=== PATIENT | male | born 1965 | race Caucasian/White ===

== ENCOUNTER 2019-04-19 13:22 | Inpatient (IN) ==
--- NOTE | 2019-04-19 15:01 | Emergency Department Note ---
General Adult HPI - General Source: patient Mode of arrival: wheelchair Limitations: no limitations <Garfield Markham - Last Filed: 04/19/19 14:43> <Alva Villalta - Last Filed: 04/19/19 17:47> - General Chief complaint: Extremity Injury, Lower Stated complaint: lower extremity Time Seen by Provider: 04/19/19 14:24 - History of Present Illness HPI Narrative: Reason for visit. Pt states that he is here to gain services to help manage his diabetes and health. He has new access to [facility]. He wants a primary provider and a place to stay while he is healing up from his recent foot surgery. He had the distal 3rd of his r foot amputated [address]eiros[address] He reports he is homeless and lives on the [address]. He denies systemic symptoms such as fever, chills, SOB, palpations or chest pain. He denies weakness or malaise. He was seen at [facility] 4 days ago and was treated. He is currently taking Keflex for complications regarding foot amputation. He wants to talk to someone who manages nephrology social worker to see what benefits he can obtain. I was informed after my interview that he had left AMA during his visit at [facility]. (Garfield Markham) Agree with HPI done by Garfield, nurse practitioner student. Patient was supposed to follow-up with Dr. Medeiros 2 days ago. He did not do so and does not have a reason. He seems to not know that he was supposed to follow-up 2 days ago. He also is homeless and has an extremely hard time getting around due to the new amputation as well as a few toes that were previously amputated off the other foot. States he cannot stay off his feet, has no other means of transport. His blood sugars have been out of control. He is currently eating candy and drinking Powerade and states he is homeless and has no money and he just eats and drinks when he can. He is tearful and states he is frustrated and wants to get placed in a fpc. States he cannot take care of himself. States he needs help with insurance, getting placement in a fpc, and getting a primary care provider because he does not want to keep losing his limbs. He denies fever chills. Direct denies drainage from the affected surgical site. As stated he did not follow-up 2 days ago and is unsure when he supposed to follow-up or what he supposed to do now as far as wound care taking care of that foot. (Alva Villalta) - Related Data Allergies Allergy/AdvReac Type Severity Reaction Status Date / Time No Known Drug Allergies Allergy Unverified 04/19/19 13:23 Review of Systems Constitutional: Reports: as per HPI. Denies: fever, chills, weakness, sweats Eyes: Denies: eye discharge, vision change ENT ED: Denies: ear pain, throat pain, congestion Cardiovascular: Denies: chest pain, palpitations, edema, syncope Respiratory: Denies: shortness of breath, wheezes Gastrointestinal: Denies: abdominal pain, nausea, vomiting, constipation Genitourinary: Denies: dysuria, frequency Musculoskeletal: Denies: back pain, joint pain, muscle cramps Integumentary: Denies: rash, lesions, pruritus Neurological: Reports: numbness, paresthesias (diabetic foot neuropathy). Denies: headache, weakness Endocrine: Denies: fatigue, heat or cold intolerance Hematological/Lymphatic: Denies: easy bleeding, easy bruising, lymphadenopathy Allergic/Immunologic: Denies: urticaria <Garfield Markham - Last Filed: 04/19/19 14:43> All systems ED: reviewed and negative except as stated. <LauradeborahnathanAlva Lynette - Last Filed: 04/19/19 17:47> Past Medical History - Social History smoking status: Current every day smoker <Garfield Markham - Last Filed: 04/19/19 14:43> - Past Medical History Medical history: Reports: DM, other (denies other history) Psychiatric history: Reports: other (homeless) Surgical history ED: Reports: other (Right foot amputation recently by Dr. Medeiros and toe amputations the left previously.) - Social History smoking status: Current every day smoker Alcohol use: Reports: Unknown Drug use: Reports: unknown, marijuana, other (Patient states he only uses marijuana however his urine and phentermine and he insists there is no way he does not amphetamines.) <Alva Villalta - Last Filed: 04/19/19 17:47> Physical Exam Limitations: no limitations General appearance: alert Head: atraumatic, normocephalic, normal inspection Eye: Present: normal appearance, PERRL, EOMI. Absent: scleral icterus ENT: normal exam, normal oropharynx, mucous membranes moist Neck: Present: normal inspection, trachea midline. Absent: tenderness, lymphadenopathy Chest: Present: symmetric chest wall rise Respiratory: Present: normal lung sounds bilaterally Cardiovascular: Present: regular rate, normal rhythm, +S1, +S2 Abdominal: Absent: tenderness, guarding Extremities: Present: full ROM, normal capillary refill, other (Recent amputation of R foot. Red eschare across distal area. pink warm surrounding tissue.). Absent: calf tenderness <Brown,Garfield - Last Filed: 04/19/19 14:43> Limitations: no limitations General appearance: alert, other (dishelved) Head: atraumatic, normocephalic, normal inspection ENT: mucous membranes moist Chest: Present: symmetric chest wall rise Respiratory: Present: normal lung sounds bilaterally. Absent: respiratory distress, rales/crackles, stridor, accessory muscle use Cardiovascular: Present: regular rate Extremities: Present: other Neurological: Present: alert Psychiatric: Present: normal affect, normal mood Skin: Present: warm, dry. Absent: rash <JorgenathanAlva Lynette - Last Filed: 04/19/19 17:47> Course <Alva Villaltae - Last Filed: 04/19/19 17:47> Course Narrative: Patient also seen by Dr. Roberson as well as myself. I did contact Dr. gomez who said he would be willing to consult on the patient if he is admitted, for wound care. At 1720 we did put in a call into the warehouse coordinator to request a bed and speak to the hospitalist about possible admission. His blood sugar was initially in the 400s and despite 14 units of insulin subcu per standard sliding scale he is now up to the 500s. phlebotomy services representative, Cass has been on here via, wound care consult, and try to get him set up to go to a fpc placement as he is unable to care for himself. @1745 Dr. Flynn accepted patient (Alva Villalta) Vital Signs Temperature 97.7 F 04/19/19 13:23 Pulse Rate 89 04/19/19 13:23 Respiratory Rate 18 04/19/19 13:23 Blood Pressure 130/77 04/19/19 13:23 Pulse Oximetry (%) 100 04/19/19 13:23 Temperature 97.7 F 04/19/19 13:23 Pulse Rate 89 04/19/19 13:23 Respiratory Rate 18 04/19/19 13:23 Blood Pressure 130/77 04/19/19 13:23 Pulse Oximetry (%) 100 04/19/19 13:23 Medical Decision Making - Lab Data Lab results reviewed: Yes I reviewed the patient's lab results. Result diagrams: 04/19/19 14:57 04/19/19 14:58 <LauraAlva collins - Last Filed: 04/19/19 17:47> - Lab Data Lab Results 04/19/19 04/19/19 04/19/19 Range/Units 14:57 14:57 14:57 WBC 3.5 L (4.5-11.0) K/mcL RBC 3.32 L (4.50-5.90) M/mcL Hgb 9.9 L (13.5-16.5) g/dL Hct 30.5 L (41.0-55.0) % MCV 91.6 (80.0-100.0) fL MCH 29.9 (26.0-34.0) pg MCHC 32.6 (31.0-36.0) g/dL RDW 15.3 H (11.5-14.5) % Plt Count 297 (140-440) K/mcL MPV 9.8 (7.4-10.4) fL Gran % 49.3 (38.0-78.0) % Lymph % (Auto) 42.0 (15.5-49.0) % Wilson % (Auto) 6.2 (1.0-12.0) % Eos % (Auto) 1.1 (0.0-7.0) % Baso % (Auto) 1.4 (0.0-2.0) % Gran # 1.7 L (1.8-8.0) K/mcL Lymph # (Auto) 1.5 (1.5-4.8) K/mcL Wilson # (Auto) 0.2 (0.1-0.9) K/mcL Eos # (Auto) 0 (0.0-0.7) K/mcL Baso # (Auto) 0 (0.0-0.3) K/mcL ESR 81 H (0-15) mm/hr Sodium (133-145) mmol/L Potassium (3.3-5.1) mmol/L Chloride (96-108) mmol/L Carbon Dioxide (22-30) mmol/L Anion Gap (8-16) BUN (6-20) mg/dl Creatinine (0.7-1.2) mg/dl GFR Calculation Glucose (70-105) mg/dL Calcium (8.6-10.4) mg/dl Total Bilirubin (0.0-1.0) mg/dL AST (0-37) U/l ALT (0-40) U/l Alkaline Phosphatase (39-117) U/L C-Reactive Protein 0.3 (0.0-0.8) mg/dl Total Protein (5.9-8.4) gm/dL Albumin (3.2-5.2) gm/dL Globulin (2.2-3.7) gm/dL Albumin/Globulin Ratio (1.0-2.3) Urine Color Urine Appearance Urine pH (5.0-9.0) Ur Specific [place] (1.000-1.035) Urine Protein (NEG) mg/dL Urine Glucose (UA) (NEG) mg/dL Urine Ketones (NEG) mg/dL Urine Occult Blood (<0.03) mg/dL Urine Nitrate (NEG) Urine Bilirubin (NEG) mg/dL Urine Urobilinogen (NEG) mg/dL Ur Leukocyte Esterase (NEG) /uL Urine RBC (0-1) /hpf Urine WBC (0-4) /hpf Ur Squamous Epith Cells (0-4) /hpf Urine Bacteria (0) /hpf Urine Mucus (0) /hpf Ur Culture Indicated? Urine Opiates Screen (NONDETECTED) Ur Oxycodone Screen (NONDETECTED) Urine Methadone Screen (NONDETECTED) Ur Barbiturates Screen (NONDETECTED) Ur Phencyclidine Scrn (NONDETECTED) Ur Amphetamines Screen (NONDETECTED) U Benzodiazepines Scrn (NONDETECTED) Urine Cocaine Screen (NONDETECTED) U Marijuana (THC) Screen (NONDETECTED) 04/19/19 04/19/19 04/19/19 Range/Units 14:58 14:58 14:59 WBC (4.5-11.0) K/mcL RBC (4.50-5.90) M/mcL Hgb (13.5-16.5) g/dL Hct (41.0-55.0) % MCV (80.0-100.0) fL MCH (26.0-34.0) pg MCHC (31.0-36.0) g/dL RDW (11.5-14.5) % Plt Count (140-440) K/mcL MPV (7.4-10.4) fL Gran % (38.0-78.0) % Lymph % (Auto) (15.5-49.0) % Wilson % (Auto) (1.0-12.0) % Eos % (Auto) (0.0-7.0) % Baso % (Auto) (0.0-2.0) % Gran # (1.8-8.0) K/mcL Lymph # (Auto) (1.5-4.8) K/mcL Wilson # (Auto) (0.1-0.9) K/mcL Eos # (Auto) (0.0-0.7) K/mcL Baso # (Auto) (0.0-0.3) K/mcL ESR (0-15) mm/hr Sodium 132 L (133-145) mmol/L Potassium 4.6 (3.3-5.1) mmol/L Chloride 97 (96-108) mmol/L Carbon Dioxide 23 (22-30) mmol/L Anion Gap 12.0 (8-16) BUN 10 (6-20) mg/dl Creatinine 0.7 (0.7-1.2) mg/dl GFR Calculation 109 Glucose 395 H (70-105) mg/dL Calcium 8.6 (8.6-10.4) mg/dl Total Bilirubin 0.3 (0.0-1.0) mg/dL AST 26 (0-37) U/l ALT 27 (0-40) U/l Alkaline Phosphatase 181 H (39-117) U/L C-Reactive Protein (0.0-0.8) mg/dl Total Protein 7.1 (5.9-8.4) gm/dL Albumin 3.4 (3.2-5.2) gm/dL Globulin 3.7 (2.2-3.7) gm/dL Albumin/Globulin Ratio 0.9 L (1.0-2.3) Urine Color Straw Urine Appearance Clear Urine pH 6.0 (5.0-9.0) Ur Specific [place] 1.009 (1.000-1.035) Urine Protein Neg (NEG) mg/dL Urine Glucose (UA) >=500 A (NEG) mg/dL Urine Ketones Neg (NEG) mg/dL Urine Occult Blood Neg (<0.03) mg/dL Urine Nitrate Neg (NEG) Urine Bilirubin Neg (NEG) mg/dL Urine Urobilinogen Neg (NEG) mg/dL Ur Leukocyte Esterase Neg (NEG) /uL Urine RBC 0 (0-1) /hpf Urine WBC < 1 (0-4) /hpf Ur Squamous Epith Cells < 1 (0-4) /hpf Urine Bacteria 0 (0) /hpf Urine Mucus Few (0) /hpf Ur Culture Indicated? No Urine Opiates Screen None detected (NONDETECTED) Ur Oxycodone Screen None detected (NONDETECTED) Urine Methadone Screen None detected (NONDETECTED) Ur Barbiturates Screen None detected (NONDETECTED) Ur Phencyclidine Scrn None detected (NONDETECTED) Ur Amphetamines Screen Suspect positive A (NONDETECTED) U Benzodiazepines Scrn None detected (NONDETECTED) Urine Cocaine Screen None detected (NONDETECTED) U Marijuana (THC) Screen Suspect positive A (NONDETECTED) Disposition <Garfield Markham - Last Filed: 04/19/19 14:43> Pt seen by CORPORATE MANAGER/PA only: No Time of Disposition: 17:45 <Alva Villalta - Last Filed: 04/19/19 17:47> Clinical Impression: Uncontrolled diabetes mellitus, Hyperglycemia, Status post amputation of right foot, Homeless Disposition: Xfer As Outpt/Obs ([facility]) Condition: Fair
[2019-04-19 15:29] LABS: Basophils # (Auto) 0 K/mcL (0.0-0.3); Basophils % (Auto) 1.4 % (0.0-2.0); Eosinophils # (Auto) 0 K/mcL (0.0-0.7); Eosinophils % (Auto) 1.1 % (0.0-7.0); Granulocytes % (Auto) 49.3 % (38.0-78.0); Hematocrit 30.5 % (41.0-55.0); Hemoglobin 9.9 g/dL (13.5-16.5); Lymphocytes # (Auto) 1.5 K/mcL (1.5-4.8); Mean Cell Volume 91.6 fL (80.0-100.0); Mean Corpuscular HGB Conc 32.6 g/dL (31.0-36.0); Mean Platelet Volume 9.8 fL (7.4-10.4); Monocytes # (Auto) 0.2 K/mcL (0.1-0.9); Monocytes % (Auto) 6.2 % (1.0-12.0); Platelet Count 297 K/mcL (140-440); RBC 3.32 M/mcL (4.50-5.90); Red Cell Distribution Width 15.3 % (11.5-14.5); WBC 3.5 K/mcL (4.5-11.0)
[2019-04-19 15:29] LABS: Appearance,Urine CLEAR; Bacteria,Urine 0 /hpf (0); Bilirubin,Urine NEG (NEG); Color,Urine STRAW; Culture Indicated,Urine NO; Glucose,Urine (UA) >=500 mg/dL (NEG); Ketones,Urine NEG (NEG); Leukocyte Esterase,Urine NEG /uL (NEG); Mucus,Urine FEW /hpf (0); Nitrate,Urine NEG (NEG); Protein,Urine NEG (NEG); Specific Gravity,Urine 1.009 (1.000-1.035); Urine Blood NEG mg/dL (<0.03); Urine RBC 0 /hpf (0-1); Urine Squamous Epithelial Cell < 1 /hpf (0-4); Urine WBC < 1 /hpf (0-4); Urobilinogen,Urine NEG (NEG)
[2019-04-19 15:36] LABS: Amphetamine Screen,Urine SUSPECT POSITIVE (NONDETECTED); Barbiturate Screen,Urine NONE DETECTED (NONDETECTED); Benzodiazepines Screen,Urine NONE DETECTED (NONDETECTED); Cannabinoid Screen,Urine SUSPECT POSITIVE (NONDETECTED); Cocaine Screen,Urine NONE DETECTED (NONDETECTED); Opiate Screen,Urine NONE DETECTED (NONDETECTED); Oxycodone, Urine Screen NONE DETECTED (NONDETECTED); Phencyclidine Screen,Urine NONE DETECTED (NONDETECTED)
[2019-04-19 15:47] LABS: ALT/SGPT 27 U/l (0-40); AST/SGOT 26 U/l (0-37); Albumin 3.4 gm/dL (3.2-5.2); Albumin/Globulin Ratio 0.9 (1.0-2.3); Alkaline Phosphatase 181 U/L (39-117); Bilirubin,Total 0.3 mg/dL (0.0-1.0); Blood Urea Nitrogen 10 mg/dl (6-20); Calcium 8.6 mg/dl (8.6-10.4); Carbon Dioxide 23 mmol/L (22-30); Chloride 97 mmol/L (96-108); Globulin 3.7 gm/dL (2.2-3.7); Glomerular Filtration Rate 109; Glucose 395 mg/dL (70-105); Potassium 4.6 mmol/L (3.3-5.1); Sodium 132 mmol/L (133-145)
[2019-04-19] MEDS ORDERED: INSULIN REGULAR, HUMAN 1 UNIT/0.01 ML UNIT SQ ONE (15:56)
[2019-04-19] MEDS ORDERED: 0.9 % SODIUM CHLORIDE 1,000 ML IV ONE (17:19)
[2019-04-19] MEDS ORDERED: INSULIN REGULAR, HUMAN 1 UNIT/0.01 ML UNIT IV ONE (17:19)
--- NOTE | 2019-04-19 18:08 | Internal Med History&Physical ---
Medical - H&P: HPI Patient information: Note initiated : 04/19/19 at 6:03 pm Service Date, if different from initiated Date: [] Patient: Wilfrido Damon a 53 y/o M admitted on for Lower Extremity. Chief Complaint: [] History of present illness: Mr. aDmon is a 53 year old M Who has had history of uncontrolled diabetes and osteomyelitis of his toes and has had amputations of the left toes and most recently transtarsal mentation of his right foot at [facility]. Most recent documentation [facility] per the hospitalist referencing the infectious disease specialist with 6 weeks of IV Zosyn. Patient became frustra julian regarding insurance and coverage and ended up leaving [place]. Does not sound like he has been on any antibiotics until he visited [facility] again 4 days ago to have his foot checked. It was checked in the ED and the wound appeared to be well per notes. He was given Keflex. Which is been taken for past 3 4 days. He came to [facility] for help to establish with primary care provider and wound care and placement as he is homeless and he says he has difficult time getting medications including his insulin. He was able to get his insulin recently at [facility] but has not been taking his insulin regularly. Patient does have history of drug use with IV methamphetamines as well as s moking it. He is marijuana. He has no pains or complaints at this time just desires help with this medical issues and placement. Case management has been involved with his care down the ER and is hoping to get a place to [facility]. Dr. angel is been talked to her in the ED as well will consult. Review of Systems: Pertinent positives as above. Denies headache/fever/chills/nausea/vomiting/ chest or abdominal pain/cough/dyspnea/diarrhea. Remaining 10 point review of systems reviewed negative Medical - H&P: PMH Medical history: Past medical history: Diabetes Anemia Osteomyelitis involving the left fourth and fifth digits with subsequent amputat ions as well as right great toe and subsequent right forefoot amputation Diabetic neuropathy Tobacco abuse methamphetamine use Past surgical history: Hernia repair left fourth and fifth digits right great toe and right hand metatarsal most recently Family history: Mother and father both of diabetes Social history: He smokes half pack cigarettes per day Drinks a beer a month Use marijuana and methamphetamine dates last use a week ago Medical - H&P: Meds Allergies Allergy/AdvReac Type Severity Reaction Status Date / Time No Known Drug Allergies Allergy Unverified 04/19/19 13:23 Medical - H&P: Exam - Constitutional Vitals: Temp Pulse Resp BP Pulse Ox 97.7 F 92 H 18 121/73 98 04/19/19 13:23 04/19/19 17:46 04/19/19 17:46 04/19/19 17:46 04/19/19 17:46 Medical - H&P: Reslt - Labs CBC & Chem 7: 04/19/19 14:57 04/19/19 14:58 Labs: Short CBC 04/19/19 Range/Units 14:57 WBC 3.5 L (4.5-11.0) K/mcL Hgb 9.9 L (13.5-16.5) g/dL Hct 30.5 L (41.0-55.0) % Plt Count 297 (140-440) K/mcL BMP 04/19/19 14:58 Sodium 132 L Potassium 4.6 Chloride 97 Carbon Dioxide 23 BUN 10 Creatinine 0.7 Glucose 395 H Calcium 8.6 Liver Function 04/19/19 Range/Units 14:58 Total Bilirubin 0.3 (0.0-1.0) mg/dL AST 26 (0-37) U/l ALT 27 (0-40) U/l Alkaline Phosphatase 181 H (39-117) U/L Albumin 3.4 (3.2-5.2) gm/dL Urine 04/19/19 Range/Units 14:58 Urine Color Straw Urine Appearance Clear Urine pH 6.0 (5.0-9.0) Ur Specific [place] 1.009 (1.000-1.035) Urine Protein Neg (NEG) mg/dL Urine Glucose (UA) >=500 A (NEG) mg/dL Medical - H&P: A/P - Narrative A/P Narrative: A: *Uncontrolled diabetes with neuropathy: Nonadherent with diabetic diet and noncompliant with strict insulin dosing regimen *Recent right foot amputation for diabetic infection and osteomyelitis: Performed by Dr. Medeiros at [facility]. -Per last notes from [facility] patient was was given Zosyn for 6 weeks but left AMA *Anemia, chronic *Tobacco abuse: *Substance abuse with methamphetamine: *Homeless: * P: -Zosyn -Dr. angel consult -Dr. Tolentino Consult -Clarify home insulin regimen and start basal dose as well as sliding scale -Diabetic education -Case management for placement -Substance and smoking cessation counseling -ppx:
[2019-04-19] MEDS ORDERED: IOPAMIDOL 100 ML BOTTLE IV ONE (18:48)
[2019-04-19] MEDS ORDERED: DEXTROSE 31 GM ORAL.SUSP PO PRN (18:50)
[2019-04-19] MEDS ORDERED: DEXTROSE 50% 50 ML VIAL IV PRN (18:50)
[2019-04-19] MEDS ORDERED: ONDANSETRON 4 MG/2 ML VIAL IV PRN (18:50)
[2019-04-19] MEDS ORDERED: ACETAMINOPHEN 325 MG TABLET PO PRN (18:50)
[2019-04-19] MEDS ORDERED: 0.9 % SODIUM CHLORIDE 1,000 ML IV SCH (18:50)
[2019-04-19] MEDS: PIPERACILLIN SODIUM/TAZOBACTAM 3.375 GM in DEXTROSE 5% IN WATER 50 ML IV SCH ×2 (19:14→23:58)
[2019-04-19] MEDS: 0.9 % SODIUM CHLORIDE 10 ML SYRINGE IV SCH (22:37)
[2019-04-19] MEDS: INSULIN LISPRO 1 UNIT/0.01 ML UNIT SQ SCH (22:41)
[2019-04-20] MEDS: 0.9 % SODIUM CHLORIDE 10 ML SYRINGE IV SCH ×3 (05:53→22:36)
[2019-04-20] MEDS: PIPERACILLIN SODIUM/TAZOBACTAM 3.375 GM in DEXTROSE 5% IN WATER 50 ML IV SCH ×4 (05:54→23:39)
--- NOTE | 2019-04-20 07:41 | Internal Med Progress Note ---
Medical - PN: Subj Patient information: Note initiated : 04/20/19 at 7:36 am Service Date, if different from initiated Date: [] Patient: Wilfrido Damon 53 y/o M admitted on 04/19/19 for Lower Extremity. Chief Complaint: [] Interval history: Mr. Damon is a 53 year old M Who has had history of uncontrolled diabetes and osteomyelitis of his toes and has had amputations of the left toes and most recently transtarsal mentation of his right foot at [facility]. Most recent documentation [facility] per the hospitalist referencing the infectious disease specialist with 6 weeks of IV Zosyn. Patient became frustrat ed regarding insurance and coverage and ended up leaving AMA. Does not sound like he has been on any antibiotics until he visited [facility] again 4 days ago to have his foot checked. It was checked in the ED and the wound appeared to be well per notes. He was given Keflex. Which is been taken for past 3 4 days. He came to [facility] for help to establish with primary care provider and wound c are and placement as he is homeless and he says he has difficult time getting medications including his insulin. He was able to get his insulin recently at [facility] but has not been taking his insulin regularly. Patient does have history of drug use with IV methamphetamines as well as sm oking it. He is marijuana. He has no pains or complaints at this time just desires help with this medical issues and placement. Case management has been involved with his care down the ER and is hoping to get a place to [facility]. Dr. angel is been talked to her in the ED as well will consult. 04/20 Was able to get some sleep. No overnight events. No new complaints. Review of Systems: denies headache/fever/chills/nausea/vomiting/chest or abdominal pain/cough/dyspnea/diarrhea. Otherwise see above. - Constitutional Vitals: Vital Signs Temp Pulse Resp BP Pulse Ox 98.0 F 83 20 131/85 97 04/20/19 04:31 04/20/19 04:31 04/20/19 04:31 04/20/19 04:31 04/20/19 04:31 Period Temp Pulse Resp BP Sys/Orosco Pulse Ox Last 24 Hr 97.7 F-98.4 F 77-92 18-24 121-139/73-86 97-100 Intake and Output 04/19/19 04/20/19 04/20/19 21:59 05:59 13:59 Intake Total 1240 1540 50 Output Total 1200 Balance 1240 340 50 Weight 58.74 kg Intake & Output: Intake & Output 04/19/19 04/20/19 04/20/19 21:59 05:59 13:59 Intake Total 1240 1540 50 Output Total 1200 Balance 1240 340 50 Weight 58.74 kg Intake: IV 1000 1100 50 Sodium Chloride 0.9% 1,000 ml @ 1000 Wide Open IV BOLUS ONE Rx#: [id number] Zosyn 3.375 gm In Dextrose 5% 100 50 in Water 50 ml @ 100 mls/hr IV Q6H ALBERT Rx#:[id number] Oral 240 440 Output: Void Amount 1200 Other: Meal Dinner Percent of Meal Consumed 100% Feeding Ability Independent Urine Color Pale Urine Odor Normal Stool Size Moderate Stool Color Brown Stool Consistency Soft Loose # Voids 1 # Bowel Movements 1 Exam: General: Alert, Awake, No acute Distress Eyes/N/T: EOMI, , Head/Neck: neck supple, CV: RRR, No murmurs, Pulm: Clear b/l, no wheezing/rhonchi/rales Abd: soft, nontender, +BS x4 Ext: no clubbing/cyanosis/edema. Right midfoot amputation. Amputation of several toes in the left foot Neuro: Alert, no focal deficits, moves all extremities, Skin: warm/dry Medical - PN: Obj Da - Labs CBC & Chem 7: 04/19/19 14:57 04/19/19 14:58 Labs: Abnormal Lab Results 04/19/19 04/19/19 04/19/19 14:59 14:58 14:58 WBC RBC Hgb Hct RDW Gran # ESR Sodium 132 L Glucose 395 H Alkaline Phosphatase 181 H Albumin/Globulin Ratio 0.9 L Urine Glucose (UA) >=500 A Ur Amphetamines Screen Suspect positive A U Marijuana (THC) Screen Suspect positive A 04/19/19 04/19/19 14:57 14:57 WBC 3.5 L RBC 3.32 L Hgb 9.9 L Hct 30.5 L RDW 15.3 H Gran # 1.7 L ESR 81 H Sodium Glucose Alkaline Phosphatase Albumin/Globulin Ratio Urine Glucose (UA) Ur Amphetamines Screen U Marijuana (THC) Screen Meds: Medications Acetaminophen (Tylenol) 650 mg PO Q6HP PRN PRN Reason: PAIN/FEVER > 101 Dextrose (Dextrose 50%) 0 ml IV UD PRN PRN Reason: Hypoglycemia Diagnostic Test (Pha) (Accu-Chek) 1 each FS ACHS [facility] Last Admin: 04/19/19 22:37 Dose: 1 each Documented by: Enoxaparin Sodium (Lovenox) 40 mg SQ DAILY [facility] Glucose (Insta-Glucose) 15 gm PO PRN PRN PRN Reason: Hypoglycemia Piperacillin Sod/Tazobactam (Sod 3.375 gm/ Dextrose) 50 mls @ 100 mls/hr IV Q6H [facility]; Protocol Last Infusion: 04/20/19 06:31 Dose: Infused Documented by: Insulin Human Lispro (Humalog) 0 unit SQ ACHS [facility]; Protocol Last Admin: 04/19/19 22:41 Dose: 9 units Documented by: Ondansetron HCl (Zofran) 4 mg IV Q6HP PRN PRN Reason: Nausea And Vomiting Sodium Chloride (Saline Flush) 10 ml IV Q8 [facility] Last Admin: 04/20/19 05:53 Dose: 10 ml Documented by: Medical - PN: A/P - Time Spent With Patient Total time spent is greater than 50% in coordination of care (as documented) at patient's floor/unit and/or counseling patient: - Narrative A/P Narrative: A: *Uncontrolled diabetes with neuropathy: Nonadherent with diabetic diet and noncompliant with strict insulin dosing regimen -A1c *Recent right foot amputation for diabetic infection and osteomyelitis: Performed by Dr. Medeiros at [facility]. -Per last notes from [facility] patient was was given Zosyn for 6 weeks but left AMA *Anemia, chronic *Tobacco abuse: *Substance abuse with methamphetamine: *Homeless: * P: -Zosyn -Dr. angel consult -Dr. Tolentino Consult -Clarify home insulin regimen and start basal dose as well as sliding scale -Diabetic education -Case management for placement -Substance and smoking cessation counseling -ppx: [employer] Medical - PN: Qual - Stroke Symptom Onset Unknown: No - VTE Deep Vein Thrombosis/Pulmonary Embolism Present on Admission: No
[2019-04-20] MEDS: INSULIN LISPRO 1 UNIT/0.01 ML UNIT SQ SCH ×4 (08:10→20:31)
[2019-04-20] MEDS: ENOXAPARIN 40 MG/0.4 ML SYRINGE SQ SCH (08:10)
[2019-04-20 08:32] LABS: Basophils # (Auto) 0 K/mcL (0.0-0.3); Basophils % (Auto) 0.7 % (0.0-2.0); Eosinophils # (Auto) 0.2 K/mcL (0.0-0.7); Eosinophils % (Auto) 2.5 % (0.0-7.0); Hematocrit 28.5 % (41.0-55.0); Hemoglobin 9.1 g/dL (13.5-16.5); Lymphocytes # (Auto) 1.9 K/mcL (1.5-4.8); Lymphocytes % (Auto) 28.4 % (15.5-49.0); Mean Cell Volume 92.4 fL (80.0-100.0); Mean Corpuscular HGB Conc 32.1 g/dL (31.0-36.0); Mean Platelet Volume 9.1 fL (7.4-10.4); Monocytes # (Auto) 0.4 K/mcL (0.1-0.9); Monocytes % (Auto) 5.4 % (1.0-12.0); Platelet Count 323 K/mcL (140-440); RBC 3.08 M/mcL (4.50-5.90); Red Cell Distribution Width 15.8 % (11.5-14.5); WBC 6.8 K/mcL (4.5-11.0)
[2019-04-20 08:48] LABS: C-Reactive Protein < 0.3 mg/dl (0.0-0.8)
[2019-04-20 08:54] LABS: ALT/SGPT 20 U/l (0-40); AST/SGOT 20 U/l (0-37); Albumin/Globulin Ratio 0.9 (1.0-2.3); Alkaline Phosphatase 155 U/L (39-117); Bilirubin,Direct < 0.2 mg/dL (0.0-0.3); Bilirubin,Total < 0.2 mg/dL (0.0-1.0); Blood Urea Nitrogen 9 mg/dl (6-20); Calcium 8.4 mg/dl (8.6-10.4); Carbon Dioxide 23 mmol/L (22-30); Chloride 107 mmol/L (96-108); Globulin 3.2 gm/dL (2.2-3.7); Glomerular Filtration Rate 103; Glucose 175 mg/dL (70-105); Lactate Dehydrogenase 114 U/L (94-250); Magnesium 1.9 mg/dL (1.6-2.5); Phosphorous 2.4 mg/dL (2.7-4.5); Potassium 4.2 mmol/L (3.3-5.1); Sodium 139 mmol/L (133-145); Triglycerides 80 mg/dl (<150)
[2019-04-20 08:59] LABS: Estimated Average Glucose(eAG) 272 mg/dL; Hemoglobin A1C 11.1 % HGB (4.0-6.0)
[2019-04-20] MEDS ORDERED: INSULIN GLARGINE, HUMAN 1 UNIT/0.01 ML SQ SCH ×2 (09:00)
[2019-04-20 09:35] LABS: Erythrocyte Sedimentation Rate 66 mm/hr (0-15)
[2019-04-20] MEDS: NICOTINE 21 MG PATCH TOPICAL SCH ×2 (11:15→19:27)
[2019-04-20] MEDS ORDERED: VANCOMYCIN PER PHARMACY IV SCH (12:03)
[2019-04-20] MEDS: VANCOMYCIN 1,000 MG in 0.9 % SODIUM CHLORIDE 250 ML IV SCH ×2 (13:12→22:36)
--- NOTE | 2019-04-20 16:51 | Cat Scan Report ---
CLINICAL INFORMATION: Diabetes. Nonhealing wound. TECHNIQUE: Axial thin section images through the right foot. Sagittal and coronal reformatted images. Oblique coronal reformatted images COMPARISON: None. FINDINGS: Site of nonhealing ulcer is not provided. No definite soft tissue gas or radiopaque foreign body. I believe there is a dressing over the dorsum of the midfoot. Patient has undergone previous transmetatarsal amputation. There is osteopenia or osteoporosis. Findings are suspicious for cortical destruction in the proximal right first metatarsal stump. Osteomyelitis is suspected. No other focal areas of acute cortical destruction identified. No other findings suggestive of osteomyelitis are noted. Follow-up examination or MRI scan may be helpful. Distal tibia and fibula are negative. Talus and calcaneus are negative. The navicular is intact. Cuboid and cuneiforms appear intact without definite cortical destruction. IMPRESSION: 1. Previous transmetatarsal forefoot amputation 2. Osteopenia or osteoporosis 3. Loss of cortex in the proximal first metatarsal stump consistent with osteomyelitis. 4. No soft tissue gas bubbles or radiopaque foreign body Interpreted and Authenticated by: Karthik Medina 04/20/19
--- NOTE | 2019-04-20 18:54 | Infectious Disease Consult ---
History of Present Illness Patient information: Note initiated : 04/20/19 at 6:43 pm Service Date, if different from initiated Date: [] Patient: Wilfrido Damon 53 y/o M admitted on 04/19/19 for Lower Extremity. Chief Complaint: [] Consult date: 04/20/19 Requesting Physician: Brandan Flynn Reason for Consult: Rt TMA stump infection Chief complaint: my foot hurts History of present illness: Pt does not remember all the details. HPI obtained from chart review and patient. 53 year old homeless man came to [facility] ED to "gain services to help manage his diabetes and health. He has new access to [facility]. He wants a primary provider and a place to stay while he is healing up from his recent foot surgery ". He has PMHx of: - DM2 - left foot surgery - right foot TMA on 03/30/19: no op cx sent, prior wound Cx growing ziegler-sens P vulgaris, Gp G Strep, Acinetobacter spp., E fecalis. He was offered IV Zosyn for 6 weeks but he left AMA from [facility] on PO Cephalexin He denied any fever, chills, n/v, diarrhea. He endorsed right stump pain, redness, swelling and difficulty walking on it. He endorses smoking weed and using IV meth. In addition, his blood sugars have been out of control lately. He is not inj any insulin currently. He mentions that he needs to get to a NH to heal otherwise he will on the street. Review of Systems All systems PM: reviewed and no additional remarkable complaints except as stated Past History Past family history: not pertinent to current presentation Past social history: homeless, used to live in [place] few mnths ago. Moved to [place] for settling here Medications and Allergies Home Medications Medication Instructions Recorded Confirmed Type Cephalexin [Keflex] 500 mg PO QID 04/19/19 04/19/19 History Insulin Glargine, Human [Lantus] 40 unit SQ HS 04/20/19 04/20/19 History Insulin Lispro [HumaLOG] 0 unit SQ ACHS 04/20/19 04/20/19 History Allergies Allergy/AdvReac Type Severity Reaction Status Date / Time No Known Drug Allergies Allergy Verified 04/19/19 19:17 Physical Examination Vital signs: Temp Pulse Resp BP Pulse Ox 37.1 C 90 16 154/85 99 06/27/19 16:00 04/20/19 16:00 04/20/19 16:00 04/20/19 16:00 04/20/19 16:00 General appearance: no acute distress Eyes pulmonary: nonicteric Extremities: other (the right TMA stump i swollen, red, temder, warm, and has some sero-sanguineous drainage, peripheral pulses palpable) Results - Laboratory Findings CBC and BMP: 04/20/19 08:00 04/20/19 08:00 Abnormal lab findings: Abnormal Labs 04/19/19 04/19/19 04/19/19 14:57 14:57 14:58 WBC 3.5 L RBC 3.32 L Hgb 9.9 L Hct 30.5 L RDW 15.3 H Gran # 1.7 L ESR 81 H Sodium 132 L Glucose 395 H Hemoglobin A1c Uric Acid Calcium Phosphorus Alkaline Phosphatase 181 H Albumin Albumin/Globulin Ratio 0.9 L Urine Glucose (UA) Ur Amphetamines Screen U Marijuana (THC) Screen 04/19/19 04/19/19 04/20/19 14:58 14:59 08:00 WBC RBC Hgb Hct RDW Gran # ESR Sodium Glucose 175 H Hemoglobin A1c Uric Acid 2.0 L Calcium 8.4 L Phosphorus 2.4 L Alkaline Phosphatase 155 H Albumin 3.0 L Albumin/Globulin Ratio 0.9 L Urine Glucose (UA) >=500 A Ur Amphetamines Screen Suspect positive A U Marijuana (THC) Screen Suspect positive A 04/20/19 04/20/19 08:00 08:00 WBC RBC 3.08 L Hgb 9.1 L Hct 28.5 L RDW 15.8 H Gran # ESR 66 H Sodium Glucose Hemoglobin A1c 11.1 H Uric Acid Calcium Phosphorus Alkaline Phosphatase Albumin Albumin/Globulin Ratio Urine Glucose (UA) Ur Amphetamines Screen U Marijuana (THC) Screen Microbiology: Microbiology 04/20/19 11:50 Nose MRSA (PCR) - Final Assessment and Plan - Narrative A/P Narrative: A: 1. Right forefoot infection, s/p TMA on 03/30/19 with biopsy findings of chronic osteomyelitis and CT foot today s/o osteomyelitis of proximal 1st metatarsal stump - has local signs of inflammation [warmth, redness, tenderness, swelling, minimal drainage] - superf wound Cx from forefoot wound grew E fecalis, P vulgaris, Acinetobacter spp, Gp G Strept on 03/30 - baseline ESR 66, CRP <0.3 2. History of homelessness Recommendations: - Continue IV Zosyn at 3.375 gm q8 hrs. Start IV Vanc per pharmacy assisted dosing (target trough 10-20) - superficial wound Cx were sent to r/o any Staph aureus, Pseudomonas superinfection - will plan for a 6 week course of antibiotics. will come up with an oral highly bioavailable antibiotic therapy option given pt's Hx of IV drug use. will follow Rogelio Tolentino MD Infectious diseases
[2019-04-20] MEDS: INSULIN GLARGINE, HUMAN 1 UNIT/0.01 ML SQ SCH (20:31)
[2019-04-20] MEDS ORDERED: HYDROcodone/APAP 5/325MG TABLET PO ONE (21:41)
[2019-04-20] MEDS: HYDROcodone/APAP 5/325MG TABLET PO PRN (21:42)
[2019-04-21] MEDS: PIPERACILLIN SODIUM/TAZOBACTAM 3.375 GM in DEXTROSE 5% IN WATER 50 ML IV SCH ×3 (06:00→17:05)
[2019-04-21] MEDS: 0.9 % SODIUM CHLORIDE 10 ML SYRINGE IV SCH ×4 (06:01→20:21)
[2019-04-21] MEDS: HYDROcodone/APAP 5/325MG TABLET PO PRN ×3 (06:06→17:05)
--- NOTE | 2019-04-21 07:01 | Internal Med Progress Note ---
Medical - PN: Subj Patient information: Note initiated : 04/21/19 at 6:57 am Service Date, if different from initiated Date: [] Patient: Wilfrido Damon 53 y/o M admitted on 04/19/19 for Lower Extremity. Chief Complaint: [] Interval history: Mr. Damon is a 53 year old M Who has had history of uncontrolled diabetes and osteomyelitis of his toes and has had amputations of the left toes and most recently transtarsal mentation of his right foot at [facility]. Most recent documentation [facility] per the hospitalist referencing the infectious disease specialist with 6 weeks of IV Zosyn. Patient became frustrat ed regarding insurance and coverage and ended up leaving AMA. Does not sound like he has been on any antibiotics until he visited [facility] again 4 days ago to have his foot checked. It was checked in the ED and the wound appeared to be well per notes. He was given Keflex. Which is been taken for past 3 4 days. He came to [facility] for help to establish with primary care provider and wound c are and placement as he is homeless and he says he has difficult time getting medications including his insulin. He was able to get his insulin recently at [facility] but has not been taking his insulin regularly. Patient does have history of drug use with IV methamphetamines as well as sm oking it. He is marijuana. He has no pains or complaints at this time just desires help with this medical issues and placement. Case management has been involved with his care down the ER and is hoping to get a place to [facility]. Dr. angel is been talked to her in the ED as well will consult. 04/20 Was able to get some sleep. No overnight events. No new complaints. 04/21 Slept little better. Some foot pain but otherwise no overnight events or new complaints. Review of Systems: denies headache/fever/chills/nausea/vomiting/chest or abdominal pain/cough/dyspnea/diarrhea. Otherwise see above. - Constitutional Vitals: Vital Signs Temp Pulse Resp BP Pulse Ox 98.1 F 85 16 101/60 98 04/21/19 03:25 04/21/19 03:25 04/21/19 03:25 04/21/19 03:25 04/21/19 03:25 Period Temp Pulse Resp BP Sys/Orosco Pulse Ox Last 24 Hr 97.5 F-98.7 F 82-93 16-20 101-154/60-89 98-100 Intake and Output 04/20/19 04/21/19 04/21/19 21:59 05:59 13:59 Intake Total 660 530 360 Output Total 600 1125 650 Balance 60 -595 -290 Weight 56.699 kg Intake & Output: Intake & Output 04/20/19 04/21/19 04/21/19 21:59 05:59 13:59 Intake Total 660 530 360 Output Total 600 1125 650 Balance 60 -595 -290 Weight 56.699 kg Intake: IV 300 50 Zosyn 3.375 gm In Dextrose 5% 50 50 in Water 50 ml @ 100 mls/hr IV Q6H [facility] Rx#:[id number] Vancomycin 1,000 mg In Sodium 250 Chloride 0.9% 250 ml @ 250 mls/ hr IV Q12H [facility] Rx#:[id number] Oral 360 480 360 Output: Urine Catheter Amount 600 Void Amount 1125 650 Other: Meal sandwhich Percent of Meal Consumed 100% Feeding Ability Independent Urine Appearance Clear Clear Clear Urine Color Bright Yellow Pale Pale Exam: General: Alert, Awake, No acute Distress Eyes/N/T: EOMI, , Head/Neck: neck supple, CV: RRR, No murmurs, Pulm: Clear b/l, no wheezing/rhonchi/rales Abd: soft, nontender, +BS x4 Ext: no clubbing/cyanosis/edema. Right midfoot amputation. Amputation of several toes in the left foot. Foot in dressing Neuro: Alert, no focal deficits, moves all extremities, Skin: warm/dry Medical - PN: Obj Da - Labs CBC & Chem 7: 04/20/19 08:00 04/20/19 08:00 Labs: Abnormal Lab Results 04/20/19 04/20/19 04/20/19 08:00 08:00 08:00 WBC RBC 3.08 L Hgb 9.1 L Hct 28.5 L RDW 15.8 H Gran # ESR 66 H Sodium Glucose 175 H Hemoglobin A1c 11.1 H Uric Acid 2.0 L Calcium 8.4 L Phosphorus 2.4 L Alkaline Phosphatase 155 H Albumin 3.0 L Albumin/Globulin Ratio 0.9 L Urine Glucose (UA) Ur Amphetamines Screen U Marijuana (THC) Screen 04/19/19 04/19/19 04/19/19 14:59 14:58 14:58 WBC RBC Hgb Hct RDW Gran # ESR Sodium 132 L Glucose 395 H Hemoglobin A1c Uric Acid Calcium Phosphorus Alkaline Phosphatase 181 H Albumin Albumin/Globulin Ratio 0.9 L Urine Glucose (UA) >=500 A Ur Amphetamines Screen Suspect positive A U Marijuana (THC) Screen Suspect positive A 04/19/19 04/19/19 14:57 14:57 WBC 3.5 L RBC 3.32 L Hgb 9.9 L Hct 30.5 L RDW 15.3 H Gran # 1.7 L ESR 81 H Sodium Glucose Hemoglobin A1c Uric Acid Calcium Phosphorus Alkaline Phosphatase Albumin Albumin/Globulin Ratio Urine Glucose (UA) Ur Amphetamines Screen U Marijuana (THC) Screen Meds: Medications Acetaminophen (Tylenol) 650 mg PO Q6HP PRN PRN Reason: PAIN/FEVER > 101 Last Admin: 04/20/19 19:27 Dose: 650 mg Documented by: Hydrocodone Bitart/Acetaminophen ([place] 5/325mg) 1 tab PO Q4HP PRN PRN Reason: PAIN LEVEL 3-6 Last Admin: 04/21/19 06:06 Dose: 1 tab Documented by: Dextrose (Dextrose 50%) 0 ml IV UD PRN PRN Reason: Hypoglycemia Diagnostic Test (Pha) (Accu-Chek) 1 each FS ACHS [facility] Last Admin: 04/20/19 20:30 Dose: 1 each Documented by: Enoxaparin Sodium (Lovenox) 40 mg SQ DAILY [facility] Last Admin: 04/20/19 08:10 Dose: 40 mg Documented by: Glucose (Insta-Glucose) 15 gm PO PRN PRN PRN Reason: Hypoglycemia Piperacillin Sod/Tazobactam (Sod 3.375 gm/ Dextrose) 50 mls @ 100 mls/hr IV Q6H [facility]; Protocol Last Admin: 04/21/19 06:00 Dose: 100 mls/hr Documented by: Vancomycin HCl 1,000 mg/ (Sodium Chloride) 250 mls @ 250 mls/hr IV Q12H [facility] Last Admin: 04/20/19 22:36 Dose: 250 mls/hr Documented by: Insulin Glargine (Lantus) [address] [facility] Last Admin: 06/27/19 20:31 Dose: 40 units Documented by: Insulin Human Lispro (Humalog) 0 unit SQ ACHS [facility]; Protocol Last Admin: 04/20/19 20:31 Dose: 6 units Documented by: Nicotine (Nicoderm) 21 mg TOPICAL DAILY@1000 [facility] Last Admin: 04/20/19 19:27 Dose: 21 mg Documented by: Ondansetron HCl (Zofran) 4 mg IV Q6HP PRN PRN Reason: Nausea And Vomiting Sodium Chloride (Saline Flush) 10 ml IV Q8 [facility] Last Admin: 04/21/19 06:01 Dose: 10 ml Documented by: Vancomycin HCl (Vancomycin Per Pharmacy) 1 order IV UD [facility]; Protocol Medical - PN: A/P - Time Spent With Patient Total time spent is greater than 50% in coordination of care (as documented) at patient's floor/unit and/or counseling patient: - Narrative A/P Narrative: A: *Uncontrolled diabetes with neuropathy: Nonadherent with diabetic diet and noncompliant with strict insulin dosing regimen -A1c 11.1 *Recent right foot amputation for diabetic infection/osteomyelitis with current Osteo of stump: Performed by Dr. Medeiros at [facility] in early March. -Per last notes from [facility] patient was supposed to be on Zosyn for 6 weeks but left AMA -Wound cx's from [facility] ED growing Proteus vulgaris/Acinetobacter spp/Enterococcus spp -CT findings consistent with osteo of 1st MT stump -BC neg *Anemia, chronic *Tobacco abuse: *Substance abuse with methamphetamine: *Homeless: *hyponatremia: resolved P: -Zosyn/vanco, -wound care following -Dr. Tolentino Consult - home lantus and SSI -Diabetic education -Case management for placement -Substance and smoking cessation counseling -ppx: [facility] Medical - PN: Qual - Stroke Symptom Onset Unknown: No - VTE Deep Vein Thrombosis/Pulmonary Embolism Present on Admission: No
[2019-04-21] MEDS: ENOXAPARIN 40 MG/0.4 ML SYRINGE SQ SCH (08:14)
[2019-04-21] MEDS: NICOTINE 21 MG PATCH TOPICAL SCH (08:14)
[2019-04-21] MEDS: INSULIN LISPRO 1 UNIT/0.01 ML UNIT SQ SCH ×4 (08:14→20:19)
[2019-04-21] MEDS: VANCOMYCIN 1,000 MG in 0.9 % SODIUM CHLORIDE 250 ML IV SCH (10:38)
--- NOTE | 2019-04-21 17:30 | Infectious Disease Prog Note ---
Subjective Patient information: Note initiated : 04/21/19 at 5:28 pm Service Date, if different from initiated Date: [] Patient: Wilfrido Damon 53 y/o M admitted on 04/19/19 for Lower Extremity. Chief Complaint: [] Interval history: Pt had a comfortable night. Denies any fever, chills, n/v, diarrhea. Endorses some right foot pain. Objective Objective Narrative: ao x 3, in nad no thrush no belly pain right foot TMA stump looks less red and swollen, minimally tender, with no active drainage, sutures in situ - Vital Signs Vital signs: Vital Signs Temp Pulse Resp BP BP Pulse Ox 04/21/19 15:29 37.1 C 81 15 123/76 99 04/21/19 12:00 36.6 C 20 107/66 100 04/21/19 08:00 36.9 C 73 14 113/67 99 04/21/19 03:25 36.7 C 85 16 101/60 98 04/20/19 23:25 36.7 C 93 H 16 122/74 100 04/20/19 19:15 37.0 C 93 H 20 147/89 99 Intake and Output 04/21/19 04/21/19 04/21/19 05:59 13:59 21:59 Intake Total 780 1670 240 Output Total 1125 650 Balance -345 1020 240 Intake: IV 300 350 Zosyn 3.375 gm In Dextrose 5% 50 100 in Water 50 ml @ 100 mls/hr IV Q6H [facility] Rx#:[id number] Vancomycin 1,000 mg In Sodium 250 250 Chloride 0.9% 250 ml @ 250 mls/ hr IV Q12H [facility] Rx#:[id number] Oral 480 1320 240 Output: Void Amount 1125 650 Other: Meal sandwhich Lunch Percent of Meal Consumed 100% 100% Feeding Ability Independent Independent Urine Appearance Clear Clear Urine Color Pale Pale # Voids 3 Weight 56.699 kg Patient Weight 04/22/19 05:59 Weight 56.699 kg Intake & Output: Intake & Output 04/21/19 04/21/19 04/21/19 05:59 13:59 21:59 Intake Total 780 1670 240 Output Total 1125 650 Balance -345 1020 240 Weight 56.699 kg Intake: IV 300 350 Zosyn 3.375 gm In Dextrose 5% 50 100 in Water 50 ml @ 100 mls/hr IV Q6H [facility] Rx#:[id number] Vancomycin 1,000 mg In Sodium 250 250 Chloride 0.9% 250 ml @ 250 mls/ hr IV Q12H [facility] Rx#:[id number] Oral 480 1320 240 Output: Void Amount 1125 650 Other: Meal sandwhich Lunch Percent of Meal Consumed 100% 100% Feeding Ability Independent Independent Urine Appearance Clear Clear Urine Color Pale Pale # Voids 3 - Lab 04/20/19 08:00 04/20/19 08:00 Most recent lab results Calcium 8.4 mg/dl (8.6-10.4) L 04/20/19 08:00 Phosphorus 2.4 mg/dL (2.7-4.5) L 04/20/19 08:00 Magnesium 1.9 mg/dL (1.6-2.5) 04/20/19 08:00 Microbiology 04/20/19 11:50 Foot - Right Gram Stain - Final 04/20/19 11:50 Foot - Right Wound Culture - Preliminary Gram negative bacillus 04/19/19 19:15 Blood Blood Culture - Preliminary 04/19/19 19:18 Blood Blood Culture - Preliminary 04/20/19 11:50 Nose MRSA (PCR) - Final Medications Active Medications: Acetaminophen (Tylenol) 650 mg PO Q6HP PRN PRN Reason: PAIN/FEVER > 101 Last Admin: 04/20/19 19:27 Dose: 650 mg Documented by: LISA Hydrocodone Bitart/Acetaminophen ([place] 5/325mg) 1 - 2 tab PO Q4HP PRN PRN Reason: PAIN LEVEL 3-6 Last Admin: 04/21/19 17:05 Dose: 1 tab Documented by: Admin: 04/21/19 10:42 Dose: 2 tab Documented by: ABHI Dextrose (Dextrose 50%) 0 ml IV UD PRN PRN Reason: Hypoglycemia Diagnostic Test (Pha) (Accu-Chek) 1 each FS ACHS [facility] Last Admin: 04/21/19 16:57 Dose: 1 each Documented by: Admin: 04/21/19 10:45 Dose: 1 each Documented by: Admin: 04/21/19 08:14 Dose: 1 each Documented by: Admin: 04/20/19 20:30 Dose: 1 each Documented by: Admin: 04/20/19 17:30 Dose: 1 each Documented by: Admin: 04/20/19 11:14 Dose: 1 each Documented by: Admin: 04/20/19 07:40 Dose: 1 each Documented by: Admin: 04/19/19 22:37 Dose: 1 each Documented by: MAGUI Enoxaparin Sodium (Lovenox) 40 mg SQ DAILY [facility] Last Admin: 04/21/19 08:14 Dose: 40 mg Documented by: Admin: 04/20/19 08:10 Dose: 40 mg Documented by: ABHI Glucose (Insta-Glucose) 15 gm PO PRN PRN PRN Reason: Hypoglycemia Piperacillin Sod/Tazobactam (Sod 3.375 gm/ Dextrose) 50 mls @ 100 mls/hr IV Q6H [facility]; Protocol Last Admin: 04/21/19 17:05 Dose: 100 mls/hr Documented by: Infusion: 04/21/19 12:30 Dose: 0 mls/hr Documented by: Admin: 04/21/19 11:54 Dose: 100 mls/hr Documented by: Infusion: 04/21/19 08:08 Dose: 0 mls/hr Documented by: Admin: 04/21/19 06:00 Dose: 100 mls/hr Documented by: Infusion: 04/21/19 00:09 Dose: 100 mls/hr Documented by: Admin: 04/20/19 23:39 Dose: 100 mls/hr Documented by: Infusion: 04/20/19 18:00 Dose: 100 mls/hr Documented by: Admin: 04/20/19 17:30 Dose: 100 mls/hr Documented by: Infusion: 04/20/19 13:12 Dose: 0 mls/hr Documented by: Admin: 04/20/19 11:15 Dose: 100 mls/hr Documented by: Infusion: 04/20/19 06:31 Dose: 0 mls/hr Documented by: Admin: 04/20/19 05:54 Dose: 100 mls/hr Documented by: Infusion: 04/20/19 00:30 Dose: 0 mls/hr Documented by: Admin: 04/19/19 23:58 Dose: 100 mls/hr Documented by: Infusion: 04/19/19 22:26 Dose: 0 mls/hr Documented by: Admin: 04/19/19 19:14 Dose: 100 mls/hr Documented by: MAGUI Vancomycin HCl 1,000 mg/ (Sodium Chloride) 250 mls @ 250 mls/hr IV Q12H [facility] Last Infusion: 04/21/19 11:45 Dose: 0 mls/hr Documented by: Admin: 04/21/19 10:38 Dose: 250 mls/hr Documented by: Infusion: 04/20/19 23:36 Dose: 250 mls/hr Documented by: Admin: 04/20/19 22:36 Dose: 250 mls/hr Documented by: Infusion: 04/20/19 14:30 Dose: 0 mls/hr Documented by: Admin: 04/20/19 13:12 Dose: 250 mls/hr Documented by: ABHI Insulin Glargine (Lantus) 40 unit SQ HS [facility] Last Admin: 04/20/19 20:31 Dose: 40 units Documented by: LISA Insulin Human Lispro (Humalog) 0 unit SQ ACHS [facility]; Protocol Last Admin: 04/21/19 16:57 Dose: 12 units Documented by: Admin: 04/21/19 10:45 Dose: Not Given Documented by: ABHI Non-Admin Reason: No Coverage Needed Admin: 04/21/19 08:14 Dose: 12 units Documented by: Admin: 04/20/19 20:31 Dose: 6 units Documented by: Admin: 04/20/19 17:31 Dose: 9 units Documented by: Admin: 04/20/19 11:15 Dose: 3 units Documented by: Admin: 04/20/19 08:10 Dose: 3 units Documented by: Admin: 04/19/19 22:41 Dose: 9 units Documented by: MAGUI Nicotine (Nicoderm) 21 mg TOPICAL DAILY@1000 [facility] Last Admin: 04/21/19 08:14 Dose: 21 mg Documented by: Admin: 04/20/19 19:27 Dose: 21 mg Documented by: Admin: 04/20/19 11:15 Dose: 21 mg Documented by: ABHI Ondansetron HCl (Zofran) 4 mg IV Q6HP PRN PRN Reason: Nausea And Vomiting Sodium Chloride (Saline Flush) 10 ml IV Q8 [facility] Last Admin: 04/21/19 12:02 Dose: Not Given Documented by: ABHI Non-Admin Reason: See previous Admin: 04/21/19 11:55 Dose: 10 ml Documented by: Admin: 04/21/19 06:01 Dose: 10 ml Documented by: Admin: 04/20/19 22:36 Dose: 10 ml Documented by: Admin: 04/20/19 13:12 Dose: 10 ml Documented by: Admin: 04/20/19 05:53 Dose: 10 ml Documented by: Admin: 04/19/19 22:37 Dose: Not Given Documented by: MAGUI Non-Admin Reason: Bag Still Infusing Vancomycin HCl (Vancomycin Per Pharmacy) 1 order IV UD [facility]; Protocol Assessment and Plan - Narrative A/P Narrative: A: 1. Right forefoot infection, s/p TMA on 03/30/19 with biopsy findings of chronic osteomyelitis and CT foot today s/o osteomyelitis of proximal 1st metatarsal stump - has local signs of inflammation [warmth, redness, tenderness, swelling, minimal drainage] - superf wound Cx from forefoot wound prior to 03/30/19 grew E fecalis, P vulgaris, Acinetobacter spp, Gp G Strept on 03/30 - superficial wound Cx from 04/20 growing GNR, awaiting ID and sensi - baseline ESR 66, CRP <0.3 2. History of homelessness Recommendations: - Continue IV Zosyn at 3.375 gm q6 hrs. - Stop IV Vanc - will plan for a 6 week course of antibiotics. will come up with an oral highly bioavailable antibiotic therapy option given pt's Hx of IV drug use. will follow Rogelio Tolentino MD Infectious diseases
[2019-04-21] MEDS: INSULIN GLARGINE, HUMAN 1 UNIT/0.01 ML SQ SCH (20:20)
[2019-04-22] MEDS: 0.9 % SODIUM CHLORIDE 10 ML SYRINGE IV SCH ×3 (05:10→22:14)
[2019-04-22] MEDS: PIPERACILLIN SODIUM/TAZOBACTAM 3.375 GM in DEXTROSE 5% IN WATER 50 ML IV SCH ×4 (05:10→17:30)
[2019-04-22] MEDS: INSULIN LISPRO 1 UNIT/0.01 ML UNIT SQ SCH ×4 (08:04→20:24)
--- NOTE | 2019-04-22 08:14 | Internal Med Progress Note ---
Medical - PN: Subj Patient information: Note initiated : 04/22/19 at 8:10 am Service Date, if different from initiated Date: [] Patient: Wilfrido Damon 53 y/o M admitted on 04/19/19 for Lower Extremity. Chief Complaint: [] Interval history: Mr. Damon is a 53 year old M Who has had history of uncontrolled diabetes and osteomyelitis of his toes and has had amputations of the left toes and most recently transtarsal mentation of his right foot at [facility]. Most recent documentation [facility] per the hospitalist referencing the infectious disease specialist with 6 weeks of IV Zosyn. Patient became frustrat ed regarding insurance and coverage and ended up leaving AMA. Does not sound like he has been on any antibiotics until he visited [facility] again 4 days ago to have his foot checked. It was checked in the ED and the wound appeared to be well per notes. He was given Keflex. Which is been taken for past 3 4 days. He came to [facility] for help to establish with primary care provider and wound c are and placement as he is homeless and he says he has difficult time getting medications including his insulin. He was able to get his insulin recently at [facility] but has not been taking his insulin regularly. Patient does have history of drug use with IV methamphetamines as well as sm oking it. He is marijuana. He has no pains or complaints at this time just desires help with this medical issues and placement. Case management has been involved with his care down the ER and is hoping to get a place to [facility] Dr. angel is been talked to her in the ED as well will consult. 04/20 Was able to get some sleep. No overnight events. No new complaints. 04/21 Slept little better. Some foot pain but otherwise no overnight events or new complaints. 04/22 Seems to be a little irritable when people come in and check his vitals in the morning. Otherwise slept well and no new complaints. Foot wound growing gram- negative bacillus. Review of Systems: denies headache/fever/chills/nausea/vomiting/chest or abdominal pain/cough/dyspnea/diarrhea. Otherwise see above. - Constitutional Vitals: Vital Signs Temp Pulse Resp BP Pulse Ox 98.6 F 71 20 158/95 100 04/22/19 06:51 04/22/19 04:00 04/22/19 06:51 04/22/19 06:51 04/22/19 06:51 Period Temp Pulse Resp BP Sys/Orosco Pulse Ox Last 24 Hr 97.8 F-98.8 F 71-83 15-20 107-158/66-95 97-100 Intake and Output 04/21/19 04/22/19 04/22/19 21:59 05:59 13:59 Intake Total 290 1100 Balance 290 1100 Weight 58.06 kg Intake & Output: Intake & Output 04/21/19 04/22/19 04/22/19 21:59 05:59 13:59 Intake Total 290 1100 Balance 290 1100 Weight 58.06 kg Intake: IV 50 100 Zosyn 3.375 gm In Dextrose 5% 50 100 in Water 50 ml @ 100 mls/hr IV Q6H [facility] Rx#:[id number] Oral 240 500 GI Tube Flush 500 Other: Urine Appearance Clear Urine Color Pale Urine Odor Normal # Voids 3 3 Exam: General: Alert, Awake, No acute Distress Eyes/N/T: EOMI, , Head/Neck: neck supple, CV: RRR, No murmurs, Pulm: Clear b/l, no wheezing/rhonchi/rales Abd: soft, nontender, +BS x4 Ext: no clubbing/cyanosis/edema. Right midfoot amputation. Amputation of several toes in the left foot. Foot in dressing Neuro: Alert, no focal deficits, moves all extremities, Skin: warm/dry Medical - PN: Obj Da - Labs CBC & Chem 7: 04/20/19 08:00 04/20/19 08:00 Labs: Abnormal Lab Results 04/20/19 04/20/19 04/20/19 08:00 08:00 08:00 WBC RBC 3.08 L Hgb 9.1 L Hct 28.5 L RDW 15.8 H Gran # ESR 66 H Sodium Glucose 175 H Hemoglobin A1c 11.1 H Uric Acid 2.0 L Calcium 8.4 L Phosphorus 2.4 L Alkaline Phosphatase 155 H Albumin 3.0 L Albumin/Globulin Ratio 0.9 L Urine Glucose (UA) Ur Amphetamines Screen U Marijuana (THC) Screen 04/19/19 04/19/19 04/19/19 14:59 14:58 14:58 WBC RBC Hgb Hct RDW Gran # ESR Sodium 132 L Glucose 395 H Hemoglobin A1c Uric Acid Calcium Phosphorus Alkaline Phosphatase 181 H Albumin Albumin/Globulin Ratio 0.9 L Urine Glucose (UA) >=500 A Ur Amphetamines Screen Suspect positive A U Marijuana (THC) Screen Suspect positive A 04/19/19 04/19/19 14:57 14:57 WBC 3.5 L RBC 3.32 L Hgb 9.9 L Hct 30.5 L RDW 15.3 H Gran # 1.7 L ESR 81 H Sodium Glucose Hemoglobin A1c Uric Acid Calcium Phosphorus Alkaline Phosphatase Albumin Albumin/Globulin Ratio Urine Glucose (UA) Ur Amphetamines Screen U Marijuana (THC) Screen Meds: Medications Acetaminophen (Tylenol) 650 mg PO Q6HP PRN PRN Reason: PAIN/FEVER > 101 Last Admin: 04/20/19 19:27 Dose: 650 mg Documented by: Hydrocodone Bitart/Acetaminophen ([place] 5/325mg) 1 - 2 tab PO Q4HP PRN PRN Reason: PAIN LEVEL 3-6 Last Admin: 04/21/19 17:05 Dose: 1 tab Documented by: Dextrose (Dextrose 50%) 0 ml IV UD PRN PRN Reason: Hypoglycemia Diagnostic Test (Pha) (Accu-Chek) 1 each FS [facility] Last Admin: 04/22/19 08:04 Dose: 1 each Documented by: Enoxaparin Sodium (Lovenox) 40 mg SQ DAILY [facility] Last Admin: 04/21/19 08:14 Dose: 40 mg Documented by: Glucose (Insta-Glucose) 15 gm PO PRN PRN PRN Reason: Hypoglycemia Piperacillin Sod/Tazobactam (Sod 3.375 gm/ Dextrose) 50 mls @ 100 mls/hr IV Q6H [facility]; Protocol Last Infusion: 04/22/19 05:40 Dose: Infused Documented by: Insulin Glargine (Lantus) [address] [facility] Last Admin: 04/21/19 20:20 Dose: 40 units Documented by: Insulin Human Lispro (Humalog) 0 unit SQ [facility]; Protocol Last Admin: 04/22/19 08:04 Dose: Not Given Documented by: Nicotine (Nicoderm) 21 mg TOPICAL DAILY@1000 [facility] Last Admin: 04/21/19 08:14 Dose: 21 mg Documented by: Ondansetron HCl (Zofran) 4 mg IV Q6HP PRN PRN Reason: Nausea And Vomiting Sodium Chloride (Saline Flush) 10 ml IV Q8 [facility] Last Admin: 04/22/19 05:10 Dose: 10 ml Documented by: Medical - PN: A/P - Time Spent With Patient Total time spent is greater than 50% in coordination of care (as documented) at patient's floor/unit and/or counseling patient: - Narrative A/P Narrative: A: *Right Foot infection w/Osteo & Recent amputation for diabetic infection/osteomyelitis: Performed by Dr. Medeiros at [facility] in early March. -Per last notes from [place] patient was supposed to be on Zosyn for 6 wee ks but left AMA -original WC's [facility] ED growing Proteus vulgaris/Acinetobacter spp/Ent erococcus spp -WC's here growing GNB -CT findings consistent with osteo of 1st MT stump -BC neg *Uncontrolled diabetes with neuropathy: Nonadherent with diabetic diet and noncompliant with strict insulin dosing regimen -A1c 11.1 *Anemia, chronic *Tobacco abuse: *Substance abuse with methamphetamine: *Homeless: *hyponatremia: resolved P: -Zosyn, awaiting final cx's -Dr. Tolentino Consult -wound care following -home lantus and SSI -Diabetic education -Case management for placement -Substance and smoking cessation counseling -ppx: [facility] - PN: Qual - Stroke Symptom Onset Unknown: No - VTE Deep Vein Thrombosis/Pulmonary Embolism Present on Admission: No
[2019-04-22] MEDS: HYDROcodone/APAP 5/325MG TABLET PO PRN ×2 (10:24→20:25)
[2019-04-22] MEDS: NICOTINE 21 MG PATCH TOPICAL SCH (10:32)
[2019-04-22] MEDS: ENOXAPARIN 40 MG/0.4 ML SYRINGE SQ SCH (10:33)
[2019-04-22] MEDS: INSULIN GLARGINE, HUMAN 1 UNIT/0.01 ML SQ SCH (20:24)
[2019-04-23] MEDS: PIPERACILLIN SODIUM/TAZOBACTAM 3.375 GM in DEXTROSE 5% IN WATER 50 ML IV SCH ×5 (00:11→23:36)
[2019-04-23] MEDS: 0.9 % SODIUM CHLORIDE 10 ML SYRINGE IV SCH ×3 (05:34→23:37)
--- NOTE | 2019-04-23 08:02 | Internal Med Progress Note ---
Medical - PN: Subj Patient information: Note initiated : 04/23/19 at 8:01 am Service Date, if different from initiated Date: [] Patient: Wilfrido Damon 53 y/o M admitted on 04/19/19 for Lower Extremity. Chief Complaint: [] Interval history: Mr. Damon is a 53 year old M Who has had history of uncontrolled diabetes and osteomyelitis of his toes and has had amputations of the left toes and most recently transtarsal mentation of his right foot at [facility]. Most recent documentation [facility] per the hospitalist referencing the infectious disease specialist with 6 weeks of IV Zosyn. Patient became frustrat ed regarding insurance and coverage and ended up leaving AMA. Does not sound like he has been on any antibiotics until he visited [facility] again 4 days ago to have his foot checked. It was checked in the ED and the wound appeared to be well per notes. He was given Keflex. Which is been taken for past 3 4 days. He came to [facility] for help to establish with primary care provider and wound c are and placement as he is homeless and he says he has difficult time getting medications including his insulin. He was able to get his insulin recently at [facility] but has not been taking his insulin regularly. Patient does have history of drug use with IV methamphetamines as well as sm oking it. He is marijuana. He has no pains or complaints at this time just desires help with this medical issues and placement. Case management has been involved with his care down the ER and is hoping to get a place to [facility]. Dr. angel is been talked to her in the ED as well will consult. 04/20 Was able to get some sleep. No overnight events. No new complaints. 04/21 Slept little better. Some foot pain but otherwise no overnight events or new complaints. 04/22 Seems to be a little irritable when people come in and check his vitals in the morning. Otherwise slept well and no new complaints. Foot wound growing gram- negative bacillus. 04/23 Sleeping better. No new complaints. Foot culture with enterococcus and 2 other gram-negative bacilli. manager drug working on placement. Review of Systems: denies headache/fever/chills/nausea/vomiting/chest or abdominal pain/cough/ dyspnea/diarrhea. Otherwise see above. - Constitutional Vitals: Vital Signs Temp Pulse Resp BP Pulse Ox 98 F 76 16 118/77 99 04/23/19 06:46 04/23/19 03:44 04/23/19 06:46 04/23/19 06:46 04/23/19 06:46 Period Temp Pulse Resp BP Sys/Orosco Pulse Ox Last 24 Hr 97.5 F-99.2 F 76-88 16-20 111-144/64-88 96-100 Intake and Output 04/22/19 04/23/19 04/23/19 21:59 05:59 13:59 Intake Total 650 550 Balance 650 550 Weight 57.833 kg Intake & Output: Intake & Output 04/22/19 04/23/19 04/23/19 21:59 05:59 13:59 Intake Total 650 550 Balance 650 550 Weight 57.833 kg Intake: Nourishment/Supplement quantity 240 (ml) IV 50 50 Zosyn 3.375 gm In Dextrose 5% 50 50 in Water 50 ml @ 100 mls/hr IV Q6H [facility] Rx#:[id number] Oral 360 500 Other: Meal Nourishment/Supplement Percent of Meal Consumed 100% Feeding Ability Independent Nourishment/Supplement name Glucerna # Voids 2 Exam: General: Alert, Awake, No acute Distress Eyes/N/T: EOMI, , Head/Neck: neck supple, CV: RRR, No murmurs, Pulm: Clear b/l, no wheezing/rhonchi/rales Abd: soft, nontender, +BS x4 Ext: no clubbing/cyanosis/edema. Right midfoot amputation. Amputation of several toes in the left foot. Foot in dressing Neuro: Alert, no focal deficits, moves all extremities, Skin: warm/dry Medical - PN: Obj Da - Labs CBC & Chem 7: 04/20/19 08:00 04/20/19 08:00 Labs: Abnormal Lab Results 04/20/19 04/20/19 04/20/19 08:00 08:00 08:00 RBC 3.08 L Hgb 9.1 L Hct 28.5 L RDW 15.8 H ESR 66 H Glucose 175 H Hemoglobin A1c 11.1 H Uric Acid 2.0 L Calcium 8.4 L Phosphorus 2.4 L Alkaline Phosphatase 155 H Albumin 3.0 L Albumin/Globulin Ratio 0.9 L Meds: Medications Acetaminophen (Tylenol) 650 mg PO Q6HP PRN PRN Reason: PAIN/FEVER > 101 Last Admin: 04/20/19 19:27 Dose: 650 mg Documented by: Hydrocodone Bitart/Acetaminophen ([place] 5/325mg) 1 - 2 tab PO Q4HP PRN PRN Reason: PAIN LEVEL 3-6 Last Admin: 04/22/19 20:25 Dose: 2 tab Documented by: Dextrose (Dextrose 50%) 0 ml IV UD PRN PRN Reason: Hypoglycemia Diagnostic Test (Pha) (Accu-Chek) [address] [facility] Last Admin: 04/22/19 20:23 Dose: 1 each Documented by: Enoxaparin Sodium (Lovenox) 40 mg SQ DAILY [facility] Last Admin: 04/22/19 10:33 Dose: 40 mg Documented by: Glucose (Insta-Glucose) 15 gm PO PRN PRN PRN Reason: Hypoglycemia Piperacillin Sod/Tazobactam (Sod 3.375 gm/ Dextrose) 50 mls @ 100 mls/hr IV Q6H [facility]; Protocol Last Admin: 04/23/19 05:15 Dose: 100 mls/hr Documented by: Insulin Glargine (Lantus) 40 unit SQ [facility] Last Admin: 04/22/19 20:24 Dose: 40 units Documented by: Insulin Human Lispro (Humalog) 0 unit SQ [facility]; Protocol Last Admin: 04/22/19 20:24 Dose: 18 units Documented by: Nicotine (Nicoderm) 21 mg TOPICAL DAILY@1000 [facility] Last Admin: 04/22/19 10:32 Dose: Not Given Documented by: Ondansetron HCl (Zofran) 4 mg IV Q6HP PRN PRN Reason: Nausea And Vomiting Sodium Chloride (Saline Flush) 10 ml IV Q8 [facility] Last Admin: 04/23/19 05:34 Dose: 10 ml Documented by: Medical - PN: A/P - Time Spent With Patient Total time spent is greater than 50% in coordination of care (as documented) at patient's floor/unit and/or counseling patient: - Narrative A/P Narrative: A: *Right Foot infection w/Osteo & Recent amputation for diabetic infection/osteomyelitis: Performed by Dr. Medeiros at [facility] in early March. -Per last notes from [place] patient was supposed to be on Zosyn for 6 weeks but left AMA -original WC's [facility] growing Proteus vulgaris/Acinetobacter spp/Enterococcus spp -WC's here growing Enterobacter & Two other GNB -CT findings consistent with osteo of 1st MT stump -BC neg *Uncontrolled diabetes with neuropathy: Nonadherent with diabetic diet and noncompliant with strict insulin dosing regimen -A1c 11.1 *Anemia, chronic *Tobacco abuse: *Substance abuse with methamphetamine: *Homeless: *hyponatremia: resolved P: -Zosyn, awaiting final cx's -Dr. Tolention Consult -wound care following -home lantus and SSI, refuses Accu-Cheks on occasion and this resulted in significantly elevated glucose the other day -Diabetic education -Case management for placement -Substance and smoking cessation counseling -ppx: [facility] - PN: Qual - Stroke Symptom Onset Unknown: No - VTE Deep Vein Thrombosis/Pulmonary Embolism Present on Admission: No
[2019-04-23] MEDS: INSULIN LISPRO 1 UNIT/0.01 ML UNIT SQ SCH ×4 (08:23→20:27)
[2019-04-23] MEDS: NICOTINE 21 MG PATCH TOPICAL SCH (09:49)
[2019-04-23] MEDS: ENOXAPARIN 40 MG/0.4 ML SYRINGE SQ SCH (09:49)
[2019-04-23] MEDS: INSULIN GLARGINE, HUMAN 1 UNIT/0.01 ML SQ SCH (20:27)
[2019-04-23] MEDS: HYDROcodone/APAP 5/325MG TABLET PO PRN (23:36)
[2019-04-24] MEDS: PIPERACILLIN SODIUM/TAZOBACTAM 3.375 GM in DEXTROSE 5% IN WATER 50 ML IV SCH ×4 (05:52→23:44)
[2019-04-24] MEDS: 0.9 % SODIUM CHLORIDE 10 ML SYRINGE IV SCH ×3 (05:52→23:44)
[2019-04-24 08:24] LABS: Basophils # (Auto) 0 K/mcL (0.0-0.3); Basophils % (Auto) 0.6 % (0.0-2.0); Eosinophils # (Auto) 0.2 K/mcL (0.0-0.7); Eosinophils % (Auto) 3.9 % (0.0-7.0); Granulocytes % (Auto) 46.7 % (38.0-78.0); Hematocrit 31.5 % (41.0-55.0); Hemoglobin 10.4 g/dL (13.5-16.5); Lymphocytes # (Auto) 1.8 K/mcL (1.5-4.8); Lymphocytes % (Auto) 39.9 % (15.5-49.0); Mean Cell Volume 92.3 fL (80.0-100.0); Mean Corpuscular HGB Conc 33.1 g/dL (31.0-36.0); Mean Platelet Volume 8.9 fL (7.4-10.4); Monocytes # (Auto) 0.4 K/mcL (0.1-0.9); Monocytes % (Auto) 8.9 % (1.0-12.0); Platelet Count 348 K/mcL (140-440); RBC 3.41 M/mcL (4.50-5.90); Red Cell Distribution Width 16.3 % (11.5-14.5); WBC 4.5 K/mcL (4.5-11.0)
[2019-04-24 08:42] LABS: ALT/SGPT 53 U/l (0-40); AST/SGOT 54 U/l (0-37); Albumin 3.2 gm/dL (3.2-5.2); Albumin/Globulin Ratio 0.9 (1.0-2.3); Alkaline Phosphatase 197 U/L (39-117); Bilirubin,Direct < 0.2 mg/dL (0.0-0.3); Bilirubin,Total < 0.2 mg/dL (0.0-1.0); Blood Urea Nitrogen 25 mg/dl (6-20); Calcium 9.3 mg/dl (8.6-10.4); Carbon Dioxide 25 mmol/L (22-30); Chloride 98 mmol/L (96-108); Globulin 3.6 gm/dL (2.2-3.7); Glomerular Filtration Rate 98; Glucose 316 mg/dL (70-105); Lactate Dehydrogenase 163 U/L (94-250); Phosphorous 3.7 mg/dL (2.7-4.5); Potassium 4.3 mmol/L (3.3-5.1); Sodium 135 mmol/L (133-145); Triglycerides 121 mg/dl (<150); Uric Acid 1.7 mg/dL (2.5-8.0)
[2019-04-24] MEDS: INSULIN LISPRO 1 UNIT/0.01 ML UNIT SQ SCH ×4 (09:19→20:17)
[2019-04-24] MEDS: NICOTINE 21 MG PATCH TOPICAL SCH (09:26)
[2019-04-24] MEDS: ENOXAPARIN 40 MG/0.4 ML SYRINGE SQ SCH (09:26)
--- NOTE | 2019-04-24 11:43 | General Surgery Consult Note ---
History of Present Illness Patient information: Note initiated : 04/24/19 at 11:32 am Service Date, if different from initiated Date: [] Patient: Wilfrido Damon 53 y/o M admitted on 04/19/19 for Lower Extremity. Chief Complaint: [] Requesting physician: Brandan Flynn History of present illness: Wound Care Note: I have seen this patient along with Diana RN, In patient pasteurizer helper. I have notified Dr. MEDEIROS, Operating Surgeon about this patient's visits to the ER at [facility] and then here at [facility]. I am aware of the social issues surrounding this patient's care following TMA. There are NO acute wound care issues at this time. Patient is hemodynamically stable and undergoing appropriate care at the hospital. O/E. Patient is reluctant to talk. AVSS. KEVON: unremarkable. L/E; Clean post surgical wound with resolving post operative changes. Viable flaps and approximated skin edges with clean dry sutures. adherent wound dressing ( Dermabond ) Recommendations: Continue present management. Dr. Medeiros, will come by and see patient later today. Called [facility] and spoke with his nurse at the clinic. Medications and Allergies Home Medications Medication Instructions Recorded Confirmed Type Cephalexin [Keflex] 500 mg PO QID 04/19/19 04/19/19 History Insulin Glargine, Human [Lantus] 40 unit SQ HS 04/20/19 04/20/19 History Insulin Lispro [HumaLOG] 0 unit SQ [facility] 04/20/19 04/20/19 History Allergies Allergy/AdvReac Type Severity Reaction Status Date / Time No Known Drug Allergies Allergy Verified 04/19/19 19:17 Exam Temp Pulse Resp BP Pulse Ox 98.1 F 81 20 131/79 98 04/24/19 03:45 04/24/19 03:45 04/24/19 03:45 04/24/19 03:45 04/24/19 03:45 Results - Labs 04/24/19 05:22 04/24/19 05:22 Abnormal lab results 04/24/19 04/24/19 Range/Units 05:22 05:22 RBC 3.41 L (4.50-5.90) M/mcL Hgb 10.4 L (13.5-16.5) g/dL Hct 31.5 L (41.0-55.0) % RDW 16.3 H (11.5-14.5) % BUN 25 H (6-20) mg/dl Glucose 316 H (70-105) mg/dL Uric Acid 1.7 L (2.5-8.0) mg/dL GGT 112 H (8-61) U/L AST 54 H (0-37) U/l ALT 53 H (0-40) U/l Alkaline Phosphatase 197 H (39-117) U/L Albumin/Globulin Ratio 0.9 L (1.0-2.3) Diabetes panel 04/24/19 Range/Units 05:22 Sodium 135 (133-145) mmol/L Potassium 4.3 (3.3-5.1) mmol/L Chloride 98 (96-108) mmol/L Carbon Dioxide 25 (22-30) mmol/L BUN 25 H (6-20) mg/dl Creatinine 0.9 (0.7-1.2) mg/dl Glucose 316 H (70-105) mg/dL Calcium 9.3 (8.6-10.4) mg/dl AST 54 H (0-37) U/l ALT 53 H (0-40) U/l Alkaline Phosphatase 197 H (39-117) U/L Total Protein 6.8 (5.9-8.4) gm/dL Albumin 3.2 (3.2-5.2) gm/dL Triglycerides 121 (<150) mg/dl Calcium panel 04/24/19 Range/Units 05:22 Calcium 9.3 (8.6-10.4) mg/dl Phosphorus 3.7 (2.7-4.5) mg/dL Albumin 3.2 (3.2-5.2) gm/dL Pituitary panel 04/24/19 Range/Units 05:22 Sodium 135 (133-145) mmol/L Potassium 4.3 (3.3-5.1) mmol/L Chloride 98 (96-108) mmol/L Carbon Dioxide 25 (22-30) mmol/L BUN 25 H (6-20) mg/dl Creatinine 0.9 (0.7-1.2) mg/dl Glucose 316 H (70-105) mg/dL Calcium 9.3 (8.6-10.4) mg/dl Adrenal panel 04/24/19 Range/Units 05:22 Sodium 135 (133-145) mmol/L Potassium 4.3 (3.3-5.1) mmol/L Chloride 98 (96-108) mmol/L Carbon Dioxide 25 (22-30) mmol/L BUN 25 H (6-20) mg/dl Creatinine 0.9 (0.7-1.2) mg/dl Glucose 316 H (70-105) mg/dL Calcium 9.3 (8.6-10.4) mg/dl Total Bilirubin < 0.2 (0.0-1.0) mg/dL AST 54 H (0-37) U/l ALT 53 H (0-40) U/l Alkaline Phosphatase 197 H (39-117) U/L Total Protein 6.8 (5.9-8.4) gm/dL Albumin 3.2 (3.2-5.2) gm/dL All other labs normal.
--- NOTE | 2019-04-24 12:52 | Orthopedic Consult Note ---
History of Present Illness - [facility] Patient information: Note initiated : 04/24/19 at 12:49 pm Service Date, if different from initiated Date: [] Patient: Wilfrido Damon 53 y/o M admitted on 04/19/19 for Lower Extremity. Chief Complaint: [] Consult date: 04/24/19 Requesting physician: Geneva Ramos Consult reason: other (pt with TMA POW#4 with dehisced wound and infection) History of present illness: POW#4 TMA at [facility] left AMA over disagreement of SNF placement- lost to FU. Review of Systems Constitutional: chills, fever(s), night sweats Past History Past surgical history: multiple foot infections with partial amputations on both feet- recent TMA right foot Medications and Allergies Home Medications Medication Instructions Recorded Confirmed Type Cephalexin [Keflex] 500 mg PO QID 04/19/19 04/19/19 History Insulin Glargine, Human [Lantus] 40 unit SQ HS 04/20/19 04/20/19 History Insulin Lispro [HumaLOG] 0 unit SQ [facility] 04/20/19 04/20/19 History Allergies Allergy/AdvReac Type Severity Reaction Status Date / Time No Known Drug Allergies Allergy Verified 04/19/19 19:17 Physical Examination - Ankle & Foot right Foot appearance: other (TMA right foot partial sutures intact with tearing through skin with dehiscense NSI.) Assessment and Plan - Narrative A/P Narrative: POW#4 Right foot TMA with pt who left [facility] AMA and was lost to FU. Now with dehisced wound. Sutures removed, wound debrided of dry necrotic tissues cleansed with Vashe and wound was steri-stripped xeroform, sterile 4x4 guaze, silversorb gel,kerlix, HOME wrap applied- please change dressings 3x weekly with new above protocol. Non-weight bearing right foot with crutches- ok to heel wb to transfer. Will defer to ID for abx regime Pt to SNF would like to see him within [address] Medeiros at [facility]- please have [facility] call for appt [phone]
--- NOTE | 2019-04-24 14:15 | Discharge Summary ---
Medical - DS: Prov Patient information: Note initiated : 04/24/19 at 2:11 pm Service Date, if different from initiated Date: [] Patient: Wilfrido Damon 53 y/o M admitted on 04/19/19 for Lower Extremity. Chief Complaint: [] Date of admission: 04/19/19 18:47 Discharge date: 04/24/19 Consults: 04/19/19 Consult to Physician [CONS] Stat Comment: Consulting Provider: Brandan Flynn Reason For Exam: Physician to Consult 04/19/19 18:50 Consult to Physician [CONS] Routine Comment: Consulting Provider: Boo Santiago Reason For Exam: Physician to Consult Consult to Physician [CONS] Routine Comment: Consulting Provider: Rogelio Tolentino Reason For Exam: Physician to Consult 04/24/19 09:56 Consult to Physician [CONS] Routine Comment: Consulting Provider: Armando Medeiros Reason For Exam: Physician to Consult Discharging clinician: Geneva Ramos Medical - DS: Meds - Discharge Medications Prescriptions: Ciprofloxacin [Cipro] 400 mg IV Q8 #42 bag HYDROcodone/APAP 5/325MG [[place] 5-325Mg] 1 - 2 tab PO Q4HP PRN #50 tab PRN Reason: Pain Level 3-6 Active and Home Medications: Home Medications Cephalexin [Keflex] 500 mg PO QID 04/19/19 [History Confirmed 04/19/19 Last Taken 04/19/19 11:00] Insulin Glargine, Human [Lantus] 40 unit SQ HS 04/20/19 [History Confirmed 04/20/19 Last Taken Unknown] Insulin Lispro [HumaLOG] 0 unit SQ ACHS 04/20/19 [History Confirmed 04/20/19 Last Taken Unknown] Medical - DS: Hosp Hospital course: Mr. Damon is a 53 year old M Who has had history of uncontrolled diabetes and osteomyelitis of his toes and has had amputations of the left toes and most recently transtarsal mentation of his right foot at [facility]. Most recent documentation [facility] per the hospitalist referencing the infectious disease specialist with 6 weeks of IV Zosyn. Patient became frustrated regarding insurance and coverage and ended up leaving [place]. Does not sound like he has been on any antibiotics until he visited [facility] again 4 days ago to have his foot checked. It was checked in the ED and the wound appeared to be well per notes. He was given Keflex. Which is been taken for past 3 4 days. He came to [facility] for help to establish with primary care provider and wound care and placement as he is homeless and he says he has difficult time getting medications including his insulin. He was able to get his insulin recently at [facility] but has not been taking his insulin regularly. Patient does have history of drug use with IV methamphetamines as well as smoking it. He is marijuana. He has no pains or complaints at this time just desires help with this medical issues and placement. Case management has been involved with his care down the ER and is hoping to get a place to [facility]. Dr. angel is been talked to her in the ED as well will consult. 04/20 Was able to get some sleep. No overnight events. No new complaints. 04/21 Slept little better. Some foot pain but otherwise no overnight events or new complaints. 04/22 Seems to be a little irritable when people come in and check his vitals in the morning. Otherwise slept well and no new complaints. Foot wound growing gram- negative bacillus. 04/23 Sleeping better. No new complaints. Foot culture with enterococcus and 2 other gram-negative bacilli. rail manager working on placement. 04/24 Patient seen examined, no acute issues, tolerating po diet well, His cultures are senstivie to cipro, Case was reviewed with Dr Medeiros and Dr Tolentino Plan for IV ciprofloxacin 400mg q8hrs for now, till seen by ID clinic in 2 weeks Out patient follow up with Dr Medeiros in 2 weeks. Pt stable for discharge. Discharge diagnosis: Osteomyelitis. - Time Spent with Patient Total time spent providing and/or coordinating discharge services: Greater than 30 minutes Medical - DS: Exam - Constitutional Vitals: Vital Signs Temp Pulse Resp BP BP Pulse Ox 04/24/19 11:42 98 F 80 16 113/78 100 04/24/19 08:00 98.2 F 77 16 108/73 100 04/24/19 03:45 98.1 F 81 20 131/79 98 04/23/19 23:40 98.5 F 84 16 126/76 99 04/23/19 19:05 98.1 F 89 20 112/72 100 04/23/19 16:00 98.9 F 20 130/85 100 Intake and Output 04/24/19 04/24/19 04/24/19 05:59 13:59 21:59 Intake Total 200 50 Output Total 450 Balance -250 50 Intake: IV 50 50 Zosyn 3.375 gm In Dextrose 5% 50 50 in Water 50 ml @ 100 mls/hr IV Q6H COUNTS INCLUDE 234 BEDS AT THE [facility] Rx#:[id number] Oral 150 Output: Void Amount 450 Other: Meal Boost x2 strawberries and cheese Percent of Meal Consumed 100% 100% Feeding Ability Independent Urine Appearance Clear Urine Color Pale Additional comments: Constitutional; Afebrile, cooperative, alert, not in distress. Respiratory system: Air Entry equal on both sides, No crackles or wheezing, no rhonchi. CVS- Rate rhythm regular, S1,S2 heard, no gallop, no rub. Abdomen- Soft nontender abdomen, no organomegaly, no tenderness, no guarding or rigidity, ORDER SELECTOR- AOOx3, moving all extremities, no gross focal deficit noted. Medical - DS: Data Labs on day of discharge: Labs from last 24 hours 04/24/19 04/24/19 05:22 05:22 WBC 4.5 RBC 3.41 L Hgb 10.4 L Hct 31.5 L MCV 92.3 MCH 30.6 MCHC 33.1 RDW 16.3 H Plt Count 348 MPV 8.9 Gran % 46.7 Lymph % (Auto) 39.9 [place] % (Auto) 8.9 Eos % (Auto) 3.9 Baso % (Auto) 0.6 Gran # 2.1 Lymph # (Auto) 1.8 [place] # (Auto) 0.4 Eos # (Auto) 0.2 Baso # (Auto) 0 Sodium 135 Potassium 4.3 Chloride 98 Carbon Dioxide 25 Anion Gap 12.0 BUN 25 H Creatinine 0.9 GFR Calculation 98 Glucose 316 H Uric Acid 1.7 L Calcium 9.3 Phosphorus 3.7 Magnesium 2.0 Total Bilirubin < 0.2 Direct Bilirubin < 0.2 GGT 112 H AST 54 H ALT 53 H Alkaline Phosphatase 197 H Lactate Dehydrogenase 163 Total Protein 6.8 Albumin 3.2 Globulin 3.6 Albumin/Globulin Ratio 0.9 L Triglycerides 121 Preliminary micro results at discharge 04/19/19 19:15 Blood Culture - Preliminary Blood 04/19/19 19:18 Blood Culture - Preliminary Blood Medical - DS: A/P - Patient/Caregiver Discharge Instructions Activity: as per physical therapy, other (Non-weight bearing right foot with crutches- ok to heel wb to transfer) Diet: Consistent Carbohydrate Additional Instructions: Take IV ciprofloxacin 400mg every 8 hrs via IV, total duration of Antibiotics is 6 weeks, pt will be followed up by Dr Tolentino in 2 weeks to further decide antibiotic response and treatment Follow-up outpatient with Dr. Tolentino infectious disease Check labs on a weekly basis and fax results to Dr. Tolentino, CBC CMP ESR and CRP Follow-up with Dr. Medeiros podiatry in 2 weeks Go to the emergency room if fever chills shortness of breath chest pain or any other acute concern Other Amb Orders: Crutches Location: None Selected - Follow up Plan Follow up with: Rogelio Tolentino MD [Physician] - 05/08/19 4:15 pm Armando Medeiros DPM [Physician] - Disposition: [facility] Swing Bed Prognosis: Fair Rehab Potential: Fair I certify that the patient requires SNF services: Yes Overall status at discharge: patient is progressing back to baseline Medical - DS: Qual - VTE Deep Vein Thrombosis/Pulmonary Embolism Present on Admission: No
[2019-04-24] MEDS: HYDROcodone/APAP 5/325MG TABLET PO PRN ×2 (16:26→22:46)
--- NOTE | 2019-04-24 18:11 | Infectious Disease Prog Note ---
Subjective Patient information: Note initiated : 04/24/19 at 5:55 pm Service Date, if different from initiated Date: [] Patient: Wilfrido Damon 53 y/o M admitted on 04/19/19 for Lower Extremity. Chief Complaint: [] Interval history: Pt feels fine overall. Denies any fever, chills, n/v, diarrhea, foot pain. Shared the plan to do few weeks of antibiotics given bone infection. Also counseled the pt to quit smoking. Discussed ID clinic f/u appt. in 2 weeks Objective Objective Narrative: ao x 3, in nad no thrush the right foot looks less swollen, minimally tender, with no active drainage, sutures in place - Vital Signs Vital signs: Vital Signs Temp Pulse Resp BP Pulse Ox 04/24/19 15:18 36.9 C 72 16 110/67 99 04/24/19 11:42 36.6 C 80 16 113/78 100 04/24/19 08:00 36.8 C 77 16 108/73 100 04/24/19 03:45 36.7 C 81 20 131/79 98 04/23/19 23:40 36.9 C 84 16 126/76 99 04/23/19 19:05 36.7 C 89 20 112/72 100 Intake and Output 04/24/19 04/24/19 04/24/19 05:59 13:59 21:59 Intake Total 200 100 Output Total 450 375 Balance -250 100 -375 Intake: IV 50 100 Zosyn 3.375 gm In Dextrose 5% 50 100 in Water 50 ml @ 100 mls/hr IV Q6H [facility] Rx#:[id number] Oral 150 Output: Void Amount 450 375 Other: Meal Boost x2 strawberries and cheese Percent of Meal Consumed 100% 100% Feeding Ability Independent Urine Appearance Clear Clear Urine Color Pale Pale Urine Odor Normal Intake & Output: Intake & Output 04/24/19 04/24/19 04/24/19 05:59 13:59 21:59 Intake Total 200 100 Output Total 450 375 Balance -250 100 -375 Intake: IV 50 100 Zosyn 3.375 gm In Dextrose 5% 50 100 in Water 50 ml @ 100 mls/hr IV Q6H [facility] Rx#:[id number] Oral 150 Output: Void Amount 450 375 Other: Meal Boost x2 strawberries and cheese Percent of Meal Consumed 100% 100% Feeding Ability Independent Urine Appearance Clear Clear Urine Color Pale Pale Urine Odor Normal - Lab 04/24/19 05:22 04/24/19 05:22 Most recent lab results Calcium 9.3 mg/dl (8.6-10.4) 04/24/19 05:22 Phosphorus 3.7 mg/dL (2.7-4.5) 04/24/19 05:22 Magnesium 2.0 mg/dL (1.6-2.5) 04/24/19 05:22 Microbiology 04/19/19 19:15 Blood Blood Culture - Preliminary 04/19/19 19:18 Blood Blood Culture - Preliminary 04/20/19 11:50 Foot - Right Gram Stain - Final 04/20/19 11:50 Foot - Right Wound Culture - Final Enterobacter cloacae Citrobacter freundii Proteus vulgaris 04/20/19 11:50 Nose MRSA (PCR) - Final Medications Active Medications: Acetaminophen (Tylenol) 650 mg PO Q6HP PRN PRN Reason: PAIN/FEVER > 101 Last Admin: 04/20/19 19:27 Dose: 650 mg Documented by: LISA Hydrocodone Bitart/Acetaminophen ([place] 5/325mg) 1 - 2 tab PO Q4HP PRN PRN Reason: PAIN LEVEL 3-6 Last Admin: 04/24/19 16:26 Dose: 2 tab Documented by: Admin: 04/23/19 23:36 Dose: 2 tab Documented by: Admin: 04/22/19 20:25 Dose: 2 tab Documented by: Admin: 04/22/19 10:24 Dose: 2 tab Documented by: Admin: 04/21/19 17:05 Dose: 1 tab Documented by: Admin: 04/21/19 10:42 Dose: 2 tab Documented by: ABHI Dextrose (Dextrose 50%) 0 ml IV UD PRN PRN Reason: Hypoglycemia Diagnostic Test (Pha) (Accu-Chek) 1 each FS ACHS [facility] Last Admin: 04/24/19 16:19 Dose: 1 each Documented by: Admin: 04/24/19 12:17 Dose: 1 each Documented by: Admin: 04/24/19 09:19 Dose: 1 each Documented by: Admin: 04/23/19 20:28 Dose: 1 each Documented by: Admin: 04/23/19 16:55 Dose: 1 each Documented by: Admin: 04/23/19 11:39 Dose: 1 each Documented by: Admin: 04/23/19 08:23 Dose: 1 each Documented by: Admin: 04/22/19 20:23 Dose: 1 each Documented by: Admin: 04/22/19 17:35 Dose: Not Given Documented by: SARA Non-Admin Reason: Patient Refused Admin: 04/22/19 12:00 Dose: 1 each Documented by: Admin: 04/22/19 08:04 Dose: 1 each Documented by: Admin: 04/21/19 20:19 Dose: 1 each Documented by: Admin: 04/21/19 16:57 Dose: 1 each Documented by: Admin: 04/21/19 10:45 Dose: 1 each Documented by: Admin: 04/21/19 08:14 Dose: 1 each Documented by: Admin: 04/20/19 20:30 Dose: 1 each Documented by: Admin: 04/20/19 17:30 Dose: 1 each Documented by: Admin: 04/20/19 11:14 Dose: 1 each Documented by: Admin: 04/20/19 07:40 Dose: 1 each Documented by: Admin: 04/19/19 22:37 Dose: 1 each Documented by: MAGUI Enoxaparin Sodium (Lovenox) 40 mg SQ DAILY [facility] Last Admin: 04/24/19 09:26 Dose: 40 mg Documented by: Admin: 04/23/19 09:49 Dose: Not Given Documented by: SARA Non-Admin Reason: Patient Refused Admin: 04/22/19 10:33 Dose: 40 mg Documented by: Admin: 04/21/19 08:14 Dose: 40 mg Documented by: Admin: 04/20/19 08:10 Dose: 40 mg Documented by: ABHI Glucose (Insta-Glucose) 15 gm PO PRN PRN PRN Reason: Hypoglycemia Piperacillin Sod/Tazobactam (Sod 3.375 gm/ Dextrose) 50 mls @ 100 mls/hr IV Q6H [facility]; Protocol Last Infusion: 04/24/19 12:55 Dose: 0 mls/hr Documented by: LCFESTUSTRIGH Admin: 04/24/19 12:25 Dose: 100 mls/hr Documented by: LCFESTUSTRIGH Infusion: 04/24/19 06:22 Dose: 100 mls/hr Documented by: LCFESTUSTRIGH Admin: 04/24/19 05:52 Dose: 100 mls/hr Documented by: Infusion: 04/24/19 00:06 Dose: 100 mls/hr Documented by: Admin: 04/23/19 23:36 Dose: 100 mls/hr Documented by: Infusion: 04/23/19 18:01 Dose: 100 mls/hr Documented by: Admin: 04/23/19 17:31 Dose: 100 mls/hr Documented by: LCFESTUSTRIGH Infusion: 04/23/19 12:05 Dose: 100 mls/hr Documented by: LCFESTUSTRIGH Admin: 04/23/19 11:35 Dose: 100 mls/hr Documented by: LCFESTUSTRIGH Infusion: 04/23/19 05:45 Dose: 0 mls/hr Documented by: Admin: 04/23/19 05:15 Dose: 100 mls/hr Documented by: Infusion: 04/23/19 00:41 Dose: 100 mls/hr Documented by: Admin: 04/23/19 00:11 Dose: 100 mls/hr Documented by: Infusion: 04/22/19 18:00 Dose: 100 mls/hr Documented by: Admin: 04/22/19 17:30 Dose: 100 mls/hr Documented by: Infusion: 04/22/19 12:31 Dose: 100 mls/hr Documented by: Admin: 04/22/19 12:01 Dose: 100 mls/hr Documented by: Infusion: 04/22/19 05:40 Dose: 100 mls/hr Documented by: Admin: 04/22/19 05:10 Dose: 100 mls/hr Documented by: Infusion: 04/22/19 00:36 Dose: 100 mls/hr Documented by: Admin: 04/22/19 00:00 Dose: 100 mls/hr Documented by: Infusion: 04/21/19 20:09 Dose: 100 mls/hr Documented by: Admin: 04/21/19 17:05 Dose: 100 mls/hr Documented by: Infusion: 04/21/19 12:30 Dose: 0 mls/hr Documented by: [email or web address] Admin: 04/21/19 11:54 Dose: 100 mls/hr Documented by: Infusion: 04/21/19 08:08 Dose: 0 mls/hr Documented by: Admin: 04/21/19 06:00 Dose: 100 mls/hr Documented by: Infusion: 04/21/19 00:09 Dose: 100 mls/hr Documented by: Admin: 04/20/19 23:39 Dose: 100 mls/hr Documented by: Infusion: 04/20/19 18:00 Dose: 100 mls/hr Documented by: Admin: 04/20/19 17:30 Dose: 100 mls/hr Documented by: [email or web address] Infusion: 04/20/19 13:12 Dose: 0 mls/hr Documented by: Admin: 04/20/19 11:15 Dose: 100 mls/hr Documented by: Infusion: 04/20/19 06:31 Dose: 0 mls/hr Documented by: Admin: 04/20/19 05:54 Dose: 100 mls/hr Documented by: Infusion: 04/20/19 00:30 Dose: 0 mls/hr Documented by: Admin: 04/19/19 23:58 Dose: 100 mls/hr Documented by: Infusion: 04/19/19 22:26 Dose: 0 mls/hr Documented by: Admin: 04/19/19 19:14 Dose: 100 mls/hr Documented by: MAGUI Insulin Glargine (Lantus) 50 unit SQ HS [facility] Insulin Human Lispro (Humalog) 0 unit SQ ACHS [facility]; Protocol Last Admin: 04/24/19 16:25 Dose: 12 units Documented by: Admin: 04/24/19 12:19 Dose: 12 units Documented by: HIRATRIGArash Admin: 04/24/19 09:19 Dose: 9 units Documented by: HIRATRIGArash Admin: 04/23/19 20:27 Dose: 9 units Documented by: Admin: 04/23/19 16:56 Dose: 18 units Documented by: HIRATRIGArash Admin: 04/23/19 11:40 Dose: 9 units Documented by: Admin: 04/23/19 08:23 Dose: Not Given Documented by: HIRATRIGArash Non-Admin Reason: No Coverage Needed Admin: 04/22/19 20:24 Dose: 18 units Documented by: Admin: 04/22/19 17:35 Dose: Not Given Documented by: SARA Non-Admin Reason: Patient Refused Admin: 04/22/19 12:01 Dose: 9 units Documented by: Admin: 04/22/19 08:04 Dose: Not Given Documented by: HIRATRIGrAash Non-Admin Reason: No Coverage Needed Admin: 04/21/19 20:19 Dose: 6 units Documented by: Admin: 04/21/19 16:57 Dose: 12 units Documented by: Admin: 04/21/19 10:45 Dose: Not Given Documented by: [email or web address] Non-Admin Reason: No Coverage Needed Admin: 04/21/19 08:14 Dose: 12 units Documented by: Admin: 04/20/19 20:31 Dose: 6 units Documented by: Admin: 04/20/19 17:31 Dose: 9 units Documented by: [email or web address] Admin: 04/20/19 11:15 Dose: 3 units Documented by: Admin: 04/20/19 08:10 Dose: 3 units Documented by: Admin: 04/19/19 22:41 Dose: 9 units Documented by: MAGUI Nicotine (Nicoderm) 21 mg TOPICAL DAILY@1000 [facility] Last Admin: 04/24/19 09:26 Dose: Not Given Documented by: HIRATRIGArash Non-Admin Reason: Patient Refused Admin: 04/23/19 09:49 Dose: Not Given Documented by: HIRATRIGArash Non-Admin Reason: Patient Refused Admin: 04/22/19 10:32 Dose: Not Given Documented by: SARA Non-Admin Reason: Patient Refused Admin: 04/21/19 08:14 Dose: 21 mg Documented by: Admin: 04/20/19 19:27 Dose: 21 mg Documented by: Admin: 04/20/19 11:15 Dose: 21 mg Documented by: ABHI Ondansetron HCl (Zofran) 4 mg IV Q6HP PRN PRN Reason: Nausea And Vomiting Sodium Chloride (Saline Flush) 10 ml IV Q8 [facility] Last Admin: 04/24/19 16:27 Dose: 10 ml Documented by: Admin: 04/24/19 05:52 Dose: 10 ml Documented by: Admin: 04/23/19 23:37 Dose: 10 ml Documented by: Admin: 04/23/19 17:31 Dose: 10 ml Documented by: Admin: 04/23/19 05:34 Dose: 10 ml Documented by: Admin: 04/22/19 22:14 Dose: 10 ml Documented by: Admin: 04/22/19 17:35 Dose: 10 ml Documented by: Admin: 04/22/19 05:10 Dose: 10 ml Documented by: Admin: 04/21/19 20:21 Dose: 10 ml Documented by: Admin: 04/21/19 12:02 Dose: Not Given Documented by: ABHI Non-Admin Reason: See previous Admin: 04/21/19 11:55 Dose: 10 ml Documented by: Admin: 04/21/19 06:01 Dose: 10 ml Documented by: Admin: 04/20/19 22:36 Dose: 10 ml Documented by: Admin: 04/20/19 13:12 Dose: 10 ml Documented by: Admin: 04/20/19 05:53 Dose: 10 ml Documented by: Admin: 04/19/19 22:37 Dose: Not Given Documented by: MAGUI Non-Admin Reason: Bag Still Infusing Assessment and Plan - Narrative A/P Narrative: A: 1. Right forefoot infection, s/p TMA on 03/30/19 with biopsy findings of chronic osteomyelitis and CT foot s/o osteomyelitis of proximal 1st metatarsal stump - has local signs of inflammation [warmth, redness, tenderness, swelling, minimal drainage] - superf wound Cx from forefoot wound prior to 03/30/19 grew E fecalis, P vulgaris, Acinetobacter spp, Gp G Strept on 03/30 - superficial wound Cx from 04/20 growing fluoroquinolone sens-bacteria {Enterobacter, Citrobacter and proteus} - baseline ESR 66, CRP <0.3 2. History of homelessness 3. Active smoker Recommendations: - Stop IV Zosyn at 3.375 gm q6 hrs. - Pt is going to a swing bed at [facility] given his homelessness, and not being accepted by any SNF in the area. Therefore will choose narrowest spectrum IV option. Start IV Ciprofloxacin 400 mg q8 hrs. - will see in ID clinic in 2 weeks. Appointment made for 05/08 at 4:15 pm. will decide further duration at that time. If pt not being homeless at that time, will switch to a PO version, janell total anticipated duration of treatment 4-6 weeks - will check BMP, ESR and CRP weekly while on IV Ciprofloxacin. fax results to ID clinic at [phone]. - pt counseled to keep the wound protected from dirt, dirty eater, pets - pt counseled to quit smoking as it would help with healing than with it will follow Rogelio Tolentino MD Infectious diseases
[2019-04-24] MEDS ORDERED: INSULIN GLARGINE, HUMAN 1 UNIT/0.01 ML SQ SCH (21:00)
[2019-04-25 01:09] LABS: Cannabinoid Confirmation POSITIVE (N)
[2019-04-25] MEDS: PIPERACILLIN SODIUM/TAZOBACTAM 3.375 GM in DEXTROSE 5% IN WATER 50 ML IV SCH ×2 (05:58→12:53)
[2019-04-25] MEDS: 0.9 % SODIUM CHLORIDE 10 ML SYRINGE IV SCH (05:58)
[2019-04-25] MEDS: INSULIN LISPRO 1 UNIT/0.01 ML UNIT SQ SCH ×2 (08:39→11:58)
[2019-04-25] MEDS: NICOTINE 21 MG PATCH TOPICAL SCH (08:40)
[2019-04-25] MEDS: ENOXAPARIN 40 MG/0.4 ML SYRINGE SQ SCH (09:32)
--- NOTE | 2019-04-25 10:50 | Internal Med Progress Note ---
Medical - PN: Subj Patient information: Note initiated : 04/25/19 at 10:40 am Service Date, if different from initiated Date: [] Patient: Wilfrido Damon 53 y/o M admitted on 04/19/19 for Lower Extremity. Chief Complaint: [] Interval history: Patient seen examined,no new complaints or concers stable for discharge yesterday, did not go due to losticial issues d/c when able was sitting comfortably, enjoying breakfast this AM Pertinent ROS: no fever, no abdominal pain - Constitutional Vitals: Vital Signs Temp Pulse Resp BP Pulse Ox 97.6 F 71 16 111/72 98 04/25/19 07:41 04/25/19 07:41 04/25/19 07:41 04/25/19 07:41 04/25/19 07:41 Period Temp Pulse Resp BP Sys/[place] Pulse Ox Last 24 Hr 97.6 F-99.0 F 64-80 16-20 103-114/61-78 97-100 Intake and Output 04/24/19 04/25/19 04/25/19 21:59 05:59 13:59 Intake Total 890 290 50 Output Total 975 Balance -85 290 50 Weight 126 lb Intake & Output: Intake & Output 04/24/19 04/25/19 04/25/19 21:59 05:59 13:59 Intake Total 890 290 50 Output Total 975 Balance -85 290 50 Weight 126 lb Intake: IV 50 50 50 Zosyn 3.375 gm In Dextrose 5% 50 50 50 in Water 50 ml @ 100 mls/hr IV Q6H [facility] Rx#:[id number] Oral 840 240 Output: Void Amount 975 Other: Meal sandwhich Yogurt Percent of Meal Consumed 100% 100% Feeding Ability Independent Independent Urine Appearance Clear Urine Color Bright Yellow Urine Odor Normal # Voids 1 General appearance: cooperative, no acute distress Medical - PN: Obj Da - Labs CBC & Chem 7: 04/24/19 05:22 04/24/19 05:22 Labs: Abnormal Lab Results 04/24/19 04/24/19 05:22 05:22 RBC 3.41 L Hgb 10.4 L Hct 31.5 L RDW 16.3 H BUN 25 H Glucose 316 H Uric Acid 1.7 L GGT 112 H AST 54 H ALT 53 H Alkaline Phosphatase 197 H Albumin/Globulin Ratio 0.9 L Meds: Medications Acetaminophen (Tylenol) 650 mg PO Q6HP PRN PRN Reason: PAIN/FEVER > 101 Last Admin: 04/20/19 19:27 Dose: 650 mg Documented by: Hydrocodone Bitart/Acetaminophen ([place] 5/325mg) 1 - 2 tab PO Q4HP PRN PRN Reason: PAIN LEVEL 3-6 Last Admin: 04/24/19 22:46 Dose: 2 tab Documented by: Dextrose (Dextrose 50%) 0 ml IV UD PRN PRN Reason: Hypoglycemia Diagnostic Test (Pha) (Accu-Chek) 1 each FS [facility] Last Admin: 04/25/19 08:39 Dose: 1 each Documented by: Enoxaparin Sodium (Lovenox) 40 mg SQ DAILY [facility] Last Admin: 04/25/19 09:32 Dose: Not Given Documented by: Glucose (Insta-Glucose) 15 gm PO PRN PRN PRN Reason: Hypoglycemia Piperacillin Sod/Tazobactam (Sod 3.375 gm/ Dextrose) 50 mls @ 100 mls/hr IV Q6H [facility]; Protocol Last Infusion: 04/25/19 06:28 Dose: Infused Documented by: Insulin Glargine (Lantus) 50 unit SQ [facility] Last Admin: 04/24/19 20:16 Dose: 50 units Documented by: Insulin Human Lispro (Humalog) 0 unit SQ [facility]; Protocol Last Admin: 04/25/19 08:39 Dose: 6 units Documented by: Nicotine (Nicoderm) 21 mg TOPICAL DAILY@1000 [facility] Last Admin: 04/25/19 08:40 Dose: Not Given Documented by: Ondansetron HCl (Zofran) 4 mg IV Q6HP PRN PRN Reason: Nausea And Vomiting Sodium Chloride (Saline Flush) 10 ml IV Q8 [facility] Last Admin: 04/25/19 05:58 Dose: 10 ml Documented by: Medical - PN: A/P - Time Spent With Patient Total time spent is greater than 50% in coordination of care (as documented) at patient's floor/unit and/or counseling patient: - Narrative A/P Narrative: Patient stable for discharge see discharge summary, no change in plan Medical - PN: Qual - Stroke Symptom Onset Unknown: No - VTE Deep Vein Thrombosis/Pulmonary Embolism Present on Admission: No
[2019-04-25] MEDS ORDERED: 0.9 % SODIUM CHLORIDE 10 ML SYRINGE IV SCH (21:00)
== END 2019-04-25 13:35 | disposition other institution (70) | DRG 565 ==
LOC: MEDSUR 13:22 → ED 13:22 → OBSVTOIN 18:47 → MEDSUR 18:47
PROVIDERS: ADMIT Internal Medicine; ATTEND Internal Medicine

== ENCOUNTER 2020-07-30 00:44 | Inpatient (IN) ==
[2020-07-30] MEDS ORDERED: ONDANSETRON 4 MG/2 ML VIAL IV ONE (01:01)
[2020-07-30] MEDS: HYDROmorphone 0.5 MG/0.5 ML SYRINGE IV PRN ×2 (01:30→03:11)
[2020-07-30] MEDS ORDERED: VANCOMYCIN 1,000 MG in 0.9 % SODIUM CHLORIDE 250 ML IV ONE (02:10)
[2020-07-30] MEDS ORDERED: 0.9 % SODIUM CHLORIDE 500 ML IV ONE (02:10)
[2020-07-30] MEDS ORDERED: PIPERACILLIN SODIUM/TAZOBACTAM 3.375 GM in DEXTROSE 5% IN WATER 50 ML IV SCH (02:15)
[2020-07-30] MEDS ORDERED: INSULIN REGULAR, HUMAN 1 UNIT/0.01 ML UNIT IV ONE ×2 (02:51→05:22)
--- NOTE | 2020-07-30 03:22 | Emergency Department Note ---
Skin/Abscess/FB HPI General Chief complaint: Skin/Abscess/Foreign Body Stated complaint: Diabetic Problems Time Seen by Provider: 07/30/20 01:14 Source: patient Mode of arrival: ambulatory Limitations: physical limitation History of Present Illness HPI Narrative: Narrative: Patient arrives I believe you EMS. He is a diabetic, insulin using and has ulcers on his left legs and for this he is here to be seen and treated. He reports that this leg is had an ulcer for nearly 5 months and there was concern regarding odor and maggots. No fevers chills or sweats. He walked in actually today. Related Data Home Medications Medication Instructions Recorded Confirmed No Known Home Meds 07/30/20 07/30/20 Allergies Allergy/AdvReac Type Severity Reaction Status Date / Time No Known Drug Allergies Allergy Verified 07/30/20 00:55 Review of Systems ROS ROS Narrative: Narrative: No fevers chills sweats No chest pain Some cough from smoking no shortness of breath No abdominal pain diarrhea or constipation No dysuria PFSH Narrative Patient History Narrative: Narrative: Medical/Surgical/Family History All Active Problems (Updated 07/30/20 @ 06:25 by Maximiliano Velazquez DO) Uncontrolled diabetes mellitus (Acute) Methamphetamine abuse (Acute) Cigarette smoker (Acute) Uncontrolled diabetes mellitus (Acute) Hyperglycemia (Acute) Homeless (Acute) Infestation, maggots (Acute) Leg ulcer, left (Acute) Diabetic ulcer of left foot (Acute) Abrasion of anterior right lower leg (Acute) Medical History (Updated 07/30/20 @ 06:25 by Maximiliano Velazquez DO) Closed right arm fracture (Inactive) Surgical History (Updated 07/30/20 @ 06:20 by Maximiliano Velazquez DO) History of amputation of lesser toe of right foot (Resolved) History of amputation of right great toe (Resolved) Status post amputation of right foot (Inactive) Partial Social History Smoking Status: Current every day smoker Alcohol Intake Frequency: holiday/special occasion only Substance Use: marijuana and amphetamines Exam Narrative Narrative: Narrative: General Limitations: physical limitation General appearance: Present alert, consternation, grimacing, in distress, nontoxic, thin (Mildly cachectic, atrophic muscles.) and other (Restless due to discomfort and concern regarding his left leg.) Head Head: Present atraumatic and normocephalic Eye Eye: Present normal appearance and EOMI Neck Neck: Present trachea midline; Absent lymphadenopathy and thyromegaly Chest Chest: Present symmetric chest wall rise Respiratory Respiratory: Present normal lung sounds bilaterally; Absent respiratory distress, rales/crackles, wheezes, stridor, accessory muscle use and prolonged expiratory phase Cardiovascular Cardiovascular: Present regular rate and normal rhythm; Absent systolic murmur and diastolic murmur Adbominal Abdominal: Present soft; Absent distention, tenderness, guarding, rebound, rigidity, organomegaly and mass Extremities Extremities: Present other (Left lower leg from just below the knee to about the top of the sock level is brightly erythematous with a large ulcer that goes through most of the skin, about 7 cm across, anterolateral just below the knee several inches. There were multiple dressings underneath the sock and lower part of the leg that appeared to be old and saturated with serosanguineous fluid, candelaria brown-tannish color, very very foul odor, and many many maggots in the ulcer and underneath the bandages. At the distal lateral aspect of the left foot is a quarter sized callus with central necrosis covered by white and callus material.) Back Back: Neurological Neurological: Present alert and oriented X3 Psychiatric Psychiatric: Present anxious, flat affect, serious and poor eye contact; Absent depressed and agitated Skin Skin: Present cool and dry; Absent cyanosis and pallor Course Vital Signs Vital signs: Vital Signs Temperature 96.8 F L 07/30/20 00:45 Pulse Rate 113 H 07/30/20 00:45 Respiratory Rate 20 07/30/20 00:45 Blood Pressure 159/93 07/30/20 00:45 Pulse Oximetry (%) 100 07/30/20 00:45 Temperature 96.8 F L 07/30/20 00:45 Pulse Rate 95 H 07/30/20 06:00 Respiratory Rate 20 07/30/20 00:45 Blood Pressure 99/70 07/30/20 06:00 Pulse Oximetry (%) 97 07/30/20 06:00 [facility] MDM Narrative Medical decision making narrative: Narrative: 10:58 PM - interviewed and examined. Markedly necrotic, foul-smelling, old dressings, maggot filled ulcer bases and multiple areas present on the left lower extremity etc. Will do labs, cleansing, imaging for osteomyelitis. We will get need to remove sock. 12:30 AM approximately - I was able to help remove patient's sock. Part of the area under the sock included in very old dressing that appeared to be cloth or cotton that fell apart. It was fibrous but soaked in exudate, markedly foul- smelling, and multiple areas underneath it were swarming with maggots. A large ulcer in the more proximal anterior leg had multiple maggots including undermining edges, etc. All of these were cleansed and removed as able using the saline. Patient had been given, after an IV was established, hydromorphone IV. Initial blood sugar was over 550. Will give regular insulin 4 units. Recheck. 3:18 AM - preliminary reports of patient's images/x-rays include of the foot "no acute osseous abnormality. Fourth and fifth digit amputations with no evidence for osteomyelitis." However, on my review of the x-rays there is an ulcer, soft tissue with superficial air/defect on the lateral aspect of the distal foot area. X-ray of the tib-fib read as "proximal ulcer with no evidence for active osteomyelitis." Labs are still pending. CMP was somehow omitted and is additionally ordered. Also, while cleaning his left leg, patient did admit to methamphetamine use. UDS added also to his labs. 4:17 AM - White blood cell count 7.4. He has some anemia which she had in 2019 and it is in a similar range with hemoglobin 11.0, hematocrit 33.1 Lactic acid 1.7 CMP, CRP, and UDS are pending. 5:22 AM - sodium returns low at 130, carbon dioxide slightly low at 21 but the anion gap is normal at 14.0. BUN is 22, creatinine 0.9. Blood sugar elevated at 570. LFT's elevated midly. C-reactive protein elevated at 5.5. UDS has not been collected. 5:20 AM - we will seek admission for/through hospitalist and then for wound care. 5:30 AM - I spoke with Dr. Brandan Flynn, hospitalist, who accepts this patient but is dependent upon if wound care, Dr. Santiago will see this patient in consult. 6:06 AM - I spoke with Dr. Santiago who is willing to see and follow this pa tient as a desktop support consultant. He suggest that more likely than not he will need additional orthopedic intervention with probable amputation. Patient will be transferred to the floor. Transition orders written for. An additional 4 units of insulin was given approximately 1 hour previously because of his blood sugars going back up to 480. Lab Data Result diagrams: 07/30/20 02:30 07/30/20 02:30 Labs: Lab Results 07/30/20 07/30/20 07/30/20 Range/Units 02:30 02:30 02:30 WBC 7.4 (4.5-11.0) K/mcL RBC 3.66 L (4.50-5.90) M/mcL Hgb 11.0 L (13.5-16.5) g/dL Hct 33.1 L (41.0-55.0) % MCV 90.4 (80.0-100.0) fL MCH 30.1 (26.0-34.0) pg MCHC 33.2 (31.0-36.0) g/dL RDW 12.7 (11.5-14.5) % Plt Count 312 (140-440) K/mcL MPV 10.7 H (7.4-10.4) fL Neut % (Auto) 77.0 (38.0-78.0) % Lymph % (Auto) 15.6 (15.0-49.0) % [place] % (Auto) 7.0 (1.0-12.0) % Eos % (Auto) 0.3 (0.0-7.0) % Baso % (Auto) 0.1 (0.0-2.0) % Lymph # (Auto) 1.15 L (1.50-4.80) K/mcL [place] # (Auto) 0.52 (0.10-0.90) K/mcL Eos # (Auto) 0.02 (0.00-0.70) K/mcL Baso # (Auto) 0.01 (0.00-0.20) K/mcL VBG Lactic Acid 1.7 (0.5-2.0) mmol/L Sodium (133-145) mmol/L Potassium (3.3-5.1) mmol/L Chloride (96-108) mmol/L Carbon Dioxide (22-30) mmol/L Anion Gap (8.0-16.0) BUN (6-20) mg/dL Creatinine (0.7-1.2) mg/dL GFR Calculation Glucose (70-105) mg/dL Calcium (8.6-10.4) mg/dL Total Bilirubin (0.1-1.0) mg/dL AST (<40) U/L ALT (<40) U/L Alkaline Phosphatase (39-117) U/L C-Reactive Protein 5.50 H (0.03-0.80) mg/dL Total Protein (5.9-8.4) gm/dL Albumin (3.2-5.2) gm/dL Globulin (2.2-3.7) gm/dL Albumin/Globulin Ratio (1.0-2.3) Abs Neutrophil Control 5.68 (1.80-8.00) K/mcL 07/30/20 Range/Units 02:30 WBC (4.5-11.0) K/mcL RBC (4.50-5.90) M/mcL Hgb (13.5-16.5) g/dL Hct (41.0-55.0) % MCV (80.0-100.0) fL MCH (26.0-34.0) pg MCHC (31.0-36.0) g/dL RDW (11.5-14.5) % Plt Count (140-440) K/mcL MPV (7.4-10.4) fL Neut % (Auto) (38.0-78.0) % Lymph % (Auto) (15.0-49.0) % [place] % (Auto) (1.0-12.0) % Eos % (Auto) (0.0-7.0) % Baso % (Auto) (0.0-2.0) % Lymph # (Auto) (1.50-4.80) K/mcL [place] # (Auto) (0.10-0.90) K/mcL Eos # (Auto) (0.00-0.70) K/mcL Baso # (Auto) (0.00-0.20) K/mcL VBG Lactic Acid (0.5-2.0) mmol/L Sodium 130 L (133-145) mmol/L Potassium 4.5 (3.3-5.1) mmol/L Chloride 95 L (96-108) mmol/L Carbon Dioxide 21 L (22-30) mmol/L Anion Gap 14.0 (8.0-16.0) BUN 22 H (6-20) mg/dL Creatinine 0.9 (0.7-1.2) mg/dL GFR Calculation 97 Glucose 570 H* (70-105) mg/dL Calcium 8.9 (8.6-10.4) mg/dL Total Bilirubin 0.3 (0.1-1.0) mg/dL AST 53 H (<40) U/L ALT 74 H (<40) U/L Alkaline Phosphatase 196 H (39-117) U/L C-Reactive Protein (0.03-0.80) mg/dL Total Protein 7.0 (5.9-8.4) gm/dL Albumin 3.3 (3.2-5.2) gm/dL Globulin 3.7 (2.2-3.7) gm/dL Albumin/Globulin Ratio 0.9 L (1.0-2.3) Abs Neutrophil Control (1.80-8.00) K/mcL Discharge Plan Patient/Caregiver Discharge Instructions Pt seen by [facility]ER/PA only: No Clinical Impression: Infestation, maggots, Methamphetamine abuse, Cigarette smoker Leg ulcer, left Qualifiers: Non-pressure ulcer stage: limited to breakdown of skin Qualified Code(s): L97.921 - Non-pressure chronic ulcer of unspecified part of left lower leg limited to breakdown of skin Diabetic ulcer of left foot Qualifiers: Diabetic foot ulcer location: other Diabetes mellitus type: type 2 Non-pressure ulcer stage: with other severity Qualified Code(s): E11.621 - Type 2 diabetes mellitus with foot ulcer Abrasion of anterior right lower leg Qualifiers: Encounter type: initial encounter Qualified Code(s): S80.811A - Abrasion, right lower leg, initial encounter Uncontrolled diabetes mellitus Qualifiers: Diabetes mellitus type: type 1 Glycemic state: with hyperglycemia Qualified Code(s): E10.65 - Type 1 diabetes mellitus with hyperglycemia Patient Disposition: Xfer As Inpt ([facility]) Follow up with: No,PCP [Primary Care Provider] - Prescriptions: No Action No Known Home Meds RF: 0
[2020-07-30 03:44] LABS: Basophils # (Auto) 0.01 K/mcL (0.00-0.20); Basophils % (Auto) 0.1 % (0.0-2.0); Eosinophils # (Auto) 0.02 K/mcL (0.00-0.70); Eosinophils % (Auto) 0.3 % (0.0-7.0); Hematocrit 33.1 % (41.0-55.0); Lymphocytes # (Auto) 1.15 K/mcL (1.50-4.80); Lymphocytes % (Auto) 15.6 % (15.0-49.0); Mean Cell Volume 90.4 fL (80.0-100.0); Mean Corpuscular HGB Conc 33.2 g/dL (31.0-36.0); Mean Platelet Volume 10.7 fL (7.4-10.4); Monocytes # (Auto) 0.52 K/mcL (0.10-0.90); Platelet Count 312 K/mcL (140-440); RBC 3.66 M/mcL (4.50-5.90); Red Cell Distribution Width 12.7 % (11.5-14.5); WBC 7.4 K/mcL (4.5-11.0)
[2020-07-30 04:41] LABS: ALT/SGPT 74 U/L (<40); AST/SGOT 53 U/L (<40); Albumin 3.3 gm/dL (3.2-5.2); Albumin/Globulin Ratio 0.9 (1.0-2.3); Alkaline Phosphatase 196 U/L (39-117); Bilirubin,Total 0.3 mg/dL (0.1-1.0); Blood Urea Nitrogen 22 mg/dL (6-20); Calcium 8.9 mg/dL (8.6-10.4); Carbon Dioxide 21 mmol/L (22-30); Chloride 95 mmol/L (96-108); Globulin 3.7 gm/dL (2.2-3.7); Glomerular Filtration Rate 97; Glucose 570 mg/dL (70-105)
[2020-07-30] MEDS ORDERED: ONDANSETRON 4 MG/2 ML VIAL IV PRN ×2 (06:13→08:06)
[2020-07-30] MEDS ORDERED: NALOXONE HCL 0.4 MG/ML VIAL IV PRN (06:13)
[2020-07-30] MEDS ORDERED: morphine 2 MG/ML VIAL IV PRN ×2 (06:13→07:55)
[2020-07-30] MEDS ORDERED: 0.9 % SODIUM CHLORIDE 1,000 ML IV SCH (06:15)
--- NOTE | 2020-07-30 07:38 | Internal Med History&Physical ---
HPI History of Present Illness Patient information: Note initiated : 07/30/20 at 7:26 am Service Date, if different from initiated Date: [] Patient: Wilfrido Damon 54 y/o M admitted on 07/30/20 for Diabetic Problems. Chief Complaint: [] History of present illness: Mr. Damon is a 54 year old M Into the ED with a nonhealing wound over his lower extremity and complaining of maggots falling out and it being malodorous.Is also a meth user and a diabetic. Patient is been off his diabetic medications for 6 months. Sound like he is been getting his diabetic medication through ERs and minor cares. Uses IV meth several times a week. Uses marijuana. Wound is been there for about 5 months. Initially injured his leg when he was helping somebody move. Denies fever chills. Case discussed with Dr. Santiago who will evaluate patient. Review of Systems: Pertinent positives as above. Denies headache/fever/chills/nausea/vomiting/chest or abdominal pain/cough/dyspnea/diarrhea. Many 10 point review of system reviewed negative PFSH PFSH All Active Problems (Updated 07/30/20 @ 06:25 by Maximiliano Velazquez DO) Uncontrolled diabetes mellitus (Acute) Methamphetamine abuse (Acute) Cigarette smoker (Acute) Uncontrolled diabetes mellitus (Acute) Hyperglycemia (Acute) Homeless (Acute) Infestation, maggots (Acute) Leg ulcer, left (Acute) Diabetic ulcer of left foot (Acute) Abrasion of anterior right lower leg (Acute) Medical History (Updated 07/30/20 @ 06:25 by Maximiliano Velazquez DO) Closed right arm fracture (Inactive) Surgical History (Updated 07/30/20 @ 06:20 by Maximiliano Velazquez DO) History of amputation of lesser toe of right foot (Resolved) History of amputation of right great toe (Resolved) Status post amputation of right foot (Inactive) Partial Social History (Updated 07/30/20 @ 08:04 by Brandan Flynn DO) smoking status: Current every day smoker alcohol intake frequency: holiday/special occasion only substance use type: marijuana and amphetamines additional history: Family history: Mother father both had diabetes Social history: Patient smokes 1 pack of cigarettes per day Drinks alcohol occasionally Uses IV meth several times a week and marijuana [place] [address] MEDS/ALLERGIES Home Medications and Allergies Home Medications Medication Instructions Recorded Confirmed Type No Known Home Meds 07/30/20 07/30/20 History Allergies Allergy/AdvReac Type Severity Reaction Status Date / Time No Known Drug Allergies Allergy Verified 07/30/20 00:55 EXAM Constitutional Vitals: Temp Pulse Resp BP Pulse Ox 96.8 F L 92 H 20 106/81 98 07/30/20 00:45 07/30/20 07:00 07/30/20 00:45 07/30/20 07:00 07/30/20 07:00 Exam: General: Alert, Awake, No acute Distress Eyes/N/T: EOMI, PERRL, dry MM Head/Neck: neck supple, normocephalic atraumatic CV: RRR, No murmurs, normal s1/s2 Pulm: Clear b/l, no wheezing/rhonchi/rales Abd: soft, nontender, +BS x4 Ext: no clubbing/cyanosis/edema to RLE. LLE with erythema/edema/large ulcer on vargas. Neuro: Alert, no focal deficits, moves all extremities, CN 2-12 grossly intact, symmetrical strength b/l upper/lower, sensations intact b/l upper/lower Skin: warm/dry DATA Data Completed and Pending Labs: Labs from last 24 hours 07/30/20 07/30/20 07/30/20 02:30 02:30 02:30 WBC RBC Hgb Hct MCV MCH MCHC RDW Plt Count MPV Neut % (Auto) Lymph % (Auto) [place] % (Auto) Eos % (Auto) Baso % (Auto) Lymph # (Auto) [place] # (Auto) Eos # (Auto) Baso # (Auto) VBG Lactic Acid 1.7 Sodium 130 L Potassium 4.5 Chloride 95 L Carbon Dioxide 21 L Anion Gap 14.0 BUN 22 H Creatinine 0.9 GFR Calculation 97 Glucose 570 H* Calcium 8.9 Total Bilirubin 0.3 AST 53 H ALT 74 H Alkaline Phosphatase 196 H C-Reactive Protein 5.50 H Total Protein 7.0 Albumin 3.3 Globulin 3.7 Albumin/Globulin Ratio 0.9 L Abs Neutrophil Control 07/30/20 02:30 WBC 7.4 RBC 3.66 L Hgb 11.0 L Hct 33.1 L MCV 90.4 MCH 30.1 MCHC 33.2 RDW 12.7 Plt Count 312 MPV 10.7 H Neut % (Auto) 77.0 Lymph % (Auto) 15.6 [place] % (Auto) 7.0 Eos % (Auto) 0.3 Baso % (Auto) 0.1 Lymph # (Auto) 1.15 L [place] # (Auto) 0.52 Eos # (Auto) 0.02 Baso # (Auto) 0.01 VBG Lactic Acid Sodium Potassium Chloride Carbon Dioxide Anion Gap BUN Creatinine GFR Calculation Glucose Calcium Total Bilirubin AST ALT Alkaline Phosphatase C-Reactive Protein Total Protein Albumin Globulin Albumin/Globulin Ratio Abs Neutrophil Control 5.68 A/P Narrative A/P Narrative: A: *LLE cellulitis with large ulcerative wound vargas: *Volume depletion: *Hyponatremia: *Mild transaminitis, chronic: *Anemia, chronic: *DM: Poorly controlled, is been out of diabetic medications for 6 months *Substance abuse: With methamphetamine IV use *Tobacco abuse: *Homeless: *Malnutrition: P: -IVF -Zosyn/vanc, pending WC/BC and MRSA screen -Dr. Koch for wound care/debridement -SSI, a1c, clarify home meds -clarify home meds -ESR -Hepatitis panel/liver ultrasound -Substance abuse counseling and smoking cessation counseling -Dietary consult -CM -pt/ot -ppx: Heparin full code Time Spent With Patient Time: Total time spent is greater than 50% in coordination of care (as documented) at patient's floor/unit and/or counseling patient:
[2020-07-30] MEDS ORDERED: VANCOMYCIN PER PHARMACY IV SCH (07:50)
[2020-07-30] MEDS ORDERED: DEXTROSE 50% 50 ML VIAL IV PRN (07:50)
[2020-07-30] MEDS ORDERED: DEXTROSE 31 GM ORAL.SUSP PO PRN (07:50)
[2020-07-30] MEDS ORDERED: ACETAMINOPHEN 325 MG TABLET PO PRN (08:06)
[2020-07-30] MEDS ORDERED: POLYETHYLENE GLYCOL 3350 17 GM PACKET PO PRN (08:06)
[2020-07-30] MEDS ORDERED: SENNOSIDES 1 TABLET PO PRN (08:06)
[2020-07-30] MEDS ORDERED: POTASSIUM CHLORIDE 20 MEQ TABLET PO PRN ×2 (08:06)
[2020-07-30] MEDS ORDERED: MAGNESIUM SULFATE 2 GM/50 ML BAG IV PRN (08:06)
[2020-07-30] MEDS ORDERED: IPRATROPIUM/ALBUTEROL 3 ML AMPUL.NEB NEB PRN (08:06)
[2020-07-30] MEDS ORDERED: POTASSIUM CHLORIDE 40 MEQ in DEXTROSE 5% IN WATER 500 ML IV PRN (08:06)
[2020-07-30] MEDS ORDERED: HYDROcodone/APAP 5/325MG TABLET PO PRN (08:06)
[2020-07-30] MEDS: PIPERACILLIN SODIUM/TAZOBACTAM 3.375 GM in DEXTROSE 5% IN WATER 50 ML IV SCH ×3 (08:10→18:26)
[2020-07-30] MEDS: 0.9 % SODIUM CHLORIDE 1,000 ML IV SCH ×2 (08:43→20:59)
[2020-07-30 08:59] LABS: Appearance,Urine CLEAR (Clear); Bilirubin,Urine Negative (Negative); Color,Urine STRAW; Culture Indicated,Urine No; Glucose,Urine (UA) >=500 mg/dL (Negative); Ketones,Urine Negative (Negative); Leukocyte Esterase,Urine Negative /ug (Negative); Mucus,Urine FEW /hpf; Nitrate,Urine Negative (Negative); Protein,Urine Negative (Negative); Specific Gravity,Urine 1.029 (1.000-1.035); Urine Blood Negative (Negative); Urine RBC 0 /hpf (0-1); Urine Squamous Epithelial Cell 0 /hpf (0-4); Urine WBC 0 /hpf (0-4); Urobilinogen,Urine Negative
--- NOTE | 2020-07-30 09:02 | XRay Report ---
HISTORY: Necrotic ulcer in the anterior left vargas FINDINGS: There is a 7 x 7 cm air-filled ulceration in the soft tissues anterior and lateral to the proximal tibia and fibula. It is close to 2 cm in depth. The adjacent bone is normal without evidence of osteomyelitis. The bones are normally mineralized and the tibia and fibula. There is a subchondral lesion along the weightbearing portion of the medial tibial femoral condyle. Has a relatively lucent central component and peripheral sclerotic margin. This could be due to osteonecrosis. The adjacent joint space is normal in width and alignment. 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
--- NOTE | 2020-07-30 09:04 | XRay Report ---
HISTORY: Skin ulceration and distal foot, evaluate for osteomyelitis FINDINGS: Fourth and fifth toes and the heads of the fourth and fifth metatarsals have been surgically resected. There is soft tissue thickening around the remaining stumps of the fourth and fifth metatarsals. There is no bone erosion or periosteal elevation. No gas or foreign body are present in the soft tissues. There may be a small skin ulceration lateral to the neck of the fifth metatarsal. The remaining bones are normal. IMPRESSION: No evidence of osteomyelitis Small skin ulceration lateral to the distal neck of the fifth metatarsal Interpreted and Authenticated by: Garo Vieira 07/30/20
[2020-07-30 09:16] LABS: Amphetamine Screen,Urine Suspect positive; Barbiturate Screen,Urine None detected; Benzodiazepines Screen,Urine None detected; Cannabinoid Screen,Urine Suspect Positive; Cocaine Screen,Urine None detected; Opiate Screen,Urine None detected; Oxycodone, Urine Screen None detected; Phencyclidine Screen,Urine None detected
[2020-07-30] MEDS: VANCOMYCIN 1,000 MG in 0.9 % SODIUM CHLORIDE 250 ML IV SCH ×2 (09:25→21:17)
--- NOTE | 2020-07-30 09:34 | XRay Report ---
HISTORY: Preop FINDINGS: The lungs are clear. The heart size and pulmonary vasculature are normal. There is no evidence of adenopathy or pleural effusion. An old healed fracture is present posterior laterally in the right eighth rib. IMPRESSION: Normal exam Interpreted and Authenticated by: Garo Vieira 07/30/20
--- NOTE | 2020-07-30 09:37 | XRay Report ---
HISTORY: Diabetic leg ulcers FINDINGS: The tibia and fibula are normal without evidence of infection. The bones are normally mineralized. Knee and ankle joint spaces are normal in width and alignment. There are no vascular calcifications in the leg. On the lateral view a small cortical erosion is seen along the weightbearing portion of the base of the residual stump of the fifth metatarsal. This erosion was not present at the time of a prior CT scan done on 04/20/19. There is no gas or foreign body in the adjacent soft tissues. IMPRESSION: Small erosion along the plantar surface of the stump of the fifth metatarsal. This could be osteomyelitis. Normal tibia and fibula Interpreted and Authenticated by: Garo Vieira 07/30/20
[2020-07-30] MEDS: GENTAMICIN SULFATE 40 MG, CLINDAMYCIN 300 MG, BACITRACIN 25,000 UNIT in SODIUM CHLORIDE... IRR SCH ×2 (10:00→22:42)
--- NOTE | 2020-07-30 10:00 | General Surgery Consult Note ---
HPI Consult Narrative Patient Information: Note initiated : 07/30/20 at 9:43 am Service Date, if different from initiated Date: [] Patient: Wilfrido Damon 54 y/o M admitted on 07/30/20 for Diabetic Problems. Chief Complaint: [Patient admitted via ER around 06;30 HRS this morning with complicated skin and soft tissue infection of LEFT leg, with foul odor, maggots over an open infected wound of left leg AND uncontrolled diabetes and substance abuse ( amphetamines and Cannabis on UDS ) I spoke with Dr. Velazquez, ER physician, this morning when patient walked in to ER. ( FAILED OUT PATIENT TREATMENT ) Patient is well known to the staff at this institution and was seen at wound care center in past. He is homeless and needs manager social and case management to assist him with his overall care. He smokes cigarettes and has h/o substance abuse. 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 He was seen at [facility] for back pain, nerve compression and skin infections two months ago. cc:: CC: Brandan Flynn [facility] All Active Problems Uncontrolled diabetes mellitus (Acute) Methamphetamine abuse (Acute) Cigarette smoker (Acute) Uncontrolled diabetes mellitus (Acute) Hyperglycemia (Acute) Homeless (Acute) Infestation, maggots (Acute) Leg ulcer, left (Acute) Diabetic ulcer of left foot (Acute) Abrasion of anterior right lower leg (Acute) Medical History Closed right arm fracture (Inactive) Surgical History History of amputation of lesser toe of right foot (Resolved) History of amputation of right great toe (Resolved) Status post amputation of right foot (Inactive) Partial Social History smoking status: Current every day smoker alcohol intake frequency: holiday/special occasion only substance use type: marijuana and amphetamines additional history: Family history: Mother father both had diabetes Social history: Patient smokes 1 pack of cigarettes per day Drinks alcohol occasionally Uses IV meth several times a week and marijuana Lives on the street MEDS/ALLERGIES Home Medications and Allergies Home Medications Medication Instructions Recorded Confirmed Type No Known Home Meds 07/30/20 07/30/20 History Allergies Allergy/AdvReac Type Severity Reaction Status Date / Time No Known Drug Allergies Allergy Verified 07/30/20 00:55 Physical Examination Vital Signs Vital signs: Temp Pulse Resp BP Pulse Ox 98.2 F 108 H 18 119/78 97 07/30/20 07:54 07/30/20 07:54 07/30/20 07:54 07/30/20 07:54 07/30/20 07:54 General physical appearance General physical exam: well developed, no distress, no pain and chronically ill Eyes Eye exam: PERRL and normal ocular movement ENT ENT exam: normal pinna, normal nares, normal mucosa, no congestion and poor longterm Head Head exam IM: Present atraumatic and normal inspection Neck Neck exam: no masses, trachea midline and no venous distension Cardiovascular Cardiovascular exam IM: Present normal rate and rhythm Peripheral pulses: 3+/4+: dorsalis pedis (L) and dorsalis pedis (R) Respiratory Respiratory exam: normal expansion, normal respiratory effort and clear to auscultation Abdomen Abdomen: Present soft, non tender and bowel sounds Integumentary Integumentary: Present other (OPEN infected wound LEFT mid leg Stage 4 with exposed muscle, covered with slough and odorous. There is periwound skin and subcutaneous inflammation exteding to lower vargas and proximally to knee region. ABRASION and skin ulcer of LEFT mid vargas. ( Chrinic inflammation) ) Neurologic Neurologic: Present other (No focal neurological deficits. He has diabetes with peripheral neuropathy. ) Musculoskeletal Musculoskeletal: Present other (RIGHT foot Transmetatarsal amputation of all toes.) Psychiatric Psychiatric: Present oriented to time, oriented to person, oriented to place, speech is normal, memory intact and other (Well aware of his homelessness and w nts assistance from SW and CM. ) Results Labs Result diagrams: 07/30/20 02:30 07/30/20 02:30 Labs: Abnormal lab results 07/30/20 07/30/20 07/30/20 Range/Units 02:30 02:30 02:30 RBC 3.66 L (4.50-5.90) M/mcL Hgb 11.0 L (13.5-16.5) g/dL Hct 33.1 L (41.0-55.0) % MPV 10.7 H (7.4-10.4) fL Lymph # (Auto) 1.15 L (1.50-4.80) K/mcL Sodium 130 L (133-145) mmol/L Chloride 95 L (96-108) mmol/L Carbon Dioxide 21 L (22-30) mmol/L BUN 22 H (6-20) mg/dL Glucose 570 H* (70-105) mg/dL AST 53 H (<40) U/L ALT 74 H (<40) U/L Alkaline Phosphatase 196 H (39-117) U/L C-Reactive Protein 5.50 H (0.03-0.80) mg/dL Albumin/Globulin Ratio 0.9 L (1.0-2.3) Urine Glucose (UA) (Negative) mg/dL Urine Mucus (None) /hpf Ur Amphetamines Screen U Marijuana (THC) Screen 07/30/20 07/30/20 Range/Units 07:58 07:59 RBC (4.50-5.90) M/mcL Hgb (13.5-16.5) g/dL Hct (41.0-55.0) % MPV (7.4-10.4) fL Lymph # (Auto) (1.50-4.80) K/mcL Sodium (133-145) mmol/L Chloride (96-108) mmol/L Carbon Dioxide (22-30) mmol/L BUN (6-20) mg/dL Glucose (70-105) mg/dL AST (<40) U/L ALT (<40) U/L Alkaline Phosphatase (39-117) U/L C-Reactive Protein (0.03-0.80) mg/dL Albumin/Globulin Ratio (1.0-2.3) Urine Glucose (UA) >=500 A (Negative) mg/dL Urine Mucus Few A (None) /hpf Ur Amphetamines Screen Suspect positive A U Marijuana (THC) Screen Suspect positive A Diabetes panel 07/30/20 Range/Units 02:30 Sodium 130 L (133-145) mmol/L Potassium 4.5 (3.3-5.1) mmol/L Chloride 95 L (96-108) mmol/L Carbon Dioxide 21 L (22-30) mmol/L BUN 22 H (6-20) mg/dL Creatinine 0.9 (0.7-1.2) mg/dL Glucose 570 H* (70-105) mg/dL Calcium 8.9 (8.6-10.4) mg/dL AST 53 H (<40) U/L ALT 74 H (<40) U/L Alkaline Phosphatase 196 H (39-117) U/L Total Protein 7.0 (5.9-8.4) gm/dL Albumin 3.3 (3.2-5.2) gm/dL Calcium panel 07/30/20 Range/Units 02:30 Calcium 8.9 (8.6-10.4) mg/dL Albumin 3.3 (3.2-5.2) gm/dL Pituitary panel 07/30/20 Range/Units 02:30 Sodium 130 L (133-145) mmol/L Potassium 4.5 (3.3-5.1) mmol/L Chloride 95 L (96-108) mmol/L Carbon Dioxide 21 L (22-30) mmol/L BUN 22 H (6-20) mg/dL Creatinine 0.9 (0.7-1.2) mg/dL Glucose 570 H* (70-105) mg/dL Calcium 8.9 (8.6-10.4) mg/dL Adrenal panel 07/30/20 Range/Units 02:30 Sodium 130 L (133-145) mmol/L Potassium 4.5 (3.3-5.1) mmol/L Chloride 95 L (96-108) mmol/L Carbon Dioxide 21 L (22-30) mmol/L BUN 22 H (6-20) mg/dL Creatinine 0.9 (0.7-1.2) mg/dL Glucose 570 H* (70-105) mg/dL Calcium 8.9 (8.6-10.4) mg/dL Total Bilirubin 0.3 (0.1-1.0) mg/dL AST 53 H (<40) U/L ALT 74 H (<40) U/L Alkaline Phosphatase 196 H (39-117) U/L Total Protein 7.0 (5.9-8.4) gm/dL Albumin 3.3 (3.2-5.2) gm/dL All other labs normal. A/P Narrative A/P Narrative: Assessment: Chronic Sepsis. CSSSI Left and Right leg. LEFT >> Right. Uncontrolled diabetes. NEEDS, Surgical debridement, Pulse lavage, tissue cultures Spoke with patient at length. Different case scenarios discussed. Possibility of LEFT AKA cannot be ruled out. Patient verbalizes understanding and is aware, Further care as his condition evolves. Plan: MIST treatment and GCB dressing changes as ordered. Will reassess later today and schedule OR surgical debridement 07/31/2020 Time Spent With Patient Time: Total time spent is greater than 50% in coordination of care (as documented) at patient's floor/unit and/or counseling patient: Total time spent with greater than 50% in coordination of care (as documented) at patient's floor/unit and/or counseling patient:: Greater than 35 minutes
[2020-07-30] MEDS: DOCUSATE SODIUM 100 MG CAPSULE PO SCH ×2 (10:02→21:21)
[2020-07-30] MEDS: HEPARIN 5,000 UNIT/ML VIAL SQ SCH ×2 (10:02→21:16)
[2020-07-30] MEDS: INSULIN LISPRO 1 UNIT/0.01 ML UNIT SQ SCH ×4 (10:03→21:41)
[2020-07-30 10:33] LABS: Hemoglobin A1C 14.9 % Hgb (4.0-6.0)
[2020-07-30 10:41] LABS: Prealbumin 8.7 mg/dL (20.0-40.0)
--- NOTE | 2020-07-30 12:02 | Ultrasound Report ---
History: Elevated serum transaminase level, drug user, diabetic. Findings: The liver is normal in size and homogeneous. The parenchyma is mildly echogenic consistent with mild generalized fatty infiltration. There is no evidence of a mass. The intra and extrahepatic bile ducts are normal in caliber with the common duct measuring 4 mm. The gallbladder has no stones or sludge. The wall measures up to 3 mm in thickness which is upper limits of normal. The patient was nontender while scanning over the gallbladder. The pancreas is incompletely visualized due to overlying bowel gas. The visualized segments appear normal. No ascites is present. IMPRESSION: Mild fatty infiltration of the liver Interpreted and Authenticated by: Garo Vieira 07/30/20
[2020-07-30] MEDS: INSULIN GLARGINE, HUMAN 1 UNIT/0.01 ML SQ SCH (12:32)
--- NOTE | 2020-07-30 15:02 | Ultrasound Report ---
History: Nonhealing wounds in both lower legs FINDINGS: Duplex ultrasound was performed in both legs from the groin to the upper calf. The mid and lower calf were wrapped with wound dressings and cannot be evaluated. Scattered mixed plaques are present in the superficial femoral arteries in both thighs with mild involvement in the popliteal and common femoral arteries. Normal triphasic waveform patterns are seen in the common femoral arteries bilaterally. Right popliteal artery also has normal triphasic waveform. Biphasic waveform pattern is present in the left popliteal artery. The flow velocities in the left leg are higher than on the right side but are not hemodynamically significant. Triphasic waveform patterns are present in the right anterior and posterior tibial and right peroneal artery. Biphasic waveform patterns with lower flow velocities are present to the left anterior tibial and left posterior tibial. The left peroneal artery was not visualized. There is no evidence of hemodynamically significant stenosis or thrombosis from the groin through the popliteal arteries. IMPRESSION: atherosclerosis bilaterally and no hemodynamically significant stenosis. Nonvisualization of the calf vessels beneath the wound dressings Interpreted and Authenticated by: Garo Vieira 07/30/20
[2020-07-30] MEDS: 0.9 % SODIUM CHLORIDE 10 ML SYRINGE IV SCH ×2 (16:11→21:43)
[2020-07-31] MEDS: PIPERACILLIN SODIUM/TAZOBACTAM 3.375 GM in DEXTROSE 5% IN WATER 50 ML IV SCH ×4 (00:18→18:35)
[2020-07-31] MEDS: INSULIN LISPRO 1 UNIT/0.01 ML UNIT SQ SCH ×6 (00:22→21:00)
[2020-07-31] MEDS: 0.9 % SODIUM CHLORIDE 10 ML SYRINGE IV SCH ×3 (04:11→22:16)
--- NOTE | 2020-07-31 07:06 | Internal Med Progress Note ---
SUBJECTIVE Subjective Patient information: Note initiated : 07/31/20 at 7:01 am Service Date, if different from initiated Date: [] Patient: Wilfrido Damon 54 y/o M admitted on 07/30/20 for Diabetic Problems. Chief Complaint: [] Interval history: History of present illness: Mr. Damon is a 54 year old M Into the ED with a nonhealing wound over his lower extremity and complaining of maggots falling out and it being malodorous.Is also a meth user and a diabetic. Patient is been off his diabetic medications for 6 months. Sound like he is been getting his diabetic medication through ERs and minor cares. Uses IV meth several times a week. Uses marijuana. Wound is been there for about 5 months. Initially injured his leg when he was helping somebody move. Denies fever chills. Case discussed with Dr. Santiago who will evaluate patient. 07/31 No new complaints or overnight events. Awaiting for debridement. Review of Systems: denies headache/fever/chills/nausea/vomiting/chest or abdominal pain/cough/dyspnea/diarrhea. Otherwise see above. Constitutional Vitals: Vital Signs Temp Pulse Resp BP Pulse Ox 98.0 F 78 18 147/94 98 07/31/20 04:00 07/31/20 04:00 07/31/20 04:00 07/31/20 04:00 07/31/20 04:00 Period Temp Pulse Resp BP Sys/Orosco Pulse Ox Last 24 Hr 98.0 F-100.0 F 78-108 16-22 102-147/66-94 97-99 Intake and Output 07/30/20 07/31/20 07/31/20 21:59 05:59 13:59 Intake Total 1410 50 Output Total 0 Balance 1410 50 Weight 48.172 kg Intake & Output: Intake & Output 07/30/20 07/31/20 07/31/20 21:59 05:59 13:59 Intake Total 1410 50 Output Total 0 Balance 1410 50 Weight 48.172 kg Intake: IV 1050 50 Sodium Chloride 0.9% 1,000 ml @ 1000 100 mls/hr IV .Q10H [facility] Rx#: [id number] Zosyn 3.375 gm In Dextrose 5% 50 50 in Water 50 ml @ 100 mls/hr IV Q6H [facility] Rx#:[id number] Oral 360 0 Output: Void Amount 0 Other: Meal snack Percent of Meal Consumed 100% Feeding Ability Independent # Voids 1 Exam: General: Alert, Awake, No acute Distress Eyes/N/T: EOMI, Head/Neck: neck supple, CV: RRR, No murmurs, Pulm: Clear b/l, no wheezing/rhonchi/rales Abd: soft, nontender, +BS x4 Ext: no clubbing/cyanosis/edema to RLE. LLE with erythema/edema/large ulcer on vargas. Neuro: Alert, no focal deficits, moves all extremities, Skin: warm/dry OBJ DATA Labs CBC & Chem 7: 07/30/20 02:30 07/30/20 02:30 Labs: Abnormal Lab Results 07/30/20 07/30/20 07/30/20 09:36 09:36 07:59 RBC Hgb Hct MPV Lymph # (Auto) ESR 83 H Sodium Chloride Carbon Dioxide BUN Glucose Hemoglobin A1c 14.9 H AST ALT Alkaline Phosphatase C-Reactive Protein Albumin/Globulin Ratio Prealbumin 8.7 L Urine Glucose (UA) Urine Mucus Ur Amphetamines Screen Suspect positive A U Marijuana (THC) Screen Suspect positive A 07/30/20 07/30/20 07/30/20 07:58 02:30 02:30 RBC Hgb Hct MPV Lymph # (Auto) ESR Sodium 130 L Chloride 95 L Carbon Dioxide 21 L BUN 22 H Glucose 570 H* Hemoglobin A1c AST 53 H ALT 74 H Alkaline Phosphatase 196 H C-Reactive Protein 5.50 H Albumin/Globulin Ratio 0.9 L Prealbumin Urine Glucose (UA) >=500 A Urine Mucus Few A Ur Amphetamines Screen U Marijuana (THC) Screen 07/30/20 02:30 RBC 3.66 L Hgb 11.0 L Hct 33.1 L MPV 10.7 H Lymph # (Auto) 1.15 L ESR Sodium Chloride Carbon Dioxide BUN Glucose Hemoglobin A1c AST ALT Alkaline Phosphatase C-Reactive Protein Albumin/Globulin Ratio Prealbumin Urine Glucose (UA) Urine Mucus Ur Amphetamines Screen U Marijuana (THC) Screen Meds: Medications Acetaminophen (Tylenol) 650 mg PO Q6HP PRN PRN Reason: PAIN/FEVER > 101 Hydrocodone Bitart/Acetaminophen (Spencer 5/325mg) 1 tab PO Q4HP PRN PRN Reason: PAIN LEVEL 3-6 Albuterol/Ipratropium (Duoneb) 3 ml NEB Q4HP PRN PRN Reason: Shortness Of Breath Dextrose (Dextrose 50%) 0 ml IV UD PRN PRN Reason: Hypoglycemia Diagnostic Test (Pha) (Accu-Chek) 1 each FS Q4H [facility] Last Admin: 07/31/20 04:10 Dose: 1 each Documented by: Docusate Sodium (Colace) 100 mg PO BID [facility] Last Admin: 07/30/20 21:21 Dose: Not Given Documented by: Glucose (Insta-Glucose) 15 gm PO PRN PRN PRN Reason: Hypoglycemia Heparin Sodium (Porcine) (Heparin) 5,000 unit SQ Q12 [facility] Last Admin: 07/30/20 21:16 Dose: 5,000 unit Documented by: Piperacillin Sod/Tazobactam (Sod 3.375 gm/ Dextrose) 50 mls @ 100 mls/hr IV Q6H [facility]; Protocol Last Admin: 07/31/20 06:19 Dose: 100 mls/hr Documented by: Vancomycin HCl 1,000 mg/ (Sodium Chloride) 250 mls @ 250 mls/hr IV Q12H [facility] Last Admin: 07/30/20 21:17 Dose: 250 mls/hr Documented by: Potassium Chloride 40 meq/ (Dextrose) 520 mls @ 130 mls/hr IV UD PRN PRN Reason: Potassium < 3 Magnesium Sulfate (Magnesium Sulfate) 2 gm in 50 mls @ 50 mls/hr IV UD PRN PRN Reason: Magnesium </= 1.6 Gentamicin Sulfate 40 mg/Clindamycin Phosphate 300 mg/Bacitracin 25,000 unit/ Sodium Chloride 503 mls @ 0 mls/hr IRR BID [facility] Last Admin: 07/30/20 22:42 Dose: 150 mls/hr Documented by: Insulin Glargine (Lantus) 10 unit SQ DAILY [facility] Last Admin: 07/30/20 12:32 Dose: 10 units Documented by: Insulin Human Lispro (Humalog) 0 unit SQ Q4H [facility]; Protocol Last Admin: 07/31/20 04:11 Dose: Not Given Documented by: Morphine Sulfate (Morphine) 1 - 2 mg IV Q1HP PRN; Protocol PRN Reason: Chest Pain Naloxone HCl (Narcan) 0.1 mg IV Q2MIN PRN PRN Reason: Opiate Reversal Ondansetron HCl (Zofran) 4 mg IV Q4HP PRN PRN Reason: Nausea And Vomiting Ondansetron HCl (Zofran) 4 mg IV Q4HP PRN PRN Reason: Nausea And Vomiting Polyethylene Glycol (Miralax) 17 gm PO DAILYP PRN PRN Reason: Constipation Potassium Chloride (Kdur) 40 meq PO UD PRN PRN Reason: Potssium is 3-3.5 Potassium Chloride (Kdur) 40 meq PO UD PRN PRN Reason: Potassium < 3 Scopolamine (Transderm-Scop) 1 patch TOPICAL PREOP PRN PRN Reason: Nausea And Vomiting Stop: 07/31/20 23:59 Senna (Senokot) 2 tab PO DAILYP PRN PRN Reason: Constipation Sodium Chloride (Saline Flush) 10 ml IV Q8 [facility] Last Admin: 07/31/20 04:11 Dose: Not Given Documented by: Vancomycin HCl (Vancomycin Per Pharmacy) 1 order IV UD [facility]; Protocol A/P Narrative A/P Narrative: A: *LLE cellulitis with large ulcerative wound vargas: -aa u/s not significant *Volume depletion: improved *Hyponatremia: *Mild transaminitis, chronic: -Fatty liver on u/s *Anemia, chronic: *DM: Poorly controlled, is been out of diabetic medications for 6 months -a1c 14.9 *Substance abuse: With methamphetamine IV use *Tobacco abuse: *Homeless: *Malnutrition: P: -IVF -Zosyn/vanc(d/c), pending WC/BC and MRSA screen -Dr. Koch for wound care/debridement -basal and SSI(pt refusing coverage at times) -clarify home meds -ESR/CRP -Hepatitis panel -Substance abuse counseling and smoking cessation counseling -Dietary consult -CM -pt/ot -ppx: Heparin (hold in AM of procedure) full code Time Spent With Patient Time: Total time spent is greater than 50% in coordination of care (as documented) at patient's floor/unit and/or counseling patient: QUALITY VTE Deep Vein Thrombosis/Pulmonary Embolism Present on Admission: No
[2020-07-31 09:03] LABS: Basophils # (Auto) 0.02 K/mcL (0.00-0.20); Basophils % (Auto) 0.4 % (0.0-2.0); Eosinophils # (Auto) 0.13 K/mcL (0.00-0.70); Eosinophils % (Auto) 2.5 % (0.0-7.0); Hematocrit 30.7 % (41.0-55.0); Hemoglobin 10.1 g/dL (13.5-16.5); Lymphocytes # (Auto) 1.49 K/mcL (1.50-4.80); Lymphocytes % (Auto) 29.1 % (15.0-49.0); Mean Cell Volume 91.1 fL (80.0-100.0); Mean Corpuscular HGB Conc 32.9 g/dL (31.0-36.0); Mean Platelet Volume 10.5 fL (7.4-10.4); Monocytes # (Auto) 0.32 K/mcL (0.10-0.90); Monocytes % (Auto) 6.3 % (1.0-12.0); Neutrophils % (Auto) 61.7 % (38.0-78.0); Platelet Count 277 K/mcL (140-440); RBC 3.37 M/mcL (4.50-5.90); Red Cell Distribution Width 12.8 % (11.5-14.5); WBC 5.1 K/mcL (4.5-11.0)
[2020-07-31] MEDS ORDERED: SCOPOLAMINE 1 PATCH PATCH TOPICAL PRN (10:00)
[2020-07-31 10:30] LABS: ALT/SGPT 65 U/L (<40); AST/SGOT 66 U/L (<40); Albumin 2.6 gm/dL (3.2-5.2); Albumin/Globulin Ratio 0.9 (1.0-2.3); Alkaline Phosphatase 189 U/L (39-117); Bilirubin,Direct < 0.2 mg/dL (<0.3); Bilirubin,Total 0.3 mg/dL (0.1-1.0); Blood Urea Nitrogen 11 mg/dL (6-20); Calcium 8.1 mg/dL (8.6-10.4); Carbon Dioxide 18 mmol/L (22-30); Chloride 105 mmol/L (96-108); Globulin 2.9 gm/dL (2.2-3.7); Glomerular Filtration Rate 107; Glucose 121 mg/dL (70-105); Lactate Dehydrogenase 119 U/L (135-225); Phosphorous 2.9 mg/dL (2.5-4.5); Triglycerides 73 mg/dL (<150); Uric Acid 1.5 mg/dL (2.5-8.0)
[2020-07-31] MEDS: VANCOMYCIN 1,000 MG in 0.9 % SODIUM CHLORIDE 250 ML IV SCH ×2 (10:45→20:40)
[2020-07-31] MEDS ORDERED: LORazepam 2 MG/ML VIAL IV ONE (11:57)
[2020-07-31] MEDS: HEPARIN 5,000 UNIT/ML VIAL SQ SCH ×2 (12:31→20:38)
[2020-07-31] MEDS: DOCUSATE SODIUM 100 MG CAPSULE PO SCH ×2 (12:31→22:14)
[2020-07-31] MEDS: INSULIN GLARGINE, HUMAN 1 UNIT/0.01 ML SQ SCH (12:31)
[2020-07-31] MEDS ORDERED: ONDANSETRON 4 MG/2 ML VIAL ONE (15:15)
[2020-07-31] MEDS ORDERED: LIDOCAINE HCL/PF 100 MG/5 ML SYRINGE IV ONE (15:15)
[2020-07-31] MEDS ORDERED: PROPOFOL 200 MG/20 ML VIAL IV ONE (15:15)
[2020-07-31] MEDS ORDERED: DEXAMETHASONE 10 MG/ML VIAL ONE (15:15)
[2020-07-31] MEDS ORDERED: MIDAZOLAM 5 MG/5 ML VIAL ONE (15:15)
[2020-07-31] MEDS: GENTAMICIN SULFATE 40 MG, CLINDAMYCIN 300 MG, BACITRACIN 25,000 UNIT in SODIUM CHLORIDE... IRR SCH (15:22)
[2020-07-31] MEDS ORDERED: GENTAMICIN SULFATE 800 MG/20 ML VIAL IR ONE (15:28)
[2020-07-31] MEDS ORDERED: PROMETHAZINE 25 MG/ML VIAL IV PRN (15:38)
[2020-07-31] MEDS ORDERED: MEPERIDINE 25 MG/ML SYRINGE IV PRN (15:38)
[2020-07-31] MEDS ORDERED: LACTATED RINGERS 250 ML IV PRN (15:38)
[2020-07-31] MEDS ORDERED: ONDANSETRON 4 MG/2 ML VIAL IV PRN (15:38)
[2020-07-31] MEDS ORDERED: IPRATROPIUM/ALBUTEROL 3 ML AMPUL.NEB NEB PRN (15:38)
[2020-07-31] MEDS ORDERED: diphenhydrAMINE 50 MG/ML VIAL IV PRN (15:38)
[2020-07-31] MEDS ORDERED: fentaNYL 100 MCG/2 ML VIAL IV PRN (15:38)
[2020-07-31] MEDS ORDERED: LACTATED RINGERS 1,000 ML IV SCH (15:45)
--- NOTE | 2020-07-31 15:58 | Brief Operative Note ---
Brief Operative Note Date of procedure: 07/31/20 Pre-op diagnosis: SEPSIS: CSSSI Left leg open wound + Abrasions R/L Vargas Post-op diagnosis: same Procedure: Excision Debridement, Tissue culture LEFT leg wound, Pulse lavage, Open packing Grafts/Implants: No Anesthesia: GLMA Findings: Wounds: LEFT upper anterior lateral 8 x 7 x 1.5 CM Left vargas 8 x 3 CM RIGHT mid vargas 2.5 x 2.5 x 0.5 CM Complications: none Surgeon: Boo Santiago Estimated blood loss (cc): 10 Specimens Removed/Pathology: other (Tissue for c/s LEFT open ulcer upper leg.) Condition: stable Disposition: PACU
[2020-07-31] MEDS: LORazepam 2 MG/ML VIAL IV PRN (16:58)
[2020-08-01] MEDS: PIPERACILLIN SODIUM/TAZOBACTAM 3.375 GM in DEXTROSE 5% IN WATER 50 ML IV SCH ×4 (00:08→17:02)
[2020-08-01] MEDS: INSULIN LISPRO 1 UNIT/0.01 ML UNIT SQ SCH ×7 (00:09→20:53)
[2020-08-01 01:55] LABS: Hepatitis B Surface Antigen Negative (Negative)
[2020-08-01 05:40] LABS: POC Blood Urea Nitrogen 21 mg/dL (6-20); POC CO2 19 mmol/L (22-30); POC Chloride 103 mEq/L (96-108); POC Creatinine 0.8 mg/dL (0.6-1.2); POC Glucose, Random 471 mg/dL (70-105); POC Hematocrit 38 % (41-55); POC Potassium 4.7 mEql/L (3.3-5.1); POC Sodium 131 mEq/L (133-145)
[2020-08-01] MEDS: 0.9 % SODIUM CHLORIDE 10 ML SYRINGE IV SCH ×4 (06:06→22:12)
[2020-08-01 06:40] LABS: Basophils # (Auto) 0.01 K/mcL (0.00-0.20); Basophils % (Auto) 0.3 % (0.0-2.0); Eosinophils # (Auto) 0 K/mcL (0.00-0.70); Eosinophils % (Auto) 0 % (0.0-7.0); Hematocrit 36.7 % (41.0-55.0); Hemoglobin 11.9 g/dL (13.5-16.5); Lymphocytes # (Auto) 0.82 K/mcL (1.50-4.80); Lymphocytes % (Auto) 22.5 % (15.0-49.0); Mean Cell Volume 91.3 fL (80.0-100.0); Mean Corpuscular HGB Conc 32.4 g/dL (31.0-36.0); Mean Platelet Volume 10.3 fL (7.4-10.4); Monocytes # (Auto) 0.16 K/mcL (0.10-0.90); Monocytes % (Auto) 4.4 % (1.0-12.0); Neutrophils % (Auto) 72.8 % (38.0-78.0); Platelet Count 300 K/mcL (140-440); RBC 4.02 M/mcL (4.50-5.90); Red Cell Distribution Width 12.6 % (11.5-14.5); WBC 3.7 K/mcL (4.5-11.0)
[2020-08-01 06:58] LABS: ALT/SGPT 65 U/L (<40); AST/SGOT 48 U/L (<40); Albumin 2.7 gm/dL (3.2-5.2); Albumin/Globulin Ratio 0.7 (1.0-2.3); Alkaline Phosphatase 213 U/L (39-117); Bilirubin,Total < 0.2 mg/dL (0.1-1.0); Blood Urea Nitrogen 16 mg/dL (6-20); Calcium 8.8 mg/dL (8.6-10.4); Carbon Dioxide 19 mmol/L (22-30); Chloride 100 mmol/L (96-108); Globulin 3.8 gm/dL (2.2-3.7); Glomerular Filtration Rate 85; Glucose 497 mg/dL (70-105); POC Calcium, Ionized 1.07 mmEq/L (1.16-1.32)
--- NOTE | 2020-08-01 07:56 | Operative Note ---
DATE OF OPERATION: 07/31/2020 PREOPERATIVE DIAGNOSES: 1. Sepsis syndrome. 2. Complicated skin and skin structure infection; diabetic foot ulcers, left leg, with maggots; aberration left and right vargas. POSTOPERATIVE DIAGNOSES: 1. Sepsis syndrome. 2. Complicated skin and skin structure infection; diabetic foot ulcers, left leg with maggots; abrasions left and right vargas. OPERATION: 1. Excision debridement. 2. Tissue culture left open leg wound. 3. Pulse lavage irrigation and open packing. ANESTHESIA: General laryngeal mask airway. SOAP BOILER: Corby Rivera CRNA. SURGEON: Boo Santiago MD. FINDINGS: Wound on left upper anterior lateral le x 7 x 1.5 cm; left vargas 8 x 3 cm; right mid vargas 2.5 x 2.5 x 0.5 cm. COMPLICATIONS: None. ESTIMATED BLOOD LOSS: About 10 mL INSTRUMENT COUNT: Count of swabs, instruments and needles was reported to be correct. PATHOLOGY: Tissue sent for culture and sensitivity from the left open ulcer wound base. INDICATION FOR SURGERY: This is a middle-aged individual with multiple social economic issues. He is homeless and negligent in his self-care and wound management. He presented to the ER with sepsis, uncontrolled diabetes, open foul smelling infected wound with old dressings stuck to the wound base and maggots along the wound margins. After stabilization of his condition, he was taken to the operating room for debridement. PROCEDURE IN DETAIL: After obtaining informed consent, patient was taken to the operating room. Timeout was called. He was already on intravenous antibiotics. Preoperative photographs were taken. Both legs were widely cleaned, prepped and draped from the mid thighs up to the toes. First, the necrotic edges of the open ulcer were excised with pickup and Scott scissors. We used #7 sharp curet and carried out tangential excision and debridement of the open wound and other abrasions. We used pulse lavage irrigation. The initial 3 liters of irrigation fluid consisted of normal saline. The second bag of 3 liters was mixed with 800 mg of gentamicin solution. The wounds were thoroughly cleaned, washed, lavaged. Post-procedure photographs were taken. Dressings consisted of Xeroform gauze reinforced with Betadine soaked 2-inch Kerlix roll, 4 x 4 gauze, Kerlix bandage, Coban and HOME wraps respectively. He recovered from anesthesia and was taken to in stable condition. The procedure was well tolerated. ADDENDUM: This patient's wound was debrided full-thickness to the level of subcutaneous fat and fascia. Amended 09/12/2020 rima VD:chivo Job ID: [id number] Doc ID: [id number] Boo Santiago MD
[2020-08-01] MEDS: INSULIN GLARGINE, HUMAN 1 UNIT/0.01 ML SQ SCH (09:58)
[2020-08-01] MEDS: DOCUSATE SODIUM 100 MG CAPSULE PO SCH ×2 (09:58→20:37)
[2020-08-01] MEDS: HEPARIN 5,000 UNIT/ML VIAL SQ SCH ×2 (09:58→20:53)
[2020-08-01] MEDS ORDERED: NICOTINE 14 MG PATCH TOPICAL SCH (10:00)
[2020-08-01] MEDS: GENTAMICIN SULFATE 40 MG, CLINDAMYCIN 300 MG, BACITRACIN 25,000 UNIT in SODIUM CHLORIDE... IRR SCH (10:11)
[2020-08-01] MEDS: VANCOMYCIN 1,000 MG in 0.9 % SODIUM CHLORIDE 250 ML IV SCH ×2 (10:30→21:05)
[2020-08-01 11:28] LABS: ALT/SGPT 66 U/L (<40); AST/SGOT 50 U/L (<40); Albumin 2.8 gm/dL (3.2-5.2); Albumin/Globulin Ratio 0.8 (1.0-2.3); Alkaline Phosphatase 215 U/L (39-117); Bilirubin,Direct < 0.2 mg/dL (<0.3); Bilirubin,Total 0.2 mg/dL (0.1-1.0); Blood Urea Nitrogen 17 mg/dL (6-20); Calcium 8.9 mg/dL (8.6-10.4); Carbon Dioxide 17 mmol/L (22-30); Chloride 99 mmol/L (96-108); Globulin 3.7 gm/dL (2.2-3.7); Glomerular Filtration Rate 85; Glucose 503 mg/dL (70-105); Lactate Dehydrogenase 144 U/L (135-225); Phosphorous 3.2 mg/dL (2.5-4.5); Triglycerides 150 mg/dL (<150); Uric Acid 2.3 mg/dL (2.5-8.0)
[2020-08-01] MEDS: LORazepam 2 MG/ML VIAL IV PRN (16:41)
--- NOTE | 2020-08-01 17:25 | General Surgery Progress Note ---
SUBJECTIVE Subjective Patient information: Note initiated : 08/01/20 at 5:19 pm Service Date, if different from initiated Date: [] Patient: Wilfrido Damon 54 y/o M admitted on 07/30/20 for Diabetic Problems. Chief Complaint: [] Additional PMFSH (Level 3 Only): Patient seen on rounds with Svetlana rn case manager Nurse. Progress reviewed with nursing staff and hospitalist physician. Constitutional Vitals: Vital Signs Temp Pulse Resp BP Pulse Ox 98.4 F 80 18 139/85 99 08/01/20 16:00 08/01/20 16:00 08/01/20 16:00 08/01/20 16:00 08/01/20 16:00 Period Temp Pulse Resp BP Sys/Orosco Pulse Ox Last 24 Hr 97.7 F-98.5 F 69-100 16-22 89-176/55-110 96-100 Intake and Output 08/01/20 08/01/20 08/01/20 05:59 13:59 21:59 Intake Total 1650 100 650 Output Total 2 Balance 1648 100 650 Weight 107 lb 9.6 oz Patient Weight 08/02/20 05:59 Weight 107 lb 9.6 oz Intake & Output: Intake & Output 08/01/20 08/01/20 08/01/20 05:59 13:59 21:59 Intake Total 1650 100 650 Output Total 2 Balance 1648 100 650 Weight 107 lb 9.6 oz Intake: IV 50 100 250 Zosyn 3.375 gm In Dextrose 5% 50 100 in Water 50 ml @ 100 mls/hr IV Q6H [facility] Rx#:[id number] Vancomycin 1,000 mg In Sodium 250 Chloride 0.9% 250 ml @ 250 mls/ hr IV Q12H [facility] Rx#:[id number] Oral 1600 400 Output: # of times incontinent of urine 2 Other: Meal Breakfast Lunch Percent of Meal Consumed 100% 100% Urine Appearance Clear Urine Color Bright Yellow Urine Odor Normal Stool Size Moderate Moderate Stool Color Brown Brown Stool Consistency Soft Soft # Voids 1 1 2 # of times incontinent of 1 Bowels Exam: AVSS. No changes in KEVON. L/E. Dressings L and R legs CDI. Will change dressings and check wounds tomorrow. Medical management per hospitalist. (Diabetes / Antibiotics ) A/P Narrative A/P Narrative: Assessment: Stable post op. Culture results awaited. Needs comprehensive evaluation by JOSE, STEPHAN . 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 Plan: Continue current management. For dressing changes tomorrow. Time Spent With Patient Time: Total time spent is greater than 50% in coordination of care (as documented) at patient's floor/unit and/or counseling patient: Total time spent with greater than 50% in coordination of care (as documented) at patient's floor/unit and/or counseling patient:: 15 - 24 minutes
[2020-08-01] MEDS ORDERED: LOPERAMIDE 2 MG CAPSULE PO ONE ×2 (19:43→20:03)
--- NOTE | 2020-08-01 19:49 | Internal Med Progress Note ---
SUBJECTIVE Subjective Patient information: Note initiated : 08/01/20 at 7:46 pm Service Date, if different from initiated Date: [] Patient: Wilfrido Damon 54 y/o M admitted on 07/30/20 for Diabetic Problems. Chief Complaint: [] Mr. Damon is a 54 year old M Into the ED with a nonhealing wound over his lower extremity and complaining of maggots falling out and it being malodorous.Is also a meth user and a diabetic. Patient is been off his diabetic medications for 6 months. Sound like he is b een getting his diabetic medication through ERs and minor cares. Uses IV meth several times a week. Uses marijuana. Wound is been there for about 5 months. Initially injured his leg when he was helping somebody move. Denies fever chills. Case discussed with Dr. Santiago who will evaluate patient. 07/31 No new complaints or overnight events. Awaiting for debridement. 08/01 Patient does not have any new complaints. Pain is controlled. Denies nausea, vomiting, fever, or chills. Blood pressure is soft at times. This morning patient blood sugar went up to 600 because the patient refused in sulin. Initially he agreed to receive his insulin. Excision Debridement, Tissue culture LEFT leg wound, Pulse lavage, Open packing was done on 07/[address] Santiago Na 128 - NaCl 1g tid wound culture showed staphy aureus, sensitivity pending PT/OT/CM Review of Systems: denies headache/fever/chills/nausea/vomiting/chest or abdominal pain/cough/dyspnea/diarrhea. Otherwise see above. Constitutional Vitals: Vital Signs Temp Pulse Resp BP Pulse Ox 99 F 67 20 97/58 98 08/01/20 19:00 08/01/20 19:00 08/01/20 19:00 08/01/20 19:00 08/01/20 19:00 Period Temp Pulse Resp BP Sys/Orosco Pulse Ox Last 24 Hr 97.7 F-99 F 67-100 18-22 89-176/55-110 97-100 Intake and Output 08/01/20 08/01/20 08/01/20 05:59 13:59 21:59 Intake Total 1508 025 3307 Output Total 2 Balance 8918 533 0498 Weight 48.807 kg 47.174 kg Patient Weight 08/02/20 05:59 Weight 47.174 kg Intake & Output: Intake & Output 08/01/20 08/01/20 08/01/20 05:59 13:59 21:59 Intake Total 3897 026 7737 Output Total 2 Balance 8755 811 7627 Weight 48.807 kg 47.174 kg Intake: IV 50 100 250 Zosyn 3.375 gm In Dextrose 5% 50 100 in Water 50 ml @ 100 mls/hr IV Q6H [facility] Rx#:[id number] Vancomycin 1,000 mg In Sodium 250 Chloride 0.9% 250 ml @ 250 mls/ hr IV Q12H [facility] Rx#:[id number] Oral 1600 880 Output: # of times incontinent of urine 2 Other: Meal Breakfast Dinner Percent of Meal Consumed 100% 100% Urine Appearance Clear Urine Color Bright Yellow Urine Odor Normal Stool Size Moderate Moderate Stool Color Brown Brown Stool Consistency Soft Soft # Voids 1 1 2 # of times incontinent of 1 Bowels Additional findings Additional findings: General: Alert, Awake, No acute Distress Eyes/N/T: EOMI, Head/Neck: neck supple, CV: RRR, No murmurs, Pulm: Clear b/l, no wheezing/rhonchi/rales Abd: soft, nontender, +BS x4 Ext: no clubbing/cyanosis/edema to RLE. LLE with erythema/edema/large ulcer on vargas. Neuro: Alert, no focal deficits, moves all extremities, Skin: warm/dry OBJ DATA Labs CBC & Chem 7: 08/01/20 05:26 08/01/20 05:26 Labs: Abnormal Lab Results 08/01/20 08/01/20 08/01/20 05:26 05:26 05:11 WBC 3.7 L RBC 4.02 L Hgb 11.9 L Hct 36.7 L POC Hct 38 L MPV Lymph # (Auto) 0.82 L ESR POC Sodium 131 L Sodium 128 L 129 L Chloride Carbon Dioxide 17 L 19 L POC Total CO2 19 L POC BUN 21 H BUN Glucose 503 H* 497 H* POC Glucose 471 H Hemoglobin A1c Uric Acid 2.3 L Calcium POC WB Ioniz Calcium 1.07 L GGT 72 H AST 50 H 48 H ALT 66 H 65 H Alkaline Phosphatase 215 H 213 H Lactate Dehydrogenase C-Reactive Protein Total Protein Albumin 2.8 L 2.7 L Globulin 3.8 H Albumin/Globulin Ratio 0.8 L 0.7 L Prealbumin Triglycerides 150 H Urine Glucose (UA) Urine Mucus Ur Amphetamines Screen U Marijuana (THC) Screen Hepatitis C Antibody 07/31/20 07/31/20 07/31/20 08:05 08:05 08:04 WBC RBC 3.37 L Hgb 10.1 L Hct 30.7 L POC Hct MPV 10.5 H Lymph # (Auto) 1.49 L ESR POC Sodium Sodium Chloride Carbon Dioxide 18 L POC Total CO2 POC BUN BUN Glucose 121 H POC Glucose Hemoglobin A1c Uric Acid 1.5 L Calcium 8.1 L POC WB Ioniz Calcium GGT AST 66 H ALT 65 H Alkaline Phosphatase 189 H Lactate Dehydrogenase 119 L C-Reactive Protein Total Protein 5.5 L Albumin 2.6 L Globulin Albumin/Globulin Ratio 0.9 L Prealbumin Triglycerides Urine Glucose (UA) Urine Mucus Ur Amphetamines Screen U Marijuana (THC) Screen Hepatitis C Antibody See comment A 07/30/20 07/30/20 07/30/20 09:36 09:36 07:59 WBC RBC Hgb Hct POC Hct MPV Lymph # (Auto) ESR 83 H POC Sodium Sodium Chloride Carbon Dioxide POC Total CO2 POC BUN BUN Glucose POC Glucose Hemoglobin A1c 14.9 H Uric Acid Calcium POC WB Ioniz Calcium GGT AST ALT Alkaline Phosphatase Lactate Dehydrogenase C-Reactive Protein Total Protein Albumin Globulin Albumin/Globulin Ratio Prealbumin 8.7 L Triglycerides Urine Glucose (UA) Urine Mucus Ur Amphetamines Screen Suspect positive A U Marijuana (THC) Screen Suspect positive A Hepatitis C Antibody 07/30/20 07/30/20 07/30/20 07:58 02:30 02:30 WBC RBC Hgb Hct POC Hct MPV Lymph # (Auto) ESR POC Sodium Sodium 130 L Chloride 95 L Carbon Dioxide 21 L POC Total CO2 POC BUN BUN 22 H Glucose 570 H* POC Glucose Hemoglobin A1c Uric Acid Calcium POC WB Ioniz Calcium GGT AST 53 H ALT 74 H Alkaline Phosphatase 196 H Lactate Dehydrogenase C-Reactive Protein 5.50 H Total Protein Albumin Globulin Albumin/Globulin Ratio 0.9 L Prealbumin Triglycerides Urine Glucose (UA) >=500 A Urine Mucus Few A Ur Amphetamines Screen U Marijuana (THC) Screen Hepatitis C Antibody 07/30/20 02:30 WBC RBC 3.66 L Hgb 11.0 L Hct 33.1 L POC Hct MPV 10.7 H Lymph # (Auto) 1.15 L ESR POC Sodium Sodium Chloride Carbon Dioxide POC Total CO2 POC BUN BUN Glucose POC Glucose Hemoglobin A1c Uric Acid Calcium POC WB Ioniz Calcium GGT AST ALT Alkaline Phosphatase Lactate Dehydrogenase C-Reactive Protein Total Protein Albumin Globulin Albumin/Globulin Ratio Prealbumin Triglycerides Urine Glucose (UA) Urine Mucus Ur Amphetamines Screen U Marijuana (THC) Screen Hepatitis C Antibody Meds: Medications Acetaminophen (Tylenol) 650 mg PO Q6HP PRN PRN Reason: PAIN/FEVER > 101 Hydrocodone Bitart/Acetaminophen ([place] 5/325mg) 1 tab PO Q4HP PRN PRN Reason: PAIN LEVEL 3-6 Albuterol/Ipratropium (Duoneb) 3 ml NEB Q4HP PRN PRN Reason: Shortness Of Breath Dextrose (Dextrose 50%) 0 ml IV UD PRN PRN Reason: Hypoglycemia Diagnostic Test (Pha) (Accu-Chek) 1 each FS Q4H [facility] Last Admin: 08/01/20 16:50 Dose: 1 each Documented by: Docusate Sodium (Colace) 100 mg PO BID [facility] Last Admin: 08/01/20 09:58 Dose: Not Given Documented by: Glucose (Insta-Glucose) 15 gm PO PRN PRN PRN Reason: Hypoglycemia Heparin Sodium (Porcine) (Heparin) 5,000 unit SQ Q12 [facility] Last Admin: 08/01/20 09:58 Dose: 5,000 unit Documented by: Piperacillin Sod/Tazobactam (Sod 3.375 gm/ Dextrose) 50 mls @ 100 mls/hr IV Q6H [facility]; Protocol Last Admin: 08/01/20 17:02 Dose: 100 mls/hr Documented by: Vancomycin HCl 1,000 mg/ (Sodium Chloride) 250 mls @ 250 mls/hr IV Q12H [facility] Last Infusion: 08/01/20 17:02 Dose: Infused Documented by: Potassium Chloride 40 meq/ (Dextrose) 520 mls @ 130 mls/hr IV UD PRN PRN Reason: Potassium < 3 Magnesium Sulfate (Magnesium Sulfate) 2 gm in 50 mls @ 50 mls/hr IV UD PRN PRN Reason: Magnesium </= 1.6 Gentamicin Sulfate 40 mg/Clindamycin Phosphate 300 mg/Bacitracin 25,000 unit/ Sodium Chloride 503 mls @ 0 mls/hr IRR BID [facility] Insulin Glargine (Lantus) 10 unit SQ DAILY [facility] Last Admin: 08/01/20 09:58 Dose: 10 units Documented by: Insulin Human Lispro (Humalog) 0 unit SQ Q4H [facility]; Protocol Last Admin: 08/01/20 17:01 Dose: 6 units Documented by: Loperamide HCl (Imodium) 2 mg PO ONCE ONE Stop: 08/01/20 19:44 Lorazepam (Ativan) 0.5 mg IV Q4HP PRN PRN Reason: Anxiety Last Admin: 08/01/20 16:41 Dose: 0.5 mg Documented by: Morphine Sulfate (Morphine) 1 - 2 mg IV Q1HP PRN; Protocol PRN Reason: Chest Pain Naloxone HCl (Narcan) 0.1 mg IV Q2MIN PRN PRN Reason: Opiate Reversal Nicotine (Nicoderm) 14 mg TOPICAL DAILY@1000 [facility] Last Admin: 08/01/20 16:42 Dose: 14 mg Documented by: Ondansetron HCl (Zofran) 4 mg IV Q4HP PRN PRN Reason: Nausea And Vomiting Polyethylene Glycol (Miralax) 17 gm PO DAILYP PRN PRN Reason: Constipation Potassium Chloride (Kdur) 40 meq PO UD PRN PRN Reason: Potssium is 3-3.5 Potassium Chloride (Kdur) 40 meq PO UD PRN PRN Reason: Potassium < 3 Senna (Senokot) 2 tab PO DAILYP PRN PRN Reason: Constipation Sodium Chloride (Saline Flush) 10 ml IV Q8 [facility] Last Admin: 08/01/20 12:54 Dose: Not Given Documented by: Vancomycin HCl (Vancomycin Per Pharmacy) 1 order IV UD [facility]; Protocol A/P Narrative A/P Narrative: 1. LLE cellulitis with large ulcerative wound vargas: -aa u/s not significant -s/p excision Debridement, Tissue culture LEFT leg wound, Pulse lavage, Open packing by wound care Dr. Santiago on 07/31/2020 -wound culture -staph aureus. Sensitivity pending -Continue vanco and zosyn 2. Volume depletion: improved 3. Hyponatremia -sodium chloride 1 g 3 times daily. BMP every 12 hours. 4. Mild transaminitis, chronic: -Fatty liver on u/s 5. Anemia, chronic: 6. DM: Poorly controlled, is been out of diabetic medications for 6 months -a1c 14.9 7. Substance abuse: With methamphetamine IV use 8. Tobacco abuse: 9. Homeless: 10. Malnutrition: 11. Medical non-compliance P: -IVF -Zosyn/vanc(d/c) -Dr. Koch is on board -basal and SSI(pt refusing coverage at times) -clarify home meds -ESR/CRP -Hepatitis panel -Substance abuse counseling and smoking cessation counseling -Dietary consult -CM -pt/ot -ppx: Heparin (hold in AM of procedure) full code Time Spent With Patient Time: Total time spent is greater than 50% in coordination of care (as documented) at patient's floor/unit and/or counseling patient: QUALITY VTE Deep Vein Thrombosis/Pulmonary Embolism Present on Admission: No
[2020-08-01] MEDS ORDERED: NALOXONE HCL 0.4 MG/ML VIAL ONE (20:26)
[2020-08-01] MEDS ORDERED: NALOXONE HCL 0.4 MG/ML VIAL IV ONE (20:32)
--- NOTE | 2020-08-01 20:39 | Event Note ---
Event Note Event Note: Pt was found to use substance. counseled and educated pt upgraded him to pcu UDS cardiac/vascular sonographer pulse ox IVF Narcan will give further treatment based on UDS result.
[2020-08-01] MEDS ORDERED: SODIUM CHLORIDE 1 GM TABLET PO SCH (21:00)
[2020-08-01] MEDS ORDERED: POTASSIUM CHLORIDE 20 MEQ TABLET PO PRN ×2 (21:37)
[2020-08-01] MEDS ORDERED: LORazepam 2 MG/ML VIAL IV PRN (21:37)
[2020-08-01] MEDS ORDERED: morphine 2 MG/ML VIAL IV PRN (21:37)
[2020-08-01] MEDS ORDERED: IPRATROPIUM/ALBUTEROL 3 ML AMPUL.NEB NEB PRN (21:37)
[2020-08-01] MEDS ORDERED: DEXTROSE 31 GM ORAL.SUSP PO PRN (21:37)
[2020-08-01] MEDS ORDERED: POLYETHYLENE GLYCOL 3350 17 GM PACKET PO PRN (21:37)
[2020-08-01] MEDS ORDERED: DEXTROSE 50% 50 ML VIAL IV PRN (21:37)
[2020-08-01] MEDS ORDERED: MAGNESIUM SULFATE 2 GM/50 ML BAG IV PRN (21:37)
[2020-08-01] MEDS ORDERED: HYDROcodone/APAP 5/325MG TABLET PO PRN (21:37)
[2020-08-01] MEDS ORDERED: ONDANSETRON 4 MG/2 ML VIAL IV PRN (21:37)
[2020-08-01] MEDS ORDERED: ACETAMINOPHEN 325 MG TABLET PO PRN (21:37)
[2020-08-01] MEDS ORDERED: SENNOSIDES 1 TABLET PO PRN (21:37)
[2020-08-01] MEDS ORDERED: VANCOMYCIN PER PHARMACY IV SCH (21:37)
[2020-08-01] MEDS ORDERED: POTASSIUM CHLORIDE 40 MEQ in DEXTROSE 5% IN WATER 500 ML IV PRN (21:37)
[2020-08-01] MEDS ORDERED: NALOXONE HCL 0.4 MG/ML VIAL IV PRN (21:37)
[2020-08-01] MEDS ORDERED: INSULIN LISPRO 1 UNIT/0.01 ML UNIT SQ SCH (22:00)
[2020-08-01 23:18] LABS: Blood Urea Nitrogen 23 mg/dL (6-20); Calcium 8.3 mg/dL (8.6-10.4); Carbon Dioxide 20 mmol/L (22-30); Chloride 104 mmol/L (96-108); Glomerular Filtration Rate 97; Glucose 279 mg/dL (70-105)
[2020-08-02] MEDS ORDERED: INSULIN LISPRO 1 UNIT/0.01 ML UNIT SQ SCH
[2020-08-02] MEDS: PIPERACILLIN SODIUM/TAZOBACTAM 3.375 GM in DEXTROSE 5% IN WATER 50 ML IV SCH ×5 (00:22→23:58)
[2020-08-02] MEDS: INSULIN LISPRO 1 UNIT/0.01 ML UNIT SQ SCH ×7 (00:39→23:58)
[2020-08-02] MEDS ORDERED: INSULIN LISPRO 1 UNIT/0.01 ML UNIT SQ ONE (00:43)
[2020-08-02] MEDS: 0.9 % SODIUM CHLORIDE 10 ML SYRINGE IV SCH ×3 (05:47→21:10)
[2020-08-02 06:38] LABS: Basophils # (Auto) 0.01 K/mcL (0.00-0.20); Basophils % (Auto) 0.2 % (0.0-2.0); Eosinophils # (Auto) 0.11 K/mcL (0.00-0.70); Eosinophils % (Auto) 2.2 % (0.0-7.0); Hemoglobin 10.4 g/dL (13.5-16.5); Lymphocytes # (Auto) 1.97 K/mcL (1.50-4.80); Lymphocytes % (Auto) 39.3 % (15.0-49.0); Mean Cell Volume 91.7 fL (80.0-100.0); Mean Corpuscular HGB Conc 32.5 g/dL (31.0-36.0); Mean Platelet Volume 10.1 fL (7.4-10.4); Monocytes # (Auto) 0.25 K/mcL (0.10-0.90); Neutrophils % (Auto) 53.3 % (38.0-78.0); Platelet Count 323 K/mcL (140-440); RBC 3.49 M/mcL (4.50-5.90); Red Cell Distribution Width 12.9 % (11.5-14.5)
[2020-08-02 07:03] LABS: Prealbumin 11.7 mg/dL (20.0-40.0)
[2020-08-02 08:34] LABS: ALT/SGPT 58 U/L (<40); AST/SGOT 55 U/L (<40); Albumin 2.4 gm/dL (3.2-5.2); Albumin/Globulin Ratio 0.7 (1.0-2.3); Alkaline Phosphatase 165 U/L (39-117); Bilirubin,Total < 0.2 mg/dL (0.1-1.0); Blood Urea Nitrogen 22 mg/dL (6-20); Calcium 8.3 mg/dL (8.6-10.4); Carbon Dioxide 20 mmol/L (22-30); Chloride 106 mmol/L (96-108); Globulin 3.5 gm/dL (2.2-3.7); Glomerular Filtration Rate 101; Glucose 112 mg/dL (70-105)
[2020-08-02 08:37] LABS: Amphetamine Screen,Urine None detected; Barbiturate Screen,Urine None detected; Benzodiazepines Screen,Urine None detected; Cannabinoid Screen,Urine Suspect Positive; Cocaine Screen,Urine None detected; Opiate Screen,Urine None detected; Oxycodone, Urine Screen None detected; Phencyclidine Screen,Urine None detected
[2020-08-02] MEDS ORDERED: GENTAMICIN SULFATE 40 MG, CLINDAMYCIN 300 MG, BACITRACIN 25,000 UNIT in SODIUM CHLORIDE... IRR SCH ×2 (09:00)
[2020-08-02] MEDS ORDERED: DOCUSATE SODIUM 100 MG CAPSULE PO SCH (09:00)
[2020-08-02] MEDS ORDERED: VANCOMYCIN 1,000 MG in 0.9 % SODIUM CHLORIDE 250 ML IV SCH (09:00)
[2020-08-02] MEDS ORDERED: SODIUM CHLORIDE 1 GM TABLET PO SCH (09:00)
[2020-08-02] MEDS ORDERED: HEPARIN 5,000 UNIT/ML VIAL SQ SCH (09:00)
[2020-08-02] MEDS ORDERED: INSULIN GLARGINE, HUMAN 1 UNIT/0.01 ML SQ SCH (09:00)
[2020-08-02] MEDS ORDERED: NICOTINE 14 MG PATCH TOPICAL SCH (10:00)
[2020-08-02 13:37] LABS: Amphetamine Screen,Urine None detected; Barbiturate Screen,Urine None detected; Benzodiazepines Screen,Urine None detected; Cannabinoid Screen,Urine Suspect Positive; Cocaine Screen,Urine None detected; Opiate Screen,Urine None detected; Oxycodone, Urine Screen None detected; Phencyclidine Screen,Urine None detected
[2020-08-02] MEDS ORDERED: DEXTROSE 31 GM ORAL.SUSP PO PRN (14:34)
[2020-08-02] MEDS ORDERED: SENNOSIDES 1 TABLET PO PRN (14:34)
[2020-08-02] MEDS ORDERED: morphine 2 MG/ML VIAL IV PRN (14:34)
[2020-08-02] MEDS ORDERED: ACETAMINOPHEN 325 MG TABLET PO PRN (14:34)
[2020-08-02] MEDS ORDERED: NALOXONE HCL 0.4 MG/ML VIAL IV PRN (14:34)
[2020-08-02] MEDS ORDERED: DEXAMETHASONE 10 MG/ML VIAL ONE (14:34)
[2020-08-02] MEDS ORDERED: ONDANSETRON 4 MG/2 ML VIAL ONE (14:34)
[2020-08-02] MEDS ORDERED: PROPOFOL 200 MG/20 ML VIAL IV ONE (14:34)
[2020-08-02] MEDS ORDERED: VANCOMYCIN PER PHARMACY IV SCH (14:34)
[2020-08-02] MEDS ORDERED: POLYETHYLENE GLYCOL 3350 17 GM PACKET PO PRN (14:34)
[2020-08-02] MEDS ORDERED: POTASSIUM CHLORIDE 40 MEQ in DEXTROSE 5% IN WATER 500 ML IV PRN (14:34)
[2020-08-02] MEDS ORDERED: IPRATROPIUM/ALBUTEROL 3 ML AMPUL.NEB NEB PRN (14:34)
[2020-08-02] MEDS ORDERED: MAGNESIUM SULFATE 2 GM/50 ML BAG IV PRN (14:34)
[2020-08-02] MEDS ORDERED: LORazepam 2 MG/ML VIAL IV PRN (14:34)
[2020-08-02] MEDS ORDERED: POTASSIUM CHLORIDE 20 MEQ TABLET PO PRN ×2 (14:34)
[2020-08-02] MEDS ORDERED: LIDOCAINE HCL/PF 100 MG/5 ML SYRINGE IV ONE (14:34)
[2020-08-02] MEDS ORDERED: ONDANSETRON 4 MG/2 ML VIAL IV PRN ×2 (14:34→15:41)
[2020-08-02] MEDS ORDERED: MIDAZOLAM 5 MG/5 ML VIAL ONE (14:34)
[2020-08-02] MEDS ORDERED: DEXTROSE 50% 50 ML VIAL IV PRN (14:34)
[2020-08-02] MEDS: SODIUM CHLORIDE 1 GM TABLET PO SCH ×2 (14:58→21:10)
--- NOTE | 2020-08-02 15:29 | General Surgery Progress Note ---
SUBJECTIVE Subjective Patient information: Note initiated : 08/02/20 at 3:21 pm Service Date, if different from initiated Date: [] Patient: Wilfrido Damon 54 y/o M admitted on 07/30/20 for Diabetic Problems. Chief Complaint: [] Additional PMFSH (Level 3 Only): Patient was seen and wounds examined with Svetlana nurse behavioral health care nurse. (ICU Room 120 /D) Patient transferred to ICU for hemodynamic and 1:1 monitoring by nursing staff. Constitutional Vitals: Vital Signs Temp Pulse Resp BP Pulse Ox 98.7 F 85 18 145/93 98 08/02/20 04:05 08/01/20 21:52 08/02/20 04:01 08/02/20 04:01 08/02/20 04:05 Period Temp Pulse Resp BP Sys/Orosco Pulse Ox Last 24 Hr 97.9 F-99 F 67-85 17-27 97-148/58-97 98-100 Intake and Output 08/02/20 08/02/20 08/02/20 05:59 13:59 21:59 Intake Total 1620 50 Output Total 1000 Balance 620 50 Intake & Output: Intake & Output 08/02/20 08/02/20 08/02/20 05:59 13:59 21:59 Intake Total 1620 50 Output Total 1000 Balance 620 50 Intake: IV 300 50 Zosyn 3.375 gm In Dextrose 5% 50 50 in Water 50 ml @ 100 mls/hr IV Q6H [facility] Rx#:[id number] Vancomycin 1,000 mg In Sodium 250 Chloride 0.9% 250 ml @ 250 mls/ hr IV Q12H [facility] Rx#:[id number] Oral 1320 Output: Stool 1000 Other: Meal HS snack Percent of Meal Consumed 100% Stool Color Brown Stool Consistency Liquid General appearance: average body habitus, cooperative, no acute distress and thin (Malnourished. H/O substance abuse. ) Exam: AVSS. No acute changes KEVON. Wounds L/E Granulating wounds over shins Right and Left leg. ( For protective dressings. ) OPEN wound with exposed fascia over muscles UPPER lateral LEFT leg. Granulating base. Circumferential undermining 1-2 CM A/P Narrative A/P Narrative: Assessment: Satisfactory progress from wound care point of view. Multiple Personal, behavior and social issues. NEEDS assistance from JOSE ROTHMAN about continuation of care. Will need nutritional stabilization and improvement FIRST Plan; LOCAL wound care to continue for now. Will start on OXANDRIN 5 mg PO BID Patient will benefit from Diabetes eduacation Following patient. Time Spent With Patient Time: Total time spent is greater than 50% in coordination of care (as documented) at patient's floor/unit and/or counseling patient: Total time spent with greater than 50% in coordination of care (as documented) at patient's floor/unit and/or counseling patient:: 25 - 35 minutes
--- NOTE | 2020-08-02 15:44 | Internal Med Progress Note ---
SUBJECTIVE Subjective Patient information: Note initiated : 08/02/20 at 3:41 pm Service Date, if different from initiated Date: [] Patient: Wilfrido Damon 54 y/o M admitted on 07/30/20 for Diabetic Problems. Chief Complaint: [] Mr. Damon is a 54 year old M Into the ED with a nonhealing wound over his lower extremity and complaining of maggots falling out and it being malodorous.Is also a meth user and a diabetic. Patient is been off his diabetic medications for 6 months. Sound like he is been getting his diabetic medication through ERs and minor cares. Uses IV meth several times a week. Uses marijuana. Wound is been there for about 5 months. Initially injured his leg when he was helping somebody move. Denies fever chills. Case discussed with Dr. Santiago who will evaluate patient. 07/31 No new complaints or overnight events. Awaiting for debridement. 08/01 Patient does not have any new complaints. Pain is controlled. Denies nausea, vomiting, fever, or chills. Blood pressure is soft at times. This morning patient blood sugar went up to 600 because the patient refused i nsulin. Initially he agreed to receive his insulin. Excision Debridement, Tissue culture LEFT leg wound, Pulse lavage, Open packing was done on 07/[address] Santiago Na 128 - NaCl 1g tid wound culture showed staphy aureus, sensitivity pending PT/OT/CM 08/02 Patient still sleepy, but more alert today Vital signs are stable and acceptable. Oxygen saturation good, on room air Blood glucose is high at times because patient refused insulin at times Patient was found to use substances in his room last night. Review of Systems: denies headache/fever/chills/nausea/vomiting/chest or abdominal pain /cough/dyspnea/diarrhea. Otherwise see above. Constitutional Vitals: Vital Signs Temp Pulse Resp BP Pulse Ox 98.7 F 85 18 145/93 98 08/02/20 04:05 08/01/20 21:52 08/02/20 04:01 08/02/20 04:01 08/02/20 04:05 Period Temp Pulse Resp BP Sys/Orosco Pulse Ox Last 24 Hr 97.9 F-99 F 67-85 17-27 97-148/58-97 98-100 Intake and Output 08/02/20 08/02/2008/02/20 05:59 13:59 21:59 Intake Total 1620 50 Output Total 1000 Balance 620 50 Intake & Output: Intake & Output 08/02/20 08/02/20 08/02/20 05:59 13:59 21:59 Intake Total 1620 50 Output Total 1000 Balance 620 50 Intake: IV 300 50 Zosyn 3.375 gm In Dextrose 5% 50 50 in Water 50 ml @ 100 mls/hr IV Q6H [facility] Rx#:[id number] Vancomycin 1,000 mg In Sodium 250 Chloride 0.9% 250 ml @ 250 mls/ hr IV Q12H [facility] Rx#:[id number] Oral 1320 Output: Stool 1000 Other: Meal HS snack Percent of Meal Consumed 100% Stool Color Brown Stool Consistency Liquid Additional findings Additional findings: General: Alert, but he sleeps most of day, No acute Distress Eyes/N/T: EOMI, Head/Neck: neck supple, CV: RRR, No murmurs, Pulm: Clear b/l, no wheezing/rhonchi/rales Abd: soft, nontender, +BS x4 Ext: no clubbing/cyanosis/edema to RLE. LLE with erythema/edema/large ulcer on vargas. Neuro: Alert, no focal deficits, moves all extremities, Skin: warm/dry OBJ DATA Labs CBC & Chem 7: 08/02/20 05:05 08/02/20 05:05 Labs: Abnormal Lab Results 08/02/20 08/02/20 08/02/20 10:07 05:05 05:05 WBC RBC 3.49 L Hgb 10.4 L Hct 32.0 L POC Hct MPV Lymph # (Auto) POC Sodium Sodium Carbon Dioxide 20 L POC Total CO2 POC BUN BUN 22 H Glucose 112 H POC Glucose Uric Acid Calcium 8.3 L POC WB Ioniz Calcium GGT AST 55 H ALT 58 H Alkaline Phosphatase 165 H Lactate Dehydrogenase Total Protein Albumin 2.4 L Globulin Albumin/Globulin Ratio 0.7 L Prealbumin 11.7 L Triglycerides U Marijuana (THC) Screen Suspect positive A Hepatitis C Antibody 08/01/20 08/01/20 08/01/20 21:26 06:51 05:26 WBC 3.7 L RBC 4.02 L Hgb 11.9 L Hct 36.7 L POC Hct MPV Lymph # (Auto) 0.82 L POC Sodium Sodium Carbon Dioxide 20 L POC Total CO2 POC BUN BUN 23 H Glucose 279 H POC Glucose Uric Acid Calcium 8.3 L POC WB Ioniz Calcium GGT AST ALT Alkaline Phosphatase Lactate Dehydrogenase Total Protein Albumin Globulin Albumin/Globulin Ratio Prealbumin Triglycerides U Marijuana (THC) Screen Suspect positive A Hepatitis C Antibody 08/01/20 08/01/20 07/31/20 05:26 05:11 08:05 WBC RBC Hgb Hct POC Hct 38 L MPV Lymph # (Auto) POC Sodium 131 L Sodium 128 L 129 L Carbon Dioxide 17 L 19 L 18 L POC Total CO2 19 L POC BUN 21 H BUN Glucose 503 H* 497 H* 121 H POC Glucose 471 H Uric Acid 2.3 L 1.5 L Calcium 8.1 L POC WB Ioniz Calcium 1.07 L GGT 72 H AST 50 H 48 H 66 H ALT 66 H 65 H 65 H Alkaline Phosphatase 215 H 213 H 189 H Lactate Dehydrogenase 119 L Total Protein 5.5 L Albumin 2.8 L 2.7 L 2.6 L Globulin 3.8 H Albumin/Globulin Ratio 0.8 L 0.7 L 0.9 L Prealbumin Triglycerides 150 H U Marijuana (THC) Screen Hepatitis C Antibody 07/31/20 07/31/20 08:05 08:04 WBC RBC 3.37 L Hgb 10.1 L Hct 30.7 L POC Hct MPV 10.5 H Lymph # (Auto) 1.49 L POC Sodium Sodium Carbon Dioxide POC Total CO2 POC BUN BUN Glucose POC Glucose Uric Acid Calcium POC WB Ioniz Calcium GGT AST ALT Alkaline Phosphatase Lactate Dehydrogenase Total Protein Albumin Globulin Albumin/Globulin Ratio Prealbumin Triglycerides U Marijuana (THC) Screen Hepatitis C Antibody See comment A Meds: Medications Acetaminophen (Tylenol) 650 mg PO Q6HP PRN PRN Reason: PAIN/FEVER > 101 Hydrocodone Bitart/Acetaminophen ([place] 5/325mg) 1 tab PO Q4HP PRN PRN Reason: PAIN LEVEL 3-6 Albuterol/Ipratropium (Duoneb) 3 ml NEB Q4HP PRN PRN Reason: Shortness Of Breath Dextrose (Dextrose 50%) 0 ml IV UD PRN PRN Reason: Hypoglycemia Diagnostic Test (Pha) (Accu-Chek) 1 each FS Q4H [facility] Docusate Sodium (Colace) 100 mg PO BID [facility] Glucose (Insta-Glucose) 15 gm PO PRN PRN PRN Reason: Hypoglycemia Heparin Sodium (Porcine) (Heparin) 5,000 unit SQ Q12 [facility] Gentamicin Sulfate 40 mg/Clindamycin Phosphate 300 mg/Bacitracin 25,000 unit/ Sodium Chloride 503 mls @ 0 mls/hr IRR BID [facility] Magnesium Sulfate (Magnesium Sulfate) 2 gm in 50 mls @ 50 mls/hr IV UD PRN PRN Reason: Magnesium </= 1.6 Piperacillin Sod/Tazobactam (Sod 3.375 gm/ Dextrose) 50 mls @ 100 mls/hr IV Q6H [facility]; Protocol Vancomycin HCl 1,000 mg/ (Sodium Chloride) 250 mls @ 250 mls/hr IV Q12H [facility] Potassium Chloride 40 meq/ (Dextrose) 520 mls @ 130 mls/hr IV UD PRN PRN Reason: Potassium < 3 Insulin Glargine (Lantus) 10 unit SQ DAILY [facility] Insulin Human Lispro (Humalog) 0 unit SQ Q4 [facility]; Protocol Lorazepam (Ativan) 0.5 mg PO Q8H PRN PRN Reason: ANXIETY/SEDATION Naloxone HCl (Narcan) 0.1 mg IV Q2MIN PRN PRN Reason: Opiate Reversal Nicotine (Nicoderm) 14 mg TOPICAL DAILY@1000 [facility] Ondansetron HCl (Zofran) 4 mg IV Q6HP PRN PRN Reason: Nausea And Vomiting Oxandrolone (Oxandrin) 5 mg PO BID [facility] Polyethylene Glycol (Miralax) 17 gm PO DAILYP PRN PRN Reason: Constipation Potassium Chloride (Kdur) 40 meq PO UD PRN PRN Reason: Potssium is 3-3.5 Potassium Chloride (Kdur) 40 meq PO UD PRN PRN Reason: Potassium < 3 Senna (Senokot) 2 tab PO DAILYP PRN PRN Reason: Constipation Sodium Chloride (Saline Flush) 10 ml IV Q8 [facility] Sodium Chloride (Sodium Chloride) 1 gm PO TID [facility] Last Admin: 08/02/20 14:58 Dose: 1 gm Documented by: Vancomycin HCl (Vancomycin Per Pharmacy) 1 order IV UD [facility]; Protocol A/P Narrative A/P Narrative: 1. LLE cellulitis with large ulcerative wound vargas: -aa u/s not significant -s/p excision Debridement, Tissue culture LEFT leg wound, Pulse lavage, Open packing by wound care Dr. Santiago on 07/31/2020 -wound culture -staph aureus. Sensitivity pending -Continue vanco and zosyn 2. Volume depletion: improved 3. Hyponatremia -sodium chloride 1 g 3 times daily. BMP every 12 hours. 4. Mild transaminitis, chronic: -Fatty liver on u/s 5. Anemia, chronic: 6. DM: Poorly controlled, is been out of diabetic medications for 6 months -a1c 14.9 7. Substance abuse: With methamphetamine IV use 8. Tobacco abuse: 9. Homeless: 10. Malnutrition: 11. Medical non-compliance P: -IVF -Zosyn/vanc(d/c) -Dr. Koch is on board -basal and SSI(pt refusing coverage at times) -clarify home meds -ESR/CRP -Hepatitis panel -Substance abuse counseling and smoking cessation counseling -Dietary consult -CM -pt/ot -ppx: Heparin (hold in AM of procedure) full code Time Spent With Patient Time: Total time spent is greater than 50% in coordination of care (as documented) at patient's floor/unit and/or counseling patient: QUALITY VTE Deep Vein Thrombosis/Pulmonary Embolism Present on Admission: No
[2020-08-02] MEDS: HYDROcodone/APAP 5/325MG TABLET PO PRN (19:29)
[2020-08-02] MEDS: GENTAMICIN SULFATE 40 MG, CLINDAMYCIN 300 MG, BACITRACIN 25,000 UNIT in SODIUM CHLORIDE... IRR SCH (20:40)
[2020-08-02] MEDS: HEPARIN 5,000 UNIT/ML VIAL SQ SCH (21:09)
[2020-08-02] MEDS: OXANDROLONE 2.5 MG TABLET PO SCH (21:09)
[2020-08-02] MEDS: DOCUSATE SODIUM 100 MG CAPSULE PO SCH (21:09)
[2020-08-02] MEDS: VANCOMYCIN 1,000 MG in 0.9 % SODIUM CHLORIDE 250 ML IV SCH (21:10)
[2020-08-03] MEDS: HYDROcodone/APAP 5/325MG TABLET PO PRN ×4 (01:17→15:28)
[2020-08-03] MEDS: LORazepam 0.5 MG TABLET PO PRN ×4 (01:18→20:53)
[2020-08-03 03:48] LABS: Estimated Average Glucose(eAG) 381 mg/dL; Hemoglobin A1C 14.9 % Hgb (4.0-6.0)
[2020-08-03] MEDS: INSULIN LISPRO 1 UNIT/0.01 ML UNIT SQ SCH ×5 (05:38→19:58)
[2020-08-03] MEDS: PIPERACILLIN SODIUM/TAZOBACTAM 3.375 GM in DEXTROSE 5% IN WATER 50 ML IV SCH ×3 (05:38→18:00)
[2020-08-03] MEDS: 0.9 % SODIUM CHLORIDE 10 ML SYRINGE IV SCH ×3 (05:45→20:55)
[2020-08-03 07:12] LABS: Basophils # (Auto) 0.04 K/mcL (0.00-0.20); Basophils % (Auto) 1.1 % (0.0-2.0); Eosinophils # (Auto) 0.15 K/mcL (0.00-0.70); Eosinophils % (Auto) 4.1 % (0.0-7.0); Hematocrit 33.8 % (41.0-55.0); Hemoglobin 10.8 g/dL (13.5-16.5); Lymphocytes # (Auto) 1.44 K/mcL (1.50-4.80); Lymphocytes % (Auto) 38.9 % (15.0-49.0); Mean Cell Volume 94.2 fL (80.0-100.0); Mean Platelet Volume 10.2 fL (7.4-10.4); Monocytes # (Auto) 0.32 K/mcL (0.10-0.90); Monocytes % (Auto) 8.6 % (1.0-12.0); Neutrophils % (Auto) 47.3 % (38.0-78.0); Platelet Count 313 K/mcL (140-440); RBC 3.59 M/mcL (4.50-5.90); Red Cell Distribution Width 12.8 % (11.5-14.5); WBC 3.7 K/mcL (4.5-11.0)
[2020-08-03 07:53] LABS: ALT/SGPT 113 U/L (<40); AST/SGOT 143 U/L (<40); Albumin 2.5 gm/dL (3.2-5.2); Albumin/Globulin Ratio 0.7 (1.0-2.3); Alkaline Phosphatase 226 U/L (39-117); Bilirubin,Total < 0.2 mg/dL (0.1-1.0); Blood Urea Nitrogen 26 mg/dL (6-20); Calcium 8.2 mg/dL (8.6-10.4); Carbon Dioxide 18 mmol/L (22-30); Chloride 104 mmol/L (96-108); Globulin 3.4 gm/dL (2.2-3.7); Glomerular Filtration Rate 101; Glucose 287 mg/dL (70-105)
[2020-08-03] MEDS: DOCUSATE SODIUM 100 MG CAPSULE PO SCH ×2 (09:30→19:58)
[2020-08-03] MEDS: HEPARIN 5,000 UNIT/ML VIAL SQ SCH ×2 (09:30→19:58)
[2020-08-03] MEDS: INSULIN GLARGINE, HUMAN 1 UNIT/0.01 ML SQ SCH (09:30)
[2020-08-03] MEDS: NICOTINE 14 MG PATCH TOPICAL SCH (09:31)
[2020-08-03] MEDS: VANCOMYCIN 1,000 MG in 0.9 % SODIUM CHLORIDE 250 ML IV SCH ×2 (09:31→20:55)
[2020-08-03] MEDS: OXANDROLONE 2.5 MG TABLET PO SCH ×2 (09:52→20:06)
[2020-08-03] MEDS: SODIUM CHLORIDE 1 GM TABLET PO SCH ×3 (09:52→19:59)
--- NOTE | 2020-08-03 12:00 | Internal Med Progress Note ---
SUBJECTIVE Subjective Patient information: Note initiated : 08/03/20 at 11:58 am Service Date, if different from initiated Date: [] Patient: Wilfrido Damon 54 y/o M admitted on 07/30/20 for Diabetic Problems. Chief Complaint: [] Patient: Wilfrido Damon 54 y/o M admitted on 07/30/20 for Diabetic Problems. Chief Complaint: [] Mr. Damon is a 54 year old M Into the ED with a nonhealing wound over his lower extremity and complaining of maggots falling out and it being malodorous.Is also a meth user and a diabetic. Patient is been off his diabetic medications for 6 months. Sound like he is been getting his diabetic medication through ERs and minor cares. Uses IV meth several times a week. Uses marijuana. Wound is been there for about 5 months. Initially injured his leg when he was helping somebody move. Denies fever chills. Case discussed with Dr. Santiago who will evaluate patient. 07/31 No new complaints or overnight events. Awaiting for debridement. 08/01 Patient complaints new complaints. Pain is controlled. Denies nausea, vomiting, fever, or chills. Blood pressure is soft at times. This morning patient blood sugar went up to 600 because the patient refused insulin. Initially he agreed to receive his insulin. Excision Debridement, Tissue culture LEFT leg wound, Pulse lavage, Open packing was done on 07/[address] Santiago Na 128 - NaCl 1g tid wound culture showed staphy aureus, sensitivity pending PT/OT/CM 08/02 Patient still sleepy, but more alert today Vital signs are stable and acceptable. Oxygen saturation good, on room air Blood glucose is high at times because patient refused insulin at times Patient was found to use substances in his room last night. 08/03 He is less sleepy. Does not have any complaints. The pain is controlled. Vital signs are stable Good saturation on room air. Sodium 132 Liver enzymes elevated Review of Systems: denies headache/fever/chills/nausea/vomiting/chest or abdominal pain/cough/dyspnea/diarrhea. Otherwise see above. Constitutional Vitals: Vital Signs Temp Pulse Resp BP Pulse Ox 98.3 F 78 16 108/72 98 08/03/20 07:58 08/03/20 07:58 08/03/20 07:58 08/03/20 07:58 08/03/20 07:58 Period Temp Pulse Resp BP Sys/Orosco Pulse Ox Last 24 Hr 97.4 F-99.4 F 78-87 12-21 96-144/55-100 93-100 Intake and Output 08/02/20 08/03/20 08/03/20 21:59 05:59 13:59 Intake Total 2060 940 50 Output Total 750 Balance 1310 940 50 Weight 48.217 kg Intake & Output: Intake & Output 08/02/20 08/03/20 08/03/20 21:59 05:59 13:59 Intake Total 2060 940 50 Output Total 750 Balance 1310 940 50 Weight 48.217 kg Intake: IV 50 300 50 Zosyn 3.375 gm In Dextrose 5% 50 50 50 in Water 50 ml @ 100 mls/hr IV Q6H [facility] Rx#:[id number] Vancomycin 1,000 mg In Sodium 250 Chloride 0.9% 250 ml @ 250 mls/ hr IV Q12H [facility] Rx#:[id number] Oral 2010 640 Output: Void Amount 750 Other: Meal Nourishment/Supplement snack Percent of Meal Consumed 100% 100% Feeding Ability Independent Urine Appearance Clear Clear Urine Color Pale Pale Urine Odor Normal Normal Stool Size Small Small Stool Color Brown Brown Stool Consistency Watery Watery Loose Loose # Voids 1 # of times incontinent of 1 Bowels Additional findings Additional findings: General: Alert, but he sleeps most of day, No acute Distress Eyes/N/T: EOMI, Head/Neck: neck supple, CV: RRR, No murmurs, Pulm: Clear b/l, no wheezing/rhonchi/rales Abd: soft, nontender, +BS x4 Ext: no clubbing/cyanosis/edema to RLE. LLE with erythema/edema/large ulcer on vargas. Neuro: Alert, no focal deficits, moves all extremities, Skin: warm/dry OBJ DATA Labs CBC & Chem 7: 08/03/20 05:05 08/03/20 05:05 Labs: Abnormal Lab Results 08/03/20 08/03/20 08/02/20 05:05 05:05 10:07 WBC 3.7 L RBC 3.59 L Hgb 10.8 L Hct 33.8 L POC Hct Lymph # (Auto) 1.44 L Absolute Neutrophils 1.75 L POC Sodium Sodium 132 L Carbon Dioxide 18 L POC Total CO2 POC BUN BUN 26 H Glucose 287 H POC Glucose Hemoglobin A1c Uric Acid Calcium 8.2 L POC WB Ioniz Calcium GGT AST 143 H ALT 113 H Alkaline Phosphatase 226 H Albumin 2.5 L Globulin Albumin/Globulin Ratio 0.7 L Prealbumin Triglycerides U Marijuana (THC) Screen Suspect positive A Hepatitis C Antibody 08/02/20 08/02/20 08/01/20 05:05 05:05 21:26 WBC RBC 3.49 L Hgb 10.4 L Hct 32.0 L POC Hct Lymph # (Auto) Absolute Neutrophils POC Sodium Sodium Carbon Dioxide 20 L 20 L POC Total CO2 POC BUN BUN 22 H 23 H Glucose 112 H 279 H POC Glucose Hemoglobin A1c 14.9 H Uric Acid Calcium 8.3 L 8.3 L POC WB Ioniz Calcium GGT AST 55 H ALT 58 H Alkaline Phosphatase 165 H Albumin 2.4 L Globulin Albumin/Globulin Ratio 0.7 L Prealbumin 11.7 L Triglycerides U Marijuana (THC) Screen Hepatitis C Antibody 08/01/20 08/01/20 08/01/20 06:51 05:26 05:26 WBC 3.7 L RBC 4.02 L Hgb 11.9 L Hct 36.7 L POC Hct Lymph # (Auto) 0.82 L Absolute Neutrophils POC Sodium Sodium 128 L Carbon Dioxide 17 L POC Total CO2 POC BUN BUN Glucose 503 H* POC Glucose Hemoglobin A1c Uric Acid 2.3 L Calcium POC WB Ioniz Calcium GGT 72 H AST 50 H ALT 66 H Alkaline Phosphatase 215 H Albumin 2.8 L Globulin Albumin/Globulin Ratio 0.8 L Prealbumin Triglycerides 150 H U Marijuana (THC) Screen Suspect positive A Hepatitis C Antibody 08/01/20 07/31/20 05:11 08:04 WBC RBC Hgb Hct POC Hct 38 L Lymph # (Auto) Absolute Neutrophils POC Sodium 131 L Sodium 129 L Carbon Dioxide 19 L POC Total CO2 19 L POC BUN 21 H BUN Glucose 497 H* POC Glucose 471 H Hemoglobin A1c Uric Acid Calcium POC WB Ioniz Calcium 1.07 L GGT AST 48 H ALT 65 H Alkaline Phosphatase 213 H Albumin 2.7 L Globulin 3.8 H Albumin/Globulin Ratio 0.7 L Prealbumin Triglycerides U Marijuana (THC) Screen Hepatitis C Antibody See comment A Meds: Medications Acetaminophen (Tylenol) 650 mg PO Q6HP PRN PRN Reason: PAIN/FEVER > 101 Hydrocodone Bitart/Acetaminophen ([place] 5/325mg) 1 tab PO Q4HP PRN PRN Reason: PAIN LEVEL 3-6 Last Admin: 08/03/20 11:46 Dose: 1 tab Documented by: Albuterol/Ipratropium (Duoneb) 3 ml NEB Q4HP PRN PRN Reason: Shortness Of Breath Dextrose (Dextrose 50%) 0 ml IV UD PRN PRN Reason: Hypoglycemia Diagnostic Test (Pha) (Accu-Chek) 1 each FS Q4H [facility] Last Admin: 08/03/20 11:46 Dose: 1 each Documented by: Docusate Sodium (Colace) 100 mg PO BID [facility] Last Admin: 08/03/20 09:30 Dose: Not Given Documented by: Glucose (Insta-Glucose) 15 gm PO PRN PRN PRN Reason: Hypoglycemia Heparin Sodium (Porcine) (Heparin) 5,000 unit SQ Q12 [facility] Last Admin: 08/03/20 09:30 Dose: 5,000 unit Documented by: Gentamicin Sulfate 40 mg/Clindamycin Phosphate 300 mg/Bacitracin 25,000 unit/ Sodium Chloride 503 mls @ 0 mls/hr IRR BID [facility] Last Admin: 08/02/20 20:40 Dose: Not Given Documented by: Magnesium Sulfate (Magnesium Sulfate) 2 gm in 50 mls @ 50 mls/hr IV UD PRN PRN Reason: Magnesium </= 1.6 Piperacillin Sod/Tazobactam (Sod 3.375 gm/ Dextrose) 50 mls @ 100 mls/hr IV Q6H [facility]; Protocol Last Admin: 08/03/20 11:45 Dose: 100 mls/hr Documented by: Vancomycin HCl 1,000 mg/ (Sodium Chloride) 250 mls @ 250 mls/hr IV Q12H [facility] Last Admin: 08/03/20 09:31 Dose: 250 mls/hr Documented by: Potassium Chloride 40 meq/ (Dextrose) 520 mls @ 130 mls/hr IV UD PRN PRN Reason: Potassium < 3 Insulin Glargine (Lantus) 10 unit SQ DAILY [facility] Last Admin: 08/03/20 09:30 Dose: 10 units Documented by: Insulin Human Lispro (Humalog) 0 unit SQ Q4 [facility]; Protocol Last Admin: 08/03/20 11:46 Dose: 9 units Documented by: Lorazepam (Ativan) 0.5 mg PO Q8H PRN PRN Reason: ANXIETY/SEDATION Last Admin: 08/03/20 07:06 Dose: 0.5 mg Documented by: Naloxone HCl (Narcan) 0.1 mg IV Q2MIN PRN PRN Reason: Opiate Reversal Nicotine (Nicoderm) 14 mg TOPICAL DAILY@1000 [facility] Last Admin: 08/03/20 09:31 Dose: 14 mg Documented by: Ondansetron HCl (Zofran) 4 mg IV Q6HP PRN PRN Reason: Nausea And Vomiting Oxandrolone (Oxandrin) 5 mg PO BID [facility] Last Admin: 08/03/20 09:52 Dose: 5 mg Documented by: Polyethylene Glycol (Miralax) 17 gm PO DAILYP PRN PRN Reason: Constipation Potassium Chloride (Kdur) 40 meq PO UD PRN PRN Reason: Potssium is 3-3.5 Potassium Chloride (Kdur) 40 meq PO UD PRN PRN Reason: Potassium < 3 Senna (Senokot) 2 tab PO DAILYP PRN PRN Reason: Constipation Sodium Chloride (Saline Flush) 10 ml IV Q8 [facility] Last Admin: 08/03/20 05:45 Dose: 10 ml Documented by: Sodium Chloride (Sodium Chloride) 1 gm PO TID [facility] Last Admin: 08/03/20 09:52 Dose: 1 gm Documented by: Vancomycin HCl (Vancomycin Per Pharmacy) 1 order IV UD [facility]; Protocol A/P Narrative A/P Narrative: 1. LLE cellulitis with large ulcerative wound vargas: -aa u/s not significant -s/p excision Debridement, Tissue culture LEFT leg wound, Pulse lavage, Open packing by wound care Dr. Santiago on 07/31/2020 -wound culture -gram-negative bacilli and gram-positive cocci. Sensitivity pending -Continue vanco and zosyn 2. Volume depletion: improved 3. Hyponatremia -sodium chloride 1g 3 times daily. BMP every 12 hours. 4. Mild transaminitis, chronic: -Fatty liver on u/s -Repeat the liver enzymes in morning 5. Anemia, chronic: 6. DM: Poorly controlled, is been out of diabetic medications for 6 months -a1c 14.9 7. Substance abuse: With methamphetamine IV use 8. Tobacco abuse: 9. Homeless: 10. Malnutrition: 11. Medical non-compliance P: -IVF -Zosyn/vanc(d/c) -Dr. Koch is on board. Really appreciate it. -basal and SSI(pt refusing coverage at times) -clarify home meds -ESR/CRP -Hepatitis panel -Substance abuse counseling and smoking cessation counseling -Dietary consult -CM -pt/ot -ppx: Heparin (hold in AM of procedure) Time Spent With Patient Time: Total time spent is greater than 50% in coordination of care (as documente d) at patient's floor/unit and/or counseling patient: QUALITY VTE Deep Vein Thrombosis/Pulmonary Embolism Present on Admission: No
[2020-08-03] MEDS: GENTAMICIN SULFATE 40 MG, CLINDAMYCIN 300 MG, BACITRACIN 25,000 UNIT in SODIUM CHLORIDE... IRR SCH ×2 (14:38→20:24)
--- NOTE | 2020-08-03 17:37 | General Surgery Progress Note ---
SUBJECTIVE Subjective Patient information: Note initiated : 08/03/20 at 5:32 pm Service Date, if different from initiated Date: [] Patient: Wilfrido Damon 54 y/o M admitted on 07/30/20 for Diabetic Problems. Chief Complaint: [] Additional PMFSH (Level 3 Only): Patient seen on rounds with Dr. Hager, Hospitalist Physician and Meg RN Patient was calm and cooperative when I saw him. He wants to eat burger. Constitutional Vitals: Vital Signs Temp Pulse Resp BP Pulse Ox 98.3 F 78 16 108/72 98 08/03/20 07:58 08/03/20 07:58 08/03/20 07:58 08/03/20 07:58 08/03/20 07:58 Period Temp Pulse Resp BP Sys/Orosco Pulse Ox Last 24 Hr 97.4 F-99.4 F 78-87 12-18 96-108/55-72 93-100 Intake and Output 08/03/20 08/03/20 08/03/20 05:59 13:59 21:59 Intake Total 940 50 300 Balance 940 50 300 Intake & Output: Intake & Output 08/03/20 08/03/20 08/03/20 05:59 13:59 21:59 Intake Total 940 50 300 Balance 940 50 300 Intake: IV 300 50 300 Zosyn 3.375 gm In Dextrose 5% 50 50 50 in Water 50 ml @ 100 mls/hr IV Q6H [facility] Rx#:[id number] Vancomycin 1,000 mg In Sodium 250 250 Chloride 0.9% 250 ml @ 250 mls/ hr IV Q12H [facility] Rx#:[id number] Oral 640 Other: Meal snack Percent of Meal Consumed 100% Urine Appearance Clear Urine Color Pale Urine Odor Normal Stool Size Small Stool Color Brown Stool Consistency Watery Loose Exam: AVSS. No changes in KEVON. Local wound care is ongoing. He has uncontrolled diabetes. He is malnourished (Hypoproteinemic ) He has complex wounds of LEFT leg. He is homeless. Wants assistance. Agrees to see Claims Processor. A/P Narrative A/P Narrative: Assessment: Satisfactory progress from wound care point of view. Plan: Continue current treatment over this week end, Await input from Claims Processor. Await input from CM and SW. Time Spent With Patient Time: Total time spent is greater than 50% in coordination of care (as docum ented) at patient's floor/unit and/or counseling patient: Total time spent with greater than 50% in coordination of care (as documented) at patient's floor/unit and/or counseling patient:: 15 - 24 minutes
[2020-08-04] MEDS: INSULIN LISPRO 1 UNIT/0.01 ML UNIT SQ SCH ×7 (00:10→20:11)
[2020-08-04] MEDS: HYDROcodone/APAP 5/325MG TABLET PO PRN ×4 (04:24→19:14)
[2020-08-04] MEDS: 0.9 % SODIUM CHLORIDE 10 ML SYRINGE IV SCH ×3 (06:09→21:07)
[2020-08-04 06:10] LABS: Basophils # (Auto) 0.05 K/mcL (0.00-0.20); Eosinophils # (Auto) 0.17 K/mcL (0.00-0.70); Eosinophils % (Auto) 3.5 % (0.0-7.0); Hematocrit 32.9 % (41.0-55.0); Hemoglobin 10.6 g/dL (13.5-16.5); Lymphocytes # (Auto) 1.88 K/mcL (1.50-4.80); Lymphocytes % (Auto) 38.3 % (15.0-49.0); Mean Cell Volume 91.9 fL (80.0-100.0); Mean Corpuscular HGB Conc 32.2 g/dL (31.0-36.0); Mean Platelet Volume 10.2 fL (7.4-10.4); Monocytes # (Auto) 0.34 K/mcL (0.10-0.90); Monocytes % (Auto) 6.9 % (1.0-12.0); Neutrophils % (Auto) 50.3 % (38.0-78.0); Platelet Count 350 K/mcL (140-440); RBC 3.58 M/mcL (4.50-5.90); Red Cell Distribution Width 12.6 % (11.5-14.5); WBC 4.9 K/mcL (4.5-11.0)
[2020-08-04] MEDS: PIPERACILLIN SODIUM/TAZOBACTAM 3.375 GM in DEXTROSE 5% IN WATER 50 ML IV SCH ×4 (06:10→17:46)
[2020-08-04] MEDS: LORazepam 0.5 MG TABLET PO PRN ×3 (06:11→19:13)
[2020-08-04 06:38] LABS: ALT/SGPT 148 U/L (<40); AST/SGOT 163 U/L (<40); Albumin 2.7 gm/dL (3.2-5.2); Albumin/Globulin Ratio 0.8 (1.0-2.3); Alkaline Phosphatase 238 U/L (39-117); Bilirubin,Total < 0.2 mg/dL (0.1-1.0); Blood Urea Nitrogen 28 mg/dL (6-20); Carbon Dioxide 22 mmol/L (22-30); Chloride 103 mmol/L (96-108); Globulin 3.5 gm/dL (2.2-3.7); Glomerular Filtration Rate 68; Glucose 221 mg/dL (70-105)
[2020-08-04] MEDS: OXANDROLONE 2.5 MG TABLET PO SCH ×2 (08:58→21:05)
[2020-08-04] MEDS: HEPARIN 5,000 UNIT/ML VIAL SQ SCH ×2 (08:59→21:04)
[2020-08-04] MEDS: SODIUM CHLORIDE 1 GM TABLET PO SCH ×3 (08:59→21:05)
[2020-08-04] MEDS: INSULIN GLARGINE, HUMAN 1 UNIT/0.01 ML SQ SCH (08:59)
[2020-08-04] MEDS: DOCUSATE SODIUM 100 MG CAPSULE PO SCH ×2 (09:00→21:06)
[2020-08-04] MEDS: NICOTINE 14 MG PATCH TOPICAL SCH (09:08)
[2020-08-04] MEDS: VANCOMYCIN 1,000 MG in 0.9 % SODIUM CHLORIDE 250 ML IV SCH ×2 (10:38→21:05)
[2020-08-04] MEDS: GENTAMICIN SULFATE 40 MG, CLINDAMYCIN 300 MG, BACITRACIN 25,000 UNIT in SODIUM CHLORIDE... IRR SCH ×2 (10:39→20:49)
--- NOTE | 2020-08-04 13:16 | Internal Med Progress Note ---
SUBJECTIVE Subjective Patient information: Note initiated : 08/04/20 at 1:13 pm Service Date, if different from initiated Date: [] Patient: Wilfrido Damon a 54 y/o M admitted on 07/30/20 for Diabetic Problems. Chief Complaint: [] Mr. Damon is a 54 year old M Into the ED with a nonhealing wound over his lower extremity and complaining of maggots falling out and it being malodorous.Is also a meth user and a diabetic. Patient is been off his diabetic medications for 6 months. Sound like he is been getting his diabetic medication through ERs and minor cares. Uses IV meth several times a week. Uses marijuana. Wound is been there for about 5 months. Initially injured his leg when he was helping somebody move. Denies fever chills. Case discussed with Dr. Santiago who will evaluate patient. 07/31 No new complaints or overnight events. Awaiting for debridement. 08/01 Patient complaints new complaints. Pain is controlled. Denies nausea, vomiting, fever, or chills. Blood pressure is soft at times. This morning patient blood sugar went up to 600 because the patient refused insulin. Initially he agreed to receive his insulin. Excision Debridement, Tissue culture LEFT leg wound, Pulse lavage, Open packing was done on 07/[address] Santiago Na 128 - NaCl 1g tid wound culture showed staphy aureus, sensitivity pending PT/OT/CM 08/02 Patient still sleepy, but more alert today Vital signs are stable and acceptable. Oxygen saturation good, on room air Blood glucose is high at times because patient refused insulin at times Patient was found to use substances in his room last night. 08/03 He is less sleepy. Does not have any complaints. The pain is controlled. Vital signs are stable Good saturation on room air. Sodium 132 Liver enzymes elevated 08/04 Yesterday evening she wanted to leave AMA because she cannot eat whatever he wants. After being educated, he changed his mind and would like to stay. Patient feels fine. Denies medical complaints. Vital signs are stable and acceptable Sodium 132 Liver enzymes keep rising AST 163, ALT 148, alkaline phosphate 238. Tests on hepatitis C still pending. Review of Systems: denies headache/fever/chills/nausea/vomiting/chest or abdominal pain/cough/dyspnea/diarrhea. Otherwise see above. Constitutional Vitals: Vital Signs Temp Pulse Resp BP Pulse Ox 98.7 F 90 18 118/79 100 08/04/20 07:45 08/04/20 08:00 08/04/20 08:00 08/04/20 07:45 08/04/20 08:00 Period Temp Pulse Resp BP Sys/Orosco Pulse Ox Last 24 Hr 98.2 F-98.7 F 75-90 18-18 104-137/66-85 98-100 Intake and Output 08/03/20 08/04/20 08/04/20 21:59 05:59 13:59 Intake Total 2040 850 50 Output Total 500 504 Balance 1540 346 50 Weight 48.166 kg Intake & Output: Intake & Output 08/03/20 08/04/20 08/04/20 21:59 05:59 13:59 Intake Total 2040 850 50 Output Total 500 504 Balance 1540 346 50 Weight 48.166 kg Intake: Nourishment/Supplement quantity 240 (ml) IV 600 50 50 Zosyn 3.375 gm In Dextrose 5% 100 50 50 in Water 50 ml @ 100 mls/hr IV Q6H [facility] Rx#:[id number] Vancomycin 1,000 mg In Sodium 500 Chloride 0.9% 250 ml @ 250 mls/ hr IV Q12H [facility] Rx#:[id number] Oral 1200 800 Output: Void Amount 500 500 # of times incontinent of urine 4 Other: Meal Nourishment/Supplement Percent of Meal Consumed 100% Feeding Ability Assist with Tray Set Up Nourishment/Supplement name CHO 28.7 evening snack provided by kitchen. Urine Appearance Clear Clear Clear Urine Color Pale Bright Yellow Bright Yellow Urine Odor Normal Normal Normal Stool Size Moderate Moderate Stool Color Brown Brown Stool Consistency Soft Soft Liquid Liquid # Voids 2 1 # Bowel Movements 1 Additional findings Additional findings: General: Alert, but he sleeps most of day, No acute Distress Eyes/N/T: EOMI, Head/Neck: neck supple, CV: RRR, No murmurs, Pulm: Clear b/l, no wheezing/rhonchi/rales Abd: soft, nontender, +BS x4 Ext: no clubbing/cyanosis/edema to RLE. LLE with erythema/edema/large ulcer on vargas. Neuro: Alert, no focal deficits, moves all extremities, Skin: warm/dry OBJ DATA Labs CBC & Chem 7: 10/11/20 04:47 08/04/20 04:47 Labs: Abnormal Lab Results 08/04/20 08/04/20 08/03/20 04:47 04:47 05:05 WBC RBC 3.58 L Hgb 10.6 L Hct 32.9 L Lymph # (Auto) Absolute Neutrophils Sodium 132 L 132 L Carbon Dioxide 18 L Anion Gap 7.0 L BUN 28 H 26 H Glucose 221 H 287 H Hemoglobin A1c Calcium 8.2 L AST 163 H 143 H ALT 148 H 113 H Alkaline Phosphatase 238 H 226 H Albumin 2.7 L 2.5 L Albumin/Globulin Ratio 0.8 L 0.7 L Prealbumin U Marijuana (THC) Screen 08/03/20 08/02/20 08/02/20 05:05 10:07 05:05 WBC 3.7 L RBC 3.59 L Hgb 10.8 L Hct 33.8 L Lymph # (Auto) 1.44 L Absolute Neutrophils 1.75 L Sodium Carbon Dioxide 20 L Anion Gap BUN 22 H Glucose 112 H Hemoglobin A1c 14.9 H Calcium 8.3 L AST 55 H ALT 58 H Alkaline Phosphatase 165 H Albumin 2.4 L Albumin/Globulin Ratio 0.7 L Prealbumin 11.7 L U Marijuana (THC) Screen Suspect positive A 08/02/20 08/01/20 08/01/20 05:05 21:26 06:51 WBC RBC 3.49 L Hgb 10.4 L Hct 32.0 L Lymph # (Auto) Absolute Neutrophils Sodium Carbon Dioxide 20 L Anion Gap BUN 23 H Glucose 279 H Hemoglobin A1c Calcium 8.3 L AST ALT Alkaline Phosphatase Albumin Albumin/Globulin Ratio Prealbumin U Marijuana (THC) Screen Suspect positive A Meds: Medications Acetaminophen (Tylenol) 650 mg PO Q6HP PRN PRN Reason: PAIN/FEVER > 101 Hydrocodone Bitart/Acetaminophen ([place] 5/325mg) 1 tab PO Q4HP PRN PRN Reason: PAIN LEVEL 3-6 Last Admin: 08/04/20 13:07 Dose: 1 tab Documented by: Albuterol/Ipratropium (Duoneb) 3 ml NEB Q4HP PRN PRN Reason: Shortness Of Breath Dextrose (Dextrose 50%) 0 ml IV UD PRN PRN Reason: Hypoglycemia Diagnostic Test (Pha) (Accu-Chek) 1 each FS Q4H [facility] Last Admin: 08/04/20 12:58 Dose: 1 each Documented by: Docusate Sodium (Colace) 100 mg PO BID [facility] Last Admin: 08/04/20 09:00 Dose: Not Given Documented by: Glucose (Insta-Glucose) 15 gm PO PRN PRN PRN Reason: Hypoglycemia Heparin Sodium (Porcine) (Heparin) 5,000 unit SQ Q12 [facility] Last Admin: 08/04/20 08:59 Dose: 5,000 unit Documented by: Gentamicin Sulfate 40 mg/Clindamycin Phosphate 300 mg/Bacitracin 25,000 unit/ Sodium Chloride 503 mls @ 0 mls/hr IRR BID [facility] Last Admin: 08/04/20 10:39 Dose: 5 mls/hr Documented by: Magnesium Sulfate (Magnesium Sulfate) 2 gm in 50 mls @ 50 mls/hr IV UD PRN PRN Reason: Magnesium </= 1.6 Piperacillin Sod/Tazobactam (Sod 3.375 gm/ Dextrose) 50 mls @ 100 mls/hr IV Q6H [facility]; Protocol Last Admin: 08/04/20 12:59 Dose: 100 mls/hr Documented by: Vancomycin HCl 1,000 mg/ (Sodium Chloride) 250 mls @ 250 mls/hr IV Q12H [facility] Last Admin: 08/04/20 10:38 Dose: 250 mls/hr Documented by: Potassium Chloride 40 meq/ (Dextrose) 520 mls @ 130 mls/hr IV UD PRN PRN Reason: Potassium < 3 Insulin Glargine (Lantus) 10 unit SQ DAILY [facility] Last Admin: 08/04/20 08:59 Dose: 10 units Documented by: Insulin Human Lispro (Humalog) 0 unit SQ Q4 [facility]; Protocol Last Admin: 08/04/20 13:03 Dose: 20 units Documented by: Lorazepam (Ativan) 0.5 mg PO Q6HP PRN PRN Reason: ANXIETY/SEDATION Last Admin: 08/04/20 13:07 Dose: 0.5 mg Documented by: Naloxone HCl (Narcan) 0.1 mg IV Q2MIN PRN PRN Reason: Opiate Reversal Nicotine (Nicoderm) 14 mg TOPICAL DAILY@1000 [facility] Last Admin: 08/04/20 09:08 Dose: 14 mg Documented by: Ondansetron HCl (Zofran) 4 mg IV Q6HP PRN PRN Reason: Nausea And Vomiting Oxandrolone (Oxandrin) 5 mg PO BID [facility] Last Admin: 08/04/20 08:58 Dose: 5 mg Documented by: Polyethylene Glycol (Miralax) 17 gm PO DAILYP PRN PRN Reason: Constipation Potassium Chloride (Kdur) 40 meq PO UD PRN PRN Reason: Potssium is 3-3.5 Potassium Chloride (Kdur) 40 meq PO UD PRN PRN Reason: Potassium < 3 Senna (Senokot) 2 tab PO DAILYP PRN PRN Reason: Constipation Sodium Chloride (Saline Flush) 10 ml IV Q8 [facility] Last Admin: 08/04/20 06:09 Dose: 10 ml Documented by: Sodium Chloride (Sodium Chloride) 1 gm PO TID [facility] Last Admin: 08/04/20 08:59 Dose: 1 gm Documented by: Vancomycin HCl (Vancomycin Per Pharmacy) 1 order IV UD [facility]; Protocol A/P Narrative A/P Narrative: 1. LLE cellulitis with large ulcerative wound vargas: -aa u/s not significant -s/p excision Debridement, Tissue culture LEFT leg wound, Pulse lavage, Open packing by wound care Dr. Santiago on 07/31/2020 -wound culture -gram-negative bacilli and gram-positive cocci. Sensitivity pending -Continue vanco and zosyn 2. Volume depletion: improved 3. Hyponatremia -sodium chloride 1g 3 times daily. BMP every 12 hours. 4. Mild transaminitis, chronic: -Fatty liver on u/s -Repeat the liver enzymes in morning -Tests on hep A and B - negative. Tests on hepc pending 5. Anemia, chronic: 6. DM: Poorly controlled, is been out of diabetic medications for 6 months -a1c 14.9 7. Substance abuse: With methamphetamine IV use 8. Tobacco abuse: 9. Homeless: 10. Malnutrition: 11. Medical non-compliance P: -IVF -Zosyn/vanc(d/c) -Dr. Koch is on board. Really appreciate it. -basal and SSI(pt refusing coverage at times) -clarify home meds -ESR/CRP -Hepatitis panel -Substance abuse counseling and smoking cessation counseling -Dietary consult -CM -pt/ot -ppx: Heparin (hold in AM of procedure) Time Spent With Patient Time: Total time spent is greater than 50% in coordination of care (as documented) at patient's floor/unit and/or counseling patient: QUALITY VTE Deep Vein Thrombosis/Pulmonary Embolism Present on Admission: No
[2020-08-05] MEDS: INSULIN LISPRO 1 UNIT/0.01 ML UNIT SQ SCH ×9 (00:44→23:59)
[2020-08-05] MEDS: PIPERACILLIN SODIUM/TAZOBACTAM 3.375 GM in DEXTROSE 5% IN WATER 50 ML IV SCH ×5 (00:45→23:42)
[2020-08-05] MEDS: LORazepam 0.5 MG TABLET PO PRN ×4 (02:12→21:02)
[2020-08-05] MEDS ORDERED: INSULIN LISPRO 1 UNIT/0.01 ML UNIT SQ ONE (02:25)
[2020-08-05] MEDS: HYDROcodone/APAP 5/325MG TABLET PO PRN ×3 (04:38→19:31)
[2020-08-05] MEDS: 0.9 % SODIUM CHLORIDE 10 ML SYRINGE IV SCH ×3 (06:03→20:25)
[2020-08-05 06:59] LABS: Basophils # (Auto) 0.04 K/mcL (0.00-0.20); Basophils % (Auto) 0.6 % (0.0-2.0); Eosinophils # (Auto) 0.19 K/mcL (0.00-0.70); Hematocrit 31.4 % (41.0-55.0); Hemoglobin 10.5 g/dL (13.5-16.5); Lymphocytes # (Auto) 2.69 K/mcL (1.50-4.80); Lymphocytes % (Auto) 42.3 % (15.0-49.0); Mean Cell Volume 89.7 fL (80.0-100.0); Mean Corpuscular HGB Conc 33.4 g/dL (31.0-36.0); Monocytes # (Auto) 0.44 K/mcL (0.10-0.90); Monocytes % (Auto) 6.9 % (1.0-12.0); Neutrophils % (Auto) 47.2 % (38.0-78.0); Platelet Count 350 K/mcL (140-440); Red Cell Distribution Width 12.9 % (11.5-14.5); WBC 6.4 K/mcL (4.5-11.0)
[2020-08-05 07:28] LABS: ALT/SGPT 143 U/L (<40); AST/SGOT 130 U/L (<40); Albumin 2.9 gm/dL (3.2-5.2); Albumin/Globulin Ratio 0.8 (1.0-2.3); Alkaline Phosphatase 207 U/L (39-117); Bilirubin,Total < 0.2 mg/dL (0.1-1.0); Blood Urea Nitrogen 28 mg/dL (6-20); Calcium 8.8 mg/dL (8.6-10.4); Carbon Dioxide 22 mmol/L (22-30); Chloride 104 mmol/L (96-108); Globulin 3.6 gm/dL (2.2-3.7); Glomerular Filtration Rate 101; Glucose 103 mg/dL (70-105)
[2020-08-05] MEDS: INSULIN GLARGINE, HUMAN 1 UNIT/0.01 ML SQ SCH (08:29)
[2020-08-05] MEDS: HEPARIN 5,000 UNIT/ML VIAL SQ SCH ×2 (08:30→20:24)
[2020-08-05] MEDS: SODIUM CHLORIDE 1 GM TABLET PO SCH ×3 (08:30→20:25)
[2020-08-05] MEDS: DOCUSATE SODIUM 100 MG CAPSULE PO SCH ×2 (08:31→20:24)
[2020-08-05] MEDS: NICOTINE 14 MG PATCH TOPICAL SCH (09:07)
[2020-08-05] MEDS: VANCOMYCIN 1,000 MG in 0.9 % SODIUM CHLORIDE 250 ML IV SCH ×2 (09:12→20:25)
[2020-08-05] MEDS: OXANDROLONE 2.5 MG TABLET PO SCH ×2 (09:28→20:24)
--- NOTE | 2020-08-05 09:51 | General Surgery Progress Note ---
SUBJECTIVE Subjective Patient information: Note initiated : 08/05/20 at 9:49 am Service Date, if different from initiated Date: [] Patient: Wilfrido Damon 54 y/o M admitted on 07/30/20 for Diabetic Problems. Chief Complaint: [] Additional PMFSH (Level 3 Only): Patient seen on rounds with Diana CHILD and Dr. Hager Hospitalist Physician. Reports feeling well. Appetite improving. 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 ) Constitutional Vitals: Vital Signs Temp Pulse Resp BP Pulse Ox 98.9 F 89 14 98/66 100 08/05/20 07:06 08/05/20 07:48 08/05/20 07:48 08/05/20 07:06 08/05/20 07:48 Period Temp Pulse Resp BP Sys/Orosco Pulse Ox Last 24 Hr 97.6 F-99.3 F 76-99 14-18 96-111/63-74 98-100 Intake and Output 08/04/20 08/05/20 08/05/20 21:59 05:59 13:59 Intake Total 950 1020 50 Output Total 900 Balance 50 1020 50 Weight 106 lb 12.8 oz Intake & Output: Intake & Output 08/04/20 08/05/20 08/05/20 21:59 05:59 13:59 Intake Total 950 1020 50 Output Total 900 Balance 50 1020 50 Weight 106 lb 12.8 oz Intake: IV 50 300 50 Zosyn 3.375 gm In Dextrose 5% 50 50 50 in Water 50 ml @ 100 mls/hr IV Q6H [facility] Rx#:[id number] Vancomycin 1,000 mg In Sodium 250 Chloride 0.9% 250 ml @ 250 mls/ hr IV Q12H [facility] Rx#:[id number] Oral 900 720 Output: Void Amount 900 Other: Meal Dinner Percent of Meal Consumed 100% Urine Appearance Clear Urine Color Pale Urine Odor Normal Stool Size Moderate Moderate Moderate Stool Color Brown Brown Brown Stool Consistency Soft Soft Soft Loose Loose # Voids 1 # Bowel Movements 4 1 Exam: AVSS. No changes KEVON. Wound c/s Report seen. P ruttgeri S to Cipro Hct and Cr are stable. K is Normal Wounds granulating and undermining has resolved from around LEFT upper leg wound base. Leon abrasions are pink and granulating. Patient is ambulating better. A/P Narrative A/P Narrative: Assessment: Slow Steady and Satisfactory progress. Patient will benefit from short term rehab / placement Nutrition repletion Plan: Wound care and Medication changes as discussed. If discharged, F/U at wound care center in 1 week. Time Spent With Patient Time: Total time spent is greater than 50% in coordination of care (as documented) at patient's floor/unit and/or counseling patient: Total time spent with greater than 50% in coordination of care (as documented) at patient's floor/unit and/or counseling patient:: 25 - 35 minutes
[2020-08-05] MEDS: GENTAMICIN SULFATE 40 MG, CLINDAMYCIN 300 MG, BACITRACIN 25,000 UNIT in SODIUM CHLORIDE... IRR SCH (10:40)
--- NOTE | 2020-08-05 10:59 | Internal Med Progress Note ---
SUBJECTIVE Subjective Patient information: Note initiated : 08/05/20 at 10:55 am Service Date, if different from initiated Date: [] Patient: Wilfrido Damon a 54 y/o M admitted on 07/30/20 for Diabetic Problems. Chief Complaint: [] Mr. Damon is a 54 year old M Into the ED with a nonhealing wound over his lower extremity and complaining of maggots falling out and it being malodorous.Is also a meth user and a diabetic. Patient is been off his diabetic medications for 6 months. Sound like he is been getting his diabetic medication through ERs and minor cares. Uses IV meth several times a week. Uses marijuana. Wound is been there for about 5 months. Initially injured his leg when he was helping somebody move. Denies fever chills. Case discussed with Dr. Santiago who will evaluate patient. 07/31 No new complaints or overnight events. Awaiting for debridement. 08/01 Patient complaints new complaints. Pain is controlled. Denies nausea, vomiting, fever, or chills. Blood pressure is soft at times. This morning patient blood sugar went up to 600 because the patient refused insulin. Initially he agreed to receive his insulin. Excision Debridement, Tissue culture LEFT leg wound, Pulse lavage, Open packing was done on 07/[address] Santiago Na 128 - NaCl 1g tid wound culture showed staphy aureus, sensitivity pending PT/OT/CM 08/02 Patient still sleepy, but more alert today Vital signs are stable and acceptable. Oxygen saturation good, on room air Blood glucose is high at times because patient refused insulin at times Patient was found to use substances in his room last night. 08/03 He is less sleepy. Does not have any complaints. The pain is controlled. Vital signs are stable Good saturation on room air. Sodium 132 Liver enzymes elevated 08/04 Yesterday evening she wanted to leave AMA because she cannot eat whatever he wants. After being educated, he changed his mind and would like to stay. Patient feels fine. Denies medical complaints. Vital signs are stable and acceptable Sodium 132 Liver enzymes keep rising AST 163, ALT 148, alkaline phosphate 238. Tests on hepatitis C still pending. 08/05 Does not have any complaints. Stating "I am fine". Noncompliant on diabetic diet. Refused insulin treatment times. Vital signs has been stable and acceptable. Liver enzymes still elevated but went down compared with these yesterday. Wound culture showed Staphylococcus aureus -sensitivities still not available Providencia rettgeri -sensitivities available Review of Systems: denies headache/fever/chills/nausea/vomiting/chest or abdominal pain/cough/dyspnea/diarrhea. Otherwise see above. Constitutional Vitals: Vital Signs Temp Pulse Resp BP Pulse Ox 98.9 F 89 14 98/66 100 08/05/20 07:06 08/05/20 07:48 08/05/20 07:48 08/05/20 07:06 08/05/20 07:48 Period Temp Pulse Resp BP Sys/Orosco Pulse Ox Last 24 Hr 97.6 F-99.3 F 76-99 14-18 96-111/63-74 98-100 Intake and Output 08/04/20 08/05/20 08/05/20 21:59 05:59 13:59 Intake Total 950 1020 300 Output Total 900 Balance 50 1020 300 Weight 48.444 kg Intake & Output: Intake & Output 08/04/20 08/05/20 08/05/20 21:59 05:59 13:59 Intake Total 950 1020 300 Output Total 900 Balance 50 1020 300 Weight 48.444 kg Intake: IV 50 300 300 Zosyn 3.375 gm In Dextrose 5% 50 50 50 in Water 50 ml @ 100 mls/hr IV Q6H [facility] Rx#:[id number] Vancomycin 1,000 mg In Sodium 250 250 Chloride 0.9% 250 ml @ 250 mls/ hr IV Q12H [facility] Rx#:[id number] Oral 900 720 Output: Void Amount 900 Other: Meal Dinner Percent of Meal Consumed 100% Urine Appearance Clear Urine Color Pale Urine Odor Normal Stool Size Moderate Moderate Moderate Stool Color Brown Brown Brown Stool Consistency Soft Soft Soft Loose Loose # Voids 1 # Bowel Movements 4 1 Additional findings Additional findings: General - No acute distress Eyes - PERRLA, EOM intact ENT no rhinorrhea, no noticeable or palpable swelling, no redness or rash ar ound throat or on face Neck supple, no JVD, no thyromegaly Respiratory: Lungs -clear, no wheezing or crackles. Cardiovascular - RRR no m/r/g, GI - Normal bowel sounds, no distended, soft. Extremeties - No edema, cyanosis or clubbing Hemo/lymphatic/immune no lymphadenopathy Neurological Alert and oriented x 3, no focal neurological deficits. Psychiatry flat affect OBJ DATA Labs CBC & Chem 7: 08/05/20 05:26 08/05/20 05:26 Labs: Abnormal Lab Results 08/05/20 08/05/20 08/04/20 05:26 05:26 04:47 WBC RBC 3.50 L Hgb 10.5 L Hct 31.4 L Lymph # (Auto) Absolute Neutrophils Sodium 132 L Carbon Dioxide Anion Gap 7.0 L BUN 28 H 28 H Glucose 221 H Hemoglobin A1c Calcium AST 130 H 163 H ALT 143 H 148 H Alkaline Phosphatase 207 H 238 H Albumin 2.9 L 2.7 L Albumin/Globulin Ratio 0.8 L 0.8 L U Marijuana (THC) Screen 08/04/20 08/03/20 08/03/20 04:47 05:05 05:05 WBC 3.7 L RBC 3.58 L 3.59 L Hgb 10.6 L 10.8 L Hct 32.9 L 33.8 L Lymph # (Auto) 1.44 L Absolute Neutrophils 1.75 L Sodium 132 L Carbon Dioxide 18 L Anion Gap BUN 26 H Glucose 287 H Hemoglobin A1c Calcium 8.2 L AST 143 H ALT 113 H Alkaline Phosphatase 226 H Albumin 2.5 L Albumin/Globulin Ratio 0.7 L U Marijuana (THC) Screen 08/02/20 08/02/20 10:07 05:05 WBC RBC Hgb Hct Lymph # (Auto) Absolute Neutrophils Sodium Carbon Dioxide Anion Gap BUN Glucose Hemoglobin A1c 14.9 H Calcium AST ALT Alkaline Phosphatase Albumin Albumin/Globulin Ratio U Marijuana (THC) Screen Suspect positive A Meds: Medications Acetaminophen (Tylenol) 650 mg PO Q6HP PRN PRN Reason: PAIN/FEVER > 101 Hydrocodone Bitart/Acetaminophen ([place] 5/325mg) 1 tab PO Q4HP PRN PRN Reason: PAIN LEVEL 3-6 Last Admin: 08/05/20 04:38 Dose: 1 tab Documented by: Albuterol/Ipratropium (Duoneb) 3 ml NEB Q4HP PRN PRN Reason: Shortness Of Breath Dextrose (Dextrose 50%) 0 ml IV UD PRN PRN Reason: Hypoglycemia Diagnostic Test (Pha) (Accu-Chek) 1 each FS Q4H [facility] Last Admin: 08/05/20 07:03 Dose: 1 each Documented by: Docusate Sodium (Colace) 100 mg PO BID [facility] Last Admin: 08/05/20 08:31 Dose: Not Given Documented by: Glucose (Insta-Glucose) 15 gm PO PRN PRN PRN Reason: Hypoglycemia Heparin Sodium (Porcine) (Heparin) 5,000 unit SQ Q12 [facility] Last Admin: 08/05/20 08:30 Dose: 5,000 unit Documented by: Magnesium Sulfate (Magnesium Sulfate) 2 gm in 50 mls @ 50 mls/hr IV UD PRN PRN Reason: Magnesium </= 1.6 Piperacillin Sod/Tazobactam (Sod 3.375 gm/ Dextrose) 50 mls @ 100 mls/hr IV Q6H [facility]; Protocol Last Infusion: 08/05/20 07:04 Dose: Infused Documented by: Vancomycin HCl 1,000 mg/ (Sodium Chloride) 250 mls @ 250 mls/hr IV Q12H [facility] Last Infusion: 08/05/20 10:40 Dose: Infused Documented by: Potassium Chloride 40 meq/ (Dextrose) 520 mls @ 130 mls/hr IV UD PRN PRN Reason: Potassium < 3 Gentamicin Sulfate 40 mg/Clindamycin Phosphate 300 mg/Bacitracin 25,000 unit/ Sodium Chloride 503 mls @ 0 mls/hr IRR DAILY [facility] Last Admin: 08/05/20 10:40 Dose: Not Given Documented by: Insulin Glargine (Lantus) 10 unit SQ DAILY [facility] Last Admin: 08/05/20 08:29 Dose: 10 units Documented by: Insulin Human Lispro (Humalog) 0 unit SQ Q4 [facility]; Protocol Last Admin: 08/05/20 07:04 Dose: Not Given Documented by: Lorazepam (Ativan) 0.5 mg PO Q6HP PRN PRN Reason: ANXIETY/SEDATION Last Admin: 08/05/20 08:21 Dose: 0.5 mg Documented by: Naloxone HCl (Narcan) 0.1 mg IV Q2MIN PRN PRN Reason: Opiate Reversal Nicotine (Nicoderm) 14 mg TOPICAL DAILY@1000 [facility] Last Admin: 08/05/20 09:07 Dose: 14 mg Documented by: Ondansetron HCl (Zofran) 4 mg IV Q6HP PRN PRN Reason: Nausea And Vomiting Oxandrolone (Oxandrin) 5 mg PO BID [facility] Last Admin: 08/05/20 09:28 Dose: 5 mg Documented by: Polyethylene Glycol (Miralax) 17 gm PO DAILYP PRN PRN Reason: Constipation Potassium Chloride (Kdur) 40 meq PO UD PRN PRN Reason: Potssium is 3-3.5 Potassium Chloride (Kdur) 40 meq PO UD PRN PRN Reason: Potassium < 3 Senna (Senokot) 2 tab PO DAILYP PRN PRN Reason: Constipation Sodium Chloride (Saline Flush) 10 ml IV Q8 [facility] Last Admin: 08/05/20 06:03 Dose: 10 ml Documented by: Sodium Chloride (Sodium Chloride) 1 gm PO TID [facility] Last Admin: 08/05/20 08:30 Dose: 1 gm Documented by: Vancomycin HCl (Vancomycin Per Pharmacy) 1 order IV UD [facility]; Protocol A/P Narrative A/P Narrative: 1. LLE cellulitis with large ulcerative wound vargas: -aa u/s not significant -s/p excision Debridement, Tissue culture LEFT leg wound, Pulse lavage, Open packing by wound care Dr. Santiago on 07/31/2020 -Wound culture showed Staphylococcus aureus -sensitivities still not available Providencia rettgeri -sensitivities available -Continue vanco and zosyn 2. Volume depletion: improved 3. Hyponatremia -sodium chloride 1g 3 times daily. BMP every 12 hours. 4. Mild transaminitis, chronic: -Fatty liver on u/s -Repeat the liver enzymes in morning -Tests on hep A and B - negative. Tests on hepc pending 5. Anemia, chronic: 6. DM: Poorly controlled, is been out of diabetic medications for 6 months -a1c 14.9 7. Substance abuse: With methamphetamine IV use 8. Tobacco abuse: 9. Homeless: 10. Malnutrition: 11. Medical non-compliance P: -IVF -Zosyn/vanc(d/c) -Dr. Koch is on board. Really appreciate it. -basal and SSI(pt refusing coverage at times) -clarify home meds -ESR/CRP -Hepatitis panel -Substance abuse counseling and smoking cessation counseling -Dietary consult -CM -pt/ot -ppx: Heparin (hold in AM of procedure) Time Spent With Patient Time: Total time spent is greater than 50% in coordination of care (as documented) at patient's floor/unit and/or counseling patient: QUALITY VTE Deep Vein Thrombosis/Pulmonary Embolism Present on Admission: No
[2020-08-06] MEDS: INSULIN LISPRO 1 UNIT/0.01 ML UNIT SQ SCH ×4 (01:51→12:48)
[2020-08-06] MEDS: HYDROcodone/APAP 5/325MG TABLET PO PRN ×2 (01:56→09:46)
[2020-08-06] MEDS: LORazepam 0.5 MG TABLET PO PRN ×2 (03:16→09:45)
[2020-08-06] MEDS: PIPERACILLIN SODIUM/TAZOBACTAM 3.375 GM in DEXTROSE 5% IN WATER 50 ML IV SCH ×2 (05:22→12:48)
[2020-08-06] MEDS: 0.9 % SODIUM CHLORIDE 10 ML SYRINGE IV SCH ×2 (05:22→13:06)
[2020-08-06 07:42] LABS: ALT/SGPT 177 U/L (<40); AST/SGOT 193 U/L (<40); Albumin/Globulin Ratio 0.9 (1.0-2.3); Alkaline Phosphatase 270 U/L (39-117); Bilirubin,Total < 0.2 mg/dL (0.1-1.0); Blood Urea Nitrogen 24 mg/dL (6-20); Calcium 8.8 mg/dL (8.6-10.4); Carbon Dioxide 21 mmol/L (22-30); Chloride 102 mmol/L (96-108); Globulin 3.2 gm/dL (2.2-3.7); Glomerular Filtration Rate 97; Glucose 222 mg/dL (70-105)
[2020-08-06 08:11] LABS: Basophils # (Auto) 0.06 K/mcL (0.00-0.20); Basophils % (Auto) 0.9 % (0.0-2.0); Eosinophils # (Auto) 0.13 K/mcL (0.00-0.70); Hematocrit 28.6 % (41.0-55.0); Hemoglobin 9.5 g/dL (13.5-16.5); Lymphocytes # (Auto) 2.02 K/mcL (1.50-4.80); Lymphocytes % (Auto) 31.5 % (15.0-49.0); Mean Cell Volume 91.7 fL (80.0-100.0); Mean Corpuscular HGB Conc 33.2 g/dL (31.0-36.0); Mean Platelet Volume 10.4 fL (7.4-10.4); Monocytes # (Auto) 0.57 K/mcL (0.10-0.90); Monocytes % (Auto) 8.9 % (1.0-12.0); Neutrophils % (Auto) 56.7 % (38.0-78.0); Platelet Count 350 K/mcL (140-440); RBC 3.12 M/mcL (4.50-5.90); Red Cell Distribution Width 13.4 % (11.5-14.5); WBC 6.4 K/mcL (4.5-11.0)
[2020-08-06] MEDS: INSULIN GLARGINE, HUMAN 1 UNIT/0.01 ML SQ SCH (09:45)
[2020-08-06] MEDS: SODIUM CHLORIDE 1 GM TABLET PO SCH ×2 (09:46→15:23)
[2020-08-06] MEDS: HEPARIN 5,000 UNIT/ML VIAL SQ SCH (09:50)
[2020-08-06] MEDS: DOCUSATE SODIUM 100 MG CAPSULE PO SCH (09:54)
[2020-08-06] MEDS: OXANDROLONE 2.5 MG TABLET PO SCH (09:56)
[2020-08-06] MEDS: VANCOMYCIN 1,000 MG in 0.9 % SODIUM CHLORIDE 250 ML IV SCH (10:00)
[2020-08-06] MEDS: GENTAMICIN SULFATE 40 MG, CLINDAMYCIN 300 MG, BACITRACIN 25,000 UNIT in SODIUM CHLORIDE... IRR SCH (10:01)
[2020-08-06] MEDS: NICOTINE 14 MG PATCH TOPICAL SCH (10:01)
--- NOTE | 2020-08-06 13:16 | Internal Med Progress Note ---
SUBJECTIVE Subjective Patient information: Note initiated : 08/06/20 at 1:15 pm Service Date, if different from initiated Date: [] Patient: Wilfrido Damon 54 y/o M admitted on 07/30/20 for Diabetic Problems. Chief Complaint: [] Constitutional Vitals: Vital Signs Temp Pulse Resp BP Pulse Ox 98.0 F 91 H 20 107/77 99 08/06/20 12:05 08/06/20 12:05 08/06/20 12:05 08/06/20 12:05 08/06/20 12:05 Period Temp Pulse Resp BP Sys/Orosco Pulse Ox Last 24 Hr 97.7 F-98.0 F 86-102 - 104-138/61-82 95-99 Intake and Output 08/05/20 08/06/20 08/06/20 21:59 05:59 13:59 Intake Total 4060 1430 650 Output Total 900 Balance 3160 1430 650 Weight 48.761 kg Intake & Output: Intake & Output 08/05/20 08/06/20 08/06/20 21:59 05:59 13:59 Intake Total 4060 1430 650 Output Total 900 Balance 3160 1430 650 Weight 48.761 kg Intake: IV 300 50 50 Zosyn 3.375 gm In Dextrose 5% 50 50 50 in Water 50 ml @ 100 mls/hr IV Q6H [facility] Rx#:[id number] Vancomycin 1,000 mg In Sodium 250 Chloride 0.9% 250 ml @ 250 mls/ hr IV Q12H [facility] Rx#:[id number] Oral 3760 1380 600 Output: Void Amount 900 Other: Meal HS snack Nourishment/Supplement Breakfast Percent of Meal Consumed 100% 100% 100% Feeding Ability Independent Independent Urine Appearance Clear Urine Color Straw Urine Odor Normal Stool Size Moderate Large Stool Consistency Soft Loose # Voids 9 # Bowel Movements 1 1 OBJ DATA Labs CBC & Chem 7: 08/06/20 05:42 08/06/20 05:42 Labs: Abnormal Lab Results 08/06/20 08/06/20 08/05/20 05:42 05:42 05:26 RBC 3.12 L Hgb 9.5 L Hct 28.6 L Sodium Carbon Dioxide 21 L Anion Gap BUN 24 H 28 H Glucose 222 H AST 193 H 130 H ALT 177 H 143 H Alkaline Phosphatase 270 H 207 H Albumin 3.0 L 2.9 L Albumin/Globulin Ratio 0.9 L 0.8 L Urine Glucose (UA) Urine Mucus 08/05/20 08/04/20 08/04/20 05:26 04:47 04:47 RBC 3.50 L 3.58 L Hgb 10.5 L 10.6 L Hct 31.4 L 32.9 L Sodium 132 L Carbon Dioxide Anion Gap 7.0 L BUN 28 H Glucose 221 H AST 163 H ALT 148 H Alkaline Phosphatase 238 H Albumin 2.7 L Albumin/Globulin Ratio 0.8 L Urine Glucose (UA) Urine Mucus 07/30/20 07:58 RBC Hgb Hct Sodium Carbon Dioxide Anion Gap BUN Glucose AST ALT Alkaline Phosphatase Albumin Albumin/Globulin Ratio Urine Glucose (UA) >=500 A Urine Mucus Few A Meds: Medications Acetaminophen (Tylenol) 650 mg PO Q6HP PRN PRN Reason: PAIN/FEVER > 101 Hydrocodone Bitart/Acetaminophen ([place] 5/325mg) 1 tab PO Q4HP PRN PRN Reason: PAIN LEVEL 3-6 Last Admin: 08/06/20 09:46 Dose: 1 tab Documented by: Albuterol/Ipratropium (Duoneb) 3 ml NEB Q4HP PRN PRN Reason: Shortness Of Breath Amoxicillin/Clavulanate [facility] Dextrose (Dextrose 50%) 0 ml IV UD PRN PRN Reason: Hypoglycemia Diagnostic Test (Pha) (Accu-Chek) 1 each FS Q4H [facility] Last Admin: 08/06/20 11:31 Dose: 1 each Documented by: Docusate Sodium (Colace) 100 mg PO BID [facility] Last Admin: 08/06/20 09:54 Dose: Not Given Documented by: Glucose (Insta-Glucose) 15 gm PO PRN PRN PRN Reason: Hypoglycemia Heparin Sodium (Porcine) (Heparin) 5,000 unit SQ Q12 [facility] Last Admin: 08/06/20 09:50 Dose: 5,000 unit Documented by: Magnesium Sulfate (Magnesium Sulfate) 2 gm in 50 mls @ 50 mls/hr IV UD PRN PRN Reason: Magnesium </= 1.6 Potassium Chloride 40 meq/ (Dextrose) 520 mls @ 130 mls/hr IV UD PRN PRN Reason: Potassium < 3 Gentamicin Sulfate 40 mg/Clindamycin Phosphate 300 mg/Bacitracin 25,000 unit/ Sodium Chloride 503 mls @ 0 mls/hr IRR DAILY [facility] Last Admin: 08/06/20 10:01 Dose: Not Given Documented by: Insulin Glargine (Lantus) 10 unit SQ DAILY [facility] Last Admin: 08/06/20 09:45 Dose: 10 units Documented by: Insulin Human Lispro (Humalog) 0 unit SQ Q4 [facility]; Protocol Last Admin: 08/06/20 12:48 Dose: 18 units Documented by: Lorazepam (Ativan) 0.5 mg PO Q6HP PRN PRN Reason: ANXIETY/SEDATION Last Admin: 08/06/20 09:45 Dose: 0.5 mg Documented by: Naloxone HCl (Narcan) 0.1 mg IV Q2MIN PRN PRN Reason: Opiate Reversal Nicotine (Nicoderm) 14 mg TOPICAL DAILY@1000 [facility] Last Admin: 08/06/20 10:01 Dose: 14 mg Documented by: Ondansetron HCl (Zofran) 4 mg IV Q6HP PRN PRN Reason: Nausea And Vomiting Oxandrolone (Oxandrin) 5 mg PO BID [facility] Last Admin: 08/06/20 09:56 Dose: 5 mg Documented by: Polyethylene Glycol (Miralax) 17 gm PO DAILYP PRN PRN Reason: Constipation Potassium Chloride (Kdur) 40 meq PO UD PRN PRN Reason: Potssium is 3-3.5 Potassium Chloride (Kdur) 40 meq PO UD PRN PRN Reason: Potassium < 3 Senna (Senokot) 2 tab PO DAILYP PRN PRN Reason: Constipation Sodium Chloride (Saline Flush) 10 ml IV Q8 [facility] Last Admin: 08/06/20 13:06 Dose: 10 ml Documented by: Sodium Chloride (Sodium Chloride) 1 gm PO TID [facility] Last Admin: 08/06/20 09:46 Dose: 1 gm Documented by: Trimethoprim/Sulfamethoxazole (Bactrim Ds) 1 tab PO BID [facility]; Protocol A/P Narrative A/P Narrative: 1. LLE cellulitis with large ulcerative wound vargas: -aa u/s not significant -s/p excision Debridement, Tissue culture LEFT leg wound, Pulse lavage, Open packing by wound care Dr. Santiago on 07/31/2020 -Wound culture showed Staphylococcus aureus -sensitivities still not available Providencia rettgeri -sensitivities available -Continue vanco and zosyn 2. Volume depletion: improved 3. Hyponatremia -sodium chloride 1g 3 times daily. BMP every 12 hours. 4. Mild transaminitis, chronic: -Fatty liver on u/s -Repeat the liver enzymes in morning -Tests on hep A and B - negative. Tests on hepc pending 5. Anemia, chronic: 6. DM: Poorly controlled, is been out of diabetic medications for 6 months -a1c 14.9 7. Substance abuse: With methamphetamine IV use 8. Tobacco abuse: 9. Homeless: 10. Malnutrition: 11. Medical non-compliance P: -IVF -Zosyn/vanc(d/c) -Dr. Koch is on board. Really appreciate it. -basal and SSI(pt refusing coverage at times) -clarify home meds -ESR/CRP -Hepatitis panel -Substance abuse counseling and smoking cessation counseling -Dietary consult -CM -pt/ot -ppx: Heparin (hold in AM of procedure) Time Spent With Patient Time: Total time spent is greater than 50% in coordination of care (as documented) at patient's floor/unit and/or counseling patient: QUALITY VTE Deep Vein Thrombosis/Pulmonary Embolism Present on Admission: No
--- NOTE | 2020-08-06 14:53 | Discharge Summary ---
Discharge Provider Provider Patient information: Note initiated : 08/06/20 at 2:50 pm Service Date, if different from initiated Date: [] Patient: Wilfrido Damon 54 y/o M admitted on 07/30/20 for Diabetic Problems. Chief Complaint: [] Discharge diagnosis 1. LLE cellulitis with large ulcerative wound vargas: -aa u/s not significant -s/p excision Debridement, Tissue culture LEFT leg wound, Pulse lavage, Open packing by wound care Dr. Santiago on 07/31/2020 -Wound culture showed Staphylococcus aureus , Providencia rettgeri - discharging on 7 days of Bactrim/Augmentin 2. Volume depletion: improved 3. Hyponatremia -resolved 4. Mild transaminitis, chronic: -Fatty liver on u/s -Tests on hep A and B - negative. Tests on hepc pending 5. Anemia, chronic: 6. DM: Poorly controlled, is been out of diabetic medications for 6 months -a1c 14.9 7. Substance abuse: With methamphetamine IV use 8. Tobacco abuse: Counseled for cessation Brief hospital course Mr. Damon is a 54 year old M Into the ED with a nonhealing wound over his lower extremity and complaining of maggots falling out and it being malodorous.Is also a meth user and a diabetic. Patient is been off his diabetic medications for 6 months. Sound like he is been getting his diabetic medication through ERs and minor cares. Uses IV meth several times a week. Uses marijuana. Wound is been there for about 5 months. Initially injured his leg when he was helping somebody move. Denies fever chills. Case discussed with Dr. Santiago who will evaluate patient. 07/31 No new complaints or overnight events. Awaiting for debridement. 08/01 Patient complaints new complaints. Pain is controlled. Denies nausea, vomiting, fever, or chills. Blood pressure is soft at times. This morning patient blood sugar went up to 600 because the patient refused insulin. Initially he agreed to receive his insulin. Excision Debridement, Tissue culture LEFT leg wound, Pulse lavage, Open packing was done on 07/[address] Santiago Na 128 - NaCl 1g tid wound culture showed staphy aureus, sensitivity pending PT/OT/CM 08/02 Patient still sleepy, but more alert today Vital signs are stable and acceptable. Oxygen saturation good, on room air Blood glucose is high at times because patient refused insulin at times Patient was found to use substances in his room last night. 08/03 He is less sleepy. Does not have any complaints. The pain is controlled. Vital signs are stable Good saturation on room air. Sodium 132 Liver enzymes elevated 08/04 Yesterday evening she wanted to leave AMA because she cannot eat whatever he wants. After being educated, he changed his mind and would like to stay. Patient feels fine. Denies medical complaints. Vital signs are stable and acceptable Sodium 132 Liver enzymes keep rising AST 163, ALT 148, alkaline phosphate 238. Tests on hepatitis C still pending. 08/05 Does not have any complaints. Stating "I am fine". Noncompliant on diabetic diet. Refused insulin treatment times. Vital signs has been stable and acceptable. Liver enzymes still elevated but went down compared with these yesterday. Wound culture showed Staphylococcus aureus -sensitivities still not available Providencia rettgeri -sensitivities available 08/06-patient transition to oral Augmentin/Bactrim for procidentia/Staph aureus on cultures. Discharging with advised to follow-up with wound care clinic /outpatient PCP. Continue antibiotic for additional 7 days. Doing well and requesting discharge. Patient unwilling to stay for additional 24 hours while he is being transitioned to oral antibiotics with continued wound care. Date of admission: 07/30/20 07:08 Discharge date: 08/06/20 Consults: 07/30/20 08:09 Consult to Physician [CONS] Routine Comment: Consulting Provider: Boo Santiago Reason For Exam: Physician to Consult 07/31/20 07:40 Consult to Physician [CONS] Routine Comment: Consulting Provider: Brandan Flynn Reason For Exam: Physician to Consult Discharge Meds Discharge Medications Home Medications amoxicillin-pot clavulanate 875 mg PO BIDCC #14 tab 08/06/20 [Rx Last Taken Unknown] hydrocodone-acetaminophen 1 tab PO Q4HP PRN #14 tab 08/06/20 [Rx Last Taken Unknown] insulin glargine [Lantus U-100 Insulin] 10 unit SQ DAILY #30 ml 08/06/20 [Rx Last Taken Unknown] sulfamethoxazole-trimethoprim 1 tab PO BID #14 tab 08/06/20 [Rx Last Taken Unknown] COURSE Hospital Course Hospital course: . Discharge diagnosis: . Time Spent with Patient Time attestation: Total time spent providing and/or coordinating discharge services: EXAM Constitutional Vitals: Temp Pulse Resp BP Pulse Ox 98.0 F 91 H 20 107/77 99 08/06/20 12:05 08/06/20 12:05 08/06/20 12:05 08/06/20 12:05 08/06/20 12:05 Discharge Data Data Completed and Pending Labs on day of discharge: Labs from last 24 hours 08/06/20 08/06/20 07/30/20 05:42 05:42 07:58 WBC 6.4 RBC 3.12 L Hgb 9.5 L Hct 28.6 L MCV 91.7 MCH 30.4 MCHC 33.2 RDW 13.4 Plt Count 350 MPV 10.4 Neut % (Auto) 56.7 Lymph % (Auto) 31.5 [place] % (Auto) 8.9 Eos % (Auto) 2.0 Baso % (Auto) 0.9 Lymph # (Auto) 2.02 [place] # (Auto) 0.57 Eos # (Auto) 0.13 Baso # (Auto) 0.06 Absolute Neutrophils 3.64 Sodium 134 Potassium 3.8 Chloride 102 Carbon Dioxide 21 L Anion Gap 11.0 BUN 24 H Creatinine 0.9 GFR Calculation 97 Glucose 222 H Calcium 8.8 Total Bilirubin < 0.2 AST 193 H ALT 177 H Alkaline Phosphatase 270 H Total Protein 6.2 Albumin 3.0 L Globulin 3.2 Albumin/Globulin Ratio 0.9 L Urine Color Straw Urine Appearance Clear Urine pH 6.0 Ur Specific [place] 1.029 Urine Protein Negative Urine Glucose (UA) >=500 A Urine Ketones Negative Urine Occult Blood Negative Urine Nitrate Negative Urine Bilirubin Negative Urine Urobilinogen Negative Ur Leukocyte Esterase Negative Urine RBC 0 Urine WBC 0 Ur Squamous Epith Cells 0 Urine Bacteria None Urine Mucus Few A Ur Culture Indicated? No Preliminary micro results at discharge 07/31/20 16:05 Anaerobic Culture - Preliminary Leg - Lower Left Gram Stain - Preliminary Wound Culture - Preliminary Staphylococcus aureus Providencia rettgeri Discharge Plan Patient/Caregiver Discharge Instructions Activity: increase activity as tolerated Diet: Consistent Carbohydrate Activity Restrictions/Additional Instructions: Follow-up PCP in [5] days : Dr. Santiago wound care clinic in 5 to 7 day Antibiotics for additional 7 days Wound care per Dr. Elizabeth Daily weights measurements High protein calorie supplements All meals on chair sitting upright at 90 degrees to prevent aspiration Return to ER if concerning symptoms noted including worsening shortness of breath, fever chills, neurological changes, diarrhea, bleeding Reviewed risk and side effect profile of medications including antibiotics. Side effect may include mild to severe reaction including allergic reaction rash, diarrhea, cdiff and in rare instances even which can be prevented by close follow-up with PCP and monitoring for side effects Refrain from smoking and alcohol Continue diet and activity as advised Discussed importance of medication adherence Please review medication list with patient prior to discharge Please schedule follow-up with PCP/Providers prior to discharge and provide printouts Prescriptions: New Lantus U-100 Insulin 100 unit/mL Solution 10 unit SQ DAILY Qty: 30 RF: 0 hydrocodone-acetaminophen 5-325 mg Tablet 1 tab PO Q4HP PRN (Reason: Pain Level 3-6) Qty: 14 RF: 0 sulfamethoxazole-trimethoprim 800-160 mg Tablet 1 tab PO BID Qty: 14 RF: 0 amoxicillin-pot clavulanate 875-125 mg Tablet 875 mg PO BIDCC Qty: 14 RF: 0 Other Ambulatory Orders: Wound Care Instructions (CONT) Location: None Selected Ordered By: Boo Santiago Follow Up Plan Follow up with: Boo Santiago MD [Physician] - (follow up at clinic in 1 week) No,PCP [Referring] - Patient Disposition: Home, Self-Care Rehab Potential: Fair I certify that the patient requires SNF services: No Overall status at discharge: patient is progressing back to baseline Discharge Orders: Discharge Order (Routine); Ordered 08/06/20 Ordered By: José Luis RITCHIE VTE Deep Vein Thrombosis/Pulmonary Embolism Present on Admission: No
[2020-08-06] MEDS ORDERED: AMOXICILLIN/POTASSIUM CLAV 875 MG TABLET PO SCH ×2 (14:55→17:30)
[2020-08-06] MEDS ORDERED: SULFAMETHOXAZOLE/TRIMETHOPRIM 1 TABLET PO SCH ×2 (15:00→21:00)
[2020-08-17 10:23] LABS: Cannabinoid Confirmation Positive
[2020-09-05 22:34] LABS: Cannabinoid Confirmation Positive
== END 2020-08-06 13:50 | disposition home or self-care (01) | DRG 623 ==
LOC: ED 00:44 → MEDSUR 07:08 → ICU 08-01 21:35 → MEDSUR 08-02 15:45
PROVIDERS: ADMIT Internal Medicine; ATTEND Internal Medicine

== ENCOUNTER 2020-10-16 16:45 | Inpatient (IN) ==
[2020-10-16] MEDS ORDERED: IOPAMIDOL 100 ML BOTTLE IV ONE ×2 (16:46→21:00)
[2020-10-16] MEDS ORDERED: VANCOMYCIN 1,000 MG in 0.9 % SODIUM CHLORIDE 250 ML IV ONE (17:22)
[2020-10-16] MEDS ORDERED: 0.9 % SODIUM CHLORIDE 1,000 ML IV ONE (17:22)
[2020-10-16] MEDS ORDERED: cefTRIAXone 2 GM in DEXTROSE 5% IN WATER 50 ML IV ONE (17:22)
--- NOTE | 2020-10-16 17:28 | Emergency Department Note ---
Extremity Problem HPI General Chief complaint: Extremity Problem,Nontraumatic Stated complaint: foot injury Time Seen by Provider: 10/16/20 16:51 Source: patient Mode of arrival: ambulatory Limitations: other History of Present Illness HPI Narrative: Narrative: Complaint of worsening erythema, swelling, warmth, streaking, and foul drainage from his right lower extremity. Patient has a prolonged history of recurrent and severe infections resulting in the need for wound care specialty few months ago. He mentions over the last week he noticed the symptoms develop. He is currently homeless but has been trying to keep his foot bandaged. He admits to longstanding paresthesia to his lower extremities secondary to type 2 diabetes. The foul odor worsened with the last 24 hours. ROS: Denies systemic illness, fever, sweats, chills. Denies runny nose, sinus congestion, or cough. Denies shortness of breath. Denies retrosternal chest pain or palpitations. Denies abdominal pain, nausea, vomiting, or diarrhea. Denies dysuria, hematuria, urinary frequency, or urinary urgency. Denies generalized or focal weakness. Related Data Previous Rx's Medication Instructions Recorded amoxicillin-pot clavulanate 875 mg PO BIDCC #14 tab 08/06/20 hydrocodone-acetaminophen 1 tab PO Q4HP PRN #14 tab 08/06/20 insulin glargine [Lantus U-100 10 unit SQ DAILY #30 ml 08/06/20 Insulin] sulfamethoxazole-trimethoprim 1 tab PO BID #14 tab 08/06/20 Allergies Allergy/AdvReac Type Severity Reaction Status Date / Time No Known Drug Allergies Allergy Verified 07/30/20 00:55 Review of Systems ROS ROS Narrative: Narrative: All systems ED: reviewed and negative except as stated. [facility] Narrative Patient History Narrative: Narrative: Medical/Surgical/Family History All Active Problems Uncontrolled diabetes mellitus (Acute) Methamphetamine abuse (Acute) Cigarette smoker (Acute) Osteomyelitis of ankle and foot (Acute) Cellulitis (Acute) Uncontrolled diabetes mellitus (Acute) Hyperglycemia (Acute) Homeless (Acute) Infestation, maggots (Acute) Leg ulcer, left (Acute) Diabetic ulcer of left foot (Acute) Abrasion of anterior right lower leg (Acute) Medical History Closed right arm fracture (Inactive) Surgical History History of amputation of lesser toe of right foot (Resolved) History of amputation of right great toe (Resolved) Status post amputation of right foot (Inactive) Partial Social History Smoking Status: Current every day smoker Alcohol Intake Frequency: holiday/special occasion only Substance Use: marijuana and amphetamines Exam Narrative Narrative: Narrative: General Limitations: other General appearance: Present other (Well-developed, well-nourished, 55-year-old male patient laying semirecumbent on the emergency room gurney obviously distraught but in no acute respiratory distress. He is afebrile with normal vital signs.) Head Head: Present normocephalic Eye Eye: Present normal appearance, PERRL and EOMI; Absent scleral icterus and conjunctival injection ENT ENT: Present normal oropharynx and mucous membranes moist Neck Neck: Present trachea midline; Absent lymphadenopathy and thyromegaly Chest Chest: Present symmetric chest wall rise Respiratory Respiratory: Present normal lung sounds bilaterally; Absent respiratory distress, wheezes, stridor, accessory muscle use and prolonged expiratory phase Cardiovascular Cardiovascular: Present regular rate and normal rhythm; Absent systolic murmur and diastolic murmur Expanded Lower Extremity Hip/Pelvis: Present normal inspection and full ROM; Absent tenderness Upper leg: Present normal inspection and full ROM; Absent tenderness Leg image: 1. Multiple raised skin lesions with overlying crust. Surrounding tissue is erythematous warm. Knee: Present normal inspection and full ROM; Absent tenderness Lower leg: Present full ROM, swelling and erythema; Absent normal inspection, tenderness, ecchymosis, deformity, crepitus and Homans' sign Ankle: Present normal inspection and full ROM; Absent tenderness Foot/toe: Absent normal inspection Top foot image: 1. Digits have been amputated. Surrounding tissue is erythematous and foul- smelling. 2. Pale, macerated skin lesion with bone exposure. Foul-smelling, purulent drainage noted. 3. Area of erythema. Bottom foot image: 1. Pale in color blister/macerated area extending to the dorsal aspect of the foot. 2. Amputated. Neurovascular/Tendon: Present normal capillary refill, motor deficit and sensory deficit; Absent pulse deficit Gait: observed and limited by pain Neurological Neurological: Present alert and oriented X3 Psychiatric Psychiatric: Present normal affect and anxious Skin Skin: Present warm (WNL), dry and normal color Course Course Course Narrative: Patient is considerable infection to his left lower extremity. We are going to get a CT scan of his left lower extremity look for evidence of osteomyelitis as well as necrotizing fasciitis. Laboratory studies were drawn. Patient was given normal saline 1000 mL as a bolus. Blood cultures were obtained. Patient was given vancomycin 1000 mg IV. Patient was also given Zosyn 3.337 g IV. Patient currently suffers from neuropathy and his pain is well controlled. He is not requiring any aggressive analgesia. Reevaluation(s) Reevaluation #1: A review of the patient's diagnostics show the following: CBC WBC 10.1, RBC 3.69, hemoglobin 10.9, hematocrit 33.3, platelets 430. Lactic acid 1.2. CMP sodium 122 (corrected 131), chloride 87, glucose 688, alkaline phosphatase 301, albumin 2.9, globulin 5.1, all others normal limits. C- reactive protein 7.8. Procalcitonin 0.11. CT scan of the left lower extremity read by the radiologist as fifth ray amputation of the MTP 1 cm cutaneous ulceration extending to the fifth metatarsal head stump which is focally eroded. Radiologist mentions compatible with focal osteomyelitis. There was also a fo urth ray amputation which appears unremarkable. There was diffuse subdermal cellulitis/edema throughout the calf, ankle, and foot. After reviewing the data patient was given 10 units of regular insulin IV. I reached out to the on-call customer relations consultant (Dr. Grimaldo) to discuss the case with him. Time: 18:30 Reevaluation #2: Dr. Grimaldo was unavailable. With this in mind, I discussed case briefly my collaborating physician (Dr. Markham) who recommended discussing the case with the orthopedic surgeon on-call. I contacted the orthopedic surgeon (Dr. Hernandez) discussed case with him. At this time Dr. Hernandez mention that these cases are initially treated with IV antibiotics and recommends we continue this course of therapy. He did mention he be happy to consult in if the foot worsens. With this in mind, I reached out to our hospitalist (Dr. Hager) I discussed the case briefly with him. At this time the hospitalist has ac cepted the patient for admission here. At this time all further treatment decisions, modalities, and ultimate patient disposition will be carried out by the hospitalist. Time: 19:13 Vital Signs Vital signs: Vital Signs Temperature 97.7 F 10/16/20 16:47 Pulse Rate 95 H 10/16/20 16:47 Respiratory Rate 16 10/16/20 16:47 Blood Pressure 166/97 10/16/20 16:47 Pulse Oximetry (%) 99 10/16/20 16:47 Temperature 98.5 F 10/16/20 21:06 Pulse Rate 86 10/16/20 21:06 Respiratory Rate 22 10/16/20 21:06 Blood Pressure 131/88 10/16/20 21:06 Pulse Oximetry (%) 99 10/16/20 21:06 MDM MDM Narrative Medical decision making narrative: Narrative: Lab Data Lab results reviewed: Yes I reviewed the patient's lab results. Result diagrams: 10/16/20 17:32 10/16/20 20:17 Labs: Lab Results 10/16/20 10/16/20 10/16/20 Range/Units 17:31 17:31 17:32 WBC 10.1 (4.5-11.0) K/mcL RBC 3.69 L (4.50-5.90) M/mcL Hgb 10.9 L (13.5-16.5) g/dL Hct 33.3 L (41.0-55.0) % MCV 90.2 (80.0-100.0) fL MCH 29.5 (26.0-34.0) pg MCHC 32.7 (31.0-36.0) g/dL RDW 11.8 (11.5-14.5) % Plt Count 430 (140-440) K/mcL MPV 10.4 (7.4-10.4) fL Neut % (Auto) 80.6 H (38.0-78.0) % Lymph % (Auto) 12.1 L (15.0-49.0) % [place] % (Auto) 6.3 (1.0-12.0) % Eos % (Auto) 0.7 (0.0-7.0) % Baso % (Auto) 0.3 (0.0-2.0) % Lymph # (Auto) 1.22 L (1.50-4.80) K/mcL [place] # (Auto) 0.63 (0.10-0.90) K/mcL Eos # (Auto) 0.07 (0.00-0.70) K/mcL Baso # (Auto) 0.03 (0.00-0.20) K/mcL Absolute Neutrophils 8.10 H (1.80-8.00) K/mcL VBG Lactic Acid 1.2 (0.5-2.0) mmol/L Sodium 122 L (133-145) mmol/L Potassium 4.3 (3.3-5.1) mmol/L Chloride 87 L (96-108) mmol/L Carbon Dioxide 26 (22-30) mmol/L Anion Gap 9.0 (8.0-16.0) BUN 16 (6-20) mg/dL Creatinine 0.9 (0.7-1.2) mg/dL POC Creatinine 0.7 (0.6-1.2) mg/dL GFR Calculation 96 Glucose 688 H* (70-105) mg/dL Calcium 8.8 (8.6-10.4) mg/dL Total Bilirubin 0.2 (0.1-1.0) mg/dL AST 20 (<40) U/L ALT 17 (<40) U/L Alkaline Phosphatase 301 H (39-117) U/L C-Reactive Protein 7.80 H (0.03-0.80) mg/dL Total Protein 8.0 (5.9-8.4) gm/dL Albumin 2.9 L (3.2-5.2) gm/dL Globulin 5.1 H (2.2-3.7) gm/dL Albumin/Globulin Ratio 0.6 L (1.0-2.3) Procalcitonin (<0.10) ng/mL 10/16/20 10/16/20 Range/Units 17:32 20:17 WBC (4.5-11.0) K/mcL RBC (4.50-5.90) M/mcL Hgb (13.5-16.5) g/dL Hct (41.0-55.0) % MCV (80.0-100.0) fL MCH (26.0-34.0) pg MCHC (31.0-36.0) g/dL RDW (11.5-14.5) % Plt Count (140-440) K/mcL MPV (7.4-10.4) fL Neut % (Auto) (38.0-78.0) % Lymph % (Auto) (15.0-49.0) % [place] % (Auto) (1.0-12.0) % Eos % (Auto) (0.0-7.0) % Baso % (Auto) (0.0-2.0) % Lymph # (Auto) (1.50-4.80) K/mcL [place] # (Auto) (0.10-0.90) K/mcL Eos # (Auto) (0.00-0.70) K/mcL Baso # (Auto) (0.00-0.20) K/mcL Absolute Neutrophils (1.80-8.00) K/mcL VBG Lactic Acid (0.5-2.0) mmol/L Sodium 128 L (133-145) mmol/L Potassium 3.6 (3.3-5.1) mmol/L Chloride 92 L (96-108) mmol/L Carbon Dioxide 25 (22-30) mmol/L Anion Gap 11.0 (8.0-16.0) BUN 14 (6-20) mg/dL Creatinine 0.7 (0.7-1.2) mg/dL POC Creatinine (0.6-1.2) mg/dL GFR Calculation 107 Glucose 280 H (70-105) mg/dL Calcium 8.2 L (8.6-10.4) mg/dL Total Bilirubin (0.1-1.0) mg/dL AST (<40) U/L ALT (<40) U/L Alkaline Phosphatase (39-117) U/L C-Reactive Protein (0.03-0.80) mg/dL Total Protein (5.9-8.4) gm/dL Albumin (3.2-5.2) gm/dL Globulin (2.2-3.7) gm/dL Albumin/Globulin Ratio (1.0-2.3) Procalcitonin 0.11 H (<0.10) ng/mL Radiology Data Radiology results reviewed: Yes I reviewed the patient's radiology results. Radiology results narrative: Ordering Physician: Crispin George PA-C Date of Service: 10/16/20 Procedure(s): CT LE LT w con Accession Number(s): [id number] CLINICAL INFORMATION: Erythema, swelling, foul drainage, X 1 wk. COMPARISON: Plain films 07/30/2020 TECHNIQUE: 0.625 helical slices were obtained from the right femoral condyle throughout calf foot and ankle. Following reconstruction 2.5 m sagittal coronal axial reformatted processes reviewed at bone and soft tissue windows: FINDINGS: The fifth ray is amputated at the MTP level. The amputation stump site, there is an 8 mm cutaneous ulceration extending to the metatarsal head which is partially eroded likely involved with osteomyelitis. A fourth ray amputation at the MTP level appears unremarkable. There are no other osseous abnormalities. Joint spaces are normal with alignment without arthritic change. Diffuse subdermal swelling throughout the calf, foot and ankle represents either edema or cellulitis. There is also moderate congestion of all of the superficial and deep veins. IMPRESSION: 1. Fifth ray amputation at the MTP. 1 cm cutaneous ulceration extending to the fifth metatarsal head stump which is focally eroded compatible with focal osteomyelitis. 2. Fourth ray amputation, also at the MTP, appears unremarkable. 3. Diffuse subdermal cellulitis or edema throughout the calf, ankle and foot 4. Moderate congestion of the superficial and deep venous system Interpreted and Authenticated by: Karthik Vargas 10/16/20 Discharge Plan Patient/Caregiver Discharge Instructions Pt seen by PERSONAL COMPUTER SPECIALIST/PA only: Yes Clinical Impression: Osteomyelitis of ankle and foot, Uncontrolled diabetes mellitus, Homeless Leg ulcer, left Qualifiers: Non-pressure ulcer stage: limited to breakdown of skin Qualified Code(s): L97.921 - Non-pressure chronic ulcer of unspecified part of left lower leg limited to breakdown of skin Cellulitis Qualifiers: Site of cellulitis: extremity Site of cellulitis of extremity: lower extremity Laterality: left Qualified Code(s): L03.116 - Cellulitis of left lower limb Patient Disposition: Xfer As Inpt ([facility]) Condition: Fair
[2020-10-16] MEDS ORDERED: PIPERACILLIN SODIUM/TAZOBACTAM 3.375 GM in DEXTROSE 5% IN WATER 50 ML IV ONE (17:29)
[2020-10-16 17:36] LABS: POC Creatinine 0.7 mg/dL (0.6-1.2)
[2020-10-16 18:09] LABS: Basophils # (Auto) 0.03 K/mcL (0.00-0.20); Basophils % (Auto) 0.3 % (0.0-2.0); Eosinophils # (Auto) 0.07 K/mcL (0.00-0.70); Eosinophils % (Auto) 0.7 % (0.0-7.0); Hematocrit 33.3 % (41.0-55.0); Hemoglobin 10.9 g/dL (13.5-16.5); Lymphocytes # (Auto) 1.22 K/mcL (1.50-4.80); Lymphocytes % (Auto) 12.1 % (15.0-49.0); Mean Cell Volume 90.2 fL (80.0-100.0); Mean Corpuscular HGB Conc 32.7 g/dL (31.0-36.0); Mean Platelet Volume 10.4 fL (7.4-10.4); Monocytes # (Auto) 0.63 K/mcL (0.10-0.90); Monocytes % (Auto) 6.3 % (1.0-12.0); Neutrophils % (Auto) 80.6 % (38.0-78.0); Platelet Count 430 K/mcL (140-440); RBC 3.69 M/mcL (4.50-5.90); Red Cell Distribution Width 11.8 % (11.5-14.5); WBC 10.1 K/mcL (4.5-11.0)
--- NOTE | 2020-10-16 18:27 | Cat Scan Report ---
CLINICAL INFORMATION: Erythema, swelling, foul drainage, X 1 wk. COMPARISON: Plain films 07/30/2020 TECHNIQUE: 0.625 helical slices were obtained from the right femoral condyle throughout calf foot and ankle. Following reconstruction 2.5 m sagittal coronal axial reformatted processes reviewed at bone and soft tissue windows: FINDINGS: The fifth ray is amputated at the MTP level. The amputation stump site, there is an 8 mm cutaneous ulceration extending to the metatarsal head which is partially eroded likely involved with osteomyelitis. A fourth ray amputation at the MTP level appears unremarkable. There are no other osseous abnormalities. Joint spaces are normal with alignment without arthritic change. Diffuse subdermal swelling throughout the calf, foot and ankle represents either edema or cellulitis. There is also moderate congestion of all of the superficial and deep veins. IMPRESSION: 1. Fifth ray amputation at the MTP. 1 cm cutaneous ulceration extending to the fifth metatarsal head stump which is focally eroded compatible with focal osteomyelitis. 2. Fourth ray amputation, also at the MTP, appears unremarkable. 3. Diffuse subdermal cellulitis or edema throughout the calf, ankle and foot 4. Moderate congestion of the superficial and deep venous system Interpreted and Authenticated by: Karthik Vargas 10/16/20
[2020-10-16 18:42] LABS: ALT/SGPT 17 U/L (<40); AST/SGOT 20 U/L (<40); Albumin 2.9 gm/dL (3.2-5.2); Albumin/Globulin Ratio 0.6 (1.0-2.3); Alkaline Phosphatase 301 U/L (39-117); Bilirubin,Total 0.2 mg/dL (0.1-1.0); Blood Urea Nitrogen 16 mg/dL (6-20); Calcium 8.8 mg/dL (8.6-10.4); Carbon Dioxide 26 mmol/L (22-30); Chloride 87 mmol/L (96-108); Globulin 5.1 gm/dL (2.2-3.7); Glomerular Filtration Rate 96; Glucose 688 mg/dL (70-105)
[2020-10-16] MEDS ORDERED: INSULIN REGULAR, HUMAN 1 UNIT/0.01 ML UNIT IV ONE (18:43)
[2020-10-16] MEDS ORDERED: 0.9 % SODIUM CHLORIDE 1,000 ML IV SCH (19:30)
[2020-10-16] MEDS ORDERED: morphine 4 MG/ML VIAL IV PRN (19:30)
[2020-10-16] MEDS ORDERED: cefTRIAXone 1 GM in DEXTROSE 5% IN WATER 50 ML IV SCH (19:30)
[2020-10-16] MEDS ORDERED: oxyCODONE/APAP 5/325MG TABLET PO PRN (19:30)
[2020-10-16] MEDS ORDERED: ONDANSETRON 4 MG/2 ML VIAL IV PRN (19:30)
[2020-10-16] MEDS ORDERED: PROCHLORPERAZINE 10 MG/2 ML VIAL IV PRN ×2 (19:30→21:00)
[2020-10-16] MEDS ORDERED: ACETAMINOPHEN 325 MG TABLET PO PRN (19:30)
[2020-10-16] MEDS ORDERED: VANCOMYCIN PER PHARMACY IV ONE (19:36)
[2020-10-16] MEDS ORDERED: DEXTROSE 50% 50 ML VIAL IV PRN ×2 (19:41→21:00)
[2020-10-16] MEDS ORDERED: DEXTROSE 31 GM ORAL.SUSP PO PRN ×2 (19:41→21:00)
[2020-10-16] MEDS ORDERED: INSULIN GLARGINE, HUMAN 1 UNIT/0.01 ML SQ SCH (19:45)
[2020-10-16] MEDS ORDERED: hydrALAZINE 20 MG/ML VIAL IV PRN ×2 (20:11→21:00)
--- NOTE | 2020-10-16 20:23 | Internal Med History&Physical ---
HPI History of Present Illness Patient information: Note initiated : 10/16/20 at 8:12 pm Service Date, if different from initiated Date: [] Patient: Wilfrido Damon 55 y/o M admitted on for foot injury. Chief Complaint: [] History of present illness: Mr. Damon is a 55 year old homeless male with a history of type 2 diabetes, high blood pressure, tobacco dependence and history of meth abuse who presented to the ER due to left leg redness and swelling for about 2 to 3 weeks. Patient states that his both legs decreased sensation. He noticed the redness of left leg about 2 to 3 weeks ago. he has mild pain from of the leg. In the ER, his blood sugar was greater than 600. X-ray showed left fifth metatarsal osteomyelitis. When I saw this patient in the ER, he denied headache, dizziness, fever, chills, abdominal pain, chest pain, shortness of br eath, nausea, vomiting, or diarrhea. Review of Systems Review of systems: Positive left leg redness and pain. All other systems were reviewed and negative. PFSH PFSH All Active Problems Uncontrolled diabetes mellitus (Acute) Methamphetamine abuse (Acute) Cigarette smoker (Acute) Osteomyelitis of ankle and foot (Acute) Cellulitis (Acute) Uncontrolled diabetes mellitus (Acute) Hyperglycemia (Acute) Homeless (Acute) Infestation, maggots (Acute) Leg ulcer, left (Acute) Diabetic ulcer of left foot (Acute) Abrasion of anterior right lower leg (Acute) Medical History Closed right arm fracture (Inactive) Surgical History History of amputation of lesser toe of right foot (Resolved) History of amputation of right great toe (Resolved) Status post amputation of right foot (Inactive) Partial Social History smoking status: Current every day smoker alcohol intake frequency: holiday/special occasion only substance use type: marijuana and amphetamines additional history: Family history: Mother father both had diabetes Social history: Patient smokes 1 pack of cigarettes per day Drinks alcohol occasionally Uses IV meth several times a week and marijuana Lives on the [address] MEDS/ALLERGIES Home Medications and Allergies Home Medications Medication Instructions Recorded Confirmed Type amoxicillin-pot clavulanate 875 mg PO BIDCC #14 tab 08/06/20 Rx hydrocodone-acetaminophen 1 tab PO Q4HP PRN #14 tab 08/06/20 Rx insulin glargine [Lantus U-100 10 unit SQ DAILY #30 ml 08/06/20 Rx Insulin] sulfamethoxazole-trimethoprim 1 tab PO BID #14 tab 08/06/20 Rx Allergies Allergy/AdvReac Type Severity Reaction Status Date / Time No Known Drug Allergies Allergy Verified 07/30/20 00:55 EXAM Constitutional Vitals: Temp Pulse Resp BP Pulse Ox 97.7 F 90 16 157/78 100 10/16/20 16:47 10/16/20 19:36 10/16/20 16:47 10/16/20 19:36 10/16/20 19:36 Additional findings Additional findings: Physical exam: General: Thin, no acute distress Eye: EMOI, no conjunctival injection. HEENT: supple, no JVD or thyroid megaly Chest: No tenderness Heart: RRR, no gallop Lungs: Rhonchi bilateral Abdomen: Normal bowel sounds, soft, no tenderness Extremities: Right toes of foot amputated; left fourth and fifth toes amputated; the stump of fifth toe covered by purulent secretion. Left lower leg redness and tenderness. Neurology: A+O x 3, no focal neurological deficits Psych: Normal mood DATA Data Completed and Pending Labs: Labs from last 24 hours 10/16/20 10/16/20 10/16/20 17:32 17:32 17:31 WBC 10.1 RBC 3.69 L Hgb 10.9 L Hct 33.3 L MCV 90.2 MCH 29.5 MCHC 32.7 RDW 11.8 Plt Count 430 MPV 10.4 Neut % (Auto) 80.6 H Lymph % (Auto) 12.1 L [place] % (Auto) 6.3 Eos % (Auto) 0.7 Baso % (Auto) 0.3 Lymph # (Auto) 1.22 L [place] # (Auto) 0.63 Eos # (Auto) 0.07 Baso # (Auto) 0.03 Absolute Neutrophils 8.10 H VBG Lactic Acid 1.2 Sodium Potassium Chloride Carbon Dioxide Anion Gap BUN Creatinine POC Creatinine GFR Calculation Glucose Calcium Total Bilirubin AST ALT Alkaline Phosphatase C-Reactive Protein Total Protein Albumin Globulin Albumin/Globulin Ratio Procalcitonin 0.11 H 10/16/20 17:31 WBC RBC Hgb Hct MCV MCH MCHC RDW Plt Count MPV Neut % (Auto) Lymph % (Auto) [place] % (Auto) Eos % (Auto) Baso % (Auto) Lymph # (Auto) [place] # (Auto) Eos # (Auto) Baso # (Auto) Absolute Neutrophils VBG Lactic Acid Sodium 122 L Potassium 4.3 Chloride 87 L Carbon Dioxide 26 Anion Gap 9.0 BUN 16 Creatinine 0.9 POC Creatinine 0.7 GFR Calculation 96 Glucose 688 H* Calcium 8.8 Total Bilirubin 0.2 AST 20 ALT 17 Alkaline Phosphatase 301 H C-Reactive Protein 7.80 H Total Protein 8.0 Albumin 2.9 L Globulin 5.1 H Albumin/Globulin Ratio 0.6 L Procalcitonin A/P Narrative A/P Narrative: Assessment: 1. Acute cellulitis, left leg 2. Osteomyelitis, fifth metatarsal head 3. Tobacco dependence 4. Hx of Meth abuse 5. 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 Hyponatremia, 122 7. HTN Plan: 1. X-ray showed 1 cm cutaneous ulceration extending to the fifth metatarsal head stump which is focally eroded compatible with focal osteomyelitis. Blood culture Wound culture Wound care Vancomycin (dosing by pharmacy) and Rocephin Pain management including IV morphine Podiatry Dr. Grimaldo consult. Would really appreciate it 2. Smoking cessation counseling. Nicotine patch if necessary. social worker psychiatric consult for meth abuse 3. Diabetic diet, continue Lantus to 10 units daily, insulin sliding scale. Diabetic education 4. IV normal saline 50 cc/h. BMP q. 8 hours. Increase in sodium level not more than 8mEq/24 hours 5. Continue home medication. Hydralazine as needed 6. DVT prophylaxis: Lovenox 7. CODE STATUS: Rn Otolaryngology Spent With Patient Time: Total time spent is greater than 50% in coordination of care (as documented) at patient's floor/unit and/or counseling patient:
[2020-10-16] MEDS ORDERED: INSULIN LISPRO 1 UNIT/0.01 ML UNIT SQ SCH (21:00)
[2020-10-16] MEDS ORDERED: VANCOMYCIN PER PHARMACY IV SCH (21:00)
[2020-10-16] MEDS ORDERED: DOCUSATE SODIUM 100 MG CAPSULE PO SCH (21:00)
[2020-10-16 21:26] LABS: Blood Urea Nitrogen 14 mg/dL (6-20); Calcium 8.2 mg/dL (8.6-10.4); Carbon Dioxide 25 mmol/L (22-30); Chloride 92 mmol/L (96-108); Glomerular Filtration Rate 107; Glucose 280 mg/dL (70-105)
[2020-10-16] MEDS ORDERED: 0.9 % SODIUM CHLORIDE 10 ML SYRINGE IV SCH (22:00)
[2020-10-16] MEDS: 0.9 % SODIUM CHLORIDE 10 ML SYRINGE IV SCH (22:56)
[2020-10-16] MEDS: cefTRIAXone 1 GM VIAL IV SCH (23:37)
[2020-10-16] MEDS: 0.9 % SODIUM CHLORIDE 1,000 ML IV SCH (23:37)
[2020-10-16] MEDS: DOCUSATE SODIUM 100 MG CAPSULE PO SCH (23:38)
[2020-10-16] MEDS: INSULIN LISPRO 1 UNIT/0.01 ML UNIT SQ SCH (23:57)
[2020-10-17] MEDS: 0.9 % SODIUM CHLORIDE 10 ML SYRINGE IV SCH ×3 (04:32→21:40)
[2020-10-17] MEDS: ACETAMINOPHEN 325 MG TABLET PO PRN ×2 (04:49→21:40)
[2020-10-17 06:44] LABS: Basophils # (Auto) 0.03 K/mcL (0.00-0.20); Basophils % (Auto) 0.4 % (0.0-2.0); Eosinophils # (Auto) 0.18 K/mcL (0.00-0.70); Eosinophils % (Auto) 2.6 % (0.0-7.0); Hematocrit 30.8 % (41.0-55.0); Hemoglobin 10.4 g/dL (13.5-16.5); Lymphocytes # (Auto) 0.82 K/mcL (1.50-4.80); Lymphocytes % (Auto) 11.9 % (15.0-49.0); Mean Corpuscular HGB Conc 33.8 g/dL (31.0-36.0); Mean Platelet Volume 10.4 fL (7.4-10.4); Monocytes # (Auto) 0.39 K/mcL (0.10-0.90); Monocytes % (Auto) 5.7 % (1.0-12.0); Neutrophils % (Auto) 79.4 % (38.0-78.0); Platelet Count 404 K/mcL (140-440); Red Cell Distribution Width 11.5 % (11.5-14.5); WBC 6.9 K/mcL (4.5-11.0)
[2020-10-17 07:16] LABS: proBNP 492.3 pg/mL (<125.0)
[2020-10-17] MEDS: INSULIN LISPRO 1 UNIT/0.01 ML UNIT SQ SCH ×4 (07:16→22:01)
[2020-10-17 07:17] LABS: ALT/SGPT 18 U/L (<40); AST/SGOT 33 U/L (<40); Albumin 2.6 gm/dL (3.2-5.2); Albumin/Globulin Ratio 0.6 (1.0-2.3); Alkaline Phosphatase 207 U/L (39-117); Bilirubin,Total < 0.2 mg/dL (0.1-1.0); Blood Urea Nitrogen 12 mg/dL (6-20); Calcium 8.4 mg/dL (8.6-10.4); Carbon Dioxide 25 mmol/L (22-30); Chloride 97 mmol/L (96-108); Globulin 4.4 gm/dL (2.2-3.7); Glomerular Filtration Rate 107; Glucose 184 mg/dL (70-105)
[2020-10-17] MEDS: VANCOMYCIN 1,000 MG in 0.9 % SODIUM CHLORIDE 250 ML IV SCH ×2 (07:36→21:06)
[2020-10-17] MEDS: DOCUSATE SODIUM 100 MG CAPSULE PO SCH ×2 (08:38→21:39)
[2020-10-17] MEDS: ENOXAPARIN 40 MG/0.4 ML SYRINGE SQ SCH (08:39)
[2020-10-17] MEDS ORDERED: INSULIN GLARGINE, HUMAN 1 UNIT/0.01 ML SQ SCH (09:00)
[2020-10-17] MEDS ORDERED: ENOXAPARIN 40 MG/0.4 ML SYRINGE SQ SCH (09:00)
[2020-10-17] MEDS ORDERED: INSULIN GLARGINE, HUMAN 1 UNIT/0.01 ML SQ ONE (09:15)
[2020-10-17] MEDS ORDERED: LORazepam 2 MG/ML VIAL IV PRN (09:30)
[2020-10-17] MEDS: cefTRIAXone 1 GM VIAL IV SCH (12:09)
[2020-10-17] MEDS: 0.9 % SODIUM CHLORIDE 1,000 ML IV SCH ×2 (16:40→21:06)
--- NOTE | 2020-10-17 19:53 | Internal Med Progress Note ---
SUBJECTIVE Subjective Patient information: Note initiated : 10/17/20 at 7:51 pm Service Date, if different from initiated Date: [] Patient: Wilfrido Damon 55 y/o M admitted on 10/16/20 for foot injury. Chief Complaint: [] Mr. Damon is a 55 year old homeless male with a history of type 2 diabetes, high blood pressure, tobacco dependence and history of meth abuse who presented to the ER due to left leg redness and swelling for about 2 to 3 weeks. Patient states that his both legs decreased sensation. He noticed the redness of left leg about 2 to 3 weeks ago. he has mild pain from of the leg. In the ER, his blood sugar was greater than 600. X-ray showed left fifth metatarsal osteomyelitis. When I saw this patient in the ER, he denied headache, dizziness, fever, chills, abdominal pain, chest pain, shortness of breath, nausea, vomiting, or diarrhea. 10/17 Patient does not have any new complaints. Pain is controlled T 100.4, blood glucose 244 (688 in the ER). Increased Lantus to 30 units daily. Na [address] Grimaldo who is not available until Wednesday Could not reach podiatry Dr. Medeiros Review of Systems Review of systems: Positive left leg redness and pain. All other systems were reviewed and negative. Constitutional Vitals: Vital Signs Temp Pulse Resp BP Pulse Ox 97.3 F 84 22 118/78 95 10/17/20 15:57 10/17/20 15:57 10/17/20 15:57 10/17/20 15:57 10/17/20 15:57 Period Temp Pulse Resp BP Sys/Orosco Pulse Ox Last 24 Hr 97 F-100.4 F 80-93 - 103-137/62-88 95-99 Intake and Output 10/17/20 10/17/20 10/17/20 05:59 13:59 21:59 Intake Total 100 400 Output Total 800 Balance 100 -800 400 Weight 52.435 kg Patient Weight 10/18/20 05:59 Weight 52.435 kg Intake & Output: Intake & Output 10/17/20 10/17/20 10/17/20 05:59 13:59 21:59 Intake Total 100 400 Output Total 800 Balance 100 -800 400 Weight 52.435 kg Intake: Oral 100 400 Output: Void Amount 800 Other: Meal Soup, Tuna&crackers Percent of Meal Consumed 100% Feeding Ability Independent Urine Appearance Clear Urine Color Straw Additional findings Additional findings: Physical exam: General: Thin, no acute distress Eye: EMOI, no conjunctival injection. HEENT: supple, no JVD or thyroid megaly Chest: No tenderness Heart: RRR, no gallop Lungs: Rhonchi bilateral Abdomen: Normal bowel sounds, soft, no tenderness Extremities: Right toes of foot amputated; left fourth and fifth toes amputated; the stump of fifth toe covered by purulent secretion. Left lower leg redness and tenderness. Neurology: A+O x 3, no focal neurological deficits Psych: Normal mood OBJ DATA Labs CBC & Chem 7: 10/17/20 05:31 10/17/20 05:31 Labs: Abnormal Lab Results 10/17/20 10/17/20 10/16/20 05:31 05:31 20:17 RBC 3.50 L Hgb 10.4 L Hct 30.8 L Neut % (Auto) 79.4 H Lymph % (Auto) 11.9 L Lymph # (Auto) 0.82 L Absolute Neutrophils Sodium 130 L 128 L Chloride 92 L Glucose 184 H 280 H Calcium 8.4 L 8.2 L Alkaline Phosphatase 207 H C-Reactive Protein NT-Pro-B Natriuret Pep 492.3 H Albumin 2.6 L Globulin 4.4 H Albumin/Globulin Ratio 0.6 L Procalcitonin 10/16/20 10/16/20 10/16/20 17:32 17:32 17:31 RBC 3.69 L Hgb 10.9 L Hct 33.3 L Neut % (Auto) 80.6 H Lymph % (Auto) 12.1 L Lymph # (Auto) 1.22 L Absolute Neutrophils 8.10 H Sodium 122 L Chloride 87 L Glucose 688 H* Calcium Alkaline Phosphatase 301 H C-Reactive Protein 7.80 H NT-Pro-B Natriuret Pep Albumin 2.9 L Globulin 5.1 H Albumin/Globulin Ratio 0.6 L Procalcitonin 0.11 H Meds: Medications Acetaminophen (Tylenol) 650 mg PO Q6HP PRN; Protocol PRN Reason: Per Pain Protocol/Fever > 101 Last Admin: 10/17/20 04:49 Dose: 650 mg Documented by: Ceftriaxone Sodium (Rocephin) 1 gm IV DAILY [facility] Last Admin: 10/17/20 12:09 Dose: 1 gm Documented by: Dextrose (Dextrose 50%) 0 ml IV UD PRN PRN Reason: Hypoglycemia Diagnostic Test (Pha) (Accu-Chek) 1 each FS ACHS [facility] Last Admin: 10/17/20 16:14 Dose: 1 each Documented by: Docusate Sodium (Colace) 100 mg PO BID [facility] Last Admin: 10/17/20 08:38 Dose: 100 mg Documented by: Enoxaparin Sodium (Lovenox) 40 mg SQ DAILY [facility] Last Admin: 10/17/20 08:39 Dose: 40 mg Documented by: Glucose (Insta-Glucose) 15 gm PO PRN PRN PRN Reason: Hypoglycemia Hydralazine HCl (Apresoline) 10 mg IV Q4-6HP PRN PRN Reason: Hypertension Sodium Chloride (Sodium Chloride 0.9%) 1,000 mls @ 50 mls/hr IV .Q20H [facility] Last Admin: 10/17/20 16:40 Dose: Not Given Documented by: Vancomycin HCl 1,000 mg/ (Sodium Chloride) 250 mls @ 250 mls/hr IV Q12H [facility] Last Admin: 10/17/20 07:36 Dose: 250 mls/hr Documented by: Insulin Glargine (Lantus) 13 unit SQ DAILY [facility] Insulin Human Lispro (Humalog) 0 unit SQ ACHS [facility]; Protocol Last Admin: 10/17/20 16:34 Dose: 6 units Documented by: Lorazepam (Ativan) 0.5 mg IV Q6HP PRN PRN Reason: Anxiety/agitation.Hxofmeth use Morphine Sulfate (Morphine) 2 mg IV Q4HP PRN; Protocol PRN Reason: Per Pain Protocol Oxycodone/Acetaminophen (Percocet 5-325 Mg) 1 tab PO Q6HP PRN; Protocol PRN Reason: Per Pain Protocol Prochlorperazine (Compazine) 5 mg IV Q6HP PRN PRN Reason: Nausea And Vomiting Sodium Chloride (Saline Flush) 10 ml IV Q8 [facility] Last Admin: 10/17/20 14:11 Dose: Not Given Documented by: Vancomycin HCl (Vancomycin Per Pharmacy) 1 order IV UD [facility]; Protocol A/P Narrative A/P Narrative: 1. Acute cellulitis, left leg 2. Osteomyelitis, fifth metatarsal head 3. Tobacco dependence 4. Hx of Meth abuse 5. 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 Hyponatremia, 122 7. HTN Plan: 1. X-ray showed 1 cm cutaneous ulceration extending to the fifth metatarsal head stump which is focally eroded compatible with focal osteomyelitis. Blood culture Wound culture Wound care Vancomycin (dosing by pharmacy) and Rocephin Pain management including IV morphine Contacted podiatry Dr. Grimaldo who is not available until Wednesday Could not reach podiatry Dr. Medeiros 2. Smoking cessation counseling. Nicotine patch if necessary. animal care service worker consult for meth abuse 3. Diabetic diet, increased Lantus to 13 units daily from 10 units daily, insulin sliding scale. Diabetic education 4. IV normal saline 50 cc/h. BMP q. 8 hours. Increase in sodium level not more than 8mEq/24 hours 5. Continue home medication. Hydralazine as needed 6. DVT prophylaxis: Lovenox 7. CODE STATUS: [employer] Board Certified Orthotist Spent With Patient Time: Total time spent is greater than 50% in coordination of care (as documented) at patient's floor/unit and/or counseling patient: QUALITY Stroke Symptom Onset Unknown: No VTE Deep Vein Thrombosis/Pulmonary Embolism Present on Admission: No
[2020-10-18] MEDS: 0.9 % SODIUM CHLORIDE 10 ML SYRINGE IV SCH ×3 (04:16→20:43)
[2020-10-18] MEDS: INSULIN LISPRO 1 UNIT/0.01 ML UNIT SQ SCH ×4 (06:59→21:42)
[2020-10-18 07:34] LABS: Basophils # (Auto) 0.03 K/mcL (0.00-0.20); Basophils % (Auto) 0.5 % (0.0-2.0); Eosinophils # (Auto) 0.13 K/mcL (0.00-0.70); Eosinophils % (Auto) 2.2 % (0.0-7.0); Hematocrit 30.8 % (41.0-55.0); Hemoglobin 10.4 g/dL (13.5-16.5); Lymphocytes % (Auto) 24.2 % (15.0-49.0); Mean Cell Volume 87.7 fL (80.0-100.0); Mean Corpuscular HGB Conc 33.8 g/dL (31.0-36.0); Mean Platelet Volume 10.3 fL (7.4-10.4); Monocytes # (Auto) 0.42 K/mcL (0.10-0.90); Monocytes % (Auto) 7.3 % (1.0-12.0); Neutrophils % (Auto) 65.8 % (38.0-78.0); Platelet Count 429 K/mcL (140-440); RBC 3.51 M/mcL (4.50-5.90); Red Cell Distribution Width 11.4 % (11.5-14.5); WBC 5.8 K/mcL (4.5-11.0)
[2020-10-18] MEDS: ENOXAPARIN 40 MG/0.4 ML SYRINGE SQ SCH (08:40)
[2020-10-18] MEDS: INSULIN GLARGINE, HUMAN 1 UNIT/0.01 ML SQ SCH (08:40)
[2020-10-18] MEDS: DOCUSATE SODIUM 100 MG CAPSULE PO SCH ×2 (08:41→20:43)
[2020-10-18] MEDS: cefTRIAXone 1 GM VIAL IV SCH (08:41)
[2020-10-18] MEDS: VANCOMYCIN 1,000 MG in 0.9 % SODIUM CHLORIDE 250 ML IV SCH ×3 (10:41→21:41)
[2020-10-18] MEDS: 0.9 % SODIUM CHLORIDE 1,000 ML IV SCH ×2 (12:31→20:16)
[2020-10-18 15:23] LABS: ALT/SGPT 64 U/L (<40); AST/SGOT 94 U/L (<40); Albumin 2.5 gm/dL (3.2-5.2); Albumin/Globulin Ratio 0.6 (1.0-2.3); Alkaline Phosphatase 353 U/L (39-117); Bilirubin,Total < 0.2 mg/dL (0.1-1.0); Blood Urea Nitrogen 9 mg/dL (6-20); Calcium 8.4 mg/dL (8.6-10.4); Carbon Dioxide 23 mmol/L (22-30); Chloride 97 mmol/L (96-108); Globulin 4.4 gm/dL (2.2-3.7); Glomerular Filtration Rate 123; Glucose 157 mg/dL (70-105)
--- NOTE | 2020-10-18 16:23 | Internal Med Progress Note ---
SUBJECTIVE Subjective Patient information: Note initiated : 10/18/20 at 4:22 pm Service Date, if different from initiated Date: [] Patient: Wilfrido Damon 55 y/o M admitted on 10/16/20 for foot injury. Chief Complaint: [] Mr. Damon is a 55 year old homeless male with a history of type 2 diabetes, high blood pressure, tobacco dependence and history of meth abuse who presented to the ER due to left leg redness and swelling for about 2 to 3 weeks. Patient states that his both legs decreased sensation. He noticed the redness of left leg about 2 to 3 weeks ago. he has mild pain from of the leg. In the ER, his blood sugar was greater than 600. X-ray showed left fifth metatarsal osteomyelitis. When I saw this patient in the ER, he denied headache, dizziness, fever, chills, abdominal pain, chest pain, shortness of breath, nausea, vomiting, or diarrhea. 10/17 Patient does not have any new complaints. Pain is controlled T 100.4, blood glucose 244 (688 in the ER). Increased Lantus to 30 units daily. Na [address] Grimaldo who is not available until Wednesday Could not reach podiatry Dr. Medeiros 10/18 No complaints. Denies fever, chills, or nausea vomiting. Vital signs are stable and acceptable AST and ALT increased to 94 and a 64. Alkaline phosphatase 353. Repeat the liver function morning Review of Systems Review of systems: Positive left leg redness and pain. All other systems were reviewed and negative. Constitutional Vitals: Vital Signs Temp Pulse Resp BP Pulse Ox 98.9 F 82 20 142/89 98 10/18/20 15:46 10/18/20 15:46 10/18/20 15:46 10/18/20 15:46 10/18/20 15:46 Period Temp Pulse Resp BP Sys/Orosco Pulse Ox Last 24 Hr 97.6 F-98.9 F 70-90 14-20 108-144/68-91 96-100 Intake and Output 10/18/20 10/18/20 10/18/20 05:59 13:59 21:59 Intake Total 590 1440 720 Output Total 1300 1050 Balance -710 390 720 Intake & Output: Intake & Output 10/18/20 10/18/20 10/18/20 05:59 13:59 21:59 Intake Total 590 1440 720 Output Total 1300 1050 Balance -710 390 720 Intake: IV 250 Vancomycin 1,000 mg In Sodium 250 Chloride 0.9% 250 ml @ 250 mls/ hr IV Q12H [facility] Rx#:[id number] Oral 340 1440 720 Output: Void Amount 1300 1050 Other: Meal Nourishment/Supplement Breakfast Lunch Percent of Meal Consumed 100% 100% 100% Feeding Ability Independent Independent Independent Nourishment/Supplement name apple sauce and pears Urine Appearance Clear Clear Urine Color Bright Yellow Straw Urine Odor Normal Additional findings Additional findings: Physical exam: General: Thin, no acute distress Eye: EMOI, no conjunctival injection. HEENT: supple, no JVD or thyroid megaly Chest: No tenderness Heart: RRR, no gallop Lungs: Rhonchi bilateral Abdomen: Normal bowel sounds, soft, no tenderness Extremities: Right toes of foot amputated; left fourth and fifth toes amputated; the stump of fifth toe covered by purulent secretion. Left lower leg redness and tenderness. Neurology: A+O x 3, no focal neurological deficits Psych: Normal mood OBJ DATA Labs CBC & Chem 7: 10/18/20 06:21 10/18/20 06:21 Labs: Abnormal Lab Results 10/18/20 10/18/20 10/17/20 06:21 06:21 05:31 RBC 3.51 L 3.50 L Hgb 10.4 L 10.4 L Hct 30.8 L 30.8 L RDW 11.4 L Neut % (Auto) 79.4 H Lymph % (Auto) 11.9 L Lymph # (Auto) 1.40 L 0.82 L Absolute Neutrophils Sodium Chloride Creatinine 0.5 L Glucose 157 H Calcium 8.4 L AST 94 H ALT 64 H Alkaline Phosphatase 353 H C-Reactive Protein NT-Pro-B Natriuret Pep Albumin 2.5 L Globulin 4.4 H Albumin/Globulin Ratio 0.6 L Procalcitonin 10/17/20 10/16/20 10/16/20 05:31 20:17 17:32 RBC Hgb Hct RDW Neut % (Auto) Lymph % (Auto) Lymph # (Auto) Absolute Neutrophils Sodium 130 L 128 L Chloride 92 L Creatinine Glucose 184 H 280 H Calcium 8.4 L 8.2 L AST ALT Alkaline Phosphatase 207 H C-Reactive Protein NT-Pro-B Natriuret Pep 492.3 H Albumin 2.6 L Globulin 4.4 H Albumin/Globulin Ratio 0.6 L Procalcitonin 0.11 H 10/16/20 10/16/20 17:32 17:31 RBC 3.69 L Hgb 10.9 L Hct 33.3 L RDW Neut % (Auto) 80.6 H Lymph % (Auto) 12.1 L Lymph # (Auto) 1.22 L Absolute Neutrophils 8.10 H Sodium 122 L Chloride 87 L Creatinine Glucose 688 H* Calcium AST ALT Alkaline Phosphatase 301 H C-Reactive Protein 7.80 H NT-Pro-B Natriuret Pep Albumin 2.9 L Globulin 5.1 H Albumin/Globulin Ratio 0.6 L Procalcitonin Meds: Medications Acetaminophen (Tylenol) 650 mg PO Q6HP PRN; Protocol PRN Reason: Per Pain Protocol/Fever > 101 Last Admin: 10/17/20 21:40 Dose: 650 mg Documented by: Ceftriaxone Sodium (Rocephin) 1 gm IV DAILY [facility] Last Admin: 10/18/20 08:41 Dose: 1 gm Documented by: Dextrose (Dextrose 50%) 0 ml IV UD PRN PRN Reason: Hypoglycemia Diagnostic Test (Pha) (Accu-Chek) 1 each FS ACHS [facility] Last Admin: 10/18/20 11:29 Dose: 1 each Documented by: Docusate Sodium (Colace) 100 mg PO BID [facility] Last Admin: 10/18/20 08:41 Dose: Not Given Documented by: Enoxaparin Sodium (Lovenox) 40 mg SQ DAILY [facility] Last Admin: 10/18/20 08:40 Dose: 40 mg Documented by: Glucose (Insta-Glucose) 15 gm PO PRN PRN PRN Reason: Hypoglycemia Hydralazine HCl (Apresoline) 10 mg IV Q4-6HP PRN PRN Reason: Hypertension Sodium Chloride (Sodium Chloride 0.9%) 1,000 mls @ 50 mls/hr IV .Q20H [facility] Last Admin: 10/18/20 12:31 Dose: Not Given Documented by: Vancomycin HCl 1,000 mg/ (Sodium Chloride) 250 mls @ 250 mls/hr IV Q12H [facility] Last Admin: 10/18/20 10:41 Dose: 250 mls/hr Documented by: Insulin Glargine (Lantus) 13 unit SQ DAILY [facility] Last Admin: 10/18/20 08:40 Dose: 13 units Documented by: Insulin Human Lispro (Humalog) 0 unit SQ ACHS [facility]; Protocol Last Admin: 10/18/20 11:33 Dose: 8 units Documented by: Lorazepam (Ativan) 0.5 mg IV Q6HP PRN PRN Reason: Anxiety/agitation.Hxofmeth use Morphine Sulfate (Morphine) 2 mg IV Q4HP PRN; Protocol PRN Reason: Per Pain Protocol Oxycodone/Acetaminophen (Percocet 5-325 Mg) 1 tab PO Q6HP PRN; Protocol PRN Reason: Per Pain Protocol Prochlorperazine (Compazine) 5 mg IV Q6HP PRN PRN Reason: Nausea And Vomiting Sodium Chloride (Saline Flush) 10 ml IV Q8 [facility] Last Admin: 10/18/20 13:36 Dose: Not Given Documented by: Vancomycin HCl (Vancomycin Per Pharmacy) 1 order IV UD [facility]; Protocol A/P Narrative A/P Narrative: 1. Acute cellulitis, left leg 2. Osteomyelitis, fifth metatarsal head 3. Tobacco dependence 4. Hx of Meth abuse 5. 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 Hyponatremia, 122 7. HTN Plan: 1. X-ray showed 1 cm cutaneous ulceration extending to the fifth metatarsal head stump which is focally eroded compatible with focal osteomyelitis. Blood culture Wound culture pending Wound care Vancomycin (dosing by pharmacy) and Rocephin Pain management including IV morphine Contacted podiatry Dr. Grimaldo who is not available until Wednesday Could not reach podiatry Dr. Medeiros 2. Smoking cessation counseling. Nicotine patch if necessary. fountain worker consult for meth abuse 3. Diabetic diet, increased Lantus to 13 units daily from 10 units daily, insulin sliding scale. Diabetic education 4. IV normal saline 50 cc/h. BMP q. 8 hours. Increase in sodium level not more than 8mEq/24 hours 5. Continue home medication. Hydralazine as needed 6. DVT prophylaxis: Lovenox 7. CODE STATUS: Computerized Table Cutter Spent With Patient Time: Total time spent is greater than 50% in coordination of care (as documented) at patient's floor/unit and/or counseling patient: QUALITY Stroke Symptom Onset Unknown: No VTE Deep Vein Thrombosis/Pulmonary Embolism Present on Admission: No
[2020-10-18] MEDS: morphine 4 MG/ML VIAL IV PRN ×2 (20:42→21:42)
[2020-10-18] MEDS: oxyCODONE/APAP 5/325MG TABLET PO PRN (20:42)
[2020-10-19] MEDS: INSULIN LISPRO 1 UNIT/0.01 ML UNIT SQ SCH ×6 (01:57→23:21)
[2020-10-19] MEDS: 0.9 % SODIUM CHLORIDE 10 ML SYRINGE IV SCH ×3 (05:03→20:46)
[2020-10-19 07:04] LABS: Basophils # (Auto) 0.04 K/mcL (0.00-0.20); Basophils % (Auto) 0.8 % (0.0-2.0); Eosinophils # (Auto) 0.16 K/mcL (0.00-0.70); Hemoglobin 9.7 g/dL (13.5-16.5); Lymphocytes # (Auto) 1.84 K/mcL (1.50-4.80); Lymphocytes % (Auto) 34.7 % (15.0-49.0); Mean Cell Volume 90.9 fL (80.0-100.0); Mean Corpuscular HGB Conc 32.3 g/dL (31.0-36.0); Monocytes # (Auto) 0.37 K/mcL (0.10-0.90); Neutrophils % (Auto) 54.5 % (38.0-78.0); Platelet Count 427 K/mcL (140-440); WBC 5.3 K/mcL (4.5-11.0)
[2020-10-19 07:30] LABS: ALT/SGPT 42 U/L (<40); AST/SGOT 36 U/L (<40); Albumin 2.4 gm/dL (3.2-5.2); Albumin/Globulin Ratio 0.6 (1.0-2.3); Alkaline Phosphatase 293 U/L (39-117); Bilirubin,Total < 0.2 mg/dL (0.1-1.0); Blood Urea Nitrogen 12 mg/dL (6-20); Calcium 8.3 mg/dL (8.6-10.4); Carbon Dioxide 22 mmol/L (22-30); Chloride 105 mmol/L (96-108); Globulin 4.2 gm/dL (2.2-3.7); Glomerular Filtration Rate 101; Glucose 209 mg/dL (70-105)
[2020-10-19] MEDS: ENOXAPARIN 40 MG/0.4 ML SYRINGE SQ SCH (08:11)
[2020-10-19] MEDS: DOCUSATE SODIUM 100 MG CAPSULE PO SCH ×2 (08:11→20:46)
[2020-10-19] MEDS: cefTRIAXone 1 GM VIAL IV SCH (08:12)
[2020-10-19] MEDS: oxyCODONE/APAP 5/325MG TABLET PO PRN ×3 (08:14→23:55)
[2020-10-19] MEDS: INSULIN GLARGINE, HUMAN 1 UNIT/0.01 ML SQ SCH (09:35)
[2020-10-19] MEDS: 0.9 % SODIUM CHLORIDE 1,000 ML IV SCH (09:35)
[2020-10-19] MEDS: VANCOMYCIN 1,000 MG in 0.9 % SODIUM CHLORIDE 250 ML IV SCH (09:36)
--- NOTE | 2020-10-19 18:21 | Internal Med Progress Note ---
SUBJECTIVE Subjective Patient information: Note initiated : 10/19/20 at 6:13 pm Service Date, if different from initiated Date: [] Patient: Wilfrido Damon 55 y/o M admitted on 10/16/20 for foot injury. Chief Complaint: [] Mr. Damon is a 55 year old homeless male with a history of type 2 diabetes, high blood pressure, tobacco dependence and history of meth abuse who presented to the ER due to left leg redness and swelling for about 2 to 3 weeks. Patient states that his both legs decreased sensation. He noticed the redness of left leg about 2 to 3 weeks ago. he has mild pain from of the leg. In the ER, his blood sugar was greater than 600. X-ray showed left fifth metatarsal osteomyelitis. When I saw this patient in the ER, he denied headache, dizziness, fever, chills, abdominal pain, chest pain, shortness of breath, nausea, vomiting, or diarrhea. 10/17 Patient does not have any new complaints. Pain is controlled T 100.4, blood glucose 244 (688 in the ER). Increased Lantus to 30 units daily. Na [address] Grimaldo who is not available until Wednesday Could not reach podiatry Dr. Medeiros 10/18 No complaints. Denies fever, chills, or nausea vomiting. Vital signs are stable and acceptable AST and ALT increased to 94 and a 64. Alkaline phosphatase 353. Repeat the liver function morning 10/19 Pt does not have new complaints. I was told that he would leave and kill himself if nurse staff do not give him pain meds and do not change his diabetic diet to regular diet. I discussed with the patient the importance of medical compliance and diabetic diet. He told me that he does not have suicidal ideation and does not want to kill himself. He only wants to have more pain medication and regular diet. he does not like diabetic diet. He fully understood the importance of medical compliance and the diabetic diet. His diet has been changed to regular. Hemoglobin 9.7 AST 36, ALT 42, alkaline phos 293 Wound culture showed gram positive cocci in chains. Discontinued vancomycin and continued Rocephin. Review of Systems Review of systems: Positive left leg redness and pain. All other systems were reviewed and negative. Constitutional Vitals: Vital Signs Temp Pulse Resp BP Pulse Ox 98.5 F 83 16 129/81 98 10/19/20 16:00 10/19/20 16:00 10/19/20 16:00 10/19/20 16:00 10/19/20 16:00 Period Temp Pulse Resp BP Sys/Orosco Pulse Ox Last 24 Hr 97.5 F-98.9 F 61-89 15-18 96-131/61-87 98-99 Intake and Output 10/19/20 10/19/20 10/19/20 05:59 13:59 21:59 Intake Total 9296 686 1866 Output Total 4200 486 9828 Balance 520 440 -250 Intake & Output: Intake & Output 10/19/20 10/19/20 10/19/20 05:59 13:59 21:59 Intake Total 5041 338 6245 Output Total 2926 442 7157 Balance 520 440 -250 Intake: IV 250 Vancomycin 1,000 mg In Sodium 250 Chloride 0.9% 250 ml @ 250 mls/ hr IV Q12H [facility] Rx#:[id number] Oral [id number] Output: Void Amount 0434 201 7500 Other: Meal Nourishment/Supplement Lunch Percent of Meal Consumed 100% 100% Feeding Ability Independent Independent Nourishment/Supplement name tuna fish Urine Appearance Clear Clear Clear Urine Color Bright Yellow Bright Yellow Pale Urine Odor Normal Normal Additional findings Additional findings: Physical exam: General: Thin, no acute distress Eye: EMOI, no conjunctival injection. HEENT: supple, no JVD or thyroid megaly Chest: No tenderness Heart: RRR, no gallop Lungs: Rhonchi bilateral Abdomen: Normal bowel sounds, soft, no tenderness Extremities: Right toes of foot amputated; left fourth and fifth toes amputated; the stump of fifth toe covered by purulent secretion. Left lower leg redness and tenderness. Neurology: A+O x 3, no focal neurological deficits Psych: Normal mood OBJ DATA Labs CBC & Chem 7: 10/19/20 05:58 10/19/20 05:57 Labs: Abnormal Lab Results 10/19/20 10/19/20 10/18/20 05:58 05:57 06:21 RBC 3.30 L Hgb 9.7 L Hct 30.0 L RDW Neut % (Auto) Lymph % (Auto) Lymph # (Auto) Sodium Chloride Creatinine 0.5 L Glucose 209 H 157 H Calcium 8.3 L 8.4 L AST 94 H ALT 42 H 64 H Alkaline Phosphatase 293 H 353 H C-Reactive Protein NT-Pro-B Natriuret Pep Albumin 2.4 L 2.5 L Globulin 4.2 H 4.4 H Albumin/Globulin Ratio 0.6 L 0.6 L Procalcitonin 10/18/20 10/17/20 10/17/20 06:21 05:31 05:31 RBC 3.51 L 3.50 L Hgb 10.4 L 10.4 L Hct 30.8 L 30.8 L RDW 11.4 L Neut % (Auto) 79.4 H Lymph % (Auto) 11.9 L Lymph # (Auto) 1.40 L 0.82 L Sodium 130 L Chloride Creatinine Glucose 184 H Calcium 8.4 L AST ALT Alkaline Phosphatase 207 H C-Reactive Protein NT-Pro-B Natriuret Pep 492.3 H Albumin 2.6 L Globulin 4.4 H Albumin/Globulin Ratio 0.6 L Procalcitonin 10/16/20 10/16/20 10/16/20 20:17 17:32 17:31 RBC Hgb Hct RDW Neut % (Auto) Lymph % (Auto) Lymph # (Auto) Sodium 128 L 122 L Chloride 92 L 87 L Creatinine Glucose 280 H 688 H* Calcium 8.2 L AST ALT Alkaline Phosphatase 301 H C-Reactive Protein 7.80 H NT-Pro-B Natriuret Pep Albumin 2.9 L Globulin 5.1 H Albumin/Globulin Ratio 0.6 L Procalcitonin 0.11 H Meds: Medications Acetaminophen (Tylenol) 650 mg PO Q6HP PRN; Protocol PRN Reason: Per Pain Protocol/Fever > 101 Last Admin: 10/17/20 21:40 Dose: 650 mg Documented by: Ceftriaxone Sodium (Rocephin) 1 gm IV DAILY [facility] Last Admin: 10/19/20 08:12 Dose: 1 gm Documented by: Dextrose (Dextrose 50%) 0 ml IV UD PRN PRN Reason: Hypoglycemia Diagnostic Test (Pha) (Accu-Chek) 1 each FS ACHS [facility] Last Admin: 10/19/20 16:36 Dose: 1 each Documented by: Docusate Sodium (Colace) 100 mg PO BID [facility] Last Admin: 10/19/20 08:11 Dose: Not Given Documented by: Enoxaparin Sodium (Lovenox) 40 mg SQ DAILY [facility] Last Admin: 10/19/20 08:11 Dose: 40 mg Documented by: Glucose (Insta-Glucose) 15 gm PO PRN PRN PRN Reason: Hypoglycemia Hydralazine HCl (Apresoline) 10 mg IV Q4-6HP PRN PRN Reason: Hypertension Sodium Chloride (Sodium Chloride 0.9%) 1,000 mls @ 50 mls/hr IV .Q20H [facility] Last Admin: 10/19/20 09:35 Dose: Not Given Documented by: Vancomycin HCl 1,000 mg/ (Sodium Chloride) 250 mls @ 250 mls/hr IV Q12H [facility] Last Admin: 10/19/20 09:36 Dose: 333.3 mls/hr Documented by: Insulin Glargine (Lantus) 13 unit SQ DAILY [facility] Last Admin: 10/19/20 09:35 Dose: 13 units Documented by: Insulin Human Lispro (Humalog) 0 unit SQ ACHS [facility]; Protocol Last Admin: 10/19/20 16:41 Dose: 8 units Documented by: Lorazepam (Ativan) 0.5 mg IV Q6HP PRN PRN Reason: Anxiety/agitation.Hxofmeth use Morphine Sulfate (Morphine) 2 mg IV Q4HP PRN; Protocol PRN Reason: Per Pain Protocol Last Admin: 10/18/20 21:42 Dose: 2 mg Documented by: Oxycodone/Acetaminophen (Percocet 5-325 Mg) 1 tab PO Q6HP PRN; Protocol PRN Reason: Per Pain Protocol Last Admin: 10/19/20 17:54 Dose: 1 tab Documented by: Prochlorperazine (Compazine) 5 mg IV Q6HP PRN PRN Reason: Nausea And Vomiting Sodium Chloride (Saline Flush) 10 ml IV Q8 [facility] Last Admin: 10/19/20 05:03 Dose: Not Given Documented by: Vancomycin HCl (Vancomycin Per Pharmacy) 1 order IV UD [facility]; Protocol A/P Narrative A/P Narrative: 1. Acute cellulitis, left leg 2. Osteomyelitis, fifth metatarsal head 3. Tobacco dependence 4. Hx of Meth abuse 5. 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 Hyponatremia, 122 7. HTN 8. Medical noncompliance, on regular diet Plan: 1. X-ray showed 1 cm cutaneous ulceration extending to the fifth metatarsal head stump which is focally eroded compatible with focal osteomyelitis. Blood culture no growth so far Wound culture - gram positive cocci in chains Wound care Discontinued vancomycin (dosing by pharmacy) Continue Rocephin Pain management including IV morphine Contacted podiatry Dr. Grimaldo and Dr. Medeiros who are not available until Wednesday 2. Smoking cessation counseling. Nicotine patch if necessary. renal social worker consult for meth abuse 3. Refued Diabetic diet. Increased Lantus to 13 units daily from 10 units daily, insulin sliding scale. Diabetic education 4. Continue home medication. Hydralazine as needed 5. DVT prophylaxis: Lovenox 6. CODE STATUS: Manager Hydraulic Spent With Patient Time: Total time spent is greater than 50% in coordination of care (as documented) at patient's floor/unit and/or counseling patient: QUALITY Stroke Symptom Onset Unknown: No VTE Deep Vein Thrombosis/Pulmonary Embolism Present on Admission: No
[2020-10-19] MEDS: ACETAMINOPHEN 325 MG TABLET PO PRN (20:46)
[2020-10-20] MEDS: 0.9 % SODIUM CHLORIDE 10 ML SYRINGE IV SCH ×3 (04:57→20:41)
[2020-10-20] MEDS: oxyCODONE/APAP 5/325MG TABLET PO PRN ×3 (06:19→20:40)
[2020-10-20 07:15] LABS: Basophils # (Auto) 0.04 K/mcL (0.00-0.20); Basophils % (Auto) 0.8 % (0.0-2.0); Eosinophils # (Auto) 0.17 K/mcL (0.00-0.70); Eosinophils % (Auto) 3.4 % (0.0-7.0); Hematocrit 34.6 % (41.0-55.0); Hemoglobin 11.3 g/dL (13.5-16.5); Lymphocytes # (Auto) 1.87 K/mcL (1.50-4.80); Mean Cell Volume 90.3 fL (80.0-100.0); Mean Corpuscular HGB Conc 32.7 g/dL (31.0-36.0); Mean Platelet Volume 10.5 fL (7.4-10.4); Monocytes # (Auto) 0.34 K/mcL (0.10-0.90); Monocytes % (Auto) 6.7 % (1.0-12.0); Neutrophils % (Auto) 52.2 % (38.0-78.0); Platelet Count 422 K/mcL (140-440); RBC 3.83 M/mcL (4.50-5.90); Red Cell Distribution Width 12.1 % (11.5-14.5); WBC 5.1 K/mcL (4.5-11.0)
[2020-10-20] MEDS: INSULIN LISPRO 1 UNIT/0.01 ML UNIT SQ SCH ×4 (07:46→21:15)
[2020-10-20 07:51] LABS: ALT/SGPT 42 U/L (<40); AST/SGOT 37 U/L (<40); Albumin 2.7 gm/dL (3.2-5.2); Albumin/Globulin Ratio 0.6 (1.0-2.3); Alkaline Phosphatase 321 U/L (39-117); Bilirubin,Total < 0.2 mg/dL (0.1-1.0); Blood Urea Nitrogen 19 mg/dL (6-20); Calcium 8.7 mg/dL (8.6-10.4); Carbon Dioxide 23 mmol/L (22-30); Chloride 100 mmol/L (96-108); Globulin 4.3 gm/dL (2.2-3.7); Glomerular Filtration Rate 101; Glucose 251 mg/dL (70-105)
[2020-10-20] MEDS: ENOXAPARIN 40 MG/0.4 ML SYRINGE SQ SCH (09:10)
[2020-10-20] MEDS: cefTRIAXone 1 GM VIAL IV SCH (09:10)
[2020-10-20] MEDS: DOCUSATE SODIUM 100 MG CAPSULE PO SCH ×2 (09:11→20:41)
[2020-10-20] MEDS: INSULIN GLARGINE, HUMAN 1 UNIT/0.01 ML SQ SCH (09:11)
[2020-10-20 11:06] LABS: Lymphocytes % (Auto) 36.9 % (15.0-49.0)
--- NOTE | 2020-10-20 16:54 | Internal Med Progress Note ---
SUBJECTIVE Subjective Patient information: Note initiated : 10/20/20 at 4:51 pm Service Date, if different from initiated Date: [] Patient: Wilfrido Damon 55 y/o M admitted on 10/16/20 for foot injury. Chief Complaint: [] Mr. Damon is a 55 year old homeless male with a history of type 2 diabetes, high blood pressure, tobacco dependence and history of meth abuse who presented to the ER due to left leg redness and swelling for about 2 to 3 weeks. Patient states that his both legs decreased sensation. He noticed the redness of left leg about 2 to 3 weeks ago. he has mild pain from of the leg. In the ER, his blood sugar was greater than 600. X-ray showed left fifth metatarsal osteomyelitis. When I saw this patient in the ER, he denied headache, dizziness, fever, chills, abdominal pain, chest pain, shortness of breath, nausea, vomiting, or diarrhea. 10/17 Patient does not have any new complaints. Pain is controlled T 100.4, blood glucose 244 (688 in the ER). Increased Lantus to 30 units daily. Na [address] Grimaldo who is not available until Wednesday Could not reach podiatry Dr. Medeiros 10/18 No complaints. Denies fever, chills, or nausea vomiting. Vital signs are stable and acceptable AST and ALT increased to 94 and a 64. Alkaline phosphatase 353. Repeat the liver function morning 10/19 Pt does not have new complaints. I was told that he would leave and kill himself if nurse staff do not give him pain meds and do not change his diabetic diet to regular diet. I discussed with the patient the importance of medical compliance and diabetic diet. He told me that he does not have suicidal ideation and does not want to kill himself. He only wants to have more pain medication and regular diet. he does not like diabetic diet. He fully understood the importance of medical compliance and the diabetic diet. His diet has been changed to regular. Hemoglobin 9.7 AST 36, ALT 42, alkaline phos 293 Wound culture showed gram positive cocci in chains. Discontinued vancomycin and continued Rocephin. 10/20 Patient does not have any new complaints. He sleeps a lot. Patient firmly denied any suicidal ideation. He does not want to kill himself or others. He is on regular diet. Increase the Lantus to 15 units from 13 units. Wound culture showed gram-positive cocci in chains - Strep agalactiae Review of Systems Review of systems: Positive left leg redness and pain. All other systems were reviewed and negative. Constitutional Vitals: Vital Signs Temp Pulse Resp BP Pulse Ox 97.8 F 90 18 128/79 99 10/20/20 11:58 10/20/20 11:58 10/20/20 11:58 10/20/20 11:58 10/20/20 11:58 Period Temp Pulse Resp BP Sys/Orosco Pulse Ox Last 24 Hr 97.5 F-99.3 F 76-90 14-20 113-140/76-81 97-99 Intake and Output 10/20/20 10/20/20 10/20/20 05:59 13:59 21:59 Intake Total 840 720 240 Output Total 1200 Balance -360 720 240 Intake & Output: Intake & Output 10/20/20 10/20/20 10/20/20 05:59 13:59 21:59 Intake Total 840 720 240 Output Total 1200 Balance -360 720 240 Intake: Oral 840 720 240 Output: Void Amount 1200 Other: Meal Nourishment/Supplement Breakfast Percent of Meal Consumed 100% 100% Feeding Ability Independent Nourishment/Supplement name tuna fish Urine Appearance Clear Urine Color Bright Yellow Urine Odor Normal # Voids 2 Additional findings Additional findings: Physical exam: General: Thin, no acute distress Eye: EMOI, no conjunctival injection. HEENT: supple, no JVD or thyroid megaly Chest: No tenderness Heart: RRR, no gallop Lungs: Rhonchi bilateral Abdomen: Normal bowel sounds, soft, no tenderness Extremities: Right toes of foot amputated; left fourth and fifth toes amputated; the stump of fifth toe covered by purulent secretion. Left lower leg redness and tenderness. Neurology: A+O x 3, no focal neurological deficits Psych: Normal mood OBJ DATA Labs CBC & Chem 7: 10/20/20 06:20 10/20/20 06:20 Labs: Abnormal Lab Results 10/20/20 10/20/20 10/19/20 06:20 06:20 05:58 RBC 3.83 L 3.30 L Hgb 11.3 L 9.7 L Hct 34.6 L 30.0 L RDW MPV 10.5 H Lymph # (Auto) Creatinine Glucose 251 H Calcium AST ALT 42 H Alkaline Phosphatase 321 H Albumin 2.7 L Globulin 4.3 H Albumin/Globulin Ratio 0.6 L 10/19/20 10/18/20 10/18/20 05:57 06:21 06:21 RBC 3.51 L Hgb 10.4 L Hct 30.8 L RDW 11.4 L MPV Lymph # (Auto) 1.40 L Creatinine 0.5 L Glucose 209 H 157 H Calcium 8.3 L 8.4 L AST 94 H ALT 42 H 64 H Alkaline Phosphatase 293 H 353 H Albumin 2.4 L 2.5 L Globulin 4.2 H 4.4 H Albumin/Globulin Ratio 0.6 L 0.6 L Meds: Medications Acetaminophen (Tylenol) 650 mg PO Q6HP PRN; Protocol PRN Reason: Per Pain Protocol/Fever > 101 Last Admin: 10/19/20 20:46 Dose: 650 mg Documented by: Ceftriaxone Sodium (Rocephin) 1 gm IV DAILY [facility] Last Admin: 10/20/20 09:10 Dose: 1 gm Documented by: Dextrose (Dextrose 50%) 0 ml IV UD PRN PRN Reason: Hypoglycemia Diagnostic Test (Pha) (Accu-Chek) 1 each FS [facility] Last Admin: 10/20/20 11:48 Dose: 1 each Documented by: Docusate Sodium (Colace) 100 mg PO BID [facility] Last Admin: 10/20/20 09:11 Dose: Not Given Documented by: Enoxaparin Sodium (Lovenox) 40 mg SQ DAILY [facility] Last Admin: 10/20/20 09:10 Dose: 40 mg Documented by: Glucose (Insta-Glucose) 15 gm PO PRN PRN PRN Reason: Hypoglycemia Hydralazine HCl (Apresoline) 10 mg IV Q4-6HP PRN PRN Reason: Hypertension Insulin Glargine (Lantus) 15 unit SQ DAILY [facility] Insulin Human Lispro (Humalog) 0 unit SQ [facility]; Protocol Last Admin: 10/20/20 11:48 Dose: 10 units Documented by: Lorazepam (Ativan) 0.5 mg IV Q6HP PRN PRN Reason: Anxiety/agitation.Hxofmeth use Morphine Sulfate (Morphine) 2 mg IV Q4HP PRN; Protocol PRN Reason: Per Pain Protocol Last Admin: 12/25/20 21:42 Dose: 2 mg Documented by: Oxycodone/Acetaminophen (Percocet 5-325 Mg) 1 tab PO Q6HP PRN; Protocol PRN Reason: Per Pain Protocol Last Admin: 10/20/20 13:27 Dose: 1 tab Documented by: Prochlorperazine (Compazine) 5 mg IV Q6HP PRN PRN Reason: Nausea And Vomiting Sodium Chloride (Saline Flush) 10 ml IV Q8 [facility] Last Admin: 10/20/20 14:35 Dose: Not Given Documented by: A/P Narrative A/P Narrative: 1. Acute cellulitis, left leg 2. Osteomyelitis, fifth metatarsal head 3. Tobacco dependence 4. Hx of Meth abuse 5. 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 Hyponatremia, 122 7. HTN 8. Medical noncompliance, on regular diet Plan: 1. X-ray showed 1 cm cutaneous ulceration extending to the fifth metatarsal head stump which is focally eroded compatible with focal osteomyelitis. Blood culture no growth so far Wound culture - gram positive cocci in chain - Strep agalactiae Wound care Discontinued vancomycin (dosing by pharmacy) Continue Rocephin Pain management including IV morphine Contacted podiatry Dr. Grimaldo and Dr. Medeiros who are not available until Wednesday 2. Smoking cessation counseling. Nicotine patch if necessary. nitro worker consult for meth abuse 3. Refued Diabetic diet. Increased Lantus to 13 units daily from 10 units daily, insulin sliding scale. Diabetic education 4. Continue home medication. Hydralazine as needed 5. DVT prophylaxis: Lovenox 6. CODE STATUS: Cna Ltc Spent With Patient Time: Total time spent is greater than 50% in coordination of care (as documented) at patient's floor/unit and/or counseling patient: QUALITY Stroke Symptom Onset Unknown: No VTE Deep Vein Thrombosis/Pulmonary Embolism Present on Admission: No
[2020-10-21] MEDS: 0.9 % SODIUM CHLORIDE 10 ML SYRINGE IV SCH ×3 (04:31→20:48)
[2020-10-21 06:39] LABS: Basophils # (Auto) 0.06 K/mcL (0.00-0.20); Basophils % (Auto) 0.8 % (0.0-2.0); Eosinophils # (Auto) 0.17 K/mcL (0.00-0.70); Eosinophils % (Auto) 2.4 % (0.0-7.0); Hemoglobin 10.6 g/dL (13.5-16.5); Lymphocytes # (Auto) 2.45 K/mcL (1.50-4.80); Lymphocytes % (Auto) 34.3 % (15.0-49.0); Mean Cell Volume 93.4 fL (80.0-100.0); Mean Corpuscular HGB Conc 31.2 g/dL (31.0-36.0); Mean Platelet Volume 10.7 fL (7.4-10.4); Monocytes # (Auto) 0.66 K/mcL (0.10-0.90); Monocytes % (Auto) 9.2 % (1.0-12.0); Neutrophils % (Auto) 53.3 % (38.0-78.0); Platelet Count 373 K/mcL (140-440); RBC 3.64 M/mcL (4.50-5.90); Red Cell Distribution Width 12.3 % (11.5-14.5); WBC 7.1 K/mcL (4.5-11.0)
[2020-10-21 07:09] LABS: ALT/SGPT 33 U/L (<40); AST/SGOT 36 U/L (<40); Albumin 2.6 gm/dL (3.2-5.2); Albumin/Globulin Ratio 0.6 (1.0-2.3); Alkaline Phosphatase 264 U/L (39-117); Bilirubin,Total < 0.2 mg/dL (0.1-1.0); Blood Urea Nitrogen 20 mg/dL (6-20); Calcium 8.9 mg/dL (8.6-10.4); Carbon Dioxide 20 mmol/L (22-30); Chloride 99 mmol/L (96-108); Globulin 4.2 gm/dL (2.2-3.7); Glomerular Filtration Rate 107; Glucose 259 mg/dL (70-105)
[2020-10-21] MEDS: ENOXAPARIN 40 MG/0.4 ML SYRINGE SQ SCH (08:02)
[2020-10-21] MEDS: oxyCODONE/APAP 5/325MG TABLET PO PRN ×3 (08:02→20:47)
[2020-10-21] MEDS: INSULIN LISPRO 1 UNIT/0.01 ML UNIT SQ SCH ×5 (08:03→23:02)
[2020-10-21] MEDS: INSULIN GLARGINE, HUMAN 1 UNIT/0.01 ML SQ SCH (08:03)
[2020-10-21] MEDS: DOCUSATE SODIUM 100 MG CAPSULE PO SCH ×2 (08:03→20:48)
[2020-10-21] MEDS: cefTRIAXone 1 GM VIAL IV SCH (08:04)
--- NOTE | 2020-10-21 22:48 | Internal Med Progress Note ---
SUBJECTIVE Subjective Patient information: Note initiated : 10/21/20 at 10:43 pm Service Date, if different from initiated Date: [] Patient: Wilfrido Daomn 55 y/o M admitted on 10/16/20 for foot injury. Chief Complaint: [] Mr. Damon is a 55 year old homeless male with a history of type 2 diabetes, high blood pressure, tobacco dependence and history of meth abuse who presented to the ER due to left leg redness and swelling for about 2 to 3 weeks. Patient states that his both legs decreased sensation. He noticed the redness of left leg about 2 to 3 weeks ago. he has mild pain from of the leg. In the ER, his blood sugar was greater than 600. X-ray showed left fifth metatarsal osteomyelitis. When I saw this patient in the ER, he denied headache, dizziness, fever, chills, abdominal pain, chest pain, shortness of breath, nausea, vomiting, or diarrhea. 10/17 Patient does not have any new complaints. Pain is controlled T 100.4, blood glucose 244 (688 in the ER). Increased Lantus to 30 units daily. Na [address] Grimaldo who is not available until Wednesday Could not reach podiatry Dr. Medeiros 10/18 No complaints. Denies fever, chills, or nausea vomiting. Vital signs are stable and acceptable AST and ALT increased to 94 and a 64. Alkaline phosphatase 353. Repeat the liver function morning 10/19 Pt does not have new complaints. I was told that he would leave and kill himself if nurse staff do not give him pain meds and do not change his diabetic diet to regular diet. I discussed with the patient the importance of medical compliance and diabetic diet. He told me that he does not have suicidal ideation and does not want to kill himself. He only wants to have more pain medication and regular diet. he does not like diabetic diet. He fully understood the importance of medical compliance and the diabetic diet. His diet has been changed to regular. Hemoglobin 9.7 AST 36, ALT 42, alkaline phos 293 Wound culture showed gram positive cocci in chains. Discontinued vancomycin and continued Rocephin. 10/20 Patient does not have any new complaints. He sleeps a lot. Patient firmly denied any suicidal ideation. He does not want to kill himself or others. He is on regular diet. Increase the Lantus to 15 units from 13 units. Wound culture showed gram-positive cocci in chains - Strep agalactiae 10/21 When I saw him this morning, he was sleeping. No new complaints. Spoke to podiatry Dr. Grimaldo who will see him. Dr. Grimaldo will probably give him a procedure today or tomorrow. Na 131 Review of systems: Positive left leg redness and pain. All other systems were reviewed and negative. Constitutional Vitals: Vital Signs Temp Pulse Resp BP Pulse Ox 98.3 F 99 H 18 132/85 98 10/21/20 19:57 10/21/20 19:57 10/21/20 19:57 10/21/20 19:57 10/21/20 19:57 Period Temp Pulse Resp BP Sys/Orosco Pulse Ox Last 24 Hr 97.2 F-99 F 76-99 - 98-141/65-85 97-99 Intake and Output 10/21/20 10/21/20 10/22/20 13:59 21:59 05:59 Intake Total 400 1260 Output Total 300 Balance 400 960 Weight 57.062 kg Patient Weight 10/22/20 05:59 Weight 57.062 kg Intake & Output: Intake & Output 10/21/20 10/21/20 10/22/20 13:59 21:59 05:59 Intake Total 400 1260 Output Total 300 Balance 400 960 Weight 57.062 kg Intake: Oral 400 1260 Output: Void Amount 300 Other: Meal Breakfast Dinner Percent of Meal Consumed 100% 100% Feeding Ability Assist with Tray Set Up Independent Urine Appearance Clear Clear Urine Color Bright Yellow Bright Yellow Urine Odor Normal # Voids 1 Additional findings Additional findings: Physical exam: General: Thin, no acute distress Eye: EMOI, no conjunctival injection. HEENT: supple, no JVD or thyroid megaly Chest: No tenderness Heart: RRR, no gallop Lungs: Rhonchi bilateral Abdomen: Normal bowel sounds, soft, no tenderness Extremities: Right toes of foot amputated; left fourth and fifth toes amputated; the stump of fifth toe covered by purulent secretion. Left lower leg redness and tenderness. Neurology: A+O x 3, no focal neurological deficits Psych: Normal mood OBJ DATA Labs CBC & Chem 7: 10/21/20 05:20 10/21/20 05:20 Labs: Abnormal Lab Results 10/21/20 10/21/20 10/20/20 05:20 05:20 06:20 RBC 3.64 L Hgb 10.6 L Hct 34.0 L MPV 10.7 H Sodium 131 L Carbon Dioxide 20 L Glucose 259 H 251 H Calcium ALT 42 H Alkaline Phosphatase 264 H 321 H Albumin 2.6 L 2.7 L Globulin 4.2 H 4.3 H Albumin/Globulin Ratio 0.6 L 0.6 L 10/20/20 10/19/20 10/19/20 06:20 05:58 05:57 RBC 3.83 L 3.30 L Hgb 11.3 L 9.7 L Hct 34.6 L 30.0 L MPV 10.5 H Sodium Carbon Dioxide Glucose 209 H Calcium 8.3 L ALT 42 H Alkaline Phosphatase 293 H Albumin 2.4 L Globulin 4.2 H Albumin/Globulin Ratio 0.6 L Meds: Medications Acetaminophen (Tylenol) 650 mg PO Q6HP PRN; Protocol PRN Reason: Per Pain Protocol/Fever > 101 Last Admin: 10/19/20 20:46 Dose: 650 mg Documented by: Ceftriaxone Sodium (Rocephin) 1 gm IV DAILY [facility] Last Admin: 10/21/20 08:04 Dose: 1 gm Documented by: Dextrose (Dextrose 50%) 0 ml IV UD PRN PRN Reason: Hypoglycemia Diagnostic Test (Pha) (Accu-Chek) 1 each FS [facility] Last Admin: 10/21/20 21:00 Dose: 1 each Documented by: Docusate Sodium (Colace) 100 mg PO BID [facility] Last Admin: 10/21/20 20:48 Dose: Not Given Documented by: Enoxaparin Sodium (Lovenox) 40 mg SQ DAILY [facility] Last Admin: 10/21/20 08:02 Dose: 40 mg Documented by: Glucose (Insta-Glucose) 15 gm PO PRN PRN PRN Reason: Hypoglycemia Hydralazine HCl (Apresoline) 10 mg IV Q4-6HP PRN PRN Reason: Hypertension Insulin Glargine (Lantus) 15 unit SQ DAILY [facility] Last Admin: 10/21/20 08:03 Dose: 15 units Documented by: Insulin Human Lispro (Humalog) 0 unit SQ [facility]; Protocol Last Admin: 10/21/20 21:00 Dose: 14 units Documented by: Lorazepam (Ativan) 0.5 mg IV Q6HP PRN PRN Reason: Anxiety/agitation.Hxofmeth use Morphine Sulfate (Morphine) 2 mg IV Q4HP PRN; Protocol PRN Reason: Per Pain Protocol Last Admin: 10/18/20 21:42 Dose: 2 mg Documented by: Oxycodone/Acetaminophen (Percocet 5-325 Mg) 1 tab PO Q6HP PRN; Protocol PRN Reason: Per Pain Protocol Last Admin: 10/21/20 20:47 Dose: 1 tab Documented by: Prochlorperazine (Compazine) 5 mg IV Q6HP PRN PRN Reason: Nausea And Vomiting Sodium Chloride (Saline Flush) 10 ml IV Q8 [facility] Last Admin: 10/21/20 20:48 Dose: 10 ml Documented by: A/P Narrative A/P Narrative: 1. Acute cellulitis, left leg 2. Osteomyelitis, fifth metatarsal head 3. Tobacco dependence 4. Hx of Meth abuse 5. 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 Hyponatremia, 122 7. HTN 8. Medical noncompliance, on regular diet Plan: 1. X-ray showed 1 cm cutaneous ulceration extending to the fifth metatarsal head stump which is focally eroded compatible with focal osteomyelitis. Blood culture no growth so far Wound culture - gram positive cocci in chain - Strep agalactiae Wound care Discontinued vancomycin (dosing by pharmacy) Continue Rocephin Pain management including IV morphine Ppodiatry Dr. Grimaldo is on board. Really appreciate it. 2. Smoking cessation counseling. Nicotine patch if necessary. break up worker consult for meth abuse 3. Refued Diabetic diet. He is on regular diet. Increased Lantus to 15 units daily from 13 units daily, insulin sliding scale. Diabetic education 4. Continue home medication. Hydralazine as needed 5. DVT prophylaxis: Lovenox 6. CODE STATUS: Premium Service Representative Spent With Patient Time: Total time spent is greater than 50% in coordination of care (as documented) at patient's floor/unit and/or counseling patient: QUALITY Stroke Symptom Onset Unknown: No VTE Deep Vein Thrombosis/Pulmonary Embolism Present on Admission: No
[2020-10-22] MEDS: 0.9 % SODIUM CHLORIDE 10 ML SYRINGE IV SCH ×4 (03:22→20:50)
[2020-10-22] MEDS: oxyCODONE/APAP 5/325MG TABLET PO PRN ×4 (03:22→23:06)
[2020-10-22] MEDS: INSULIN LISPRO 1 UNIT/0.01 ML UNIT SQ SCH ×5 (07:25→21:50)
--- NOTE | 2020-10-22 08:27 | Orthopedic Consult Note ---
HPI Data of Consult Primary Care Provider: PCP No Consult Narrative Patient Information: Note initiated : 10/22/20 at 8:24 am Service Date, if different from initiated Date: [] Patient: Wilfrido Damon 55 y/o M admitted on 10/16/20 for foot injury. Chief Complaint: [right foot infection] Recurring infection and ulcerations to right right foot. The fourth and fifth toes are previously amputated. There is focal osteomyelitis of the fifth metatarsal on CT Scan. He does not have much feeling to his foot. cc:: CC: Jayesh Hager PFSH PFSH All Active Problems Uncontrolled diabetes mellitus (Acute) Methamphetamine abuse (Acute) Cigarette smoker (Acute) Osteomyelitis of ankle and foot (Acute) Cellulitis (Acute) Uncontrolled diabetes mellitus (Acute) Hyperglycemia (Acute) Homeless (Acute) Infestation, maggots (Acute) Leg ulcer, left (Acute) Diabetic ulcer of left foot (Acute) Abrasion of anterior right lower leg (Acute) Medical History Closed right arm fracture (Inactive) Surgical History History of amputation of lesser toe of right foot (Resolved) History of amputation of right great toe (Resolved) Status post amputation of right foot (Inactive) Partial Social History smoking status: Current every day smoker alcohol intake frequency: holiday/special occasion only substance use type: marijuana and amphetamines additional history: Family history: Mother father both had diabetes Social history: Patient smokes 1 pack of cigarettes per day Drinks alcohol occasionally Uses IV meth several times a week and marijuana Lives on the street MEDS/ALLERGIES Home Medications and Allergies Home Medications Medication Instructions Recorded Confirmed Type amoxicillin-pot clavulanate 875 mg PO BIDCC #14 tab 08/06/20 10/17/20 Rx hydrocodone-acetaminophen 1 tab PO Q4HP PRN #14 tab 08/06/20 10/17/20 Rx insulin glargine [Lantus U-100 10 unit SQ DAILY #30 ml 08/06/20 10/17/20 Rx Insulin] sulfamethoxazole-trimethoprim 1 tab PO BID #14 tab 08/06/20 10/17/20 Rx Allergies Allergy/AdvReac Type Severity Reaction Status Date / Time No Known Drug Allergies Allergy Verified 07/30/20 00:55 Physical Examination Ankle & Foot left: Ankle appearance: swelling, erythema and effusion Foot appearance: swelling, erythema and effusion Foot swelling: medial and toes Tenderness with palpation: none and other (HEART: S1,S2 LUNGS: MILD CRACKLES NOTED TO LOWER LOBES) A/P Time Spent With Patient Time: Total time spent is greater than 50% in coordination of care (as documented) at patient's floor/unit and/or counseling patient: Right foot osteomyelitis with cellulitis Incision and drainage with partial amputation of left fifth metatarsal Continue medical management Continue IV Antibiotics through recovery
[2020-10-22] MEDS: INSULIN GLARGINE, HUMAN 1 UNIT/0.01 ML SQ SCH ×2 (09:20→19:52)
[2020-10-22] MEDS: cefTRIAXone 1 GM VIAL IV SCH (09:20)
[2020-10-22] MEDS: ENOXAPARIN 40 MG/0.4 ML SYRINGE SQ SCH (09:20)
[2020-10-22] MEDS: DOCUSATE SODIUM 100 MG CAPSULE PO SCH ×2 (09:21→19:52)
[2020-10-22 09:46] LABS: Basophils # (Auto) 0.07 K/mcL (0.00-0.20); Eosinophils # (Auto) 0.16 K/mcL (0.00-0.70); Eosinophils % (Auto) 2.3 % (0.0-7.0); Hematocrit 32.9 % (41.0-55.0); Hemoglobin 10.4 g/dL (13.5-16.5); Lymphocytes # (Auto) 2.16 K/mcL (1.50-4.80); Lymphocytes % (Auto) 31.5 % (15.0-49.0); Mean Cell Volume 93.7 fL (80.0-100.0); Mean Corpuscular HGB Conc 31.6 g/dL (31.0-36.0); Mean Platelet Volume 9.9 fL (7.4-10.4); Monocytes # (Auto) 0.58 K/mcL (0.10-0.90); Monocytes % (Auto) 8.5 % (1.0-12.0); Neutrophils % (Auto) 56.7 % (38.0-78.0); Platelet Count 430 K/mcL (140-440); RBC 3.51 M/mcL (4.50-5.90); Red Cell Distribution Width 12.6 % (11.5-14.5); WBC 6.9 K/mcL (4.5-11.0)
[2020-10-22] MEDS: VANCOMYCIN 1,000 MG in 0.9 % SODIUM CHLORIDE 250 ML IV SCH ×2 (10:44→19:52)
[2020-10-22] MEDS ORDERED: VANCOMYCIN PER PHARMACY IV SCH (10:45)
[2020-10-22] MEDS ORDERED: cefTRIAXone 1 GM VIAL IV ONE (11:00)
--- NOTE | 2020-10-22 14:51 | Internal Med Progress Note ---
SUBJECTIVE Subjective Patient information: Note initiated : 10/22/20 at 2:43 pm Service Date, if different from initiated Date: [] Patient: Wilfrido Damon 55 y/o M admitted on 10/16/20 for foot injury. Chief Complaint: [] Interval history: Mr. Damon is a 55 year old homeless male with a history of type 2 diabetes, high blood pressure, tobacco dependence and history of meth abuse who presented to the ER due to left leg redness and swelling for about 2 to 3 weeks. Patient states that his both legs decreased sensation. He noticed the redness of left leg about 2 to 3 weeks ago. he has mild pain from of the leg. In the ER, his blood sugar was greater than 600. X-ray showed left fifth metatarsal osteomyelitis. When I saw this patient in the ER, he denied headache, dizziness, fever, chills, abdominal pain, chest pain, shortness of breath, nausea, vomiting, or diarrhea. 10/17 Patient does not have any new complaints. Pain is controlled T 100.4, blood glucose 244 (688 in the ER). Increased Lantus to 30 units daily. Na [address] Grimaldo who is not available until Wednesday Could not reach podiatry Dr. Medeiros 10/18 No complaints. Denies fever, chills, or nausea vomiting. Vital signs are stable and acceptable AST and ALT increased to 94 and a 64. Alkaline phosphatase 353. Repeat the liver function morning 10/19 Pt does not have new complaints. I was told that he would leave and kill himself if nurse staff do not give him pain meds and do not change his diabetic diet to regular diet. I discussed with the patient the importance of medical compliance and diabetic diet. He told me that he does not have suicidal ideation and does not want to kill himself. He only wants to have more pain medication and regular diet. he does not like diabetic diet. He fully understood the importance of medical compliance and the diabetic diet. His diet has been changed to regular. Hemoglobin 9.7 AST 36, ALT 42, alkaline phos 293 Wound culture showed gram positive cocci in chains. Discontinued vancomycin and continued Rocephin. 10/20 Patient does not have any new complaints. He sleeps a lot. Patient firmly denied any suicidal ideation. He does not want to kill himself or others. He is on regular diet. Increase the Lantus to 15 units from 13 units. Wound culture showed gram-positive cocci in chains - Strep agalactiae 10/21 When I saw him this morning, he was sleeping. No new complaints. Spoke to podiatry Dr. Grimaldo who will see him. Dr. Grimaldo will probably give him a procedure today or tomorrow. Na 131 10/22-patient doing well. No overnight events. Podiatry reviewed patient and recommends continuation of IV antibiotics while patient will undergo surgery later today or early tomorrow. Cultures negative so far. Improved blood sugar control. Patient requesting counselor service for outpatient resources for shelters/homeless situation. Also setting up primary care physician in outpatient resources for continued care following hospitalization. No overnight fever chills Constitutional Vitals: Vital Signs Temp Pulse Resp BP Pulse Ox 98.3 F 80 18 130/84 98 10/22/20 12:00 10/22/20 12:00 10/22/20 12:00 10/22/20 12:00 10/22/20 12:00 Period Temp Pulse Resp BP Sys/Orosco Pulse Ox Last 24 Hr 97.4 F-98.3 F 79-99 - 104-143/68-90 97-99 Intake and Output 10/22/20 10/22/20 10/22/20 05:59 13:59 21:59 Intake Total 450 Output Total 1000 Balance 450 -1000 Left foot ulcer Left leg redness improved No anxiety Nonlabored breathing Intake & Output: Intake & Output 10/22/20 10/22/20 10/22/20 05:59 13:59 21:59 Intake Total 450 Output Total 1000 Balance 450 -1000 Intake: Oral 450 Output: Void Amount 1000 Other: Meal Nourishment/Supplement Lunch Percent of Meal Consumed 100% 100% Feeding Ability Independent Independent Nourishment/Supplement name ice cream Urine Appearance Clear Urine Color Bright Yellow Urine Odor Normal # Voids 1 OBJ DATA Labs CBC & Chem 7: 10/22/20 06:14 10/22/20 06:14 Labs: Abnormal Lab Results 10/22/20 10/21/20 10/21/20 06:14 05:20 05:20 RBC 3.51 L 3.64 L Hgb 10.4 L 10.6 L Hct 32.9 L 34.0 L MPV 10.7 H Sodium 131 L Carbon Dioxide 20 L Glucose 259 H ALT Alkaline Phosphatase 264 H Albumin 2.6 L Globulin 4.2 H Albumin/Globulin Ratio 0.6 L 10/20/20 10/20/20 06:20 06:20 RBC 3.83 L Hgb 11.3 L Hct 34.6 L MPV 10.5 H Sodium Carbon Dioxide Glucose 251 H ALT 42 H Alkaline Phosphatase 321 H Albumin 2.7 L Globulin 4.3 H Albumin/Globulin Ratio 0.6 L Meds: Medications Acetaminophen (Tylenol) 650 mg PO Q6HP PRN; Protocol PRN Reason: Per Pain Protocol/Fever > 101 Last Admin: 10/19/20 20:46 Dose: 650 mg Documented by: Dextrose (Dextrose 50%) 0 ml IV UD PRN PRN Reason: Hypoglycemia Diagnostic Test (Pha) (Accu-Chek) 1 each FS [facility] Last Admin: 10/22/20 12:18 Dose: 1 each Documented by: Docusate Sodium (Colace) 100 mg PO BID [facility] Last Admin: 10/22/20 09:21 Dose: Not Given Documented by: Enoxaparin Sodium (Lovenox) 40 mg SQ DAILY [facility] Last Admin: 10/22/20 09:20 Dose: 40 mg Documented by: Glucose (Insta-Glucose) 15 gm PO PRN PRN PRN Reason: Hypoglycemia Hydralazine HCl (Apresoline) 10 mg IV Q4-6HP PRN PRN Reason: Hypertension Ceftriaxone Sodium 2 gm/ (Dextrose) 50 mls @ 100 mls/hr IV Q24H [facility] Vancomycin HCl 1,000 mg/ (Sodium Chloride) 250 mls @ 250 mls/hr IV Q12H [facility] Last Admin: 10/22/20 10:44 Dose: 250 mls/hr Documented by: Insulin Glargine (Lantus) 15 unit SQ DAILY [facility] Last Admin: 10/22/20 09:20 Dose: 15 units Documented by: Insulin Human Lispro (Humalog) 0 unit SQ [facility]; Protocol Last Admin: 10/22/20 12:18 Dose: 12 units Documented by: Lorazepam (Ativan) 0.5 mg IV Q6HP PRN PRN Reason: Anxiety/agitation.Hxofmeth use Morphine Sulfate (Morphine) 2 mg IV Q4HP PRN; Protocol PRN Reason: Per Pain Protocol Last Admin: 10/18/20 21:42 Dose: 2 mg Documented by: Oxycodone/Acetaminophen (Percocet 5-325 Mg) 1 tab PO Q6HP PRN; Protocol PRN Reason: Per Pain Protocol Last Admin: 10/22/20 09:21 Dose: 1 tab Documented by: Prochlorperazine (Compazine) 5 mg IV Q6HP PRN PRN Reason: Nausea And Vomiting Sodium Chloride (Saline Flush) 10 ml IV Q8 [facility] Last Admin: 10/22/20 04:33 Dose: Not Given Documented by: Vancomycin HCl (Vancomycin Per Pharmacy) 1 order IV UD [facility] A/P Narrative A/P Narrative: 1. Acute cellulitis, left leg continuing antibiotic coverage. Clinically improving. 2. Osteomyelitis, fifth metatarsal head. On antibiotic coverage. Podiatry following. Await surgery. Strep agalactiae on cultures 3. Hypertension 4. Hx of smoking/meth abuse counseled for cessation 5. Poorly controlled DM type 2 with hyperglycemia and neuropathy, Hba1c 14.9 on 08/02/2020. Basal prandial insulin/patient however refusing CC diet and currently on regular diet 6. Hyponatremia, 122 Plan: * Await operative intervention by podiatry * Continue antibiotic coverage * Prophylaxis Lovenox * Increase basal insulin Time Spent With Patient Time: Total time spent is greater than 50% in coordination of care (as documented) at patient's floor/unit and/or counseling patient: QUALITY Stroke Symptom Onset Unknown: No VTE Deep Vein Thrombosis/Pulmonary Embolism Present on Admission: No
[2020-10-22 16:21] LABS: ALT/SGPT 46 U/L (<40); AST/SGOT 50 U/L (<40); Albumin 2.7 gm/dL (3.2-5.2); Albumin/Globulin Ratio 0.7 (1.0-2.3); Alkaline Phosphatase 307 U/L (39-117); Bilirubin,Direct < 0.2 mg/dL (<0.3); Bilirubin,Total < 0.2 mg/dL (0.1-1.0); Blood Urea Nitrogen 29 mg/dL (6-20); Calcium 9.1 mg/dL (8.6-10.4); Carbon Dioxide 19 mmol/L (22-30); Chloride 101 mmol/L (96-108); Glomerular Filtration Rate 107; Glucose 343 mg/dL (70-105); Lactate Dehydrogenase 170 U/L (135-225); Phosphorous 3.7 mg/dL (2.5-4.5); Triglycerides 121 mg/dL (<150); Uric Acid 3.3 mg/dL (2.5-8.0)
[2020-10-23] MEDS: 0.9 % SODIUM CHLORIDE 10 ML SYRINGE IV SCH ×3 (06:08→21:00)
[2020-10-23 06:42] LABS: Basophils # (Auto) 0.08 K/mcL (0.00-0.20); Basophils % (Auto) 1.3 % (0.0-2.0); Eosinophils # (Auto) 0.13 K/mcL (0.00-0.70); Eosinophils % (Auto) 2.1 % (0.0-7.0); Hematocrit 32.1 % (41.0-55.0); Hemoglobin 10.2 g/dL (13.5-16.5); Lymphocytes % (Auto) 32.1 % (15.0-49.0); Mean Cell Volume 92.5 fL (80.0-100.0); Mean Corpuscular HGB Conc 31.8 g/dL (31.0-36.0); Mean Platelet Volume 9.9 fL (7.4-10.4); Monocytes # (Auto) 0.57 K/mcL (0.10-0.90); Monocytes % (Auto) 9.1 % (1.0-12.0); Neutrophils % (Auto) 55.4 % (38.0-78.0); Platelet Count 409 K/mcL (140-440); RBC 3.47 M/mcL (4.50-5.90); Red Cell Distribution Width 12.8 % (11.5-14.5); WBC 6.2 K/mcL (4.5-11.0)
[2020-10-23] MEDS ORDERED: SCOPOLAMINE 1 PATCH PATCH TOPICAL PRN (07:00)
[2020-10-23] MEDS ORDERED: IPRATROPIUM/ALBUTEROL 3 ML AMPUL.NEB NEB PRN ×2 (07:00→07:55)
[2020-10-23 07:06] LABS: ALT/SGPT 72 U/L (<40); AST/SGOT 89 U/L (<40); Albumin 2.8 gm/dL (3.2-5.2); Albumin/Globulin Ratio 0.7 (1.0-2.3); Alkaline Phosphatase 348 U/L (39-117); Bilirubin,Direct < 0.2 mg/dL (<0.3); Bilirubin,Total < 0.2 mg/dL (0.1-1.0); Blood Urea Nitrogen 22 mg/dL (6-20); Calcium 8.9 mg/dL (8.6-10.4); Carbon Dioxide 27 mmol/L (22-30); Chloride 101 mmol/L (96-108); Globulin 4.1 gm/dL (2.2-3.7); Glomerular Filtration Rate 101; Glucose 316 mg/dL (70-105); Lactate Dehydrogenase 168 U/L (135-225); Phosphorous 3.2 mg/dL (2.5-4.5); Triglycerides 155 mg/dL (<150); Uric Acid 3.1 mg/dL (2.5-8.0)
[2020-10-23] MEDS: INSULIN LISPRO 1 UNIT/0.01 ML UNIT SQ SCH ×5 (07:28→21:46)
[2020-10-23] MEDS ORDERED: DEXAMETHASONE 10 MG/ML VIAL ONE (07:32)
[2020-10-23] MEDS ORDERED: ONDANSETRON 4 MG/2 ML VIAL ONE (07:32)
[2020-10-23] MEDS ORDERED: KETAMINE 100 MG/ML ML ONE (07:32)
[2020-10-23] MEDS ORDERED: PROPOFOL 200 MG/20 ML VIAL IV ONE (07:32)
[2020-10-23] MEDS ORDERED: PHENYLEPHRINE 10 MG/ML VIAL ONE (07:32)
[2020-10-23] MEDS ORDERED: LIDOCAINE HCL/PF 100 MG/5 ML SYRINGE IV ONE (07:32)
[2020-10-23] MEDS: cefTRIAXone 2 GM in DEXTROSE 5% IN WATER 50 ML IV SCH (07:40)
[2020-10-23] MEDS ORDERED: PROMETHAZINE 25 MG/ML VIAL IV PRN (07:55)
[2020-10-23] MEDS ORDERED: MEPERIDINE 25 MG/ML SYRINGE IV PRN (07:55)
[2020-10-23] MEDS ORDERED: fentaNYL 100 MCG/2 ML VIAL IV PRN (07:55)
[2020-10-23] MEDS ORDERED: NALOXONE HCL 0.4 MG/ML VIAL IV PRN (07:55)
[2020-10-23] MEDS ORDERED: LACTATED RINGERS 250 ML IV PRN (07:55)
[2020-10-23] MEDS ORDERED: ONDANSETRON 4 MG/2 ML VIAL IV PRN (07:55)
[2020-10-23] MEDS ORDERED: diphenhydrAMINE 50 MG/ML VIAL IV PRN (07:55)
[2020-10-23] MEDS ORDERED: LACTATED RINGERS 1,000 ML IV SCH (08:00)
--- NOTE | 2020-10-23 08:19 | Brief Operative Note ---
Brief Operative Note Date of procedure: 10/23/20 Pre-op diagnosis: osteomyelitis left fifth metatarsal, cellulitis left foot Post-op diagnosis: same Procedure: Partial amputation left fifth metatarsal, Incision and drainage left foot Grafts/Implants: No Anesthesia: GETA Complications: none Surgeon: Neno Grimaldo Estimated blood loss (cc): 20 Specimens Removed/Pathology: other (bone left fifth metatarsal, culture swab left fifth wound) Condition: stable Disposition: floor
[2020-10-23] MEDS ORDERED: GENTAMICIN SULFATE 800 MG/20 ML VIAL IR ONE (08:25)
[2020-10-23] MEDS ORDERED: VANCOMYCIN 1 GM VIAL TOPICAL ONE (08:30)
[2020-10-23] MEDS ORDERED: VANCOMYCIN 1 GM VIAL TOPICAL SCH (08:30)
--- NOTE | 2020-10-23 08:35 | Operative Note ---
DATE OF OPERATION: 10/23/2020 PREOPERATIVE DIAGNOSES: 1. Osteomyelitis, left fifth metatarsal. 2. Cellulitis, left foot. POSTOPERATIVE DIAGNOSES: 1. Osteomyelitis, left fifth metatarsal. 2. Cellulitis, left foot. PROCEDURE: 1. Partial amputation, left fifth metatarsal. 2. Incision and drainage, left foot. SURGEON: Neno Grimaldo DPM ANESTHESIA: GETA. SPECIMENS: None. BLOOD LOSS: 20 mL. SPECIMEN: Bone, left fifth metatarsal and culture swab left foot wound. CONDITION: Stable. DISPOSITION: Floor. DESCRIPTION OF PROCEDURE: The patient was brought to the operating room and placed on the operating table in supine position. Left lower extremity was scrubbed, prepped and draped in the usual aseptic fashion. General anesthesia was initiated. The wound was identified with partial 5th metatarsal head exposure on the left foot. A 3 cm incision was created to the mid central portion of the shaft, full thickness. Minimal bleeding was noted throughout the procedure despite lack of Esmarch or tourniquet usage. The mid shaft to the head of the fifth metatarsal was removed from the remaining foot. This area was then irrigated with a 3 liter bag of gentamicin infused saline under pulse lavage and was packed with 2 grams of vancomycin powder and gauze. Procedure #2: Incision and drainage. There was noted to be an abscess on the plantar aspect of the foot. This was opened and debrided and any necrotic tissue was removed. It was found to be communicating with a deep sinus tract in the foot. This area was also packed as well. Dressings were then applied consisting of 4 x 4 gauze, Kerlix, and Darryl wrap. The patient has instruction to be nonweightbearing. He will continue to receive care in an inpatient setting. KDJens:chivo Job ID: [id number] Doc ID: [id number] Neno Grimaldo DPM
--- NOTE | 2020-10-23 09:18 | XRay Report ---
HISTORY: Postop partial amputation left fifth metatarsal FINDINGS: The distal two thirds of the fifth metatarsal have been resected. There is a small bone chip adjacent to the remaining shaft of the fifth metatarsal. The fifth metatarsal remains normally aligned with the cuboid. There is an old amputation of the distal end of the fourth metatarsal. There is arthritis with spur formation at the base of the first metatarsal. First through third phalanges and metatarsal phalangeal joint spaces are normal. IMPRESSION: normal postoperative changes following partial resection of the fifth metatarsal Interpreted and Authenticated by: Garo Vieira 10/23/20
[2020-10-23] MEDS: ENOXAPARIN 40 MG/0.4 ML SYRINGE SQ SCH (10:08)
[2020-10-23] MEDS: VANCOMYCIN 1,000 MG in 0.9 % SODIUM CHLORIDE 250 ML IV SCH ×2 (10:15→21:00)
[2020-10-23] MEDS: DOCUSATE SODIUM 100 MG CAPSULE PO SCH ×2 (10:41→19:23)
[2020-10-23] MEDS: oxyCODONE/APAP 5/325MG TABLET PO PRN ×2 (10:41→19:22)
[2020-10-23] MEDS ORDERED: INSULIN GLARGINE, HUMAN 1 UNIT/0.01 ML SQ ONE ×2 (11:05→21:37)
--- NOTE | 2020-10-23 11:05 | Internal Med Progress Note ---
SUBJECTIVE Subjective Patient information: Note initiated : 10/23/20 at 11:02 am Service Date, if different from initiated Date: [] Patient: Wilfrido Damon 55 y/o M admitted on 10/16/20 for foot injury. Chief Complaint: [] Interval history: Mr. Damon is a 55 year old homeless male with a history of type 2 diabetes, high blood pressure, tobacco dependence and history of meth abuse who presented to the ER due to left leg redness and swelling for about 2 to 3 weeks. Patient states that his both legs decreased sensation. He noticed the redness of left leg about 2 to 3 weeks ago. he has mild pain from of the leg. In the ER, his blood sugar was greater than 600. X-ray showed left fifth metatarsal osteomyelitis. When I saw this patient in the ER, he denied headache, dizziness, fever, chills, abdominal pain, chest pain, shortness of breath, nausea, vomiting, or diarrhea. 10/17 Patient does not have any new complaints. Pain is controlled T 100.4, blood glucose 244 (688 in the ER). Increased Lantus to 30 units daily. Na [address] Grimaldo who is not available until Wednesday Could not reach podiatry Dr. Medeiros 10/18 No complaints. Denies fever, chills, or nausea vomiting. Vital signs are stable and acceptable AST and ALT increased to 94 and a 64. Alkaline phosphatase 353. Repeat the liver function morning 10/19 Pt does not have new complaints. I was told that he would leave and kill himself if nurse staff do not give him pain meds and do not change his diabetic diet to regular diet. I discussed with the patient the importance of medical compliance and diabetic diet. He told me that he does not have suicidal ideation and does not want to kill himself. He only wants to have more pain medication and regular diet. he does not like diabetic diet. He fully understood the importance of medical compliance and the diabetic diet. His diet has been changed to regular. Hemoglobin 9.7 AST 36, ALT 42, alkaline phos 293 Wound culture showed gram positive cocci in chains. Discontinued vancomycin and continued Rocephin. 10/20 Patient does not have any new complaints. He sleeps a lot. Patient firmly denied any suicidal ideation. He does not want to kill himself or others. He is on regular diet. Increase the Lantus to 15 units from 13 units. Wound culture showed gram-positive cocci in chains - Strep agalactiae 10/21 When I saw him this morning, he was sleeping. No new complaints. Spoke to podiatry Dr. Grimaldo who will see him. Dr. Grimaldo will probably give him a procedure today or tomorrow. Na 131 10/22-patient doing well. No overnight events. Podiatry reviewed patient and recommends continuation of IV antibiotics while patient will undergo surgery later today or early tomorrow. Cultures negative so far. Improved blood sugar control. Patient requesting counselor service for outpatient resources for shelters/homeless situation. Also setting up primary care physician in outpatient resources for continued care following hospitalization. No overnight fever chills 10/23. Patient doing well. Postop day 1. Underwent Partial amputation left fifth metatarsal along with incision drainage left foot. Continuing antibiotic coverage. Await intraoperative cultures. Started on diet. Continue wound care. White count 6.2, hemoglobin 10.2, sodium 135, blood glucose 316. Increase Lantus to 18 units twice daily Constitutional Vitals: Vital Signs Temp Pulse Resp BP Pulse Ox 97.3 F 81 20 136/84 98 10/23/20 09:00 10/23/20 09:00 10/23/20 09:00 10/23/20 09:00 10/23/20 09:00 Period Temp Pulse Resp BP Sys/Orosco Pulse Ox Last 24 Hr 97.3 F-99.3 F 76-101 - 103-153/59-96 98-100 Intake and Output 10/22/20 10/23/20 10/23/20 21:59 05:59 13:59 Intake Total 089 425 2964 Output Total 750 240 Balance 134 390 0789 Weight 57.652 kg Intake & Output: Intake & Output 10/22/20 10/23/20 10/23/20 21:59 05:59 13:59 Intake Total 934 431 0609 Output Total 750 240 Balance 557 136 1970 Weight 57.652 kg Intake: IV 500 50 Vancomycin 1,000 mg In Sodium 500 Chloride 0.9% 250 ml @ 250 mls/ hr IV Q12H [facility] Rx#:[id number] Rocephin 2 gm In Dextrose 5% in 50 Water 50 ml @ 100 mls/hr IV Q24H [facility] Rx#:[id number] Oral 440 780 IV - Manual Only 1500 Output: Void Amount 750 200 Estimated Blood Loss 40 Other: Meal Lunch Percent of Meal Consumed 100% Feeding Ability Independent Urine Appearance Clear Urine Color Bright Yellow Straw Urine Odor Strong Normal OBJ DATA Labs CBC & Chem 7: 10/23/20 05:19 10/23/20 05:19 Labs: Abnormal Lab Results 10/23/20 10/23/20 10/22/20 05:19 05:19 06:14 RBC 3.47 L Hgb 10.2 L Hct 32.1 L MPV Sodium Carbon Dioxide 19 L Anion Gap 7.0 L 17.0 H BUN 22 H 29 H Glucose 316 H 343 H GGT 184 H 131 H AST 89 H 50 H ALT 72 H 46 H Alkaline Phosphatase 348 H 307 H Albumin 2.8 L 2.7 L Globulin 4.1 H 4.0 H Albumin/Globulin Ratio 0.7 L 0.7 L Triglycerides 155 H 10/22/20 10/21/20 10/21/20 06:14 05:20 05:20 RBC 3.51 L 3.64 L Hgb 10.4 L 10.6 L Hct 32.9 L 34.0 L MPV 10.7 H Sodium 131 L Carbon Dioxide 20 L Anion Gap BUN Glucose 259 H GGT AST ALT Alkaline Phosphatase 264 H Albumin 2.6 L Globulin 4.2 H Albumin/Globulin Ratio 0.6 L Triglycerides Meds: Medications Acetaminophen (Tylenol) 650 mg PO Q6HP PRN; Protocol PRN Reason: Per Pain Protocol/Fever > 101 Last Admin: 10/19/20 20:46 Dose: 650 mg Documented by: Dextrose (Dextrose 50%) 0 ml IV UD PRN PRN Reason: Hypoglycemia Diagnostic Test (Pha) (Accu-Chek) 1 each FS [facility] Last Admin: 10/23/20 07:19 Dose: 1 each Documented by: Docusate Sodium (Colace) 100 mg PO BID [facility] Last Admin: 10/23/20 10:41 Dose: Not Given Documented by: Enoxaparin Sodium (Lovenox) 40 mg SQ DAILY [facility] Last Admin: 10/22/20 09:20 Dose: 40 mg Documented by: Glucose (Insta-Glucose) 15 gm PO PRN PRN PRN Reason: Hypoglycemia Hydralazine HCl (Apresoline) 10 mg IV Q4-6HP PRN PRN Reason: Hypertension Ceftriaxone Sodium 2 gm/ (Dextrose) 50 mls @ 100 mls/hr IV Q24H [facility] Last Infusion: 10/23/20 08:10 Dose: Infused Documented by: Vancomycin HCl 1,000 mg/ (Sodium Chloride) 250 mls @ 250 mls/hr IV Q12H [facility] Last Admin: 10/23/20 10:15 Dose: 250 mls/hr Documented by: Insulin Glargine (Lantus) 12 unit SQ BID [facility] Last Admin: 10/22/20 19:52 Dose: 12 unit Documented by: Insulin Human Lispro (Humalog) 0 unit SQ [facility]; Protocol Last Admin: 10/23/20 07:28 Dose: Not Given Documented by: Lorazepam (Ativan) 0.5 mg IV Q6HP PRN PRN Reason: Anxiety/agitation.Hxofmeth use Morphine Sulfate (Morphine) 2 mg IV Q4HP PRN; Protocol PRN Reason: Per Pain Protocol Last Admin: 10/18/20 21:42 Dose: 2 mg Documented by: Oxycodone/Acetaminophen (Percocet 5-325 Mg) 1 tab PO Q6HP PRN; Protocol PRN Reason: Per Pain Protocol Last Admin: 10/23/20 10:41 Dose: 1 tab Documented by: Prochlorperazine (Compazine) 5 mg IV Q6HP PRN PRN Reason: Nausea And Vomiting Sodium Chloride (Saline Flush) 10 ml IV Q8 [facility] Vancomycin HCl (Vancomycin Per Pharmacy) 1 order IV UD [facility] A/P Narrative A/P Narrative: 1. Acute cellulitis, left leg clinically improving status post I&D/antibiotic coverage. 2. Osteomyelitis, fifth metatarsal head. Status post partial amputation left fifth metatarsal/I&D. On antibiotic coverage. Postop day 1. Strep agalactiae on cultures. 3. Hypertension-stable 4. Hx of smoking/meth abuse counseled for cessation 5. Poorly controlled DM type 2 with hyperglycemia and neuropathy, Hba1c 14.9 on 08/02/2020. Uptitrate basal insulin, SSI prandial insulin/patient however refusing CC diet and currently on regular diet 6. Hyponatremia, improved to 135 Plan: * De-escalate antibiotics based on intraoperative cultures * Uptitrate basal insulin * Prophylaxis Lovenox * Wound care/therapies Time Spent With Patient Time: Total time spent is greater than 50% in coordination of care (as docu mented) at patient's floor/unit and/or counseling patient: QUALITY Stroke Symptom Onset Unknown: No VTE Deep Vein Thrombosis/Pulmonary Embolism Present on Admission: No
[2020-10-23] MEDS: INSULIN GLARGINE, HUMAN 1 UNIT/0.01 ML SQ SCH ×2 (11:57→21:47)
[2020-10-23] MEDS: ACETAMINOPHEN 325 MG TABLET PO PRN (14:33)
[2020-10-24] MEDS: oxyCODONE/APAP 5/325MG TABLET PO PRN ×3 (02:02→19:19)
[2020-10-24] MEDS: 0.9 % SODIUM CHLORIDE 10 ML SYRINGE IV SCH ×3 (05:02→20:19)
[2020-10-24 06:58] LABS: Basophils # (Auto) 0.04 K/mcL (0.00-0.20); Basophils % (Auto) 0.3 % (0.0-2.0); Eosinophils # (Auto) 0.05 K/mcL (0.00-0.70); Eosinophils % (Auto) 0.4 % (0.0-7.0); Hematocrit 30.5 % (41.0-55.0); Hemoglobin 9.6 g/dL (13.5-16.5); Lymphocytes # (Auto) 2.77 K/mcL (1.50-4.80); Lymphocytes % (Auto) 23.1 % (15.0-49.0); Mean Cell Volume 92.4 fL (80.0-100.0); Mean Corpuscular HGB Conc 31.5 g/dL (31.0-36.0); Mean Platelet Volume 10.1 fL (7.4-10.4); Monocytes # (Auto) 0.79 K/mcL (0.10-0.90); Monocytes % (Auto) 6.6 % (1.0-12.0); Neutrophils % (Auto) 69.6 % (38.0-78.0); Platelet Count 412 K/mcL (140-440); Red Cell Distribution Width 13.2 % (11.5-14.5)
[2020-10-24 07:49] LABS: ALT/SGPT 65 U/L (<40); AST/SGOT 49 U/L (<40); Albumin 3.3 gm/dL (3.2-5.2); Albumin/Globulin Ratio 0.8 (1.0-2.3); Alkaline Phosphatase 311 U/L (39-117); Bilirubin,Direct < 0.2 mg/dL (<0.3); Bilirubin,Total < 0.2 mg/dL (0.1-1.0); Blood Urea Nitrogen 38 mg/dL (6-20); Calcium 9.4 mg/dL (8.6-10.4); Carbon Dioxide 26 mmol/L (22-30); Chloride 92 mmol/L (96-108); Globulin 4.1 gm/dL (2.2-3.7); Glomerular Filtration Rate 96; Glucose 428 mg/dL (70-105); Lactate Dehydrogenase 212 U/L (135-225); Phosphorous 4.4 mg/dL (2.5-4.5); Triglycerides 111 mg/dL (<150); Uric Acid 3.4 mg/dL (2.5-8.0)
[2020-10-24] MEDS: INSULIN LISPRO 1 UNIT/0.01 ML UNIT SQ SCH ×4 (08:06→20:18)
[2020-10-24] MEDS: cefTRIAXone 2 GM in DEXTROSE 5% IN WATER 50 ML IV SCH (08:07)
[2020-10-24] MEDS: DOCUSATE SODIUM 100 MG CAPSULE PO SCH ×2 (08:07→20:18)
[2020-10-24] MEDS: INSULIN GLARGINE, HUMAN 1 UNIT/0.01 ML SQ SCH ×2 (08:08→20:18)
[2020-10-24] MEDS: ENOXAPARIN 40 MG/0.4 ML SYRINGE SQ SCH (08:09)
[2020-10-24] MEDS: VANCOMYCIN 1,000 MG in 0.9 % SODIUM CHLORIDE 250 ML IV SCH ×2 (08:10→20:19)
[2020-10-24] MEDS ORDERED: INSULIN GLARGINE, HUMAN 1 UNIT/0.01 ML SQ SCH (09:00)
--- NOTE | 2020-10-24 11:40 | Internal Med Progress Note ---
SUBJECTIVE Subjective Patient information: Note initiated : 10/24/20 at 11:36 am Service Date, if different from initiated Date: [] Patient: Wilfrido Damon 55 y/o M admitted on 10/16/20 for foot injury. Chief Complaint: [] Interval history: Mr. Damon is a 55 year old homeless male with a history of type 2 diabetes, high blood pressure, tobacco dependence and history of meth abuse who presented to the ER due to left leg redness and swelling for about 2 to 3 weeks. Patient states that his both legs decreased sensation. He noticed the redness of left leg about 2 to 3 weeks ago. he has mild pain from of the leg. In the ER, his blood sugar was greater than 600. X-ray showed left fifth metatarsal osteomyelitis. When I saw this patient in the ER, he denied headache, dizziness, fever, chills, abdominal pain, chest pain, shortness of breath, nausea, vomiting, or diarrhea. 10/17 Patient does not have any new complaints. Pain is controlled T 100.4, blood glucose 244 (688 in the ER). Increased Lantus to 30 units daily. Na [address] Grimaldo who is not available until Wednesday Could not reach podiatry Dr. Medeiros 10/18 No complaints. Denies fever, chills, or nausea vomiting. Vital signs are stable and acceptable AST and ALT increased to 94 and a 64. Alkaline phosphatase 353. Repeat the liver function morning 10/19 Pt does not have new complaints. I was told that he would leave and kill himself if nurse staff do not give him pain meds and do not change his diabetic diet to regular diet. I discussed with the patient the importance of medical compliance and diabetic diet. He told me that he does not have suicidal ideation and does not want to kill himself. He only wants to have more pain medication and regular diet. he does not like diabetic diet. He fully understood the importance of medical compliance and the diabetic diet. His diet has been changed to regular. Hemoglobin 9.7 AST 36, ALT 42, alkaline phos 293 Wound culture showed gram positive cocci in chains. Discontinued vancomycin and continued Rocephin. 10/20 Patient does not have any new complaints. He sleeps a lot. Patient firmly denied any suicidal ideation. He does not want to kill himself or others. He is on regular diet. Increase the Lantus to 15 units from 13 units. Wound culture showed gram-positive cocci in chains - Strep agalactiae 10/21 When I saw him this morning, he was sleeping. No new complaints. Spoke to podiatry Dr. Grimaldo who will see him. Dr. Grimaldo will probably give him a procedure today or tomorrow. Na 131 10/22-patient doing well. No overnight events. Podiatry reviewed patient and recommends continuation of IV antibiotics while patient will undergo surgery later today or early tomorrow. Cultures negative so far. Improved blood sugar control. Patient requesting counselor service for outpatient resources for shelters/homeless situation. Also setting up primary care physician in outpatient resources for continued care following hospitalization. No overnight fever chills 10/23. Patient doing well. Postop day 1. Underwent Partial amputation left fifth metatarsal along with incision drainage left foot. Continuing antibiotic coverage. Await intraoperative cultures. Started on diet. Continue wound care. White count 6.2, hemoglobin 10.2, sodium 135, blood glucose 316. Increase Lantus to 18 units twice daily 10/24-postop day 1. No overnight events. No concerns per staff. White count of 12,000 however likely postoperative stress response. Afebrile. Doing well. Sodium 130. Denies significant pain. Blood sugars elevated at 428. Started on sitagliptin/Metformin increased Lantus to 25 twice daily. Patient refused consistent carbohydrate diet. Strep agalactiae on wound culture. Intra-Op cultures pending. Constitutional Vitals: Vital Signs Temp Pulse Resp BP Pulse Ox 97.8 F 91 H 14 138/55 99 10/24/20 08:00 10/24/20 08:00 10/24/20 08:00 10/24/20 08:00 10/24/20 08:00 Period Temp Pulse Resp BP Sys/Orosco Pulse Ox Last 24 Hr 97.6 F-98.3 F 90-100 12-18 133-156/55-96 98-99 Intake and Output 10/23/20 10/24/20 10/24/20 21:59 05:59 13:59 Intake Total 1280 850 300 Output Total 1450 Balance -170 850 300 Weight 59.058 kg Alert oriented No anxiety Nonlabored breathing Nondistended abdomen Intake & Output: Intake & Output 12/10/24/20 10/24/20 21:59 05:59 13:59 Intake Total 1280 850 300 Output Total 1450 Balance -170 850 300 Weight 59.058 kg Intake: IV 250 300 Vancomycin 1,000 mg In Sodium 250 250 Chloride 0.9% 250 ml @ 250 mls/ hr IV Q12H [facility] Rx#:[id number] Rocephin 2 gm In Dextrose 5% in 50 Water 50 ml @ 100 mls/hr IV Q24H [facility] Rx#:[id number] Oral 1280 600 Output: Void Amount 1450 Other: Meal snack Tuna&crackers, yogurt Percent of Meal Consumed 100% 100% Feeding Ability Independent Independent Urine Appearance Clear Clear Urine Color Pale Pale Urine Odor Normal Normal OBJ DATA Labs CBC & Chem 7: 10/24/20 06:01 10/24/20 06:01 Labs: Abnormal Lab Results 10/24/20 10/24/20 10/23/20 06:01 06:01 05:19 WBC 12.0 H RBC 3.30 L 3.47 L Hgb 9.6 L 10.2 L Hct 30.5 L 32.1 L Absolute Neutrophils 8.33 H Sodium 130 L Chloride 92 L Carbon Dioxide Anion Gap BUN 38 H Glucose 428 H GGT 188 H AST 49 H ALT 65 H Alkaline Phosphatase 311 H Albumin Globulin 4.1 H Albumin/Globulin Ratio 0.8 L Triglycerides 10/23/20 10/22/20 10/22/20 05:19 06:14 06:14 WBC RBC 3.51 L Hgb 10.4 L Hct 32.9 L Absolute Neutrophils Sodium Chloride Carbon Dioxide 19 L Anion Gap 7.0 L 17.0 H BUN 22 H 29 H Glucose 316 H 343 H GGT 184 H 131 H AST 89 H 50 H ALT 72 H 46 H Alkaline Phosphatase 348 H 307 H Albumin 2.8 L 2.7 L Globulin 4.1 H 4.0 H Albumin/Globulin Ratio 0.7 L 0.7 L Triglycerides 155 H Meds: Medications Acetaminophen (Tylenol) 650 mg PO Q6HP PRN; Protocol PRN Reason: Per Pain Protocol/Fever > 101 Last Admin: 10/23/20 14:33 Dose: 650 mg Documented by: Dextrose (Dextrose 50%) 0 ml IV UD PRN PRN Reason: Hypoglycemia Diagnostic Test (Pha) (Accu-Chek) 1 each FS ACHS [facility] Last Admin: 10/24/20 08:06 Dose: 1 each Documented by: Docusate Sodium (Colace) 100 mg PO BID [facility] Last Admin: 10/24/20 08:07 Dose: 100 mg Documented by: Enoxaparin Sodium (Lovenox) 40 mg SQ DAILY [facility] Last Admin: 10/24/20 08:09 Dose: 40 mg Documented by: Glucose (Insta-Glucose) 15 gm PO PRN PRN PRN Reason: Hypoglycemia Hydralazine HCl (Apresoline) 10 mg IV Q4-6HP PRN PRN Reason: Hypertension Ceftriaxone Sodium 2 gm/ (Dextrose) 50 mls @ 100 mls/hr IV Q24H [facility] Last Infusion: 10/24/20 08:37 Dose: Infused Documented by: Vancomycin HCl 1,000 mg/ (Sodium Chloride) 250 mls @ 250 mls/hr IV Q12H [facility] Last Infusion: 10/24/20 09:10 Dose: Infused Documented by: Insulin Human Lispro (Humalog) 0 unit SQ [facility]; Protocol Last Admin: 10/24/20 08:06 Dose: 10 units Documented by: Lorazepam (Ativan) 0.5 mg IV Q6HP PRN PRN Reason: Anxiety/agitation.Hxofmeth use [facility] Morphine Sulfate (Morphine) 2 mg IV Q4HP PRN; Protocol PRN Reason: Per Pain Protocol Last Admin: 10/18/20 21:42 Dose: 2 mg Documented by: Oxycodone/Acetaminophen (Percocet 5-325 Mg) 1 tab PO Q6HP PRN; Protocol PRN Reason: Per Pain Protocol Last Admin: 10/24/20 08:08 Dose: 1 tab Documented by: Prochlorperazine (Compazine) 5 mg IV Q6HP PRN PRN Reason: Nausea And Vomiting Sitagliptin Phosphate (Januvia) 100 mg PO DAILY [facility] Sodium Chloride (Saline Flush) 10 ml IV Q8 [facility] Last Admin: 10/24/20 05:02 Dose: 10 ml Documented by: Vancomycin HCl (Vancomycin Per Pharmacy) 1 order IV UD [facility] A/P Narrative A/P Narrative: 1. Cellulitis left foot/leg clinically improving status post I&D/antibiotic coverage. Strep agalactiae on cultures. On Rocephin/vancomycin 2. Osteomyelitis, fifth metatarsal head. Status post partial amputation left fifth metatarsal/I&D 10/23 by podiatry. Continuing on antibiotic coverage. Intra-Op cultures pending 3. Hypertension-start low-dose HOME inhibitor 4. Hx of smoking/meth abuse counseled for cessation 5. Poorly controlled DM type 2 with hyperglycemia and neuropathy, Hba1c 14.9 on 08/02/2020. Uptitrate basal insulin, add Metformin/alogliptin, SSI ,patient however refusing CC diet and currently on regular diet 6. Hyponatremia, corrected to 135 secondary to hypoglycemia Plan: * Continue antibiotic coverage * Uptitrate basal insulin, start Dinorah/alogliptin * Prophylaxis Lovenox * Wound care/therapies * And HOME inhibitor Time Spent With Patient Time: Total time spent is greater than 50% in coordination of care (as documented) at patient's floor/unit and/or counseling patient: QUALITY Stroke Symptom Onset Unknown: No VTE Deep Vein Thrombosis/Pulmonary Embolism Present on Admission: No
[2020-10-24] MEDS: metFORMIN 500 MG TABLET PO SCH ×2 (12:16→17:41)
[2020-10-24] MEDS: sitaGLIPtin 100 MG TABLET PO SCH (12:36)
[2020-10-24] MEDS: LISINOPRIL 2.5 MG TABLET PO SCH (12:37)
[2020-10-24 13:24] LABS: POC Blood Urea Nitrogen 33 mg/dL (6-20); POC CO2 27 mmol/L (22-30); POC Chloride 100 mEq/L (96-108); POC Creatinine 0.7 mg/dL (0.6-1.2); POC Glucose, Random 221 mg/dL (70-105); POC Hematocrit 29 % (41-55); POC Potassium 3.6 mEql/L (3.3-5.1); POC Sodium 137 mEq/L (133-145)
[2020-10-24] MEDS: ACETAMINOPHEN 325 MG TABLET PO PRN (23:24)
[2020-10-25] MEDS ORDERED: NALOXONE HCL 0.4 MG/ML VIAL IV PRN (00:12)
[2020-10-25] MEDS: 0.9 % SODIUM CHLORIDE 10 ML SYRINGE IV SCH ×2 (04:27→16:36)
[2020-10-25 06:57] LABS: Basophils # (Auto) 0.04 K/mcL (0.00-0.20); Basophils % (Auto) 0.6 % (0.0-2.0); Eosinophils # (Auto) 0.16 K/mcL (0.00-0.70); Eosinophils % (Auto) 2.2 % (0.0-7.0); Hematocrit 30.3 % (41.0-55.0); Hemoglobin 9.4 g/dL (13.5-16.5); Lymphocytes # (Auto) 2.02 K/mcL (1.50-4.80); Lymphocytes % (Auto) 28.2 % (15.0-49.0); Mean Cell Volume 92.9 fL (80.0-100.0); Monocytes # (Auto) 0.52 K/mcL (0.10-0.90); Monocytes % (Auto) 7.3 % (1.0-12.0); Neutrophils % (Auto) 61.7 % (38.0-78.0); Platelet Count 364 K/mcL (140-440); RBC 3.26 M/mcL (4.50-5.90); Red Cell Distribution Width 13.5 % (11.5-14.5); WBC 7.2 K/mcL (4.5-11.0)
[2020-10-25 07:54] LABS: ALT/SGPT 77 U/L (<40); AST/SGOT 81 U/L (<40); Albumin/Globulin Ratio 0.8 (1.0-2.3); Alkaline Phosphatase 275 U/L (39-117); Bilirubin,Direct < 0.2 mg/dL (<0.3); Bilirubin,Total < 0.2 mg/dL (0.1-1.0); Blood Urea Nitrogen 27 mg/dL (6-20); Calcium 8.8 mg/dL (8.6-10.4); Carbon Dioxide 23 mmol/L (22-30); Chloride 106 mmol/L (96-108); Globulin 3.7 gm/dL (2.2-3.7); Glomerular Filtration Rate 107; Glucose 178 mg/dL (70-105); Lactate Dehydrogenase 165 U/L (135-225); Phosphorous 4.2 mg/dL (2.5-4.5); Triglycerides 120 mg/dL (<150); Uric Acid 3.7 mg/dL (2.5-8.0)
[2020-10-25] MEDS: INSULIN LISPRO 1 UNIT/0.01 ML UNIT SQ SCH ×5 (08:35→21:02)
[2020-10-25] MEDS: cefTRIAXone 2 GM in DEXTROSE 5% IN WATER 50 ML IV SCH ×2 (08:36→09:39)
[2020-10-25] MEDS: DOCUSATE SODIUM 100 MG CAPSULE PO SCH ×2 (08:36→20:53)
[2020-10-25] MEDS: sitaGLIPtin 100 MG TABLET PO SCH ×2 (08:36→09:23)
[2020-10-25] MEDS: INSULIN GLARGINE, HUMAN 1 UNIT/0.01 ML SQ SCH ×3 (08:36→21:02)
[2020-10-25] MEDS: metFORMIN 500 MG TABLET PO SCH ×3 (08:36→16:25)
[2020-10-25] MEDS: VANCOMYCIN 1,000 MG in 0.9 % SODIUM CHLORIDE 250 ML IV SCH ×3 (08:37→21:03)
[2020-10-25] MEDS: LISINOPRIL 2.5 MG TABLET PO SCH (08:37)
[2020-10-25] MEDS: ENOXAPARIN 40 MG/0.4 ML SYRINGE SQ SCH ×2 (08:37→09:25)
[2020-10-25] MEDS: oxyCODONE/APAP 5/325MG TABLET PO PRN ×2 (09:36→16:24)
--- NOTE | 2020-10-25 10:20 | Internal Med Progress Note ---
SUBJECTIVE Subjective Patient information: Note initiated : 10/25/20 at 10:16 am Service Date, if different from initiated Date: [] Patient: Wilfrido Damon 55 y/o M admitted on 10/16/20 for foot injury. Chief Complaint: [] Interval history: Mr. Damon is a 55 year old homeless male with a history of type 2 diabetes, high blood pressure, tobacco dependence and history of meth abuse who presented to the ER due to left leg redness and swelling for about 2 to 3 weeks. Patient states that his both legs decreased sensation. He noticed the redness of left leg about 2 to 3 weeks ago. he has mild pain from of the leg. In the ER, his blood sugar was greater than 600. X-ray showed left fifth metatarsal osteomyelitis. When I saw this patient in the ER, he denied headache, dizziness, fever, chills, abdominal pain, chest pain, shortness of breath, nausea, vomiting, or diarrhea. 10/17 Patient does not have any new complaints. Pain is controlled T 100.4, blood glucose 244 (688 in the ER). Increased Lantus to 30 units daily. Na [address] Grimaldo who is not available until Wednesday Could not reach podiatry Dr. Medeiros 10/18 No complaints. Denies fever, chills, or nausea vomiting. Vital signs are stable and acceptable AST and ALT increased to 94 and a 64. Alkaline phosphatase 353. Repeat the liver function morning 10/19 Pt does not have new complaints. I was told that he would leave and kill himself if nurse staff do not give him pain meds and do not change his diabetic diet to regular diet. I discussed with the patient the importance of medical compliance and diabetic diet. He told me that he does not have suicidal ideation and does not want to kill himself. He only wants to have more pain medication and regular diet. he does not like diabetic diet. He fully understood the importance of medical compliance and the diabetic diet. His diet has been changed to regular. Hemoglobin 9.7 AST 36, ALT 42, alkaline phos 293 Wound culture showed gram positive cocci in chains. Discontinued vancomycin and continued Rocephin. 10/20 Patient does not have any new complaints. He sleeps a lot. Patient firmly denied any suicidal ideation. He does not want to kill himself or others. He is on regular diet. Increase the Lantus to 15 units from 13 units. Wound culture showed gram-positive cocci in chains - Strep agalactiae 10/21 When I saw him this morning, he was sleeping. No new complaints. Spoke to podiatry Dr. Grimaldo who will see him. Dr. Grimaldo will probably give him a procedure today or tomorrow. Na 131 10/22-patient doing well. No overnight events. Podiatry reviewed patient and recommends continuation of IV antibiotics while patient will undergo surgery later today or early tomorrow. Cultures negative so far. Improved blood sugar control. Patient requesting counselor service for outpatient resources for shelters/homeless situation. Also setting up primary care physician in outpatient resources for continued care following hospitalization. No overnight fever chills 10/23. Patient doing well. Postop day 1. Underwent Partial amputation left fifth metatarsal along with incision drainage left foot. Continuing antibiotic coverage. Await intraoperative cultures. Started on diet. Continue wound care. White count 6.2, hemoglobin 10.2, sodium 135, blood glucose 316. Increase Lantus to 18 units twice daily 10/24-postop day 1. No overnight events. No concerns per staff. White count of 12,000 however likely postoperative stress response. Afebrile. Doing well. Sodium 130. Denies significant pain. Blood sugars elevated at 428. Started on sitagliptin/Metformin increased Lantus to 25 twice daily. Patient refused consistent carbohydrate diet. Strep agalactiae on wound culture. Intra-Op cultures pending. 10/25 patient seen in room. Appears quite upset with previous nasal event been nursing staff suspected patient has been using contraband as he was found drowsy and poorly responsive. Patient also threatened to leave AGAINST MEDICAL ADVICE but chose to stay the night. Patient during my visit this morning affirms that he has not been using illicit drugs while in the hospital and expresses desire to continue treatment. He is feeling a lot better. Ongoing wound care. No overnight fever chills. Constitutional Vitals: Vital Signs Temp Pulse Resp BP Pulse Ox 98.2 F 81 18 99/60 99 10/25/20 06:59 10/25/20 06:59 10/25/20 06:59 10/25/20 06:59 10/25/20 06:59 Period Temp Pulse Resp BP Sys/Orosco Pulse Ox Last 24 Hr 96.9 F-98.9 F 81-94 14-18 99-123/60-82 96-99 Intake and Output 10/24/20 10/25/20 10/25/20 21:59 05:59 13:59 Intake Total 1250 740 Output Total 1300 1 Balance -50 739 Weight 61.008 kg Alert Minimal anxiety Nonlabored breathing Foot dressing Intake & Output: Intake & Output 10/24/20 10/25/20 10/25/20 21:59 05:59 13:59 Intake Total 1250 740 Output Total 1300 1 Balance -50 739 Weight 61.008 kg Intake: IV 250 Vancomycin 1,000 mg In Sodium 250 Chloride 0.9% 250 ml @ 250 mls/ hr IV Q12H [facility] Rx#:[id number] Oral 1250 490 Output: Void Amount 1300 # of times incontinent of urine 1 Other: Meal Dinner Breakfast Percent of Meal Consumed 100% 100% Feeding Ability Independent Independent Urine Appearance Clear Urine Color Pale Urine Odor Normal # Voids 1 # of times incontinent of 1 Bowels OBJ DATA Labs CBC & Chem 7: 10/25/20 05:26 10/25/20 05:26 Labs: Abnormal Lab Results 10/25/20 10/25/20 10/24/20 05:26 05:26 14:20 WBC RBC 3.26 L Hgb 9.4 L Hct 30.3 L POC Hct Absolute Neutrophils Sodium Chloride Carbon Dioxide Anion Gap POC BUN BUN 27 H Glucose 178 H POC Glucose GGT 224 H AST 81 H ALT 77 H Alkaline Phosphatase 275 H Albumin 3.0 L Globulin Albumin/Globulin Ratio 0.8 L Triglycerides Hepatitis C Antibody See comment A 10/24/20 10/24/20 10/24/20 13:15 06:01 06:01 WBC 12.0 H RBC 3.30 L Hgb 9.6 L Hct 30.5 L POC Hct 29 L Absolute Neutrophils 8.33 H Sodium 130 L Chloride 92 L Carbon Dioxide Anion Gap POC BUN 33 H BUN 38 H Glucose 428 H POC Glucose 221 H GGT 188 H AST 49 H ALT 65 H Alkaline Phosphatase 311 H Albumin Globulin 4.1 H Albumin/Globulin Ratio 0.8 L Triglycerides Hepatitis C Antibody 10/23/20 10/23/20 10/22/20 05:19 05:19 06:14 WBC RBC 3.47 L Hgb 10.2 L Hct 32.1 L POC Hct Absolute Neutrophils Sodium Chloride Carbon Dioxide 19 L Anion Gap 7.0 L 17.0 H POC BUN BUN 22 H 29 H Glucose 316 H 343 H POC Glucose GGT 184 H 131 H AST 89 H 50 H ALT 72 H 46 H Alkaline Phosphatase 348 H 307 H Albumin 2.8 L 2.7 L Globulin 4.1 H 4.0 H Albumin/Globulin Ratio 0.7 L 0.7 L Triglycerides 155 H Hepatitis C Antibody Meds: Medications Acetaminophen (Tylenol) 650 mg PO Q6HP PRN; Protocol PRN Reason: Per Pain Protocol/Fever > 101 Last Admin: 10/24/20 23:24 Dose: 650 mg Documented by: Dextrose (Dextrose 50%) 0 ml IV UD PRN PRN Reason: Hypoglycemia Diagnostic Test (Pha) (Accu-Chek) 1 each FS [facility] Last Admin: 10/25/20 09:20 Dose: 1 each Documented by: Docusate Sodium (Colace) 100 mg PO BID [facility] Last Admin: 10/25/20 08:36 Dose: Not Given Documented by: Enoxaparin Sodium (Lovenox) 40 mg SQ DAILY [facility] Last Admin: 10/25/20 09:25 Dose: 40 mg Documented by: Glucose (Insta-Glucose) 15 gm PO PRN PRN PRN Reason: Hypoglycemia Hydralazine HCl (Apresoline) 10 mg IV Q4-6HP PRN PRN Reason: Hypertension Ceftriaxone Sodium 2 gm/ (Dextrose) 50 mls @ 100 mls/hr IV Q24H [facility] Last Admin: 10/25/20 09:39 Dose: 100 mls/hr Documented by: Vancomycin HCl 1,000 mg/ (Sodium Chloride) 250 mls @ 250 mls/hr IV Q12H [facility] Last Infusion: 10/25/20 00:30 Dose: Infused Documented by: Insulin Glargine (Lantus) 25 unit SQ BID [facility] Last Admin: 10/25/20 09:35 Dose: 25 units Documented by: Insulin Human Lispro (Humalog) 0 unit SQ [facility]; Protocol Last Admin: 10/25/20 09:22 Dose: Not Given Documented by: Lisinopril (Zestril) 2.5 mg PO DAILY [facility] Last Admin: 10/25/20 08:37 Dose: Not Given Documented by: Lorazepam (Ativan) 0.5 mg IV Q6HP PRN PRN Reason: Anxiety/agitation.Hxofmeth use Metformin HCl (Glucophage) 500 mg PO BIDCC [facility] Last Admin: 10/25/20 09:23 Dose: 500 mg Documented by: Morphine Sulfate (Morphine) 2 mg IV Q4HP PRN; Protocol PRN Reason: Per Pain Protocol Last Admin: 10/18/20 21:42 Dose: 2 mg Documented by: Naloxone HCl (Narcan) 0.4 mg IV ONCE PRN PRN Reason: Unresponsive Oxycodone/Acetaminophen (Percocet 5-325 Mg) 1 tab PO Q6HP PRN; Protocol PRN Reason: Per Pain Protocol Last Admin: 10/25/20 09:36 Dose: 1 tab Documented by: Prochlorperazine (Compazine) 5 mg IV Q6HP PRN PRN Reason: Nausea And Vomiting Sitagliptin Phosphate (Januvia) 100 mg PO DAILY [facility] Last Admin: 10/25/20 09:23 Dose: 100 mg Documented by: Sodium Chloride (Saline Flush) 10 ml IV Q8 [facility] Last Admin: 10/25/20 04:27 Dose: Not Given Documented by: Vancomycin HCl (Vancomycin Per Pharmacy) 1 order IV UD [facility] A/P Narrative A/P Narrative: * Cellulitis left foot/leg clinically improving status post I&D/antibiotic coverage. Strep agalactiae on cultures. On Rocephin/vancomycin * Osteomyelitis, fifth metatarsal head. Status post partial amputation left fifth metatarsal/I&D 10/23 by podiatry. Continuing on antibiotic coverage. 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 Much improved blood sugars on 25 twice daily Lantus, Metformin/sitagliptin, SSI ,patient however refusing CC diet and currently on regular diet * Hyponatremia, corrected to 135 secondary to hypoglycemia * Prophylaxis enoxaparin Plan: * Continue antibiotic coverage * Wound care/therapies * PT OT nutrition support * Discharge planning Time Spent With Patient Time: Total time spent is greater than 50% in coordination of care (as documented) at patient's floor/unit and/or counseling patient: QUALITY Stroke Symptom Onset Unknown: No VTE Deep Vein Thrombosis/Pulmonary Embolism Present on Admission: No
[2020-10-25] MEDS: morphine 4 MG/ML VIAL IV PRN (20:12)
[2020-10-26] MEDS: oxyCODONE/APAP 5/325MG TABLET PO PRN ×2 (00:08→09:16)
[2020-10-26] MEDS ORDERED: LOPERAMIDE 2 MG CAPSULE PO PRN (00:44)
[2020-10-26] MEDS: 0.9 % SODIUM CHLORIDE 10 ML SYRINGE IV SCH ×4 (00:50→12:50)
[2020-10-26] MEDS ORDERED: LOPERAMIDE 2 MG CAPSULE PO ONE ×2 (00:54→03:30)
[2020-10-26 06:44] LABS: Basophils # (Auto) 0.05 K/mcL (0.00-0.20); Basophils % (Auto) 0.7 % (0.0-2.0); Eosinophils # (Auto) 0.13 K/mcL (0.00-0.70); Eosinophils % (Auto) 1.9 % (0.0-7.0); Hematocrit 30.1 % (41.0-55.0); Hemoglobin 9.4 g/dL (13.5-16.5); Lymphocytes # (Auto) 1.87 K/mcL (1.50-4.80); Lymphocytes % (Auto) 27.1 % (15.0-49.0); Mean Cell Volume 94.1 fL (80.0-100.0); Mean Corpuscular HGB Conc 31.2 g/dL (31.0-36.0); Mean Platelet Volume 10.4 fL (7.4-10.4); Monocytes # (Auto) 0.73 K/mcL (0.10-0.90); Monocytes % (Auto) 10.6 % (1.0-12.0); Neutrophils % (Auto) 59.7 % (38.0-78.0); Platelet Count 349 K/mcL (140-440); Red Cell Distribution Width 13.8 % (11.5-14.5); WBC 6.9 K/mcL (4.5-11.0)
[2020-10-26] MEDS: INSULIN LISPRO 1 UNIT/0.01 ML UNIT SQ SCH ×3 (09:02→17:13)
[2020-10-26] MEDS: INSULIN GLARGINE, HUMAN 1 UNIT/0.01 ML SQ SCH (09:03)
[2020-10-26] MEDS: cefTRIAXone 2 GM in DEXTROSE 5% IN WATER 50 ML IV SCH (09:04)
[2020-10-26] MEDS: LISINOPRIL 2.5 MG TABLET PO SCH (09:04)
[2020-10-26] MEDS: sitaGLIPtin 100 MG TABLET PO SCH (09:04)
[2020-10-26] MEDS: ENOXAPARIN 40 MG/0.4 ML SYRINGE SQ SCH (09:04)
[2020-10-26] MEDS: metFORMIN 500 MG TABLET PO SCH ×2 (09:04→17:13)
[2020-10-26] MEDS: DOCUSATE SODIUM 100 MG CAPSULE PO SCH (09:04)
--- NOTE | 2020-10-26 09:49 | Internal Med Progress Note ---
SUBJECTIVE Subjective Patient information: Note initiated : 10/26/20 at 9:45 am Service Date, if different from initiated Date: [] Patient: Wilfrido Damon 55 y/o M admitted on 10/16/20 for foot injury. Chief Complaint: [] Interval history: Mr. Damon is a 55 year old homeless male with a history of type 2 diabetes, high blood pressure, tobacco dependence and history of meth abuse who presented to the ER due to left leg redness and swelling for about 2 to 3 weeks. Patient states that his both legs decreased sensation. He noticed the redness of left leg about 2 to 3 weeks ago. he has mild pain from of the leg. In the ER, his blood sugar was greater than 600. X-ray showed left fifth metatarsal osteomyelitis. When I saw this patient in the ER, he denied headache, dizziness, fever, chills, abdominal pain, chest pain, shortness of breath, nausea, vomiting, or diarrhea. 10/17 Patient does not have any new complaints. Pain is controlled T 100.4, blood glucose 244 (688 in the ER). Increased Lantus to 30 units daily. Na [address] Grimaldo who is not available until Wednesday Could not reach podiatry Dr. Medeiros 10/18 No complaints. Denies fever, chills, or nausea vomiting. Vital signs are stable and acceptable AST and ALT increased to 94 and a 64. Alkaline phosphatase 353. Repeat the liver function morning 10/19 Pt does not have new complaints. I was told that he would leave and kill himself if nurse staff do not give him pain meds and do not change his diabetic diet to regular diet. I discussed with the patient the importance of medical compliance and diabetic diet. He told me that he does not have suicidal ideation and does not want to kill himself. He only wants to have more pain medication and regular diet. he does not like diabetic diet. He fully understood the importance of medical compliance and the diabetic diet. His diet has been changed to regular. Hemoglobin 9.7 AST 36, ALT 42, alkaline phos 293 Wound culture showed gram positive cocci in chains. Discontinued vancomycin and continued Rocephin. 10/20 Patient does not have any new complaints. He sleeps a lot. Patient firmly denied any suicidal ideation. He does not want to kill himself or others. He is on regular diet. Increase the Lantus to 15 units from 13 units. Wound culture showed gram-positive cocci in chains - Strep agalactiae 10/21 When I saw him this morning, he was sleeping. No new complaints. Spoke to podiatry Dr. Grimaldo who will see him. Dr. Grimaldo will probably give him a procedure today or tomorrow. Na 131 10/22-patient doing well. No overnight events. Podiatry reviewed patient and recommends continuation of IV antibiotics while patient will undergo surgery later today or early tomorrow. Cultures negative so far. Improved blood sugar control. Patient requesting counselor service for outpatient resources for shelters/homeless situation. Also setting up primary care physician in outpatient resources for continued care following hospitalization. No overnight fever chills 10/23. Patient doing well. Postop day 1. Underwent Partial amputation left fifth metatarsal along with incision drainage left foot. Continuing antibiotic coverage. Await intraoperative cultures. Started on diet. Continue wound care. White count 6.2, hemoglobin 10.2, sodium 135, blood glucose 316. Increase Lantus to 18 units twice daily 10/24-postop day 1. No overnight events. No concerns per staff. White count of 12,000 however likely postoperative stress response. Afebrile. Doing well. Sodium 130. Denies significant pain. Blood sugars elevated at 428. Started on sitagliptin/Metformin increased Lantus to 25 twice daily. Patient refused consistent carbohydrate diet. Strep agalactiae on wound culture. Intra-Op cultures pending. 10/25 patient seen in room. Appears quite upset with previous nasal event been nursing staff suspected patient has been using contraband as he was found drowsy and poorly responsive. Patient also threatened to leave AGAINST MEDICAL ADVICE but chose to stay the night. Patient during my visit this morning affirms that he has not been using illicit drugs while in the hospital and expresses desire to continue treatment. He is feeling a lot better. Ongoing wound care. No overnight fever chills. 10/26-intraoperative cultures negative so far. DC IV vancomycin. Continue Rocephin. Anticipate discharge in 48 hours pending further evaluation from podiatry with outpatient antibiotics. Patient is homeless situation poses extensive barrier to outpatient follow-up/wound care/antibiotics. Case management coordinating safe discharge plan Constitutional Vitals: Vital Signs Temp Pulse Resp BP Pulse Ox 98.9 F 86 14 155/88 98 10/26/20 06:57 10/26/20 06:57 10/26/20 06:57 10/26/20 06:57 10/26/20 06:57 Period Temp Pulse Resp BP Sys/Orosco Pulse Ox Last 24 Hr 98.4 F-99.4 F 86-91 12 108-155/63-88 98-99 Intake and Output 10/25/20 10/26/20 10/26/20 21:59 05:59 13:59 Intake Total 840 730 720 Balance 840 730 720 Weight 61.235 kg Alert oriented nonlabored breathing No anxiety Intake & Output: Intake & Output 10/25/20 10/26/20 10/26/20 21:59 05:59 13:59 Intake Total 840 730 720 Balance 840 730 720 Weight 61.235 kg Intake: IV 250 Vancomycin 1,000 mg In Sodium 250 Chloride 0.9% 250 ml @ 250 mls/ hr IV Q12H [facility] Rx#:[id number] Oral 840 480 720 Other: Meal Dinner Breakfast Percent of Meal Consumed 100% 100% Feeding Ability Independent Stool Size Moderate Moderate Stool Color Brown Brown Stool Consistency Soft Liquid Loose Loose # Voids 4 3 # Bowel Movements 1 3 OBJ DATA Labs CBC & Chem 7: 10/26/20 05:24 10/25/20 05:26 Labs: Abnormal Lab Results 10/26/20 10/25/20 10/25/20 05:24 05:26 05:26 WBC RBC 3.20 L 3.26 L Hgb 9.4 L 9.4 L Hct 30.1 L 30.3 L POC Hct Absolute Neutrophils Sodium Chloride POC BUN BUN 27 H Glucose 178 H POC Glucose GGT 224 H AST 81 H ALT 77 H Alkaline Phosphatase 275 H Albumin 3.0 L Globulin Albumin/Globulin Ratio 0.8 L Hepatitis C Antibody 10/24/20 10/24/20 10/24/20 14:20 13:15 06:01 WBC 12.0 H RBC 3.30 L Hgb 9.6 L Hct 30.5 L POC Hct 29 L Absolute Neutrophils 8.33 H Sodium Chloride POC BUN 33 H BUN Glucose POC Glucose 221 H GGT AST ALT Alkaline Phosphatase Albumin Globulin Albumin/Globulin Ratio Hepatitis C Antibody See comment A 10/24/20 06:01 WBC RBC Hgb Hct POC Hct Absolute Neutrophils Sodium 130 L Chloride 92 L POC BUN BUN 38 H Glucose 428 H POC Glucose GGT 188 H AST 49 H ALT 65 H Alkaline Phosphatase 311 H Albumin Globulin 4.1 H Albumin/Globulin Ratio 0.8 L Hepatitis C Antibody Meds: Medications Acetaminophen (Tylenol) 650 mg PO Q6HP PRN; Protocol PRN Reason: Per Pain Protocol/Fever > 101 Last Admin: 10/24/20 23:24 Dose: 650 mg Documented by: Dextrose (Dextrose 50%) 0 ml IV UD PRN PRN Reason: Hypoglycemia Diagnostic Test (Pha) (Accu-Chek) [address] [facility] Last Admin: 10/26/20 09:02 Dose: 1 each Documented by: Docusate Sodium (Colace) 100 mg PO BID [facility] Last Admin: 10/26/20 09:04 Dose: Not Given Documented by: Enoxaparin Sodium (Lovenox) 40 mg SQ DAILY [facility] Last Admin: 10/26/20 09:04 Dose: 40 mg Documented by: Glucose (Insta-Glucose) 15 gm PO PRN PRN PRN Reason: Hypoglycemia Hydralazine HCl (Apresoline) 10 mg IV Q4-6HP PRN PRN Reason: Hypertension Ceftriaxone Sodium 2 gm/ (Dextrose) 50 mls @ 100 mls/hr IV Q24H [facility] Last Admin: 10/26/20 09:04 Dose: 100 mls/hr Documented by: Vancomycin HCl 1,000 mg/ (Sodium Chloride) 250 mls @ 250 mls/hr IV Q12H [facility] Last Infusion: 10/25/20 22:05 Dose: Infused Documented by: Insulin Glargine (Lantus) 25 unit SQ BID [facility] Last Admin: 10/26/20 09:03 Dose: 25 units Documented by: Insulin Human Lispro (Humalog) 0 unit SQ ACHS [facility]; Protocol Last Admin: 10/26/20 09:02 Dose: 6 units Documented by: Lisinopril (Zestril) 2.5 mg PO DAILY [facility] Last Admin: 10/26/20 09:04 Dose: 2.5 mg Documented by: Loperamide HCl (Imodium) 2 mg PO PRN PRN PRN Reason: Diarrhea Last Admin: 10/26/20 09:16 Dose: 2 mg Documented by: Lorazepam (Ativan) 0.5 mg IV Q6HP PRN PRN Reason: Anxiety/agitation.Hxofmeth use Last Admin: 10/26/20 03:35 Dose: 0.5 mg Documented by: Metformin HCl (Glucophage) 500 mg PO BIDCC [facility] Last Admin: 10/26/20 09:04 Dose: 500 mg Documented by: Morphine Sulfate (Morphine) 2 mg IV Q4HP PRN; Protocol PRN Reason: Per Pain Protocol Last Admin: 10/25/20 20:12 Dose: 2 mg Documented by: Naloxone HCl (Narcan) 0.4 mg IV ONCE PRN PRN Reason: Unresponsive Oxycodone/Acetaminophen (Percocet 5-325 Mg) 1 tab PO Q6HP PRN; Protocol PRN Reason: Per Pain Protocol Last Admin: 10/26/20 00:08 Dose: 1 tab Documented by: Prochlorperazine (Compazine) 5 mg IV Q6HP PRN PRN Reason: Nausea And Vomiting Sitagliptin Phosphate (Januvia) 100 mg PO DAILY [facility] Last Admin: 10/26/20 09:04 Dose: 100 mg Documented by: Sodium Chloride (Saline Flush) 10 ml IV Q8 [facility] Last Admin: 10/26/20 06:36 Dose: Not Given Documented by: Vancomycin HCl (Vancomycin Per Pharmacy) 1 order IV UD [facility] A/P Narrative A/P Narrative: * Cellulitis left foot/leg clinically improving status post I&D/antibiotic coverage. Strep agalactiae on cultures. Continue Rocephin for additional 3 days * Osteomyelitis, fifth metatarsal head. Status post partial amputation left fifth metatarsal/I&D 10/23 by podiatry. Intra-Op cultures negative so far. * Hx of smoking/meth abuse counseled for cessation * Poorly controlled DM type 2 with hyperglycemia and neuropathy, Hba1c 14.9 on 08/02/2020. Much improved blood sugars on 25 twice daily Lantus, Metformin/sitagliptin, SSI ,patient however refusing CC diet and currently on regular diet * Hyponatremia, corrected to 135 secondary to hypoglycemia * Prophylaxis enoxaparin Plan: * Rocephin for additional 3 days followed by outpatient oral antibiotic/ID and podiatry follow-up * Wound care/therapies as indicated * PT OT nutrition support * Discharge planning(homeless situation) extensive barriers to outpatient follow-up/antibiotics and continued care Time Spent With Patient Time: Total time spent is greater than 50% in coordination of care (as documented) at patient's floor/unit and/or counseling patient: QUALITY Stroke Symptom Onset Unknown: No VTE Deep Vein Thrombosis/Pulmonary Embolism Present on Admission: No
[2020-10-26] MEDS: VANCOMYCIN 1,000 MG in 0.9 % SODIUM CHLORIDE 250 ML IV SCH (09:56)
--- NOTE | 2020-10-26 14:16 | Internal Med Progress Note ---
SUBJECTIVE Subjective Patient information: Note initiated : 10/26/20 at 2:10 pm Service Date, if different from initiated Date: [] Patient: Wilfrido Damon 55 y/o M admitted on 10/16/20 for foot injury. Chief Complaint: [] Interval history: Mr. Damon is a 55 year old homeless male with a history of type 2 diabetes, high blood pressure, tobacco dependence and history of meth abuse who presented to the ER due to left leg redness and swelling for about 2 to 3 weeks. Patient states that his both legs decreased sensation. He noticed the redness of left leg about 2 to 3 weeks ago. he has mild pain from of the leg. In the ER, his blood sugar was greater than 600. X-ray showed left fifth metatarsal osteomyelitis. When I saw this patient in the ER, he denied headache, dizziness, fever, chills, abdominal pain, chest pain, shortness of breath, nausea, vomiting, or diarrhea. 10/17 Patient does not have any new complaints. Pain is controlled T 100.4, blood glucose 244 (688 in the ER). Increased Lantus to 30 units daily. Na [address] Grimaldo who is not available until Wednesday Could not reach podiatry Dr. Medeiros 10/18 No complaints. Denies fever, chills, or nausea vomiting. Vital signs are stable and acceptable AST and ALT increased to 94 and a 64. Alkaline phosphatase 353. Repeat the liver function morning 10/19 Pt does not have new complaints. I was told that he would leave and kill himself if nurse staff do not give him pain meds and do not change his diabetic diet to regular diet. I discussed with the patient the importance of medical compliance and diabetic diet. He told me that he does not have suicidal ideation and does not want to kill himself. He only wants to have more pain medication and regular diet. he does not like diabetic diet. He fully understood the importance of medical compliance and the diabetic diet. His diet has been changed to regular. Hemoglobin 9.7 AST 36, ALT 42, alkaline phos 293 Wound culture showed gram positive cocci in chains. Discontinued vancomycin and continued Rocephin. 10/20 Patient does not have any new complaints. He sleeps a lot. Patient firmly denied any suicidal ideation. He does not want to kill himself or others. He is on regular diet. Increase the Lantus to 15 units from 13 units. Wound culture showed gram-positive cocci in chains - Strep agalactiae 10/21 When I saw him this morning, he was sleeping. No new complaints. Spoke to podiatry Dr. Grimaldo who will see him. Dr. Grimaldo will probably give him a procedure today or tomorrow. Na 131 10/22-patient doing well. No overnight events. Podiatry reviewed patient and recommends continuation of IV antibiotics while patient will undergo surgery later today or early tomorrow. Cultures negative so far. Improved blood sugar control. Patient requesting counselor service for outpatient resources for shelters/homeless situation. Also setting up primary care physician in outpatient resources for continued care following hospitalization. No overnight fever chills 10/23. Patient doing well. Postop day 1. Underwent Partial amputation left fifth metatarsal along with incision drainage left foot. Continuing antibiotic coverage. Await intraoperative cultures. Started on diet. Continue wound care. White count 6.2, hemoglobin 10.2, sodium 135, blood glucose 316. Increase Lantus to 18 units twice daily 10/24-postop day 1. No overnight events. No concerns per staff. White count of 12,000 however likely postoperative stress response. Afebrile. Doing well. Sodium 130. Denies significant pain. Blood sugars elevated at 428. Started on sitagliptin/Metformin increased Lantus to 25 twice daily. Patient refused consistent carbohydrate diet. Strep agalactiae on wound culture. Intra-Op cultures pending. 10/25 patient seen in room. Appears quite upset with previous nasal event been nursing staff suspected patient has been using contraband as he was found drowsy and poorly responsive. Patient also threatened to leave AGAINST MEDICAL ADVICE but chose to stay the night. Patient during my visit this morning affirms that he has not been using illicit drugs while in the hospital and expresses desire to continue treatment. He is feeling a lot better. Ongoing wound care. No overnight fever chills. 10/26-intraoperative cultures negative so far. DC IV vancomycin. Continue Rocephin. Anticipate discharge in 48 hours pending further evaluation from podiatry with outpatient antibiotics. Patient is homeless situation poses extensive barrier to outpatient follow-up/wound care/antibiotics. Case management coordinating safe discharge plan Constitutional Vitals: Vital Signs Temp Pulse Resp BP Pulse Ox 98.7 F 93 H 18 141/85 100 01/02/21 11:16 10/26/20 11:16 10/26/20 11:16 10/26/20 11:16 10/26/20 11:16 Period Temp Pulse Resp BP Sys/Orosco Pulse Ox Last 24 Hr 98.4 F-99.4 F 86-93 14-20 108-155/63-88 98-100 Intake and Output 10/26/20 10/26/20 10/26/20 05:59 13:59 21:59 Intake Total 730 1250 Output Total 520 Balance 730 730 Intake & Output: Intake & Output 10/26/20 10/26/20 10/26/20 05:59 13:59 21:59 Intake Total 730 1250 Output Total 520 Balance 730 730 Intake: IV 250 50 Vancomycin 1,000 mg In Sodium 250 Chloride 0.9% 250 ml @ 250 mls/ hr IV Q12H [facility] Rx#:[id number] Rocephin 2 gm In Dextrose 5% in 50 Water 50 ml @ 100 mls/hr IV Q24H [facility] Rx#:[id number] Oral 480 1200 Output: Void Amount 520 Other: Meal Lunch Percent of Meal Consumed 50% Feeding Ability Independent Urine Appearance Clear Urine Color Pale Urine Odor Normal Stool Size Moderate Stool Color Brown Brown Stool Consistency Liquid Liquid Loose Loose # Voids 3 # Bowel Movements 3 1 Exam: General: Alert, Awake, No acute Distress Eyes/N/T: EOMI, Head/Neck: neck supple, CV: RRR, No murmurs, normal s1/s2 Pulm: Clear b/l, no wheezing/rhonchi/rales Abd: soft, nontender, +BS x4 Ext: no clubbing/cyanosis/edema Neuro: Alert, no focal deficits, moves all extremities, Skin: warm/dry OBJ DATA Labs CBC & Chem 7: 10/26/20 05:24 10/25/20 05:26 Labs: Abnormal Lab Results 10/26/20 10/25/20 10/25/20 05:24 05:26 05:26 WBC RBC 3.20 L 3.26 L Hgb 9.4 L 9.4 L Hct 30.1 L 30.3 L POC Hct Absolute Neutrophils Sodium Chloride POC BUN BUN 27 H Glucose 178 H POC Glucose GGT 224 H AST 81 H ALT 77 H Alkaline Phosphatase 275 H Albumin 3.0 L Globulin Albumin/Globulin Ratio 0.8 L Hepatitis C Antibody 10/24/20 10/24/20 10/24/20 14:20 13:15 06:01 WBC 12.0 H RBC 3.30 L Hgb 9.6 L Hct 30.5 L POC Hct 29 L Absolute Neutrophils 8.33 H Sodium Chloride POC BUN 33 H BUN Glucose POC Glucose 221 H GGT AST ALT Alkaline Phosphatase Albumin Globulin Albumin/Globulin Ratio Hepatitis C Antibody See comment A 10/24/20 06:01 WBC RBC Hgb Hct POC Hct Absolute Neutrophils Sodium 130 L Chloride 92 L POC BUN BUN 38 H Glucose 428 H POC Glucose GGT 188 H AST 49 H ALT 65 H Alkaline Phosphatase 311 H Albumin Globulin 4.1 H Albumin/Globulin Ratio 0.8 L Hepatitis C Antibody Meds: Medications Acetaminophen (Tylenol) 650 mg PO Q6HP PRN; Protocol PRN Reason: Per Pain Protocol/Fever > 101 Last Admin: 10/24/20 23:24 Dose: 650 mg Documented by: Dextrose (Dextrose 50%) 0 ml IV UD PRN PRN Reason: Hypoglycemia Diagnostic Test (Pha) (Accu-Chek) 1 each FS [facility] Last Admin: 10/26/20 12:50 Dose: 1 each Documented by: Docusate Sodium (Colace) 100 mg PO BID [facility] Last Admin: 10/26/20 09:04 Dose: Not Given Documented by: Enoxaparin Sodium (Lovenox) 40 mg SQ DAILY [facility] Last Admin: 10/26/20 09:04 Dose: 40 mg Documented by: Glucose (Insta-Glucose) 15 gm PO PRN PRN PRN Reason: Hypoglycemia Hydralazine HCl (Apresoline) 10 mg IV Q4-6HP PRN PRN Reason: Hypertension Ceftriaxone Sodium 2 gm/ (Dextrose) 50 mls @ 100 mls/hr IV Q24H [facility] Last Infusion: 10/26/20 09:34 Dose: Infused Documented by: Insulin Glargine (Lantus) 25 unit SQ BID [facility] Last Admin: 10/26/20 09:03 Dose: 25 units Documented by: Insulin Human Lispro (Humalog) 0 unit SQ [facility]; Protocol Last Admin: 10/26/20 12:50 Dose: 10 units Documented by: Lisinopril (Zestril) 2.5 mg PO DAILY [facility] Last Admin: 10/26/20 09:04 Dose: 2.5 mg Documented by: Loperamide HCl (Imodium) 2 mg PO PRN PRN PRN Reason: Diarrhea Last Admin: 10/26/20 09:16 Dose: 2 mg Documented by: Lorazepam (Ativan) 0.5 mg IV Q6HP PRN PRN Reason: Anxiety/agitation.Hxofmeth use Last Admin: 10/26/20 03:35 Dose: 0.5 mg Documented by: [facility] Last Admin: 10/26/20 09:04 Dose: 500 mg Documented by: Morphine Sulfate (Morphine) 2 mg IV Q4HP PRN; Protocol PRN Reason: Per Pain Protocol Last Admin: 10/25/20 20:12 Dose: 2 mg Documented by: Naloxone HCl (Narcan) 0.4 mg IV ONCE PRN PRN Reason: Unresponsive Oxycodone/Acetaminophen (Percocet 5-325 Mg) 1 tab PO Q6HP PRN; Protocol PRN Reason: Per Pain Protocol Last Admin: 10/26/20 09:16 Dose: 1 tab Documented by: Prochlorperazine (Compazine) 5 mg IV Q6HP PRN PRN Reason: Nausea And Vomiting Sitagliptin Phosphate (Januvia) 100 mg PO DAILY [facility] Last Admin: 10/26/20 09:04 Dose: 100 mg Documented by: Sodium Chloride (Saline Flush) 10 ml IV Q8 [facility] Last Admin: 10/26/20 12:50 Dose: 10 ml Documented by: A/P Narrative A/P Narrative: A: *Cellulitis left foot/leg: clinically improving status post I&D (10/23) by Dr. 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 - Poorly controlled: A1c 14.9 *pHyponatremia, corrected to 135 secondary to hyperglycemia: Plan: -Rocephin for additional 3 days followed by outpatient oral antibiotic/ID and podiatry follow-up -Wound care/therapies as indicated -PT OT nutrition support -Discharge planning(homeless situation) extensive barriers to outpatient follow- up/antibiotics and continued care -Much improved blood glucose on lantus 25 bid, Metformin/sitagliptin, SSI; pt however refusing CC diet & currently on regular -Substance abuse cessation counseling -ppx: enoxaparin Time Spent With Patient Time: Total time spent is greater than 50% in coordination of care (as documented) at patient's floor/unit and/or counseling patient: QUALITY Stroke Symptom Onset Unknown: No VTE Deep Vein Thrombosis/Pulmonary Embolism Present on Admission: No
--- NOTE | 2020-10-26 18:58 | Discharge Summary ---
Discharge Provider Provider Patient information: Note initiated : 10/26/20 at 6:57 pm Service Date, if different from initiated Date: [] Patient: Wilfrido Damon 55 y/o M admitted on 10/16/20 for foot injury. Chief Complaint: [] Date of admission: 10/16/20 20:56 Discharge date: 10/26/20 Primary care physician: PCP No Consults: 10/16/20 Consult to Physician [CONS] Stat Comment: Consulting Provider: Jayesh Hager Reason For Exam: Physician to Consult 10/16/20 19:34 Consult to Physician [CONS] Routine Comment: Consulting Provider: Neno Grimaldo Reason For Exam: Physician to Consult Discharge Meds Discharge Medications Home Medications Lantus U-100 Insulin 10 unit SQ DAILY #30 ml 08/06/20 [Rx Confirmed 10/17/20 Last Taken Unknown] hydrocodone-acetaminophen 1 tab PO Q4HP PRN #14 tab 08/06/20 [Rx Confirmed 10/17/20 Last Taken Unknown] cephalexin [Keflex] 500 mg PO QID #28 cap 10/26/20 [Rx Last Taken Unknown] COURSE Hospital Course Hospital course: Mr. Damon is a 55 year old homeless male with a history of type 2 diabetes, high blood pressure, tobacco dependence and history of meth abuse who presented to the ER due to left leg redness and swelling for about 2 to 3 weeks. Patient states that his both legs decreased sensation. He noticed the redness of left leg about 2 to 3 weeks ago. he has mild pain from of the leg. In the ER, his blood sugar was greater than 600. X-ray showed left fifth metatarsal osteomyelitis. When I saw this patient in the ER, he denied headache, dizziness, fever, chills, abdominal pain, chest pain, shortness of breath, nausea, vomiting, or diarrhea. 10/17 Patient does not have any new complaints. Pain is controlled T 100.4, blood glucose 244 (688 in the ER). Increased Lantus to 30 units daily. Na [address] Grimaldo who is not available until Wednesday Could not reach podiatry Dr. Medeiros 10/18 No complaints. Denies fever, chills, or nausea vomiting. Vital signs are stable and acceptable AST and ALT increased to 94 and a 64. Alkaline phosphatase 353. Repeat the liver function morning 10/19 Pt does not have new complaints. I was told that he would leave and kill himself if nurse staff do not give him pain meds and do not change his diabetic diet to regular diet. I discussed with the patient the importance of medical compliance and diabetic diet. He told me that he does not have suicidal ideation and does not want to kill himself. He only wants to have more pain medication and regular diet. he does not like diabetic diet. He fully understood the importance of medical compliance and the diabetic diet. His diet has been changed to regular. Hemoglobin 9.7 AST 36, ALT 42, alkaline phos 293 Wound culture showed gram positive cocci in chains. Discontinued vancomycin and continued Rocephin. 10/20 Patient does not have any new complaints. He sleeps a lot. Patient firmly denied any suicidal ideation. He does not want to kill himself or others. He is on regular diet. Increase the Lantus to 15 units from 13 units. Wound culture showed gram-positive cocci in chains - Strep agalactiae 10/21 When I saw him this morning, he was sleeping. No new complaints. Spoke to podiatry Dr. Grimaldo who will see him. Dr. Grimaldo will probably give him a procedure today or tomorrow. Na 131 10/22-patient doing well. No overnight events. Podiatry reviewed patient and recommends continuation of IV antibiotics while patient will undergo surgery later today or early tomorrow. Cultures negative so far. Improved blood sugar control. Patient requesting counselor service for outpatient resources for shelters/homeless situation. Also setting up primary care physician in outpatient resources for continued care following hospitalization. No overnight fever chills 10/23. Patient doing well. Postop day 1. Underwent Partial amputation left fifth metatarsal along with incision drainage left foot. Continuing antibiotic coverage. Await intraoperative cultures. Started on diet. Continue wound care. White count 6.2, hemoglobin 10.2, sodium 135, blood glucose 316. Increase Lantus to 18 units twice daily 10/24-postop day 1. No overnight events. No concerns per staff. White count of 12,000 however likely postoperative stress response. Afebrile. Doing well. Sodium 130. Denies significant pain. Blood sugars elevated at 428. Started on sitagliptin/Metformin increased Lantus to 25 twice daily. Patient refused consistent carbohydrate diet. Strep agalactiae on wound culture. Intra-Op cultures pending. 10/25 patient seen in room. Appears quite upset with previous nasal event been nursing staff suspected patient has been using contraband as he was found drowsy and poorly responsive. Patient also threatened to leave AGAINST MEDICAL ADVICE but chose to stay the night. Patient during my visit this morning affirms that he has not been using illicit drugs while in the hospital and expresses desire to continue treatment. He is feeling a lot better. Ongoing wound care. No overnight fever chills. 10/26-intraoperative cultures negative so far. DC IV vancomycin. Continue Rocephin. Anticipate discharge in 48 hours pending further evaluation from podiatry with outpatient antibiotics. Patient is homeless situation poses extensive barrier to outpatient follow-up/wound care/antibiotics. Case management coordinating safe discharge plan *pt left AMA. A: *Cellulitis left foot/leg: clinically improving status post I&D (10/23) by Dr. 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 - Poorly controlled: A1c 14.9 *Hyponatremia, corrected to 135 secondary to hyperglycemia: Discharge diagnosis: Left foot cellulitis with fifth metatarsal osteomyelitis Secondary discharge diagnosis: Smoking meth diabetes Time Spent with Patient Time attestation: Total time spent providing and/or coordinating discharge services: Time spent: Greater than 30 minutes EXAM Constitutional Vitals: Temp Pulse Resp BP Pulse Ox 98.4 F 93 H 18 119/76 93 10/26/20 15:50 10/26/20 11:16 10/26/20 15:50 10/26/20 15:50 10/26/20 15:50 Discharge Data Data Completed and Pending Labs on day of discharge: Labs from last 24 hours 10/26/20 10/26/20 07:44 05:24 WBC 6.9 RBC 3.20 L Hgb 9.4 L Hct 30.1 L MCV 94.1 MCH 29.4 MCHC 31.2 RDW 13.8 Plt Count 349 MPV 10.4 Neut % (Auto) 59.7 Lymph % (Auto) 27.1 [place] % (Auto) 10.6 Eos % (Auto) 1.9 Baso % (Auto) 0.7 Lymph # (Auto) 1.87 [place] # (Auto) 0.73 Eos # (Auto) 0.13 Baso # (Auto) 0.05 Absolute Neutrophils 4.11 Vancomycin Trough 13.9 Preliminary micro results at discharge 10/23/20 08:18 Gram Stain - Preliminary Foot - Left Anaerobic Culture - Preliminary 10/16/20 18:25 Gram Stain - Preliminary Foot - Left Wound Culture - Preliminary Discharge Plan Patient/Caregiver Discharge Instructions Activity: increase activity as tolerated Diet: Consistent Carbohydrate Activity Restrictions/Additional Instructions: Follow-up with PCP in 3 to 7 days Prescriptions: New cephalexin [Keflex] 500 mg capsule 500 mg PO QID Qty: 28 RF: 0 Continued Lantus U-100 Insulin 100 unit/mL Solution 10 unit SQ DAILY Qty: 30 RF: 0 hydrocodone-acetaminophen 5-325 mg Tablet 1 tab PO Q4HP PRN (Reason: Pain Level 3-6) Qty: 14 RF: 0 Discontinued sulfamethoxazole-trimethoprim 800-160 mg Tablet 1 tab PO BID Qty: 14 RF: 0 amoxicillin-pot clavulanate 875-125 mg Tablet 875 mg PO BIDCC Qty: 14 RF: 0 Follow Up Plan Follow up with: Neno Grimaldo DPM [Physician] - Patient Disposition: Left Against Medical Advice Prognosis: Undetermined Overall status at discharge: patient is progressing back to baseline Discharge Date/Time: 10/26/20 17:25 Discharge Comment: Patient left AMA, RN wheeled patient outside Interventions Interventions: Discharge Assessment Last Done: 10/26/20 17:25 Discharge Belongings Last Done: 10/26/20 17:25 IV at Discharge Last Done: 10/26/20 17:25 Discharge Vaccines Last Done: 10/26/20 17:25 QUALITY VTE Deep Vein Thrombosis/Pulmonary Embolism Present on Admission: No
== END 2020-10-26 17:25 | disposition left against medical advice (07) | DRG 617 ==
LOC: ED 16:45 → MEDSUR 20:54
PROVIDERS: ADMIT Internal Medicine; ATTEND Internal Medicine

== ENCOUNTER 2021-02-14 13:37 | Inpatient (IN) ==
[2021-02-14] MEDS ORDERED: VANCOMYCIN 1,000 MG in 0.9 % SODIUM CHLORIDE 250 ML IV ONE (14:10)
[2021-02-14] MEDS ORDERED: 0.9 % SODIUM CHLORIDE 1,000 ML IV ONE (14:10)
[2021-02-14] MEDS ORDERED: INSULIN REGULAR, HUMAN 1 UNIT/0.01 ML UNIT IV ONE (14:14)
[2021-02-14] MEDS ORDERED: PIPERACILLIN SODIUM/TAZOBACTAM 3.375 GM in DEXTROSE 5% IN WATER 50 ML IV SCH ×2 (14:15→19:22)
--- NOTE | 2021-02-14 14:19 | Emergency Department Note ---
Wound/Laceration HIP General Chief Complaint: Wound/Laceration Stated Complaint: Right foot wound Time Seen by Provider: 02/14/21 13:49 Source: patient Mode of arrival: wheelchair Limitations: no limitations History of Present Illness HPI Narrative: 55-year-old male presents for evaluation of a right foot wound. Patient has a history of insulin-dependent diabetes mellitus has not had any insulin for several months since he was seen here in the hospital. Patient said prior amputation of his toes on his right foot. He states he hit his foot on something a month or 2 ago and has developed ulceration which is gotten worse and now has foul-smelling discharge. He does not have any sensation due to neuropathy in his feet. Denies any fevers chills chest pain or shortness of breath. Patient does not have a primary care doctor. He is not taking any medications. Related Data Allergies Allergy/AdvReac Type Severity Reaction Status Date / Time No Known Drug Allergies Allergy Verified 02/14/21 13:38 Review of Systems ROS ROS Narrative: Narrative: All systems ED: reviewed and negative except as stated. Constitutional: Denies fever, chills and sweats Eyes: Denies vision change Cardiovascular: Denies chest pain Respiratory: Denies shortness of breath and cough Gastrointestinal: Denies abdominal pain, vomiting and diarrhea Genitourinary: Denies dysuria, frequency, urgency and hematuria Musculoskeletal: Reports back pain, joint pain and other (Right diabetic foot ulceration redness and foul-smelling discharge) Integumentary: Reports rash and other (As per HPI,) Neurological: Denies headache and dizziness Psychiatric: Denies anxiety, suicidal thoughts and homicidal thoughts Endocrine: Reports polydipsia, polyuria and other (Noncompliant with diabetic care regimen) Hematological/Lymphatic: Denies easy bleeding and easy bruising [facility] Narrative Patient History Narrative: Narrative: Medical/Surgical/Family History All Active Problems (Updated 02/14/21 @ 15:06 by Salo Charles MD) Uncontrolled diabetes mellitus (Acute) Methamphetamine abuse (Acute) Cigarette smoker (Acute) Osteomyelitis of ankle and foot (Acute) Cellulitis (Acute) Diabetic ulcer of right foot (Acute) Osteomyelitis of right foot (Acute) Uncontrolled diabetes mellitus (Acute) Hyperglycemia (Acute) Homeless (Acute) Infestation, maggots (Acute) Leg ulcer, left (Acute) Diabetic ulcer of left foot (Acute) Abrasion of anterior right lower leg (Acute) Medical History (Updated 02/14/21 @ 15:06 by Salo Charels MD) Closed right arm fracture Surgical History History of amputation of lesser toe of right foot History of amputation of right great toe Status post amputation of right foot Partial Social History Smoking Status: Current every day smoker Alcohol Intake Frequency: holiday/special occasion only Substance Use: marijuana and amphetamines Exam Narrative Narrative: Constitutional: Awake alert no acute distress, thin malnourished, unkempt HEENT: Normocephalic, atraumatic PERRLA, EOMI, oral mucosa moist, pharynx clear Neck: Supple, no lymphadenopathy, no JVD Lungs: Breathing unlabored, lungs clear Cardiac: Regular rate and rhythm, normal distal pulses, GI: Soft nontender nondistended no guarding no rebound Musculoskeletal: Right foot with open ulcerations on the lateral and posterior left foot with foul-smelling discharge and erythema around the wound edges appears to be bone visible through the defect in the skin. Neuro: Awake alert, cranial nerves II through XII grossly intact, no focal motor or sensory deficits Psychiatric: Normal mood and affect Skin: Warm and dry, diabetic foot infection as above General Limitations: no limitations Course Consultations Consultation #1: Discussed with Dr. Beckham, orthopedist who agrees to see the patient in consultation. Time: 16:47 Consultation #2: Discussed with hospitalist Dr. Posey who agrees admit patient. He requested wound cultures. Time: 17:03 Vital Signs Vital signs: Vital Signs Temperature 97.0 F 02/14/21 13:39 Pulse Rate 98 H 02/14/21 13:39 Respiratory Rate 16 02/14/21 13:39 Blood Pressure 92/63 02/14/21 13:39 Pulse Oximetry (%) 98 02/14/21 13:39 Temperature 97.0 F 02/14/21 13:39 Pulse Rate 85 02/14/21 16:31 Respiratory Rate 21 02/14/21 16:31 Blood Pressure 110/74 02/14/21 16:31 Pulse Oximetry (%) 98 02/14/21 16:31 MDM MDM Narrative Medical decision making narrative: 55-year-old noncompliant diabetic presents with right diabetic open foot wound with evidence of osteomyelitis. Patient has not had insulin in the last several months. Glucose is 396. Patient has not acidotic. Lactate was normal. X-ray of the foot shows osteomyelitis. Case discussed with orthopedics received the patient in consultation and hospitalist who both agrees to see the and admit the patient.. Lab Data Result diagrams: 02/14/21 14:12 02/14/21 14:11 Labs: Lab Results 02/14/21 02/14/21 02/14/21 Range/Units 14:11 14:11 14:11 WBC (4.5-11.0) K/mcL RBC (4.50-5.90) M/mcL Hgb (13.5-16.5) g/dL Hct (41.0-55.0) % MCV (80.0-100.0) fL MCH (26.0-34.0) pg MCHC (31.0-36.0) g/dL RDW (11.5-14.5) % Plt Count (140-440) K/mcL MPV (7.4-10.4) fL Seg Neutrophils % (38-78) % Band Neutrophils % (0-10) % Lymphocytes % (15-49) % Monocytes % (Manual) (1-12) % Eosinophils % (Manual) (0-7) % WBC Morphology (Normal) Toxic Granulation (None Seen) Platelet Estimate (Normal) RBC Morphology (Normal) VBG Lactic Acid 1.4 (0.5-2.0) mmol/L Sodium 121 L (133-145) mmol/L Potassium 4.7 (3.3-5.1) mmol/L Chloride 87 L (96-108) mmol/L Carbon Dioxide 23 (22-30) mmol/L Anion Gap 11.0 (8.0-16.0) BUN 21 H (6-20) mg/dL Creatinine 0.9 (0.7-1.2) mg/dL GFR Calculation 96 Glucose 396 H (70-105) mg/dL Calcium 9.1 (8.6-10.4) mg/dL Total Bilirubin 0.5 (0.1-1.0) mg/dL AST 43 H (<40) U/L ALT 32 (<40) U/L Alkaline Phosphatase 321 H (39-117) U/L C-Reactive Protein 22.10 H (0.03-0.80) mg/dL Total Protein 8.2 (5.9-8.4) gm/dL Albumin 2.2 L (3.2-5.2) gm/dL Globulin 6.0 H (2.2-3.7) gm/dL Albumin/Globulin Ratio 0.4 L (1.0-2.3) Beta-Hydroxybutyrate (<0.27) mmol/L Procalcitonin 0.61 H (<0.10) ng/mL 02/14/21 02/14/21 Range/Units 14:12 14:20 WBC 12.6 H (4.5-11.0) K/mcL RBC 3.68 L (4.50-5.90) M/mcL Hgb 10.5 L (13.5-16.5) g/dL Hct 33.3 L (41.0-55.0) % MCV 90.5 (80.0-100.0) fL MCH 28.5 (26.0-34.0) pg MCHC 31.5 (31.0-36.0) g/dL RDW 12.3 (11.5-14.5) % Plt Count 408 (140-440) K/mcL MPV 10.5 H (7.4-10.4) fL Seg Neutrophils % 73 (38-78) % Band Neutrophils % 7 (0-10) % Lymphocytes % 13 L (15-49) % Monocytes % (Manual) 6 (1-12) % Eosinophils % (Manual) 1 (0-7) % WBC Morphology Abnormal A (Normal) Toxic Granulation 1+ A (None Seen) Platelet Estimate Normal (Normal) RBC Morphology Normal (Normal) VBG Lactic Acid (0.5-2.0) mmol/L Sodium (133-145) mmol/L Potassium (3.3-5.1) mmol/L Chloride (96-108) mmol/L Carbon Dioxide (22-30) mmol/L Anion Gap (8.0-16.0) BUN (6-20) mg/dL Creatinine (0.7-1.2) mg/dL GFR Calculation Glucose (70-105) mg/dL Calcium (8.6-10.4) mg/dL Total Bilirubin (0.1-1.0) mg/dL AST (<40) U/L ALT (<40) U/L Alkaline Phosphatase (39-117) U/L C-Reactive Protein (0.03-0.80) mg/dL Total Protein (5.9-8.4) gm/dL Albumin (3.2-5.2) gm/dL Globulin (2.2-3.7) gm/dL Albumin/Globulin Ratio (1.0-2.3) Beta-Hydroxybutyrate 2.21 H (<0.27) mmol/L Procalcitonin (<0.10) ng/mL Discharge Plan Patient/Caregiver Discharge Instructions Pt seen by [facility]ANDLE[facility]ER/PA only: No Clinical Impression: Uncontrolled diabetes mellitus, Diabetic ulcer of right foot, Osteomyelitis of right foot Patient Disposition: Xfer As Inpt ([facility]) Condition: Fair Follow up with: No,PCP [Primary Care Provider] -
--- NOTE | 2021-02-14 14:48 | XRay Report ---
HISTORY: Diabetic foot infection, evaluate for osteomyelitis FINDINGS: Patient has had a prior amputation of the distal foot. The amputation extending through the bases of the first through fifth metatarsals. There is a large open skin wound along the distal, lateral aspect of the foot, which contains gas. The gas extends down to the level of the bones. There is partial erosion and fragmentation of the remaining base of the fifth metatarsal. The bases of the first through fourth metatarsals are normal. Tarsal bones are normal without evidence of infection. However, there is a bubble of gas in the soft tissues superior and medial to the navicular. IMPRESSION: Osteomyelitis at the base of the fifth metatarsal Interpreted and Authenticated by: Garo Vieira 02/14/21
[2021-02-14 14:56] LABS: Hematocrit 33.3 % (41.0-55.0); Hemoglobin 10.5 g/dL (13.5-16.5); Mean Cell Volume 90.5 fL (80.0-100.0); Mean Corpuscular HGB Conc 31.5 g/dL (31.0-36.0); Mean Platelet Volume 10.5 fL (7.4-10.4); Platelet Count 408 K/mcL (140-440); RBC 3.68 M/mcL (4.50-5.90); Red Cell Distribution Width 12.3 % (11.5-14.5); WBC 12.6 K/mcL (4.5-11.0)
[2021-02-14 15:16] LABS: ALT/SGPT 32 U/L (<40); AST/SGOT 43 U/L (<40); Albumin 2.2 gm/dL (3.2-5.2); Albumin/Globulin Ratio 0.4 (1.0-2.3); Alkaline Phosphatase 321 U/L (39-117); Bilirubin,Total 0.5 mg/dL (0.1-1.0); Blood Urea Nitrogen 21 mg/dL (6-20); Calcium 9.1 mg/dL (8.6-10.4); Carbon Dioxide 23 mmol/L (22-30); Chloride 87 mmol/L (96-108); Glomerular Filtration Rate 96; Glucose 396 mg/dL (70-105)
[2021-02-14 16:03] LABS: Band Neutrophils % 7 % (0-10); Eosinophils % (Manual) 1 % (0-7); Lymphocytes % 13 % (15-49); Monocytes % (Manual) 6 % (1-12); Platelet Estimate NORMAL (Normal); RBC Morphology NORMAL (Normal); Segmented Neutrophils % 73 % (38-78); Toxic Granulation 1+ (None Seen)
[2021-02-14 17:05] LABS: Erythrocyte Sedimentation Rate 122 mm/hr (0-15)
--- NOTE | 2021-02-14 17:42 | Internal Med History&Physical ---
HPI History of Present Illness Patient information: Note initiated : 02/14/21 at 5:38 pm Service Date, if different from initiated Date: [] Patient: Wilfrido Damon 55 y/o M admitted on for Right foot wound. Chief Complaint: [Diabetic right foot] History of present illness: Mr. Damon is a 55 year old M history of type 2 diabetes mellitus and polysubstance abuse including IV methamphetamine abuse, presenting with a nonhealing right foot ulcer for the past 1 and half month. He previously has a transmetatarsal amputations of the right foot about 2 years ago. Patient stated that he is noncompliant with his medication and he has not been taking any insulin for the past few months in particular. Over the past 1-1/2-month, he has been noticing ulcer and wound opening in the right foot amputation site with associated pain and foul-smelling. The pain is graded at 10 out of 10, constant, sharp, localized in the right foot near the amputation site. In addition, patient is complaining of general body weakness. He denies any decreased appetite or lethargy or confusions or fever or chills or diaphoresis. Because of the nonhealing and worsening nature of his right foot wound, he decided to come to our emergency room today for further evaluations. Vital signs significant with absence of fever. Labs significant for leukocytosis with WBC 12.6. Serum glucose 396. Serum bicarb 23 and anion gap 11. Calcitonin 0.61. X-ray of the right foot showing evidence of osteomyelitis Constitutional Constitutional: Present fatigue and weakness; Absent chills, excessive sweating and fever(s) EENT Eyes: Absent blurry vision, change in vision, loss of vision and other visual disturbances Ears: Absent decreased hearing and tinnitus Nose, mouth and throat: Absent abnormal hearing, dry mouth, headache(s), nasal congestion and sore throat Cardiovascular Cardiovascular: Absent chest pain, chest pain at rest, edema, irregular heart rhythm and palpatations Respiratory Respiratory: Absent cough, dyspnea and wheezing Gastrointestinal Gastrointestinal: Absent abdominal pain, constipation, diarrhea, nausea and vomiting Musculoskeletal Musculoskeletal: Present deformity; Absent back pain, limited range of motion, muscle cramps, muscle weakness and numbness Additional comments: Diabetic foot ulcer of the right foot near the transmetatarsal amputation site Integumentary Integumentary: Absent lesions, rash and wounds Neurological Neurological: Absent focal weakness, headache(s) and numbness Psychiatric Psychiatric: Absent anxiety, depression and hallucinations PFSH PFSH All Active Problems (Updated 02/14/21 @ 17:46 by Reji Posey MD) Marijuana use (Acute) Anemia of chronic disease (Acute) Uncontrolled diabetes mellitus (Acute) Methamphetamine abuse (Acute) Cigarette smoker (Acute) Osteomyelitis of ankle and foot (Acute) Cellulitis (Acute) Diabetic ulcer of right foot (Acute) Osteomyelitis of right foot (Acute) Uncontrolled diabetes mellitus (Acute) Hyperglycemia (Acute) Homeless (Acute) Infestation, maggots (Acute) Leg ulcer, left (Acute) Diabetic ulcer of left foot (Acute) Abrasion of anterior right lower leg (Acute) Medical History (Updated 02/14/21 @ 17:46 by Reji Posey MD) Closed right arm fracture Surgical History History of amputation of lesser toe of right foot History of amputation of right great toe Status post amputation of right foot Partial Social History alcohol intake frequency: holiday/special occasion only substance use type: marijuana and amphetamines additional history: Family history: Mother father both had diabetes Social history: Patient smokes 1 pack of cigarettes per day Drinks alcohol occasionally Uses IV meth several times a week and marijuana Lives [place] the [address] MEDS/ALLERGIES Home Medications and Allergies Allergies Allergy/AdvReac Type Severity Reaction Status Date / Time No Known Drug Allergies Allergy Verified 02/14/21 13:38 EXAM Constitutional Vitals: Temp Pulse Resp BP Pulse Ox 36.1 C 81 21 108/72 100 02/14/21 13:39 02/14/21 17:31 02/14/21 17:31 02/14/21 17:31 02/14/21 17:31 General appearance: cooperative and no acute distress Exam: Cachectic Head Head exam: Present atraumatic and normocephalic Eye Eye exam: Present EOMI and PERRL ENT ENT exam: Present mucous membranes moist, normal exam and normal external ear exam Neck Neck exam: Present normal inspection; Absent lymphadenopathy, tenderness and thyromegaly Respiratory Respiratory exam: Absent accessory muscle use, respiratory distress and wheezes Cardiovascular Cardiovascular exam: Present normal rate and rhythm; Absent JVD GI/Abdominal GI/Abdominal exam: Present normal bowel sounds and soft; Absent organomegaly and tenderness Rectal Rectal exam: Present deferred Extremities Exam Extremities exam: Present full ROM and normal capillary refill; Absent normal inspection and tenderness Additional comments: Right foot transmetatarsal amputations with the amputation site with multiple nonhealing diabetic ulcer with pustular/bloody discharge and foul-smelling Neurological Exam Neurological exam: Present alert, CN II-XII intact and oriented X3; Absent motor sensory deficit Psychiatric Psychiatric exam: Present normal affect and normal mood; Absent anxious and depressed Skin Skin exam: Present dry; Absent intact Additional comments: Right foot transmetatarsal amputations with the amputation site with multiple nonhealing diabetic ulcer with pustular/bloody discharge and foul-smelling DATA Data Completed and Pending Labs: Labs from last 24 hours 02/14/21 02/14/21 02/14/21 14:20 14:12 14:11 WBC 12.6 H RBC 3.68 L Hgb 10.5 L Hct 33.3 L MCV 90.5 MCH 28.5 MCHC 31.5 RDW 12.3 Plt Count 408 MPV 10.5 H Seg Neutrophils % 73 Band Neutrophils % 7 Lymphocytes % 13 L Monocytes % (Manual) 6 Eosinophils % (Manual) 1 WBC Morphology Abnormal A Toxic Granulation 1+ A Platelet Estimate Normal RBC Morphology Normal ESR 122 H VBG Lactic Acid Sodium Potassium Chloride Carbon Dioxide Anion Gap BUN Creatinine GFR Calculation Glucose Calcium Total Bilirubin AST ALT Alkaline Phosphatase C-Reactive Protein Total Protein Albumin Globulin Albumin/Globulin Ratio Beta-Hydroxybutyrate 2.21 H Procalcitonin 0.61 H 02/14/21 02/14/21 14:11 14:11 WBC RBC Hgb Hct MCV MCH MCHC RDW Plt Count MPV Seg Neutrophils % Band Neutrophils % Lymphocytes % Monocytes % (Manual) Eosinophils % (Manual) WBC Morphology Toxic Granulation Platelet Estimate RBC Morphology ESR VBG Lactic Acid 1.4 Sodium 121 L Potassium 4.7 Chloride 87 L Carbon Dioxide 23 Anion Gap 11.0 BUN 21 H Creatinine 0.9 GFR Calculation 96 Glucose 396 H Calcium 9.1 Total Bilirubin 0.5 AST 43 H ALT 32 Alkaline Phosphatase 321 H C-Reactive Protein 22.10 H Total Protein 8.2 Albumin 2.2 L Globulin 6.0 H Albumin/Globulin Ratio 0.4 L Beta-Hydroxybutyrate Procalcitonin A/P Assessment and plan (1) Methamphetamine abuse: Status: Acute (2) Cigarette smoker: Status: Acute (3) Osteomyelitis of right foot: Status: Acute (4) Uncontrolled diabetes mellitus: Status: Acute (5) Homeless: Status: Acute (6) Anemia of chronic disease: Status: Acute (7) Marijuana use: Status: Acute Narrative A/P Narrative: 1. Type 2 diabetes mellitus with diabetic foot infection/osteomyelitis of the right foot, s/p transmetatarsal amputation: Admit to inpatient med surg Consult orthopedic surgeon, recs. appreciated Consult ID Dr. Guzman, recs. appreciated Serial lactic acid Blood culture X2 Wound culture ESR CRP and procalcitonin cbc w/ auto diff. in the morning to trend WBC Vancomycin Zosyn IV NS@100cc/hr Morphine 2mg IV q4hr PRN severe pain Tylenol PRN fever PT and OT evaluation and treatment Long acting insulin 10 unit HS High dose insulin AC HS HgA1c Accu Check AC HS Hypoglycemia protocol Diabetic diet for now, NPO after midnight in case for surgery Diabetic education 2. Anemia of chronic disease: cbc w/ auto diff in the morning to trend H/H; transfuse pRBC if hemoglobin <7.0, if active bleeding, or if symptomatic 3. Polysubstance abuse including IV methamphetamine and marijuana: Urine drug screen Time Spent With Patient Time: Total time spent is greater than 50% in coordination of care (as documented) at patient's floor/unit and/or counseling patient: Total time spent with greater than 50% in coordination of care (as documented) at patient's floor/unit and/or counseling patient:: 25 - 35 minutes
[2021-02-14] MEDS ORDERED: ONDANSETRON 4 MG/2 ML VIAL IV PRN (19:22)
[2021-02-14] MEDS ORDERED: ACETAMINOPHEN 325 MG TABLET PO PRN (19:22)
[2021-02-14] MEDS ORDERED: DEXTROSE 50% 50 ML VIAL IV PRN (19:22)
[2021-02-14] MEDS ORDERED: VANCOMYCIN PER PHARMACY IV SCH (19:22)
[2021-02-14] MEDS ORDERED: DEXTROSE 31 GM ORAL.SUSP PO PRN (19:22)
[2021-02-14] MEDS: DOCUSATE SODIUM 100 MG CAPSULE PO SCH (19:51)
[2021-02-14] MEDS: 0.9 % SODIUM CHLORIDE 1,000 ML IV SCH (19:52)
[2021-02-14] MEDS: SENNOSIDES 1 TABLET PO SCH (19:52)
[2021-02-14] MEDS: morphine 4 MG/ML VIAL IV PRN (21:23)
[2021-02-14] MEDS: INSULIN LISPRO 1 UNIT/0.01 ML UNIT SQ SCH (21:24)
[2021-02-14] MEDS: 0.9 % SODIUM CHLORIDE 10 ML SYRINGE IV SCH (21:24)
[2021-02-14] MEDS: INSULIN GLARGINE, HUMAN 1 UNIT/0.01 ML SQ SCH (21:24)
[2021-02-14] MEDS ORDERED: VANCOMYCIN 500 MG in 0.9 % SODIUM CHLORIDE 100 ML IV ONE (22:00)
[2021-02-15] MEDS: PIPERACILLIN SODIUM/TAZOBACTAM 3.375 GM in DEXTROSE 5% IN WATER 50 ML IV SCH ×3 (05:54→22:40)
[2021-02-15] MEDS: 0.9 % SODIUM CHLORIDE 1,000 ML IV SCH ×4 (05:55→22:40)
[2021-02-15] MEDS: 0.9 % SODIUM CHLORIDE 10 ML SYRINGE IV SCH ×3 (07:08→21:17)
[2021-02-15] MEDS: INSULIN LISPRO 1 UNIT/0.01 ML UNIT SQ SCH ×4 (07:46→21:16)
[2021-02-15] MEDS: DOCUSATE SODIUM 100 MG CAPSULE PO SCH ×2 (07:47→20:58)
[2021-02-15 08:20] LABS: Basophils # (Auto) 0.02 K/mcL (0.00-0.20); Basophils % (Auto) 0.3 % (0.0-2.0); Eosinophils # (Auto) 0.04 K/mcL (0.00-0.70); Eosinophils % (Auto) 0.5 % (0.0-7.0); Hematocrit 33.4 % (41.0-55.0); Lymphocytes % (Auto) 10.2 % (15.0-49.0); Mean Cell Volume 95.2 fL (80.0-100.0); Mean Corpuscular HGB Conc 29.9 g/dL (31.0-36.0); Mean Platelet Volume 9.6 fL (7.4-10.4); Monocytes # (Auto) 0.55 K/mcL (0.10-0.90); Platelet Count 462 K/mcL (140-440); RBC 3.51 M/mcL (4.50-5.90); Red Cell Distribution Width 12.7 % (11.5-14.5); WBC 7.8 K/mcL (4.5-11.0)
[2021-02-15] MEDS: VANCOMYCIN 1,000 MG in 0.9 % SODIUM CHLORIDE 250 ML IV SCH ×2 (09:20→21:17)
[2021-02-15 09:27] LABS: Blood Urea Nitrogen 17 mg/dL (6-20); Calcium 8.4 mg/dL (8.6-10.4); Carbon Dioxide 25 mmol/L (22-30); Chloride 101 mmol/L (96-108); Glomerular Filtration Rate 107; Glucose 83 mg/dL (70-105)
--- NOTE | 2021-02-15 09:46 | Internal Med Progress Note ---
SUBJECTIVE Subjective Patient information: Note initiated : 02/15/21 at 9:45 am Service Date, if different from initiated Date: [] Patient: Wilfrido Damon 55 y/o M admitted on 02/14/21 for Right foot wound. Chief Complaint: [Right diabetic foot with osteomyelitis] Overnight: Fever with Tmax 37.9. Wound and blood cultures no growth to date. Constitutional Vitals: Vital Signs Temp Pulse Resp BP Pulse Ox 37.9 C H 82 20 97/64 95 02/15/21 08:00 02/15/21 08:00 02/15/21 08:00 02/15/21 08:00 02/15/21 08:00 Period Temp Pulse Resp BP Sys/Orosco Pulse Ox Last 24 Hr 36.1 C-37.9 C 81-98 12-23 92-118/60-80 95-100 Intake and Output 02/14/21 02/15/21 02/15/21 21:59 05:59 13:59 Intake Total 1300 1250 50 Output Total 0 Balance 1300 1250 50 Weight 47.174 kg Intake & Output: Intake & Output 02/14/21 02/15/21 02/15/21 21:59 05:59 13:59 Intake Total 1300 1250 50 Output Total 0 Balance 1300 1250 50 Weight 47.174 kg Intake: IV 1300 1150 50 Sodium Chloride 0.9% 1,000 ml @ 1000 1000 100 mls/hr IV .Q10H [facility] Rx#: [id number] Zosyn 3.375 gm In Dextrose 5% 50 50 50 in Water 50 ml @ 100 mls/hr IV Q8H [facility] Rx#:[id number] Vancomycin 500 mg In Sodium 100 Chloride 0.9% 100 ml @ 100 mls/ hr IV ONCE ONE Rx#:[id number] Vancomycin 1,000 mg In Sodium 250 Chloride 0.9% 250 ml @ 250 mls/ hr IV ONCE ONE Rx#:[id number] Oral 100 Output: Void Amount 0 General appearance: cooperative and no acute distress Head Head exam: Present atraumatic and normocephalic Eye Eye exam: Present EOMI and PERRL ENT ENT exam: Present mucous membranes moist, normal exam and normal external ear exam Neck Neck exam: Present normal inspection; Absent lymphadenopathy, tenderness and thyromegaly Respiratory Respiratory exam: Absent accessory muscle use, respiratory distress and wheezes Cardiovascular Cardiovascular exam: Present normal rate and rhythm; Absent JVD GI/Abdominal GI/Abdominal exam: Present normal bowel sounds and soft; Absent organomegaly and tenderness Rectal Rectal exam: Present deferred Extremities Exam Extremities exam: Present full ROM and normal capillary refill; Absent normal inspection and tenderness Additional comments: Right transmetatarsdal amputation with multiple tai- incisional ulcers with pustular discharge and foul smell. Neurological Exam Neurological exam: Present alert, CN II-XII intact and oriented X3; Absent motor sensory deficit Psychiatric Psychiatric exam: Present normal affect and normal mood; Absent anxious and depressed Skin Skin exam: Present dry; Absent intact Additional comments: Right transmetatarsdal amputation with multiple tai- incisional ulcers with pustular discharge and foul smell. OBJ DATA Labs CBC & Chem 7: 02/15/21 06:02 02/15/21 06:02 Labs: Abnormal Lab Results 02/15/21 02/15/21 02/14/21 06:02 06:02 19:43 WBC RBC 3.51 L Hgb 10.0 L Hct 33.4 L MCHC 29.9 L Plt Count 462 H MPV Neut % (Auto) 82.0 H Lymph % (Auto) 10.2 L Lymph # (Auto) 0.80 L Lymphocytes % WBC Morphology Toxic Granulation ESR Sodium 132 L Chloride Anion Gap 6.0 L BUN Glucose Calcium 8.4 L AST Alkaline Phosphatase C-Reactive Protein 18.10 H Albumin Globulin Albumin/Globulin Ratio Beta-Hydroxybutyrate Procalcitonin 02/14/21 02/14/21 02/14/21 19:43 14:20 14:12 WBC 12.6 H RBC 3.68 L Hgb 10.5 L Hct 33.3 L MCHC Plt Count MPV 10.5 H Neut % (Auto) Lymph % (Auto) Lymph # (Auto) Lymphocytes % 13 L WBC Morphology Abnormal A Toxic Granulation 1+ A ESR 122 H 122 H Sodium Chloride Anion Gap BUN Glucose Calcium AST Alkaline Phosphatase C-Reactive Protein Albumin Globulin Albumin/Globulin Ratio Beta-Hydroxybutyrate 2.21 H Procalcitonin 02/14/21 02/14/21 14:11 14:11 WBC RBC Hgb Hct MCHC Plt Count MPV Neut % (Auto) Lymph % (Auto) Lymph # (Auto) Lymphocytes % WBC Morphology Toxic Granulation ESR Sodium 121 L Chloride 87 L Anion Gap BUN 21 H Glucose 396 H Calcium AST 43 H Alkaline Phosphatase 321 H C-Reactive Protein 22.10 H Albumin 2.2 L Globulin 6.0 H Albumin/Globulin Ratio 0.4 L Beta-Hydroxybutyrate Procalcitonin 0.61 H Meds: Medications Acetaminophen (Acetaminophen 325 Mg Tablet) 650 mg PO Q6HP PRN; Protocol PRN Reason: Per Pain Protocol/Fever > 101 Dextrose (Dextrose 50% 50 Ml Vial) 0 ml IV UD PRN PRN Reason: Hypoglycemia Diagnostic Test (Pha) (Accu-Chek 1 Each Strip) 1 each FS [facility] Last Admin: 02/15/21 07:09 Dose: 1 each Documented by: Docusate Sodium (Docusate Sodium 100 Mg Capsule) 100 mg PO BID [facility] Last Admin: 02/15/21 07:47 Dose: Not Given Documented by: Glucose (Dextrose 31 Gm Oral.Susp) 15 gm PO PRN PRN PRN Reason: Hypoglycemia Sodium Chloride (Sodium Chloride 0.9%) 1,000 mls @ 100 mls/hr IV .Q10H [facility] Last Admin: 02/15/21 07:48 Dose: 100 mls/hr Documented by: Piperacillin Sod/Tazobactam (Sod 3.375 gm/ Dextrose) 50 mls @ 100 mls/hr IV Q8H [facility]; Protocol Last Infusion: 02/15/21 07:49 Dose: Infused Documented by: Vancomycin HCl 1,000 mg/ (Sodium Chloride) 250 mls @ 250 mls/hr IV Q12H [facility] Last Admin: 02/15/21 09:20 Dose: 250 mls/hr Documented by: Insulin Glargine (Insulin Glargine, Human 1 Unit/0.01 Ml) 10 unit SQ [facility] Last Admin: 02/14/21 21:24 Dose: 10 units Documented by: Insulin Human Lispro (Insulin Lispro 1 Unit/0.01 Ml Unit) 0 unit SQ [facility]; Protocol Last Admin: 02/15/21 07:46 Dose: 12 units Documented by: Morphine Sulfate (Morphine 4 Mg/Ml Vial) 2 mg IV Q4HP PRN; Protocol PRN Reason: Per Pain Protocol Last Admin: 02/14/21 21:23 Dose: 2 mg Documented by: Ondansetron HCl (Ondansetron 4 Mg/2 Ml Vial) 4 mg IV Q6HP PRN PRN Reason: Nausea And Vomiting Senna (Sennosides 1 Tablet) 2 tab PO HS [facility] Last Admin: 02/14/21 19:52 Dose: Not Given Documented by: Sodium Chloride (0.9 % Sodium Chloride 10 Ml Syringe) 10 ml IV Q8 [facility] Last Admin: 02/15/21 07:08 Dose: Not Given Documented by: Vancomycin HCl (Vancomycin Per Pharmacy) 1 order IV UD [facility]; Protocol A/P Assessment and plan (1) Methamphetamine abuse: Status: Acute (2) Cigarette smoker: Status: Acute (3) Osteomyelitis of right foot: Status: Acute (4) Uncontrolled diabetes mellitus: Status: Acute (5) Homeless: Status: Acute (6) Anemia of chronic disease: Status: Acute (7) Marijuana use: Status: Acute Narrative A/P Narrative: 1. Type 2 diabetes mellitus with diabetic foot infection/osteomye litis of the right foot, s/p transmetatarsal amputation: Stays on inpatient med surg Consult orthopedic surgeon, recs. appreciated Consult ID Dr. Guzman, recs. appreciated Serial lactic acid Blood culture X2, no growth to date Wound culture, no growth to date ESR CRP and procalcitonin cbc w/ auto diff. in the morning to trend WBC Vancomycin Zosyn IV NS@100cc/hr Morphine 2mg IV q4hr PRN severe pain Tylenol PRN fever PT and OT evaluation and treatment Long acting insulin 10 unit HS High dose insulin AC HS HgA1c Accu Check AC HS Hypoglycemia protocol Diabetic diet for now, NPO after midnight in case for surgery Diabetic education 2. Anemia of chronic disease: cbc w/ auto diff in the morning to trend H/H; transfuse pRBC if hemoglobin <7.0, if active bleeding, or if symptomatic 3. Polysubstance abuse including IV methamphetamine and marijuana: Urine drug screen Time Spent With Patient Time: Total time spent is greater than 50% in coordination of care (as documented) at patient's floor/unit and/or counseling patient: QUALITY Stroke Symptom Onset Unknown: No VTE Deep Vein Thrombosis/Pulmonary Embolism Present on Admission: No
--- NOTE | 2021-02-15 14:46 | Internal Med Progress Note ---
SUBJECTIVE Subjective Patient information: Note initiated : 02/15/21 at 2:38 pm Service Date, if different from initiated Date: [] Patient: Wilfrido Damon 55 y/o M admitted on 02/14/21 for Right foot wound. Chief Complaint: [] Interval history: 02/15 Fever with Tmax 37.9. Wound and blood cultures no growth to date. 02/16 Constitutional Vitals: Vital Signs Temp Pulse Resp BP Pulse Ox 98.1 F 78 18 111/73 99 02/15/21 11:53 02/15/21 11:53 02/15/21 11:53 02/15/21 11:53 02/15/21 11:53 Period Temp Pulse Resp BP Sys/Orosco Pulse Ox Last 24 Hr 98.1 F-100.2 F 78-98 10-16 92-118/60-77 95-100 Intake and Output 02/15/21 02/15/21 02/15/21 05:59 13:59 21:59 Intake Total 1250 300 Output Total 0 Balance 1250 300 Weight 47.174 kg Patient Weight 02/16/21 05:59 Weight 47.174 kg Intake & Output: Intake & Output 02/15/21 02/15/21 02/15/21 05:59 13:59 21:59 Intake Total 1250 300 Output Total 0 Balance 1250 300 Weight 47.174 kg Intake: IV 1150 300 Sodium Chloride 0.9% 1,000 ml @ 1000 100 mls/hr IV .Q10H [facility] Rx#: [id number] Zosyn 3.375 gm In Dextrose 5% 50 50 in Water 50 ml @ 100 mls/hr IV Q8H [facility] Rx#:[id number] Vancomycin 500 mg In Sodium 100 Chloride 0.9% 100 ml @ 100 mls/ hr IV ONCE ONE Rx#:[id number] Vancomycin 1,000 mg In Sodium 250 Chloride 0.9% 250 ml @ 250 mls/ hr IV Q12H [facility] Rx#:[id number] Oral 100 Output: Void Amount 0 Exam: General: Alert, Awake, No acute Distress Eyes/N/T: EOMI, Head/Neck: neck supple, CV: RRR, No murmurs, Pulm: Clear b/l, no wheezing/rhonchi/rales Abd: soft, nontender, +BS x4 Ext: no clubbing/cyanosis. RFoot with tai-incisional ulcers with foul drainage/erythema/ Neuro: Alert, no focal deficits, moves all extremities, Skin: warm/dry OBJ DATA Labs CBC & Chem 7: 02/15/21 06:02 02/15/21 06:02 Labs: Abnormal Lab Results 02/15/21 02/15/21 02/14/21 06:02 06:02 19:43 WBC RBC 3.51 L Hgb 10.0 L Hct 33.4 L MCHC 29.9 L Plt Count 462 H MPV Neut % (Auto) 82.0 H Lymph % (Auto) 10.2 L Lymph # (Auto) 0.80 L Lymphocytes % WBC Morphology Toxic Granulation ESR Sodium 132 L Chloride Anion Gap 6.0 L BUN Glucose Calcium 8.4 L AST Alkaline Phosphatase C-Reactive Protein 18.10 H Albumin Globulin Albumin/Globulin Ratio Beta-Hydroxybutyrate Procalcitonin 02/14/21 02/14/21 02/14/21 19:43 14:20 14:12 WBC 12.6 H RBC 3.68 L Hgb 10.5 L Hct 33.3 L MCHC Plt Count MPV 10.5 H Neut % (Auto) Lymph % (Auto) Lymph # (Auto) Lymphocytes % 13 L WBC Morphology Abnormal A Toxic Granulation 1+ A ESR 122 H 122 H Sodium Chloride Anion Gap BUN Glucose Calcium AST Alkaline Phosphatase C-Reactive Protein Albumin Globulin Albumin/Globulin Ratio Beta-Hydroxybutyrate 2.21 H Procalcitonin 02/14/21 02/14/21 14:11 14:11 WBC RBC Hgb Hct MCHC Plt Count MPV Neut % (Auto) Lymph % (Auto) Lymph # (Auto) Lymphocytes % WBC Morphology Toxic Granulation ESR Sodium 121 L Chloride 87 L Anion Gap BUN 21 H Glucose 396 H Calcium AST 43 H Alkaline Phosphatase 321 H C-Reactive Protein 22.10 H Albumin 2.2 L Globulin 6.0 H Albumin/Globulin Ratio 0.4 L Beta-Hydroxybutyrate Procalcitonin 0.61 H Meds: Medications Acetaminophen (Acetaminophen 325 Mg Tablet) 650 mg PO Q6HP PRN; Protocol PRN Reason: Per Pain Protocol/Fever > 101 Dextrose (Dextrose 50% 50 Ml Vial) 0 ml IV UD PRN PRN Reason: Hypoglycemia Diagnostic Test (Pha) (Accu-Chek 1 Each Strip) 1 each FS [facility] Last Admin: 04/24/21 13:35 Dose: Not Given Documented by: Docusate Sodium (Docusate Sodium 100 Mg Capsule) 100 mg PO BID [facility] Last Admin: 02/15/21 07:47 Dose: Not Given Documented by: Glucose (Dextrose 31 Gm Oral.Susp) 15 gm PO PRN PRN PRN Reason: Hypoglycemia Sodium Chloride (Sodium Chloride 0.9%) 1,000 mls @ 100 mls/hr IV .Q10H [facility] Last Admin: 02/15/21 07:48 Dose: 100 mls/hr Documented by: Piperacillin Sod/Tazobactam (Sod 3.375 gm/ Dextrose) 50 mls @ 100 mls/hr IV Q8H [facility]; Protocol Last Admin: 02/15/21 14:15 Dose: 100 mls/hr Documented by: Vancomycin HCl 1,000 mg/ (Sodium Chloride) 250 mls @ 250 mls/hr IV Q12H [facility] Last Infusion: 02/15/21 13:36 Dose: Infused Documented by: Insulin Glargine (Insulin Glargine, Human 1 Unit/0.01 Ml) [address] [facility] Last Admin: 02/14/21 21:24 Dose: 10 units Documented by: Insulin Human Lispro (Insulin Lispro 1 Unit/0.01 Ml Unit) 0 unit SQ [facility]; Protocol Last Admin: 02/15/21 13:35 Dose: Not Given Documented by: Morphine Sulfate (Morphine 4 Mg/Ml Vial) 2 mg IV Q4HP PRN; Protocol PRN Reason: Per Pain Protocol Last Admin: 02/14/21 21:23 Dose: 2 mg Documented by: Ondansetron HCl (Ondansetron 4 Mg/2 Ml Vial) 4 mg IV Q6HP PRN PRN Reason: Nausea And Vomiting Senna (Sennosides 1 Tablet) [address] [facility] Last Admin: 02/14/21 19:52 Dose: Not Given Documented by: Sodium Chloride (0.9 % Sodium Chloride 10 Ml Syringe) 10 ml IV Q8 [facility] Last Admin: 02/15/21 14:15 Dose: Not Given Documented by: Vancomycin HCl (Vancomycin Per Pharmacy) 1 [place] [facility] [place] Protocol A/P Narrative A/P Narrative: * Type 2 diabetes mellitus w/diabetic foot infection/osteomyelitis of the right foot, recent transmetatarsal amputation: Dr. Grimaldo Consult Consult ID Dr. Guzman, recs. appreciated wound cx with Strep goup B and proteus Vancomycin/Zosyn -de-escalate PT and OT evaluation and treatment *DM: Long acting insulin 10 unit HS High dose insulin AC HS HgA1c Diabetic diet for now, NPO after midnight in case for surgery *Anemia of chronic disease: *Polysubstance abuse including IV methamphetamine and marijuana: Urine drug screen *ppx: heparin Time Spent With Patient Time: Total time spent is greater than 50% in coordination of care (as documented) at patient's floor/unit and/or counseling patient: QUALITY Stroke Symptom Onset Unknown: No VTE Deep Vein Thrombosis/Pulmonary Embolism Present on Admission: No
[2021-02-15] MEDS: morphine 4 MG/ML VIAL IV PRN (18:31)
--- NOTE | 2021-02-15 18:50 | General Surgery Consult Note ---
HPI Data of Consult Primary Care Provider: PCP No Consult Narrative Patient Information: Note initiated : 02/15/21 at 6:29 pm Service Date, if different from initiated Date: [] Patient: Wilfrido Damon 55 y/o M admitted on 02/14/21 for Right foot wound. Chief Complaint: [SEPSIS. WET Gangrene RIGHT foot and ankle] IDDM, Substance abuse, Homeless and NON COMPLIANT Past h/o RIGHT TMA forefoot and uncontrolled diabetes. Admitted via ER. I saw this gentleman on behalf of Dr. Griamldo. Patient needs a RIGHT BKA. Below the knee amputation. I discussed his case with Dr. Flynn, Hospitalist Physician and Dr. Beckham ( O rthopedic Surgeon ) O/C for KO. I have reviewed his ROS, PMH, PSH, SH, Medications and Allergies. cc:: CC: Reji Posey MD [facility] All Active Problems (Updated 02/16/21 @ 07:17 by Sal Beckham MD) Marijuana use (Acute) Anemia of chronic disease (Acute) Uncontrolled diabetes mellitus (Acute) Methamphetamine abuse (Acute) Cigarette smoker (Acute) Osteomyelitis of ankle and foot (Acute) Cellulitis (Acute) Diabetic ulcer of right foot (Acute) Osteomyelitis of right foot (Acute) Uncontrolled diabetes mellitus (Acute) Hyperglycemia (Acute) Homeless (Acute) Infestation, maggots (Acute) Leg ulcer, left (Acute) Diabetic ulcer of left foot (Acute) Abrasion of anterior right lower leg (Acute) Medical History (Updated 02/16/21 @ 07:17 by Sal Beckham MD) Closed right arm fracture Surgical History History of amputation of lesser toe of right foot History of amputation of right great toe Status post amputation of right foot Partial Social History alcohol intake frequency: holiday/special occasion only substance use type: marijuana and amphetamines additional history: Family history: Mother father both had diabetes Social history: Patient smokes 1 pack of cigarettes per day Drinks alcohol occasionally Uses IV meth several times a week and marijuana Lives on the [address] MEDS/ALLERGIES Home Medications and Allergies Home Medications Medication Instructions Recorded Confirmed Type No Known Home Meds 02/14/21 02/14/21 History Allergies Allergy/AdvReac Type Severity Reaction Status Date / Time No Known Drug Allergies Allergy Verified 02/14/21 19:52 Physical Examination Vital Signs Vital signs: Temp Pulse Resp BP Pulse Ox 98.6 F 108 H 22 140/77 99 02/15/21 16:00 02/15/21 16:00 02/15/21 16:00 02/15/21 16:00 02/15/21 16:00 General physical appearance General physical exam: chronically ill and other (Malnourished, NOT in distress. Strong odor from open infected wounds of RIGHT foot and ankle. MRSA Negative Wound C/S Strep agalacticae. Lab results Elevated CRP and Venous Lactate, Thrombocytosis ) Eyes Eye exam: PERRL and normal ocular movement ENT ENT exam: normal pinna, normal nares, normal mucosa and no congestion Head Head exam IM: Present atraumatic and normal inspection Neck Neck exam: no masses, trachea midline and no venous distension Cardiovascular Cardiovascular exam IM: Present normal rate and rhythm Peripheral pulses: 0: dorsalis pedis (R) and posterior tibialis (R) Respiratory Respiratory exam: normal respiratory effort and clear to auscultation Abdomen Abdomen: Present soft, non tender and bowel sounds Genitourinary Genitourinary (Male): Present normal penis with no external lesions and other (Urine is clear) Integumentary Integumentary: Present other (CSSSI, NECROTIC open wounds with exposed bone and tendons, extend up to ankle. Foul odor. ) Neurologic Neurologic: Present other (Diabetes with peripheral neuropathy feet, ankles and lower legs.) Musculoskeletal Musculoskeletal: Present other (Non ambulatory. LEFT foot previous lateral toe amputation. RIGHT FOOT with open wounds and wet gangrene, extending up to ankle.) Psychiatric Psychiatric: Present oriented to time, oriented to person, oriented to place, speech is normal, memory intact and other (Social issues. Homeless. Substance abuse ( Marijuana and tobacco )) Results Labs Result diagrams: 02/15/21 06:02 02/16/21 05:40 Labs: Abnormal lab results 02/14/21 02/14/21 02/15/21 Range/Units 19:43 19:43 06:02 RBC 3.51 L (4.50-5.90) M/mcL Hgb 10.0 L (13.5-16.5) g/dL Hct 33.4 L (41.0-55.0) % MCHC 29.9 L (31.0-36.0) g/dL Plt Count 462 H (140-440) K/mcL Neut % (Auto) 82.0 H (38.0-78.0) % Lymph % (Auto) 10.2 L (15.0-49.0) % Lymph # (Auto) 0.80 L (1.50-4.80) K/mcL ESR 122 H (0-15) mm/hr Sodium (133-145) mmol/L Anion Gap (8.0-16.0) Calcium (8.6-10.4) mg/dL C-Reactive Protein 18.10 H (0.03-0.80) mg/dL 02/15/21 Range/Units 06:02 RBC (4.50-5.90) M/mcL Hgb (13.5-16.5) g/dL Hct (41.0-55.0) % MCHC (31.0-36.0) g/dL Plt Count (140-440) K/mcL Neut % (Auto) (38.0-78.0) % Lymph % (Auto) (15.0-49.0) % Lymph # (Auto) (1.50-4.80) K/mcL ESR (0-15) mm/hr Sodium 132 L (133-145) mmol/L Anion Gap 6.0 L (8.0-16.0) Calcium 8.4 L (8.6-10.4) mg/dL C-Reactive Protein (0.03-0.80) mg/dL Diabetes panel 02/15/21 Range/Units 06:02 Sodium 132 L (133-145) mmol/L Potassium 3.8 (3.3-5.1) mmol/L Chloride 101 (96-108) mmol/L Carbon Dioxide 25 (22-30) mmol/L BUN 17 (6-20) mg/dL Creatinine 0.7 (0.7-1.2) mg/dL Glucose 83 (70-105) mg/dL Calcium 8.4 L (8.6-10.4) mg/dL Calcium panel 02/15/21 Range/Units 06:02 Calcium 8.4 L (8.6-10.4) mg/dL Pituitary panel 02/15/21 Range/Units 06:02 Sodium 132 L (133-145) mmol/L Potassium 3.8 (3.3-5.1) mmol/L Chloride 101 (96-108) mmol/L Carbon Dioxide 25 (22-30) mmol/L BUN 17 (6-20) mg/dL Creatinine 0.7 (0.7-1.2) mg/dL Glucose 83 (70-105) mg/dL Calcium 8.4 L (8.6-10.4) mg/dL Adrenal panel 02/15/21 Range/Units 06:02 Sodium 132 L (133-145) mmol/L Potassium 3.8 (3.3-5.1) mmol/L Chloride 101 (96-108) mmol/L Carbon Dioxide 25 (22-30) mmol/L BUN 17 (6-20) mg/dL Creatinine 0.7 (0.7-1.2) mg/dL Glucose 83 (70-105) mg/dL Calcium 8.4 L (8.6-10.4) mg/dL All other labs normal. A/P Narrative A/P Narrative: Assessment: SEPSIS. CSSSI, Wet Gangrene RIGHT Foot and ankle with open necrotic wounds up to ankle. Past h/o TMA Right foot No PCP: Patient failed to f/u after his surgeries. NEEDS: RIGHT BKA Below Knee Amputation. Plan: Recommendations discussed with Hospitalist Dr. Flynn. He Concurs. Spoke with Dr. Beckham, Orthopedic Surgeon. He will schedule surgery. Patient to be NPO after mid night. CASE MANAGEMENT , SW to see patient electively and follow his progress and coordinate further management. SPOKE AT LENGTH WITH PATIENT IN PRESENCE OF NURSING STAFF. Patient agrees with plan of treatment. Time Spent With Patient Time: Total time spent is greater than 50% in coordination of care (as documented) at patient's floor/unit and/or counseling patient: Total time spent with greater than 50% in coordination of care (as documented) at patient's floor/unit and/or counseling patient:: Greater than 35 minutes
[2021-02-15] MEDS: LOPERAMIDE 2 MG CAPSULE PO PRN (19:53)
[2021-02-15] MEDS ORDERED: LORazepam 2 MG/ML VIAL IV ONE (20:13)
[2021-02-15] MEDS: SENNOSIDES 1 TABLET PO SCH (21:15)
[2021-02-15] MEDS: HYDROcodone/APAP 5/325MG TABLET PO PRN (21:15)
[2021-02-15] MEDS: INSULIN GLARGINE, HUMAN 1 UNIT/0.01 ML SQ SCH (21:16)
[2021-02-15] MEDS: HEPARIN 5,000 UNIT/ML VIAL SQ SCH (21:21)
[2021-02-15 22:05] LABS: Amphetamine Screen,Urine Suspect positive; Barbiturate Screen,Urine None detected; Benzodiazepines Screen,Urine None detected; Cannabinoid Screen,Urine Suspect Positive; Cocaine Screen,Urine None detected; Opiate Screen,Urine Suspect Positive; Oxycodone, Urine Screen None detected; Phencyclidine Screen,Urine None detected
[2021-02-15 22:09] LABS: Appearance,Urine HAZY (Clear); Bacteria,Urine 0 /hpf (0); Bilirubin,Urine Negative (Negative); Color,Urine YELLOW; Culture Indicated,Urine No; Glucose,Urine (UA) >=500 mg/dL (Negative); Ketones,Urine Negative (Negative); Leukocyte Esterase,Urine Negative /ug (Negative); Nitrate,Urine Negative (Negative); Protein,Urine 30 mg/dL (Negative); Specific Gravity,Urine 1.025 (1.000-1.035); Urine Blood Negative (Negative); Urine RBC 0 /hpf (0-3); Urine Squamous Epithelial Cell 0 /hpf (0-4); Urine WBC 0 /hpf (0-4); Urobilinogen,Urine Negative
[2021-02-16] MEDS: LOPERAMIDE 2 MG CAPSULE PO PRN (00:16)
[2021-02-16] MEDS: 0.9 % SODIUM CHLORIDE 10 ML SYRINGE IV SCH ×3 (05:55→21:26)
[2021-02-16] MEDS: PIPERACILLIN SODIUM/TAZOBACTAM 3.375 GM in DEXTROSE 5% IN WATER 50 ML IV SCH ×3 (05:55→21:25)
[2021-02-16] MEDS: 0.9 % SODIUM CHLORIDE 1,000 ML IV SCH ×2 (05:55→11:33)
[2021-02-16] MEDS ORDERED: SCOPOLAMINE 1 PATCH PATCH TOPICAL PRN (06:00)
[2021-02-16] MEDS ORDERED: IPRATROPIUM/ALBUTEROL 3 ML AMPUL.NEB NEB PRN ×2 (06:00→09:06)
--- NOTE | 2021-02-16 06:57 | Internal Med Progress Note ---
SUBJECTIVE Subjective Patient information: Note initiated : 02/16/21 at 6:54 am Service Date, if different from initiated Date: [] Patient: Wilfrido Damon 55 y/o M admitted on 02/14/21 for Right foot wound. Chief Complaint: [] Interval history: 02/15 Fever with Tmax 37.9. Wound and blood cultures no growth to date. 02/16 Patient status post BKA right leg. Review of Systems: denies headache/fever/chills/nausea/vomiting/chest or abdominal pain/ cough/dyspnea/diarrhea. Otherwise see above. Constitutional Vitals: Vital Signs Temp Pulse Resp BP Pulse Ox 98.1 F 74 16 99/63 100 02/16/21 04:00 02/16/21 05:10 02/16/21 05:10 02/16/21 05:10 02/16/21 05:10 Period Temp Pulse Resp BP Sys/Orosco Pulse Ox Last 24 Hr 98.1 F-100.2 F 70-108 16-22 80-140/50-82 95-100 Intake and Output 02/15/21 02/16/21 02/16/21 21:59 05:59 13:59 Intake Total 1530 635 Output Total 1275 200 Balance 255 435 Weight 47.264 kg Intake & Output: Intake & Output 02/15/21 02/16/21 02/16/21 21:59 05:59 13:59 Intake Total 1530 635 Output Total 1275 200 Balance 255 435 Weight 47.264 kg Intake: IV 1050 635 Sodium Chloride 0.9% 1,000 ml @ 1000 335 70 mls/hr IV .[id number] [facility] Rx#: [id number] Zosyn 3.375 gm In Dextrose 5% 50 50 in Water 50 ml @ 100 mls/hr IV Q8H [facility] Rx#:[id number] Vancomycin 1,000 mg In Sodium 250 Chloride 0.9% 250 ml @ 250 mls/ hr IV Q12H [facility] Rx#:[id number] Oral 480 Output: Void Amount 775 Stool 500 200 Other: Meal Dinner Percent of Meal Consumed 100% Feeding Ability Independent Urine Appearance Clear Urine Color Dark Yellow Urine Odor Normal Stool Size Moderate Moderate Stool Color Brown Brown Stool Consistency Liquid Liquid Watery Watery Loose Loose # Voids 2 # Bowel Movements 1 0 Exam: General: Alert, Awake, No acute Distress Eyes/N/T: EOMI, Head/Neck: neck supple, CV: RRR, No murmurs, Pulm: Clear b/l, no wheezing/rhonchi/rales Abd: soft, nontender, +BS x4 Ext: no clubbing/cyanosis. Right BKA Neuro: Alert, no focal deficits, moves all extremities, Skin: warm/dry OBJ DATA Labs CBC & Chem 7: 02/15/21 06:02 02/16/21 05:40 Labs: Abnormal Lab Results 02/15/21 02/15/21 02/15/21 20:57 20:57 06:02 WBC RBC Hgb Hct MCHC Plt Count MPV Neut % (Auto) Lymph % (Auto) Lymph # (Auto) Lymphocytes % WBC Morphology Toxic Granulation ESR Sodium 132 L Chloride Anion Gap 6.0 L BUN Glucose Calcium 8.4 L AST Alkaline Phosphatase C-Reactive Protein Albumin Globulin Albumin/Globulin Ratio Beta-Hydroxybutyrate Procalcitonin Urine Appearance Hazy A Urine Protein 30 A Urine Glucose (UA) >=500 A Urine Opiates Screen Suspect positive A Ur Amphetamines Screen Suspect positive A U Marijuana (THC) Screen Suspect positive A 02/15/21 02/14/21 02/14/21 06:02 19:43 19:43 WBC RBC 3.51 L Hgb 10.0 L Hct 33.4 L MCHC 29.9 L Plt Count 462 H MPV Neut % (Auto) 82.0 H Lymph % (Auto) 10.2 L Lymph # (Auto) 0.80 L Lymphocytes % WBC Morphology Toxic Granulation ESR 122 H Sodium Chloride Anion Gap BUN Glucose Calcium AST Alkaline Phosphatase C-Reactive Protein 18.10 H Albumin Globulin Albumin/Globulin Ratio Beta-Hydroxybutyrate Procalcitonin Urine Appearance Urine Protein Urine Glucose (UA) Urine Opiates Screen Ur Amphetamines Screen U Marijuana (THC) Screen 02/14/21 02/14/21 02/14/21 14:20 14:12 14:11 WBC 12.6 H RBC 3.68 L Hgb 10.5 L Hct 33.3 L MCHC Plt Count MPV 10.5 H Neut % (Auto) Lymph % (Auto) Lymph # (Auto) Lymphocytes % 13 L WBC Morphology Abnormal A Toxic Granulation 1+ A ESR 122 H Sodium Chloride Anion Gap BUN Glucose Calcium AST Alkaline Phosphatase C-Reactive Protein Albumin Globulin Albumin/Globulin Ratio Beta-Hydroxybutyrate 2.21 H Procalcitonin 0.61 H Urine Appearance Urine Protein Urine Glucose (UA) Urine Opiates Screen Ur Amphetamines Screen U Marijuana (THC) Screen 02/14/21 14:11 WBC RBC Hgb Hct MCHC Plt Count MPV Neut % (Auto) Lymph % (Auto) Lymph # (Auto) Lymphocytes % WBC Morphology Toxic Granulation ESR Sodium 121 L Chloride 87 L Anion Gap BUN 21 H Glucose 396 H Calcium AST 43 H Alkaline Phosphatase 321 H C-Reactive Protein 22.10 H Albumin 2.2 L Globulin 6.0 H Albumin/Globulin Ratio 0.4 L Beta-Hydroxybutyrate Procalcitonin Urine Appearance Urine Protein Urine Glucose (UA) Urine Opiates Screen Ur Amphetamines Screen U Marijuana (THC) Screen Meds: Medications Acetaminophen (Acetaminophen 325 Mg Tablet) 650 mg PO Q6HP PRN; Protocol PRN Reason: Per Pain Protocol/Fever > 101 Hydrocodone Bitart/Acetaminophen (Hydrocodone/Apap 5/325mg Tablet) 1 - 2 tab PO Q4HP PRN; Protocol PRN Reason: Per Pain Protocol Last Admin: 02/15/21 21:15 Dose: 2 tab Documented by: Albuterol/Ipratropium (Ipratropium/Albuterol 3 Ml Ampul.Neb) 3 ml NEB ONCE PRN PRN Reason: Shortness Of Breath Stop: 02/16/21 12:00 Dextrose (Dextrose 50% 50 Ml Vial) 0 ml IV UD PRN PRN Reason: Hypoglycemia Diagnostic Test (Pha) (Accu-Chek 1 Each Strip) 1 each FS ACHS [facility] Last Admin: 02/15/21 21:17 Dose: 1 each Documented by: Docusate Sodium (Docusate Sodium 100 Mg Capsule) 100 mg PO BID [facility] Last Admin: 02/15/21 20:58 Dose: Not Given Documented by: Glucose (Dextrose 31 Gm Oral.Susp) 15 gm PO PRN PRN PRN Reason: Hypoglycemia Heparin Sodium (Porcine) (Heparin 5,000 Unit/Ml Vial) 5,000 unit SQ Q12 [facility] Last Admin: 02/15/21 21:21 Dose: Not Given Documented by: Piperacillin Sod/Tazobactam (Sod 3.375 gm/ Dextrose) 50 mls @ 100 mls/hr IV Q8H [facility]; Protocol Last Admin: 02/16/21 05:55 Dose: 100 mls/hr Documented by: Vancomycin HCl 1,000 mg/ (Sodium Chloride) 250 mls @ 250 mls/hr IV Q12H [facility] Last Infusion: 02/15/21 22:20 Dose: Infused Documented by: Sodium Chloride (Sodium Chloride 0.9%) 1,000 mls @ 70 mls/hr IV .[id number] [facility] Last Admin: 02/16/21 05:55 Dose: Not Given Documented by: Insulin Glargine (Insulin Glargine, Human 1 Unit/0.01 Ml) 10 unit SQ [facility] Last Admin: 02/15/21 21:16 Dose: 10 units Documented by: Insulin Human Lispro (Insulin Lispro 1 Unit/0.01 Ml Unit) 0 unit SQ [facility]; Protocol Last Admin: 02/15/21 21:16 Dose: 15 units Documented by: Loperamide HCl (Loperamide 2 Mg Capsule) 4 mg PO PRN PRN PRN Reason: Diarrhea Last Admin: 02/16/21 00:16 Dose: 4 mg Documented by: Morphine Sulfate (Morphine 2 Mg/Ml Vial) 1 - 3 mg IV Q3HP PRN; Protocol PRN Reason: Per Pain Protocol Mupirocin (Mupirocin Oint 2% 22gm) 1 dose NARES BID [facility] Ondansetron HCl (Ondansetron 4 Mg/2 Ml Vial) 4 mg IV Q6HP PRN PRN Reason: Nausea And Vomiting Scopolamine (Scopolamine 1 Patch Patch) 1 patch TOPICAL PREOP PRN PRN Reason: Nausea And Vomiting Stop: 02/16/21 12:00 Senna (Sennosides 1 Tablet) 2 tab PO [facility] Last Admin: 02/15/21 21:15 Dose: Not Given Documented by: Sodium Chloride (0.9 % Sodium Chloride 10 Ml Syringe) 10 ml IV Q8 [facility] Last Admin: 02/16/21 05:55 Dose: Not Given Documented by: Vancomycin HCl (Vancomycin Per Pharmacy) 1 order IV UD [facility]; Protocol A/P Narrative A/P Narrative: A: *Diabetic foot infection/osteomyelitis of the Right foot, recent transmetatarsal amputation: s/p BKA (02/16) *DM: -HgA1c 18.3 *Hyponatremia: *Anemia of chronic disease: *Polysubstance abuse including IV methamphetamine and marijuana: -UDS with amphetamine/MJ P: -Dr. Beckham following -Dr. Santiago following -Infectious source removed. Will DC antibiotics soon -PT and OT evaluation and treatment -Lantus titrate up, now 20 unit HS, SSI -CM for placement -ppx: heparin Time Spent With Patient Time: Total time spent is greater than 50% in coordination of care (as documented) at patient's floor/unit and/or counseling patient: QUALITY Stroke Symptom Onset Unknown: No VTE Deep Vein Thrombosis/Pulmonary Embolism Present on Admission: No
--- NOTE | 2021-02-16 07:17 | Orthopedic Progress Note ---
SUBJECTIVE Subjective Patient information: Note initiated : 02/16/21 at 7:13 am Service Date, if different from initiated Date: [] Patient: Wilfrido Damon 55 y/o M admitted on 02/14/21 for Right foot wound. Chief Complaint: [] Constitutional Vitals: Vital Signs Temp Pulse Resp BP Pulse Ox 98.1 F 74 16 99/63 100 02/16/21 04:00 02/16/21 05:10 02/16/21 05:10 02/16/21 05:10 02/16/21 05:10 Period Temp Pulse Resp BP Sys/Orosco Pulse Ox Last 24 Hr 98.1 F-100.2 F 70-108 16-22 80-140/50-82 95-100 Intake and Output 02/15/21 02/16/21 02/16/21 21:59 05:59 13:59 Intake Total 1530 635 Output Total 1275 200 Balance 255 435 Weight 104 lb 3.2 oz Intake & Output: Intake & Output 02/15/21 02/16/21 02/16/21 21:59 05:59 13:59 Intake Total 1530 635 Output Total 1275 200 Balance 255 435 Weight 104 lb 3.2 oz Intake: IV 1050 635 Sodium Chloride 0.9% 1,000 ml @ 1000 335 70 mls/hr IV .[id number] [facility] Rx#: [id number] Zosyn 3.375 gm In Dextrose 5% 50 50 in Water 50 ml @ 100 mls/hr IV Q8H [facility] Rx#:[id number] Vancomycin 1,000 mg In Sodium 250 Chloride 0.9% 250 ml @ 250 mls/ hr IV Q12H [facility] Rx#:[id number] Oral 480 Output: Void Amount 775 Stool 500 200 Other: Meal Dinner Percent of Meal Consumed 100% Feeding Ability Independent Urine Appearance Clear Urine Color Dark Yellow Urine Odor Normal Stool Size Moderate Moderate Stool Color Brown Brown Stool Consistency Liquid Liquid Watery Watery Loose Loose # Voids 2 # Bowel Movements 1 0 OBJ DATA Labs CBC & Chem 7: 02/15/21 06:02 02/15/21 06:02 Labs: Abnormal Lab Results 02/15/21 02/15/21 02/15/21 20:57 20:57 06:02 WBC RBC Hgb Hct MCHC Plt Count MPV Neut % (Auto) Lymph % (Auto) Lymph # (Auto) Lymphocytes % WBC Morphology Toxic Granulation ESR Sodium 132 L Chloride Anion Gap 6.0 L BUN Glucose Calcium 8.4 L AST Alkaline Phosphatase C-Reactive Protein Albumin Globulin Albumin/Globulin Ratio Beta-Hydroxybutyrate Procalcitonin Urine Appearance Hazy A Urine Protein 30 A Urine Glucose (UA) >=500 A Urine Opiates Screen Suspect positive A Ur Amphetamines Screen Suspect positive A U Marijuana (THC) Screen Suspect positive A 02/15/21 02/14/21 02/14/21 06:02 19:43 19:43 WBC RBC 3.51 L Hgb 10.0 L Hct 33.4 L MCHC 29.9 L Plt Count 462 H MPV Neut % (Auto) 82.0 H Lymph % (Auto) 10.2 L Lymph # (Auto) 0.80 L Lymphocytes % WBC Morphology Toxic Granulation ESR 122 H Sodium Chloride Anion Gap BUN Glucose Calcium AST Alkaline Phosphatase C-Reactive Protein 18.10 H Albumin Globulin Albumin/Globulin Ratio Beta-Hydroxybutyrate Procalcitonin Urine Appearance Urine Protein Urine Glucose (UA) Urine Opiates Screen Ur Amphetamines Screen U Marijuana (THC) Screen 02/14/21 02/14/21 02/14/21 14:20 14:12 14:11 WBC 12.6 H RBC 3.68 L Hgb 10.5 L Hct 33.3 L MCHC Plt Count MPV 10.5 H Neut % (Auto) Lymph % (Auto) Lymph # (Auto) Lymphocytes % 13 L WBC Morphology Abnormal A Toxic Granulation 1+ A ESR 122 H Sodium Chloride Anion Gap BUN Glucose Calcium AST Alkaline Phosphatase C-Reactive Protein Albumin Globulin Albumin/Globulin Ratio Beta-Hydroxybutyrate 2.21 H Procalcitonin 0.61 H Urine Appearance Urine Protein Urine Glucose (UA) Urine Opiates Screen Ur Amphetamines Screen U Marijuana (THC) Screen 02/14/21 14:11 WBC RBC Hgb Hct MCHC Plt Count MPV Neut % (Auto) Lymph % (Auto) Lymph # (Auto) Lymphocytes % WBC Morphology Toxic Granulation ESR Sodium 121 L Chloride 87 L Anion Gap BUN 21 H Glucose 396 H Calcium AST 43 H Alkaline Phosphatase 321 H C-Reactive Protein 22.10 H Albumin 2.2 L Globulin 6.0 H Albumin/Globulin Ratio 0.4 L Beta-Hydroxybutyrate Procalcitonin Urine Appearance Urine Protein Urine Glucose (UA) Urine Opiates Screen Ur Amphetamines Screen U Marijuana (THC) Screen Meds: Medications Acetaminophen (Acetaminophen 325 Mg Tablet) 650 mg PO Q6HP PRN; Protocol PRN Reason: Per Pain Protocol/Fever > 101 Hydrocodone Bitart/Acetaminophen (Hydrocodone/Apap 5/325mg Tablet) 1 - 2 tab PO Q4HP PRN; Protocol PRN Reason: Per Pain Protocol Last Admin: 02/15/21 21:15 Dose: 2 tab Documented by: Albuterol/Ipratropium (Ipratropium/Albuterol 3 Ml Ampul.Neb) 3 ml NEB ONCE PRN PRN Reason: Shortness Of Breath Stop: 02/16/21 12:00 Dextrose (Dextrose 50% 50 Ml Vial) 0 ml IV UD PRN PRN Reason: Hypoglycemia Diagnostic Test (Pha) (Accu-Chek 1 Each Strip) 1 each FS [facility] Last Admin: 02/15/21 21:17 Dose: 1 each Documented by: Docusate Sodium (Docusate Sodium 100 Mg Capsule) 100 mg PO BID [facility] Last Admin: 02/15/21 20:58 Dose: Not Given Documented by: Glucose (Dextrose 31 Gm Oral.Susp) 15 gm PO PRN PRN PRN Reason: Hypoglycemia Heparin Sodium (Porcine) (Heparin 5,000 Unit/Ml Vial) 5,000 unit SQ Q12 [facility] Last Admin: 02/15/21 21:21 Dose: Not Given Documented by: Piperacillin Sod/Tazobactam (Sod 3.375 gm/ Dextrose) 50 mls @ 100 mls/hr IV Q8H [facility]; Protocol Last Admin: 02/16/21 05:55 Dose: 100 mls/hr Documented by: Vancomycin HCl 1,000 mg/ (Sodium Chloride) 250 mls @ 250 mls/hr IV Q12H [facility] Last Infusion: 02/15/21 22:20 Dose: Infused Documented by: Sodium Chloride (Sodium Chloride 0.9%) 1,000 mls @ 70 mls/hr IV .[id number] [facility] Last Admin: 02/16/21 05:55 Dose: Not Given Documented by: Insulin Glargine (Insulin Glargine, Human 1 Unit/0.01 Ml) 20 unit SQ [facility] Insulin Human Lispro (Insulin Lispro 1 Unit/0.01 Ml Unit) 0 unit SQ [facility]; Protocol Last Admin: 02/15/21 21:16 Dose: 15 units Documented by: Loperamide HCl (Loperamide 2 Mg Capsule) 4 mg PO PRN PRN PRN Reason: Diarrhea Last Admin: 02/16/21 00:16 Dose: 4 mg Documented by: Morphine Sulfate (Morphine 2 Mg/Ml Vial) 1 - 3 mg IV Q3HP PRN; Protocol PRN Reason: Per Pain Protocol Mupirocin (Mupirocin Oint 2% 22gm) 1 dose NARES BID [facility] Ondansetron HCl (Ondansetron 4 Mg/2 Ml Vial) 4 mg IV Q6HP PRN PRN Reason: Nausea And Vomiting Scopolamine (Scopolamine 1 Patch Patch) 1 patch TOPICAL PREOP PRN PRN Reason: Nausea And Vomiting Stop: 02/16/21 12:00 Senna (Sennosides 1 Tablet) 2 tab PO HS [facility] Last Admin: 02/15/21 21:15 Dose: Not Given Documented by: Sodium Chloride (0.9 % Sodium Chloride 10 Ml Syringe) 10 ml IV Q8 [facility] Last Admin: 02/16/21 05:55 Dose: Not Given Documented by: Vancomycin HCl (Vancomycin Per Pharmacy) 1 order IV UD [facility]; Protocol A/P Assessment and plan (1) Osteomyelitis of ankle and foot: Status: Acute Comment: dictated consult completed, discussed diagnosis with patient and treatment options. Has been evaluated by hospitalist/wound care with recommendation for BKA for chronic non healing wound with underlying osteo. Discussed that I think this is a reasonable option for him and likely will allow for the fastest recovery. However, he has to be compliant with post operative plan. Discussed that with IV drug use, homelessness are not the easiest to be compliant with post operative restrictions/plan; however, if he is willing to work with potentially a rehab facility would be willing to proceed. He states that he is. Plan will be for right below amputation for chonic non healing transmet wound with underlying osteo. Time Spent With Patient Time: Total time spent is greater than 50% in coordination of care (as documented) at patient's floor/unit and/or counseling patient:
[2021-02-16 07:55] LABS: Hemoglobin A1C 18.3 % Hgb (4.0-6.0)
[2021-02-16] MEDS: DOCUSATE SODIUM 100 MG CAPSULE PO SCH ×2 (07:58→19:59)
[2021-02-16] MEDS: HEPARIN 5,000 UNIT/ML VIAL SQ SCH (07:58)
[2021-02-16] MEDS: INSULIN LISPRO 1 UNIT/0.01 ML UNIT SQ SCH ×6 (07:58→23:22)
[2021-02-16] MEDS: MUPIROCIN OINT 2% 22GM NARES SCH ×2 (07:58→21:25)
[2021-02-16 08:05] LABS: ALT/SGPT 26 U/L (<40); AST/SGOT 43 U/L (<40); Albumin 1.6 gm/dL (3.2-5.2); Albumin/Globulin Ratio 0.4 (1.0-2.3); Alkaline Phosphatase 271 U/L (39-117); Bilirubin,Direct < 0.2 mg/dL (0-0.3); Bilirubin,Total < 0.2 mg/dL (0.1-1.0); Blood Urea Nitrogen 13 mg/dL (6-20); Calcium 7.9 mg/dL (8.6-10.4); Carbon Dioxide 22 mmol/L (22-30); Chloride 99 mmol/L (96-108); Globulin 4.3 gm/dL (2.2-3.7); Glomerular Filtration Rate 114; Glucose 81 mg/dL (70-105); Lactate Dehydrogenase 99 U/L (135-225); Phosphorous 3.3 mg/dL (2.5-4.5); Triglycerides 74 mg/dL (<150); Uric Acid 1.5 mg/dL (2.5-8.0)
[2021-02-16 08:06] LABS: Beta Hydroxybutyrate 0.06 mmol/L (<0.27)
[2021-02-16] MEDS: VANCOMYCIN 1,000 MG in 0.9 % SODIUM CHLORIDE 250 ML IV SCH (08:06)
[2021-02-16] MEDS ORDERED: PHENYLEPHRINE 10 MG/ML VIAL ONE (08:08)
[2021-02-16] MEDS ORDERED: fentaNYL 100 MCG/2 ML VIAL IV ONE (08:08)
[2021-02-16] MEDS ORDERED: ONDANSETRON 4 MG/2 ML VIAL ONE (08:08)
[2021-02-16] MEDS ORDERED: PROPOFOL 200 MG/20 ML VIAL IV ONE (08:08)
[2021-02-16] MEDS ORDERED: KETAMINE 50 MG/ML ML ONE (08:08)
[2021-02-16] MEDS ORDERED: LIDOCAINE HCL/PF 100 MG/5 ML SYRINGE IV ONE (08:08)
[2021-02-16] MEDS ORDERED: GLYCOPYRROLATE 0.2 MG/ML VIAL IV ONE (08:08)
[2021-02-16] MEDS ORDERED: MIDAZOLAM 2 MG/2 ML VIAL ONE (08:08)
[2021-02-16] MEDS ORDERED: ROPIVACAINE HCL/PF 30 ML VIAL IJ ONE (08:08)
[2021-02-16] MEDS ORDERED: DEXAMETHASONE 10 MG/ML VIAL ONE (08:08)
--- NOTE | 2021-02-16 08:15 | Consultation ---
DATE OF CONSULTATION: 02/16/2021 DATE OF CONSULTATION: 02/16/2021 REASON FOR CONSULTATION: Chronic nonhealing osteomyelitis and wound of right transmet amputation. CONSULTING PHYSICIAN: Dr Santiago. HISTORY OF PRESENT ILLNESS: The patient is a 55-year-old male who is an essentially non-controlled type 2 diabetic with polysubstance drug abuse that includes IV methamphetamines and THC with a chronic nonhealing right foot wound from his transmetatarsal amputation with underlying osteomyelitis. This has been on for approximately a month and a half to two months. He reports that he is unable to afford his medications for his diabetes and has not been taking anything for the last several months. He reports that the wound has been draining, foul smelling. He does have some general body weakness and increasing pain at the amputation site. He was admitted to the hospitalist service now 2 days ago, at which time I had recommended a repeat consultation with podiatry as they have been treating this patient previously. However, due to the fact that the recommendation is for vkxdf-[id number] amputation, Orthopedics was reconsulted. He on presentation has no other complaints outside of his right foot. PAST MEDICAL HISTORY: Non-controlled diabetes, polysubstance drug use, tobacco use. PAST SURGICAL HISTORY: He has had amputation of the left fourth and fifth metatarsal 2019. He has had this right surgery approximately [address] Alvarado. ALLERGIES: No known drug allergies. MEDICATIONS: None routinely outside he is supposed to take insulin. SOCIAL HISTORY: He is homeless, he smokes about 1 pack per day, IV methamphetamine use several times a week and marijuana. REVIEW OF SYSTEMS: Otherwise, as mentioned above, they were negative. He has weakness, general body aches from the infection. PHYSICAL EXAMINATION: VITAL SIGNS: He is afebrile with a temperature of 98.1, heart rate in the 70s, blood pressure somewhat low with systolics in the 80s and 90s, diastolic in the 50s and 60s, this has been decreased since yesterday. He is satting 98% to 100% on room air. GENERAL: The patient is a somewhat drowsy but is responsive, does interact appropriately, answers questions appropriately. EXTREMITIES: Examination of his right lower extremity reveals that he has a dry dressing over the top of his foot, which I did not take down given that he has a draining wound here. However, in the distal third of the tibia, he does have vascular changes starting proximally, at that point, he does have thick hair up into the knee and past the knee level. He has no knee joint effusion. He has several skin ulcerations along the posterior calf. No erythema extending up to this level through the leg itself. He does have some quad atrophy that is notable. X-RAYS: He has x-rays of his foot, which demonstrates a transmet foot amputation with mothy appearing edges and swelling within the soft tissue indicative of osteomyelitis. The distal tibia appears to be non-affected over the ankle joint itself. LABORATORY VALUES: Pending for this morning include an A1c. He does have a culture from his foot of Proteus mirabilis as well as Strep agalactiae group B strep. His white count is 7.8 with a hemoglobin of 10, hematocrit 33, platelet count of 462. His CRP is 18. His ESR was elevated at 122. The day prior, his white count was 12.6. He is now on antibiotics. ASSESSMENT AND PLAN: This is a 55-year-old non-controlled diabetic male with a chronic osteomyelitis of his right foot nonhealing wound in addition to being a tobacco user as well as IV drug user. I discussed this with him at length today regarding treatment options. He is a less than ideal candidate for surgical intervention. However, he is showing systemic symptoms include low-grade fevers, general body aches, and weakness with underlying osteo nonhealing wound. He is on IV antibiotics currently. After discussion with wound care, I do not think that the wound will heal, which is likely the case, given his overall medical status. The most efficient way would be a ullnu-ime-pcau amputation, which I discussed with the patient at length regarding the surgery as well as postoperative expectations. I did discuss that I would only proceed if he is going to be compliant with postoperative restrictions and will be able to do some therapy at least or be in a facility where he has care, otherwise I will not proceed with surgery and discharge him to the streets as he will have wound complications and then it will be a infected tonss-tuz-hvks amputation, which potentially require revision to ltlvn-mdg-ghkr amputation. He understands all this. He is okay to proceed in this fashion. Thus, the plan will be for a right kohpq-zhz-fuix amputation later on today. TANIKA:aretha Job ID: [id number] Doc ID: [id number] Sal Beckham MD [facility]
[2021-02-16] MEDS ORDERED: GUM MASTIC/STORAX/MSAL/ALCOHOL 1 DOSE DROPERETTE TOPICAL ONE (08:45)
[2021-02-16] MEDS ORDERED: fentaNYL 100 MCG/2 ML VIAL IV PRN (09:06)
[2021-02-16] MEDS ORDERED: MEPERIDINE 25 MG/ML VIAL IV PRN (09:06)
[2021-02-16] MEDS ORDERED: BENZOCAINE/MENTHOL 1 LOZENGE PO PRN (09:06)
[2021-02-16] MEDS ORDERED: ONDANSETRON 4 MG/2 ML VIAL IV PRN (09:06)
[2021-02-16] MEDS ORDERED: LACTATED RINGERS 1,000 ML IV SCH (09:15)
[2021-02-16] MEDS ORDERED: VANCOMYCIN 1 GM VIAL TOPICAL SCH (10:00)
--- NOTE | 2021-02-16 10:50 | Brief Operative Note ---
Brief Operative Note Date of procedure: 02/16/21 Pre-op diagnosis: chronic right foot draining wound with underyling osteomyeli tis Post-op diagnosis: same Procedure: right below the knee amputation Grafts/Implants: No Anesthesia: GETA Findings: multiple ulcerations posterior calf, draining foot wound with osteo Complications: none Surgeon: Sal Beckham Construction Equipment Operator: Darnell Dumont Estimated blood loss (cc): 20 Tourniquet Time (Minutes): 62 Specimens Removed/Pathology: other Condition: stable Disposition: PACU
--- NOTE | 2021-02-16 11:39 | XRay Report ---
HISTORY: Status post below-knee amputation right leg with wound FINDINGS: Patient has had a hfqim-mhk-ljcx amputation performed. The remaining shaft of the tibia and fibula are normal without evidence of osteomyelitis or fracture. Adjacent to the stump of the leg there are multiple bubbles of gas in the soft tissues. There is no foreign body. If the surgery was recently performed, the gas would be normal postsurgical change. However, if the surgery was performed in the distant past, infection with gas-forming organism should be suspected. The knee joint is normal without evidence of arthritis or abnormal soft tissue calcification. Impression: Gas in soft tissues around the stump of the right lower leg Interpreted and Authenticated by: Garo Vieira 02/16/21
[2021-02-16] MEDS ORDERED: 0.9 % SODIUM CHLORIDE 1,000 ML IV SCH (12:05)
[2021-02-16] MEDS: morphine 2 MG/ML VIAL IV PRN ×5 (12:07→23:21)
[2021-02-16] MEDS: HYDROcodone/APAP 5/325MG TABLET PO PRN ×3 (12:34→21:25)
[2021-02-16] MEDS: SODIUM CHLORIDE 1 GM TABLET PO SCH ×4 (12:35→21:40)
--- NOTE | 2021-02-16 13:11 | General Surgery Progress Note ---
SUBJECTIVE Subjective Patient information: Note initiated : 02/16/21 at 1:08 pm Service Date, if different from initiated Date: [] Patient: Wilfrido Damon 55 y/o M admitted on 02/14/21 for Right foot wound. Chief Complaint: [] Additional PMFSH (Level 3 Only): S/P BKA today Constitutional Vitals: Vital Signs Temp Pulse Resp BP Pulse Ox 98.1 F 74 16 104/74 100 02/16/21 11:37 02/16/21 11:37 02/16/21 11:37 02/16/21 11:37 02/16/21 11:37 Period Temp Pulse Resp BP Sys/Orosco Pulse Ox Last 24 Hr 97 F-99.6 F 66-108 10-22 80-140/50-82 97-100 Intake and Output 02/15/21 02/16/21 02/16/21 21:59 05:59 13:59 Intake Total 8647 584 6744 Output Total 2076 882 0319 Balance 168 540 9450 Weight 104 lb 3.2 oz Intake & Output: Intake & Output 02/15/21 02/16/21 02/16/21 21:59 05:59 13:59 Intake Total 8616 102 4040 Output Total 3814 127 1076 Balance 727 415 9899 Weight 104 lb 3.2 oz Intake: IV 8338 332 8534 Sodium Chloride 0.9% 1,000 ml @ 1000 335 902 70 mls/hr IV .[id number] [facility] Rx#: [id number] Zosyn 3.375 gm In Dextrose 5% 50 50 50 in Water 50 ml @ 100 mls/hr IV Q8H [facility] Rx#:[id number] Vancomycin 1,000 mg In Sodium 250 250 Chloride 0.9% 250 ml @ 250 mls/ hr IV Q12H [facility] Rx#:[id number] Oral 480 IV - Manual Only 1800 Output: Urine Catheter Amount 1500 Straight 1500 Void Amount 775 Stool 500 200 Estimated Blood Loss 25 Other: Meal Dinner Percent of Meal Consumed 100% Feeding Ability Independent Urine Appearance Clear Clear Straight Clear Urine Color Dark Yellow Bright Yellow Straight Bright Yellow Urine Odor Normal Normal Stool Size Moderate Moderate Stool Color Brown Brown Stool Consistency Liquid Liquid Watery Watery Loose Loose # Voids 2 # Bowel Movements 1 0 Exam: Patient eating lunch. VSS Dressings RIGHT leg intact. Prevena VAC in situ. A/P Narrative A/P Narrative: Assessment: Patient seen with nurse. Underwent RIGHT BKA surgery Dr. Beckham. THANKS. Progressing well post surgery. Plan: Continue present treatment. Will follow intermittently as necessary. Time Spent With Patient Time: Total time spent is greater than 50% in coordination of care (as documented) at patient's floor/unit and/or counseling patient: Total time spent with greater than 50% in coordination of care (as documented) at patient's floor/unit and/or counseling patient:: less than 15 minutes
[2021-02-16] MEDS: SENNOSIDES 1 TABLET PO SCH (20:00)
[2021-02-16] MEDS ORDERED: INSULIN GLARGINE, HUMAN 1 UNIT/0.01 ML SQ SCH (21:00)
[2021-02-16] MEDS: GABAPENTIN 300 MG CAPSULE PO SCH (21:25)
[2021-02-17] MEDS: morphine 2 MG/ML VIAL IV PRN ×3 (01:23→19:22)
[2021-02-17] MEDS: HYDROcodone/APAP 5/325MG TABLET PO PRN ×4 (03:30→20:55)
[2021-02-17] MEDS: 0.9 % SODIUM CHLORIDE 10 ML SYRINGE IV SCH ×3 (04:44→20:35)
--- NOTE | 2021-02-17 05:58 | Orthopedic Progress Note ---
SUBJECTIVE Subjective Patient information: Note initiated : 02/17/21 at 5:54 am Service Date, if different from initiated Date: [] Patient: Wilfrido Damon 55 y/o M admitted on 02/14/21 for Right foot wound. Chief Complaint: [No new complaints this AM. Pain significantly improved. ] Constitutional Vitals: Vital Signs Temp Pulse Resp BP Pulse Ox 98.7 F 73 14 90/54 97 02/17/21 03:28 02/17/21 03:28 02/17/21 03:28 02/17/21 03:28 02/17/21 03:28 Period Temp Pulse Resp BP Sys/Orosco Pulse Ox Last 24 Hr 97 F-98.7 F 66-89 10-18 82-108/53-74 97-100 Intake and Output 02/16/21 02/16/21 02/17/21 13:59 21:59 05:59 Intake Total 3002 850 1989 Output Total 1525 500 252 Balance 5924 380 7134 Weight 108 lb 11.2 oz Patient Weight 02/17/21 05:59 Weight 108 lb 11.2 oz Intake & Output: Intake & Output 02/16/21 02/16/21 02/17/21 13:59 21:59 05:59 Intake Total 3002 850 1989 Output Total 1525 500 252 Balance 9080 135 5063 Weight 108 lb 11.2 oz Intake: IV 1202 50 1050 Sodium Chloride 0.9% 1,000 ml @ 902 1000 70 mls/hr IV .[id number] [facility] Rx#: [id number] Zosyn 3.375 gm In Dextrose 5% 50 50 50 in Water 50 ml @ 100 mls/hr IV Q8H [facility] Rx#:[id number] Vancomycin 1,000 mg In Sodium 250 Chloride 0.9% 250 ml @ 250 mls/ hr IV Q12H [facility] Rx#:[id number] Oral 800 940 IV - Manual Only 1800 Output: Urine Catheter Amount 1500 Straight 1500 Void Amount 500 250 # of times incontinent of urine 2 Estimated Blood Loss 25 Other: Urine Appearance Clear Clear Straight Clear Urine Color Bright Yellow Pale Straight Bright Yellow Urine Odor Normal Normal Additional findings Additional findings: General: alert and oriented, appropriate Right leg: dressing with rickie and knee brace in place. Wound vac in place with good suction. OBJ DATA Labs CBC & Chem 7: 02/15/21 06:02 02/16/21 05:40 Labs: Abnormal Lab Results 02/16/21 02/16/21 02/16/21 05:40 05:40 05:40 WBC RBC Hgb Hct MCHC Plt Count MPV Neut % (Auto) Lymph % (Auto) Lymph # (Auto) Lymphocytes % WBC Morphology Toxic Granulation ESR Sodium 128 L Chloride Anion Gap 7.0 L BUN Creatinine 0.6 L Glucose Hemoglobin A1c 18.3 H Uric Acid 1.5 L Calcium 7.9 L AST 43 H Alkaline Phosphatase 271 H Lactate Dehydrogenase 99 L C-Reactive Protein Albumin 1.6 L Globulin 4.3 H Albumin/Globulin Ratio 0.4 L Beta-Hydroxybutyrate Procalcitonin 0.30 H Urine Appearance Urine Protein Urine Glucose (UA) Urine Opiates Screen Ur Amphetamines Screen U Marijuana (THC) Screen 02/15/21 02/15/21 02/15/21 20:57 20:57 06:02 WBC RBC Hgb Hct MCHC Plt Count MPV Neut % (Auto) Lymph % (Auto) Lymph # (Auto) Lymphocytes % WBC Morphology Toxic Granulation ESR Sodium 132 L Chloride Anion Gap 6.0 L BUN Creatinine Glucose Hemoglobin A1c Uric Acid Calcium 8.4 L AST Alkaline Phosphatase Lactate Dehydrogenase C-Reactive Protein Albumin Globulin Albumin/Globulin Ratio Beta-Hydroxybutyrate Procalcitonin Urine Appearance Hazy A Urine Protein 30 A Urine Glucose (UA) >=500 A Urine Opiates Screen Suspect positive A Ur Amphetamines Screen Suspect positive A U Marijuana (THC) Screen Suspect positive A 02/15/21 02/14/21 02/14/21 06:02 19:43 19:43 WBC RBC 3.51 L Hgb 10.0 L Hct 33.4 L MCHC 29.9 L Plt Count 462 H MPV Neut % (Auto) 82.0 H Lymph % (Auto) 10.2 L Lymph # (Auto) 0.80 L Lymphocytes % WBC Morphology Toxic Granulation ESR 122 H Sodium Chloride Anion Gap BUN Creatinine Glucose Hemoglobin A1c Uric Acid Calcium AST Alkaline Phosphatase Lactate Dehydrogenase C-Reactive Protein 18.10 H Albumin Globulin Albumin/Globulin Ratio Beta-Hydroxybutyrate Procalcitonin Urine Appearance Urine Protein Urine Glucose (UA) Urine Opiates Screen Ur Amphetamines Screen U Marijuana (THC) Screen 02/14/21 02/14/21 02/14/21 14:20 14:12 14:11 WBC 12.6 H RBC 3.68 L Hgb 10.5 L Hct 33.3 L MCHC Plt Count MPV 10.5 H Neut % (Auto) Lymph % (Auto) Lymph # (Auto) Lymphocytes % 13 L WBC Morphology Abnormal A Toxic Granulation 1+ A ESR 122 H Sodium Chloride Anion Gap BUN Creatinine Glucose Hemoglobin A1c Uric Acid Calcium AST Alkaline Phosphatase Lactate Dehydrogenase C-Reactive Protein Albumin Globulin Albumin/Globulin Ratio Beta-Hydroxybutyrate 2.21 H Procalcitonin 0.61 H Urine Appearance Urine Protein Urine Glucose (UA) Urine Opiates Screen Ur Amphetamines Screen U Marijuana (THC) Screen 02/14/21 14:11 WBC RBC Hgb Hct MCHC Plt Count MPV Neut % (Auto) Lymph % (Auto) Lymph # (Auto) Lymphocytes % WBC Morphology Toxic Granulation ESR Sodium 121 L Chloride 87 L Anion Gap BUN 21 H Creatinine Glucose 396 H Hemoglobin A1c Uric Acid Calcium AST 43 H Alkaline Phosphatase 321 H Lactate Dehydrogenase C-Reactive Protein 22.10 H Albumin 2.2 L Globulin 6.0 H Albumin/Globulin Ratio 0.4 L Beta-Hydroxybutyrate Procalcitonin Urine Appearance Urine Protein Urine Glucose (UA) Urine Opiates Screen Ur Amphetamines Screen U Marijuana (THC) Screen Meds: Medications Acetaminophen (Acetaminophen 325 Mg Tablet) 650 mg PO Q6HP PRN; Protocol PRN Reason: Per Pain Protocol/Fever > 101 Hydrocodone Bitart/Acetaminophen (Hydrocodone/Apap 5/325mg Tablet) 1 - 2 tab PO Q4HP PRN; Protocol PRN Reason: Per Pain Protocol Last Admin: 02/17/21 03:30 Dose: 2 tab Documented by: Dextrose (Dextrose 50% 50 Ml Vial) 0 ml IV UD PRN PRN Reason: Hypoglycemia Diagnostic Test (Pha) (Accu-Chek 1 Each Strip) 1 each FS ACHS [facility] Last Admin: 02/17/21 01:21 Dose: 1 each Documented by: Docusate Sodium (Docusate Sodium 100 Mg Capsule) 100 mg PO BID [facility] Last Admin: 02/16/21 19:59 Dose: Not Given Documented by: Enoxaparin Sodium (Enoxaparin 40 Mg/0.4 Ml Syringe) 40 mg SQ DAILY [facility] Gabapentin (Gabapentin 300 Mg Capsule) 300 mg PO BID [facility] Last Admin: 02/16/21 21:25 Dose: 300 mg Documented by: Glucose (Dextrose 31 Gm Oral.Susp) 15 gm PO PRN PRN PRN Reason: Hypoglycemia Piperacillin Sod/Tazobactam (Sod 3.375 gm/ Dextrose) 50 mls @ 100 mls/hr IV Q8H [facility]; Protocol Last Infusion: 02/16/21 22:22 Dose: Infused Documented by: Insulin Glargine (Insulin Glargine, Human 1 Unit/0.01 Ml) 20 unit SQ [facility] Last Admin: 02/16/21 19:59 Dose: 20 units Documented by: Insulin Glargine (Insulin Glargine, Human 1 Unit/0.01 Ml) 10 unit SQ DAILY [facility] Insulin Human Lispro (Insulin Lispro 1 Unit/0.01 Ml Unit) 0 unit SQ [facility]; Protocol Last Admin: 02/16/21 23:22 Dose: 18 units Documented by: Loperamide HCl (Loperamide 2 Mg Capsule) 4 mg PO PRN PRN PRN Reason: Diarrhea Last Admin: 02/16/21 00:16 Dose: 4 mg Documented by: Morphine Sulfate (Morphine 2 Mg/Ml Vial) 1 - 3 mg IV Q3HP PRN; Protocol PRN Reason: Per Pain Protocol Last Admin: 02/17/21 01:23 Dose: 2 mg Documented by: Mupirocin (Mupirocin Oint 2% 22gm) 1 dose NARES BID [facility] Last Admin: 02/16/21 21:25 Dose: 1 dose Documented by: Ondansetron HCl (Ondansetron 4 Mg/2 Ml Vial) 4 mg IV Q6HP PRN PRN Reason: Nausea And Vomiting Senna (Sennosides 1 Tablet) 2 tab PO [facility] Last Admin: 02/16/21 20:00 Dose: Not Given Documented by: Sodium Chloride (0.9 % Sodium Chloride 10 Ml Syringe) 10 ml IV Q8 [facility] Last Admin: 02/17/21 04:44 Dose: Not Given Documented by: A/P Assessment and plan (1) Osteomyelitis of ankle and foot: Status: Acute Comment: POD 1 s/p right below knee amputation -- PT/OT today for ambulation/mobilization training -- pain control ----- transition to oral pain meds -- Will order a stump strip machine operator -- Likely d/c wound vac POD 2 or 3 pending patients disposition and if sump strip machine operator available -- prophy- IS, lovenox, scds, mobilization -- Dispo: pending but will nee a rehab place as patient is homeless Time Spent With Patient Time: Total time spent is greater than 50% in coordination of care (as documented) at patient's floor/unit and/or counseling patient:
[2021-02-17] MEDS: PIPERACILLIN SODIUM/TAZOBACTAM 3.375 GM in DEXTROSE 5% IN WATER 50 ML IV SCH ×3 (06:06→20:35)
--- NOTE | 2021-02-17 07:17 | Internal Med Progress Note ---
SUBJECTIVE Subjective Patient information: Note initiated : 02/17/21 at 7:13 am Service Date, if different from initiated Date: [] Patient: Wilfrido Damon 55 y/o M admitted on 02/14/21 for Right foot wound. Chief Complaint: [] Interval history: 02/15 Fever with Tmax 37.9. Wound and blood cultures no growth to date. 02/16 Patient status post BKA right leg. 02/17 Feeling better today. Blood glucose quite elevated however. He was on insulin in the past but does not know how many units. So we have been titrating up. Review of Systems: denies headache/fever/chills/nausea/vomiting/chest or abdominal pain/cough/dyspnea/diarrhea. Otherwise see above. Constitutional Vitals: Vital Signs Temp Pulse Resp BP Pulse Ox 98.4 F 77 15 100/60 99 02/17/21 06:55 02/17/21 06:55 02/17/21 06:55 02/17/21 06:55 02/17/21 06:55 Period Temp Pulse Resp BP Sys/Orosco Pulse Ox Last 24 Hr 97 F-98.7 F 66-89 10-18 82-108/53-74 97-100 Intake and Output 02/16/21 02/17/21 02/17/21 21:59 05:59 13:59 Intake Total 850 1989 50 Output Total 500 252 Balance 350 1738 50 Weight 49.305 kg Intake & Output: Intake & Output 02/16/21 02/17/21 02/17/21 21:59 05:59 13:59 Intake Total 850 1989 50 Output Total 500 252 Balance 350 1738 50 Weight 49.305 kg Intake: IV 50 1050 50 Sodium Chloride 0.9% 1,000 ml @ 1000 70 mls/hr IV .[id number] ALBERT Rx#: [id number] Zosyn 3.375 gm In Dextrose 5% 50 50 50 in Water 50 ml @ 100 mls/hr IV Q8H ALBERT Rx#:[id number] Oral 800 940 Output: Void Amount 500 250 # of times incontinent of urine 2 Other: Urine Appearance Clear Urine Color Pale Urine Odor Normal Exam: General: Alert, Awake, No acute Distress Eyes/N/T: EOMI, Head/Neck: neck supple, CV: RRR, No murmurs, Pulm: Clear b/l, no wheezing/rhonchi/rales Abd: soft, nontender, +BS x4 Ext: no clubbing/cyanosis. Right BKA Neuro: Alert, no focal deficits, moves all extremities, Skin: warm/dry OBJ DATA Labs CBC & Chem 7: 02/15/21 06:02 02/17/21 06:11 Labs: Abnormal Lab Results 02/16/21 02/16/21 02/16/21 05:40 05:40 05:40 WBC RBC Hgb Hct MCHC Plt Count MPV Neut % (Auto) Lymph % (Auto) Lymph # (Auto) Lymphocytes % WBC Morphology Toxic Granulation ESR Sodium 128 L Chloride Anion Gap 7.0 L BUN Creatinine 0.6 L Glucose Hemoglobin A1c 18.3 H Uric Acid 1.5 L Calcium 7.9 L AST 43 H Alkaline Phosphatase 271 H Lactate Dehydrogenase 99 L C-Reactive Protein Albumin 1.6 L Globulin 4.3 H Albumin/Globulin Ratio 0.4 L Beta-Hydroxybutyrate Procalcitonin 0.30 H Urine Appearance Urine Protein Urine Glucose (UA) Urine Opiates Screen Ur Amphetamines Screen U Marijuana (THC) Screen 02/15/21 02/15/21 02/15/21 20:57 20:57 06:02 WBC RBC Hgb Hct MCHC Plt Count MPV Neut % (Auto) Lymph % (Auto) Lymph # (Auto) Lymphocytes % WBC Morphology Toxic Granulation ESR Sodium 132 L Chloride Anion Gap 6.0 L BUN Creatinine Glucose Hemoglobin A1c Uric Acid Calcium 8.4 L AST Alkaline Phosphatase Lactate Dehydrogenase C-Reactive Protein Albumin Globulin Albumin/Globulin Ratio Beta-Hydroxybutyrate Procalcitonin Urine Appearance Hazy A Urine Protein 30 A Urine Glucose (UA) >=500 A Urine Opiates Screen Suspect positive A Ur Amphetamines Screen Suspect positive A U Marijuana (THC) Screen Suspect positive A 02/15/21 02/14/21 02/14/21 06:02 19:43 19:43 WBC RBC 3.51 L Hgb 10.0 L Hct 33.4 L MCHC 29.9 L Plt Count 462 H MPV Neut % (Auto) 82.0 H Lymph % (Auto) 10.2 L Lymph # (Auto) 0.80 L Lymphocytes % WBC Morphology Toxic Granulation ESR 122 H Sodium Chloride Anion Gap BUN Creatinine Glucose Hemoglobin A1c Uric Acid Calcium AST Alkaline Phosphatase Lactate Dehydrogenase C-Reactive Protein 18.10 H Albumin Globulin Albumin/Globulin Ratio Beta-Hydroxybutyrate Procalcitonin Urine Appearance Urine Protein Urine Glucose (UA) Urine Opiates Screen Ur Amphetamines Screen U Marijuana (THC) Screen 02/14/21 02/14/21 02/14/21 14:20 14:12 14:11 WBC 12.6 H RBC 3.68 L Hgb 10.5 L Hct 33.3 L MCHC Plt Count MPV 10.5 H Neut % (Auto) Lymph % (Auto) Lymph # (Auto) Lymphocytes % 13 L WBC Morphology Abnormal A Toxic Granulation 1+ A ESR 122 H Sodium Chloride Anion Gap BUN Creatinine Glucose Hemoglobin A1c Uric Acid Calcium AST Alkaline Phosphatase Lactate Dehydrogenase C-Reactive Protein Albumin Globulin Albumin/Globulin Ratio Beta-Hydroxybutyrate 2.21 H Procalcitonin 0.61 H Urine Appearance Urine Protein Urine Glucose (UA) Urine Opiates Screen Ur Amphetamines Screen U Marijuana (THC) Screen 02/14/21 14:11 WBC RBC Hgb Hct MCHC Plt Count MPV Neut % (Auto) Lymph % (Auto) Lymph # (Auto) Lymphocytes % WBC Morphology Toxic Granulation ESR Sodium 121 L Chloride 87 L Anion Gap BUN 21 H Creatinine Glucose 396 H Hemoglobin A1c Uric Acid Calcium AST 43 H Alkaline Phosphatase 321 H Lactate Dehydrogenase C-Reactive Protein 22.10 H Albumin 2.2 L Globulin 6.0 H Albumin/Globulin Ratio 0.4 L Beta-Hydroxybutyrate Procalcitonin Urine Appearance Urine Protein Urine Glucose (UA) Urine Opiates Screen Ur Amphetamines Screen U Marijuana (THC) Screen Meds: Medications Acetaminophen (Acetaminophen 325 Mg Tablet) 650 mg PO Q6HP PRN; Protocol PRN Reason: Per Pain Protocol/Fever > 101 Hydrocodone Bitart/Acetaminophen (Hydrocodone/Apap 5/325mg Tablet) 1 - 2 tab PO Q4HP PRN; Protocol PRN Reason: Per Pain Protocol Last Admin: 02/17/21 03:30 Dose: 2 tab Documented by: Dextrose (Dextrose 50% 50 Ml Vial) 0 ml IV UD PRN PRN Reason: Hypoglycemia Diagnostic Test (Pha) (Accu-Chek 1 Each Strip) 1 each FS ACHS [facility] Last Admin: 02/17/21 01:21 Dose: 1 each Documented by: Docusate Sodium (Docusate Sodium 100 Mg Capsule) 100 mg PO BID [facility] Last Admin: 02/16/21 19:59 Dose: Not Given Documented by: Enoxaparin Sodium (Enoxaparin 40 Mg/0.4 Ml Syringe) 40 mg SQ DAILY [facility] Gabapentin (Gabapentin 300 Mg Capsule) 300 mg PO BID [facility] Last Admin: 02/16/21 21:25 Dose: 300 mg Documented by: Glucose (Dextrose 31 Gm Oral.Susp) 15 gm PO PRN PRN PRN Reason: Hypoglycemia Piperacillin Sod/Tazobactam (Sod 3.375 gm/ Dextrose) 50 mls @ 100 mls/hr IV Q8H [facility]; Protocol Last Infusion: 02/17/21 07:06 Dose: Infused Documented by: Insulin Glargine (Insulin Glargine, Human 1 Unit/0.01 Ml) 20 unit SQ [facility] Last Admin: 02/16/21 19:59 Dose: 20 units Documented by: Insulin Glargine (Insulin Glargine, Human 1 Unit/0.01 Ml) 10 unit SQ DAILY [facility] Insulin Human Lispro (Insulin Lispro 1 Unit/0.01 Ml Unit) 0 unit SQ [facility]; Protocol Last Admin: 02/16/21 23:22 Dose: 18 units Documented by: Loperamide HCl (Loperamide 2 Mg Capsule) 4 mg PO PRN PRN PRN Reason: Diarrhea Last Admin: 02/16/21 00:16 Dose: 4 mg Documented by: Morphine Sulfate (Morphine 2 Mg/Ml Vial) 1 - 3 mg IV Q3HP PRN; Protocol PRN Reason: Per Pain Protocol Last Admin: 02/17/21 01:23 Dose: 2 mg Documented by: Mupirocin (Mupirocin Oint 2% 22gm) 1 dose NARES BID [facility] Last Admin: 02/16/21 21:25 Dose: 1 dose Documented by: Ondansetron HCl (Ondansetron 4 Mg/2 Ml Vial) 4 mg IV Q6HP PRN PRN Reason: Nausea And Vomiting Senna (Sennosides 1 Tablet) 2 tab PO [facility] Last Admin: 02/16/21 20:00 Dose: Not Given Documented by: Sodium Chloride (0.9 % Sodium Chloride 10 Ml Syringe) 10 ml IV Q8 [facility] Last Admin: 02/17/21 04:44 Dose: Not Given Documented by: A/P Narrative A/P Narrative: A: *Diabetic foot infection/osteomyelitis of the Right foot, recent transmetatarsal amputation: s/p BKA (4/25) *DM: -HgA1c 18.3 *Hyponatremia: resolved *Anemia of chronic disease: *Polysubstance abuse including IV methamphetamine and marijuana: -UDS with amphetamine/MJ P: -Dr. Beckham following -Dr. Santiago following -Infectious source removed. Will DC antibiotics in AM, BC's negative -PT and OT evaluation and treatment -Lantus 30 bid (unknown home regimen), titrate as needed, ssi -will need diabetic supplies -CM for placement -ppx: heparin Time Spent With Patient Time: Total time spent is greater than 50% in coordination of care (as documented) at patient's floor/unit and/or counseling patient: QUALITY Stroke Symptom Onset Unknown: No VTE Deep Vein Thrombosis/Pulmonary Embolism Present on Admission: No
[2021-02-17 07:50] LABS: ALT/SGPT 28 U/L (<40); AST/SGOT 49 U/L (<40); Albumin 1.5 gm/dL (3.2-5.2); Albumin/Globulin Ratio 0.3 (1.0-2.3); Alkaline Phosphatase 287 U/L (39-117); Bilirubin,Direct < 0.2 mg/dL (0-0.3); Bilirubin,Total < 0.2 mg/dL (0.1-1.0); Blood Urea Nitrogen 17 mg/dL (6-20); Calcium 7.8 mg/dL (8.6-10.4); Carbon Dioxide 22 mmol/L (22-30); Chloride 103 mmol/L (96-108); Globulin 4.9 gm/dL (2.2-3.7); Glomerular Filtration Rate 101; Glucose 48 mg/dL (70-105); Lactate Dehydrogenase 117 U/L (135-225); Phosphorous 2.5 mg/dL (2.5-4.5); Triglycerides 95 mg/dL (<150); Uric Acid 2.2 mg/dL (2.5-8.0)
[2021-02-17] MEDS: INSULIN LISPRO 1 UNIT/0.01 ML UNIT SQ SCH ×4 (07:56→20:36)
--- NOTE | 2021-02-17 08:29 | Operative Note ---
DATE OF OPERATION: 02/16/2021 PREOPERATIVE DIAGNOSIS: Right chronic transmetatarsal wound drainage with underlying osteomyelitis. POSTOPERATIVE DIAGNOSIS: Right chronic transmetatarsal wound drainage with underlying osteomyelitis. PROCEDURE PERFORMED: Right below-knee amputation. SURGEON: Sal Beckham MD GLOBAL ACCOUNT MANAGER: Darnell Dumont PA-C. This providers expertise and technical skill were required throughout the case. The PA assisted with preoperative coordination, intraoperative retraction, wound closure, and dressing and splint application, as well as postoperative documentation and care coordination. ANESTHESIA: LMA with peripheral nerve block. INTRAVENOUS FLUIDS: 1700 mL lactated Ringer's. ESTIMATED BLOOD LOSS: Less than 50 mL. TOURNIQUET TIME: 60 minutes at 250 mmHg. IMPLANTS: None. ANTIBIOTICS: 1 gram vancomycin powder within the wound and 1 gram vancomycin IV. PATHOLOGY : Distal portion of the leg, ankle and foot. INDICATIONS FOR PROCEDURE: The patient is a 55-year-old non-controlled diabetic, IV drug user who has had a chronic draining wound of the right foot for the past 2 months or so. He has had a prior transmetatarsal amputation for ulcerations as well. He did have systemic symptoms to include elevated white count and generalized aches, fatigue, low-grade temperatures and was admitted to the hospital and given IV antibiotics. Given the uncontrolled nature of diabetes as well as the chronic nonhealing wound with underlying osteo, Wound Care was consulted as well, did not think it would heal and recommended below-knee amputation. I discussed this with the patient at length to include the risks associated with this given his uncontrolled diabetes with A1c over 18 along with IV drug use, and ulceration on the posterior aspect of the calf with wound that may not heal. This is a real risk for him, which he understands. He understands that if not, he may end up with an [id number] amputation as well. He does want to proceed in this fashion. DESCRIPTION OF PROCEDURE: Patient was met in the preoperative holding area where site was verified and marked with the patient's input. He was taken to the operating room where he underwent successful anesthesia via LMA. The right lower extremity had a well-padded tourniquet placed about the proximal thigh and was then prepped and draped in the usual sterile fashion with ChloraPrep. Surgical timeout was performed to verify patient's identity, correct procedure being performed, and correct extremity being operated on. Everybody was in agreement. There were several posterior calf ulcerations with one that was over the Achilles tendon itself that was not amenable to healing. Given that, I measured this to allow me to get enough coverage with my posterior flap anteriorly to give him at least a short below-knee amputation. I was unable to get 15 cm distal to the tibial tubercle. Given that, skin markings were made with approximately 9-10 cm distal to the tibial tubercle with the AP dimension being 13. The posterior skin flap was only 11 cm, so it was a bit short in templating it. However, we elected to proceed in this fashion to see if I could get the skin closed atop of the tibia once amputation was performed to give him the longest possible below-knee amputation. With gravity exsanguination, the tourniquet was inflated to 250 mmHg. The skin incisions as outlined were created in a sharp fashion down to bone of the anterior and lateral down to the fascia around the musculature itself. This was elevated medially. The saphenous nerve or vein were identified. The vein was tied and the nerve was cut short laterally through the anterior musculature. I cut through this sharply down to the neurovascular bundle deep in the anterior compartment. The vessels were tied. The nerve was cut short. The lateral compartment muscle was identified as well as the syndesmotic membrane was visualized over the fibula. The peroneal nerve was cut short as well. At this point, I made my tibial cut as well as my fibular cut. The fibula was approximately 1.5 cm to 2 cm shorter than the tibia itself. These were transverse in nature. When this was completed, utilizing a bone hook, we elevated the tibia anteriorly and the posterior vessels were identified to include centrally as well as more laterally--there were two groupings. The vessels were tied and nerves were cut short. I did not tie off the posterior tibial nerve itself, just cut short. The sural nerve was also identified in the posterior flap and this was cut short. All vessels were then tied. The inferior flap was completed and the leg was removed. At this point, I felt that the vessels and everything had been adequately tied off. The tourniquet was desufflated. Hemostasis was obtained. There was minimal bleeding at this point. Copious irrigation with 3 liters normal saline was completed through the amputated portion. All drapes were changed and outer gloves were changed as well. The skin flap over the anterior tibia was then chamfered approximately 45 degrees through the anterior medullary canal portion of the tibia and then all edges were smoothed out. The fibula was ensured to be smooth as well in the chamfer the anterior and lateral edges. The soleus flap, the fascia of the Achilles as well was brought in and tied into the anterior periosteum of the tibia with a PDS suture and reapproximated circumferentially as well, and I did place 1 gram vancomycin powder deep in the wound. Subcutaneous tissue was closed in layered fashion with 3-0 Monocryl. Skin edges were trimmed to reapproximate nicely and the skin was closed with interrupted 2-0 nylon sutures. The leg was cleaned and dried. We placed a wound VAC dressing along with a compression Darryl wrap. He was placed into a hinged knee brace locked at 0-15 degrees to allow it to rest. The patient awoke from anesthesia and transferred to PACU in stable condition. POSTOPERATIVE PLAN: The patient will be admitted back to the floor. We will try to get him a stump log grader here in the next couple of days. Continue wound VAC dressing for approximately 3 to 5 days, at that time can remove if there is minimal drainage. DLW:chivo Job ID: [id number] Doc ID: [id number] Sal Beckham MD [facility]
[2021-02-17] MEDS ORDERED: INSULIN GLARGINE, HUMAN 1 UNIT/0.01 ML SQ SCH (09:00)
[2021-02-17] MEDS ORDERED: VANCOMYCIN 1,000 MG in 0.9 % SODIUM CHLORIDE 250 ML IV SCH (09:00)
[2021-02-17] MEDS: MUPIROCIN OINT 2% 22GM NARES SCH ×2 (10:25→20:33)
[2021-02-17] MEDS: INSULIN GLARGINE, HUMAN 1 UNIT/0.01 ML SQ SCH ×2 (10:25→20:37)
[2021-02-17] MEDS: GABAPENTIN 300 MG CAPSULE PO SCH ×2 (10:26→20:34)
[2021-02-17] MEDS: ENOXAPARIN 40 MG/0.4 ML SYRINGE SQ SCH (10:26)
--- NOTE | 2021-02-17 10:36 | Discharge Summary ---
Discharge Provider Provider Patient information: Note initiated : 02/17/21 at 10:34 am Service Date, if different from initiated Date: [] Patient: Wilfrido Damon 55 y/o M admitted on 02/14/21 for Right foot wound. Chief Complaint: [] Date of admission: 02/14/21 19:21 Discharge date: 02/19/21 Primary care physician: PCP No Consults: 02/14/21 Consult to Physician [CONS] Stat Comment: Consulting Provider: Reji Posey Reason For Exam: Physician to Consult 02/14/21 19:22 Consult to Infectious Disease [CONS] Stat Comment: Consulting Provider: Shahbaz Guzman Reason For Exam: Physician to Consult 02/15/21 14:38 Consult to Physician [CONS] Routine Comment: Consulting Provider: Neno Grimaldo Reason For Exam: Physician to Consult 02/15/21 16:55 Consult to Physician [CONS] Routine Comment: Consulting Provider: Boo Santiago Reason For Exam: Physician to Consult Discharge Meds Discharge Medications Home Medications hydrocodone-acetaminophen 1 - 2 tab PO Q4HP PRN #20 tab 02/17/21 [Rx Last Taken Unknown] insulin aspart U-100 1 unit SUBCUT ACHS #15 ml MDD 40 02/17/21 [Rx Last Taken Unknown] insulin glargine [Lantus Solostar U-100 Insulin] 30 unit SUB-Q BID #15 ml 02/17/21 [Rx Last Taken Unknown] COURSE Hospital Course Hospital course: History of present illness: Mr. Damon is a 55 year old M history of type 2 diabetes mellitus and polysubstance abuse including IV methamphetamine abuse, presenting with a nonhealing right foot ulcer for the past 1 and half month. He previously has a transmetatarsal amputations of the right foot about 2 years ago. Patient stated that he is noncompliant with his medication and he has not been taking any insulin for the past few months in particular. Over the past 1-1/2-month, he has been noticing ulcer and wound opening in the right foot amputation site with associated pain and foul- smelling. The pain is graded at 10 out of 10, constant, sharp, localized in the right foot near the amputation site. In addition, patient is complaining of general body weakness. He denies any decreased appetite or lethargy or confusions or fever or chills or diaphoresis. Because of the nonhealing and worsening nature of his right foot wound, he decided to come to our emergency room today for further evaluations. Vital signs significant with absence of fever. Labs significant for leukocytosis with WBC 12.6. Serum glucose 396. Serum bicarb 23 and anion gap 11. Calcitonin 0.61. X-ray of the right foot showing evidence of osteomyelitis Interval history: 02/15 Fever with Tmax 37.9. Wound and blood cultures no growth to date. 02/16 Patient status post BKA right leg. 02/17 Feeling better today. Blood glucose quite elevated however. He was on insulin in the past but does not know how many units. So 02/18 Patient doing well. No overnight event or new complaints. Blood sugars improving. we have been titrating up. 02/19 Doing well again. Discharge facility has been accepted. A: *Diabetic foot infection/osteomyelitis of the Right foot, recent transmetatarsal amputation: s/p BKA (02/16) *DM: -HgA1c 18.3 *Hyponatremia: resolved *Anemia of chronic disease: *Polysubstance abuse including IV methamphetamine and marijuana: -UDS with amphetamine/MJ * Current tobacco use: Discharge diagnosis: Right foot osteomyelitis status post BKA diabetes with hyperglycemia Secondary discharge diagnosis: Hyponatremia chronic anemia substance abuse tobacco abuse Time Spent with Patient Time attestation: Total time spent providing and/or coordinating discharge services: Time spent: Greater than 30 minutes EXAM Constitutional Vitals: Temp Pulse Resp BP Pulse Ox 98.4 F 77 15 100/60 99 02/17/21 06:55 02/17/21 06:55 02/17/21 06:55 02/17/21 06:55 02/17/21 06:55 Discharge Data Data Completed and Pending Labs on day of discharge: Labs from last 24 hours 02/17/21 02/17/21 08:00 06:11 Sodium 134 Potassium 4.0 Chloride 103 Carbon Dioxide 22 Anion Gap 9.0 BUN 17 Creatinine 0.8 GFR Calculation 101 Glucose 48 L Uric Acid 2.2 L Calcium 7.8 L Phosphorus 2.5 Magnesium 1.8 Total Bilirubin < 0.2 Direct Bilirubin < 0.2 GGT 55 AST 49 H ALT 28 Alkaline Phosphatase 287 H Lactate Dehydrogenase 117 L Total Protein 6.4 Albumin 1.5 L Globulin 4.9 H Albumin/Globulin Ratio 0.3 L Triglycerides 95 Vancomycin Trough 14.6 Preliminary micro results at discharge 02/14/21 14:58 Blood Culture - Preliminary Blood 02/14/21 14:30 Blood Culture - Preliminary Blood 02/14/21 20:44 Gram Stain - Preliminary Foot - Right Wound Culture - Preliminary Strep agalactiae - (group b) Proteus mirabilis Discharge Plan Patient/Caregiver Discharge Instructions Activity: increase activity as tolerated Diet: Consistent Carbohydrate Activity Restrictions/Additional Instructions: Established with PCP and follow-up in 3 to 7 days. Take stump destaticizer feeder wrap with you to your follow up appt. at Dr. Beckham's office on March 23. Prescriptions: New hydrocodone-acetaminophen 5-325 mg Tablet 1 - 2 tab PO Q4HP PRN (Reason: Per Pain Protocol) Qty: 20 RF: 0 insulin aspart U-100 100 unit/mL (3 mL) insulin pen 1 unit subcut ACHS MDD 40 Qty: 15 RF: 0 Lantus Solostar U-100 Insulin 100 unit/mL (3 mL) insulin pen 30 unit SUB-Q BID Qty: 15 RF: 0 Other Ambulatory Orders: Blood Glucose Strips (Routine) Location: None Selected Ordered By: Brandan Flynn Glucometer (Routine) Location: None Selected Ordered By: Brandan Flynn Insulin Menan and Syringes (Routine) Location: None Selected Ordered By: Brandan Flynn Lancets (Routine) Location: None Selected Ordered By: Brandan Flynn Follow Up Plan Follow up with: Boo Santiago MD [Physician] - Sal Beckham MD [Physician] - 02/21/21 No,PCP [Primary Care Provider] - Patient Disposition: Xfer SNF Prognosis: Fair Rehab Potential: Fair I certify that the patient requires SNF services: Yes Overall status at discharge: patient is progressing back to baseline Discharge Orders: Discharge Order (Routine); Ordered 02/19/21 Ordered By: Brandan Flynn QUALITY VTE Deep Vein Thrombosis/Pulmonary Embolism Present on Admission: No
[2021-02-17] MEDS: DOCUSATE SODIUM 100 MG CAPSULE PO SCH ×2 (10:45→19:12)
--- NOTE | 2021-02-17 17:51 | General Surgery Progress Note ---
SUBJECTIVE Subjective Patient information: Note initiated : 02/17/21 at 5:47 pm Service Date, if different from initiated Date: [] Patient: Wilfrido Damon 55 y/o M admitted on 02/14/21 for Right foot wound. Chief Complaint: [] Additional PMFSH (Level 3 Only): I saw patient on morning rounds with Diana CHILD, In Patient Wound Care Nurse. Reviewed his progress and operation note of Dr. Beckham. Constitutional Vitals: Vital Signs Temp Pulse Resp BP Pulse Ox 97.9 F 80 17 101/65 97 02/17/21 16:00 02/17/21 16:00 02/17/21 16:00 02/17/21 16:00 02/17/21 16:00 Period Temp Pulse Resp BP Sys/Orosco Pulse Ox Last 24 Hr 97.9 F-98.7 F 63-87 14-18 85-107/53-69 96-99 Intake and Output 02/17/21 02/17/21 02/17/21 05:59 13:59 21:59 Intake Total 1989 170 50 Output Total 252 Balance 1738 170 50 Weight 108 lb 11.2 oz Patient Weight 02/18/21 05:59 Weight 108 lb 11.2 oz Intake & Output: Intake & Output 02/17/21 02/17/21 02/17/21 05:59 13:59 21:59 Intake Total 1989 170 50 Output Total 252 Balance 1738 170 50 Weight 108 lb 11.2 oz Intake: IV 1050 50 50 Sodium Chloride 0.9% 1,000 ml @ 1000 70 mls/hr IV .[id number] ALBERT Rx#: [id number] Zosyn 3.375 gm In Dextrose 5% 50 50 50 in Water 50 ml @ 100 mls/hr IV Q8H ALBERT Rx#:[id number] Oral 940 120 0 Output: Void Amount 250 # of times incontinent of urine 2 Other: Meal Breakfast Percent of Meal Consumed Refused Stool Size Moderate # Voids 2 General appearance: cooperative, disheveled, no acute distress and thin Exam: AVSS, HD Stable. KEVON unremarkable Dressings Right leg CDI A/P Narrative A/P Narrative: Assessment: Appreciate Dr. Beckham operating on this gentleman yesterday. Agree with current ongoing treatment. Plan: Will await developments. Will be available to assist with wound care needs as necessary. Time Spent With Patient Time: Total time spent is greater than 50% in coordination of care (as documented) at patient's floor/unit and/or counseling patient: Total time spent with greater than 50% in coordination of care (as documented) at patient's floor/unit and/or counseling patient:: 15 - 24 minutes
[2021-02-17] MEDS: SENNOSIDES 1 TABLET PO SCH (19:13)
[2021-02-17] MEDS ORDERED: LOPERAMIDE 2 MG CAPSULE PO PRN (20:48)
[2021-02-17] MEDS: LOPERAMIDE 2 MG CAPSULE PO PRN (21:20)
[2021-02-18] MEDS: HYDROcodone/APAP 5/325MG TABLET PO PRN ×5 (00:26→19:52)
[2021-02-18] MEDS: PIPERACILLIN SODIUM/TAZOBACTAM 3.375 GM in DEXTROSE 5% IN WATER 50 ML IV SCH (05:40)
[2021-02-18] MEDS: 0.9 % SODIUM CHLORIDE 10 ML SYRINGE IV SCH ×3 (05:41→21:15)
[2021-02-18] MEDS: morphine 2 MG/ML VIAL IV PRN ×3 (08:06→21:15)
[2021-02-18] MEDS: INSULIN LISPRO 1 UNIT/0.01 ML UNIT SQ SCH ×4 (08:31→21:17)
[2021-02-18] MEDS: GABAPENTIN 300 MG CAPSULE PO SCH ×2 (10:04→21:17)
[2021-02-18] MEDS: INSULIN GLARGINE, HUMAN 1 UNIT/0.01 ML SQ SCH ×2 (10:04→21:16)
[2021-02-18] MEDS: ENOXAPARIN 40 MG/0.4 ML SYRINGE SQ SCH (10:04)
[2021-02-18] MEDS: MUPIROCIN OINT 2% 22GM NARES SCH ×2 (10:09→21:18)
[2021-02-18] MEDS: DOCUSATE SODIUM 100 MG CAPSULE PO SCH ×2 (10:32→21:16)
--- NOTE | 2021-02-18 13:20 | Orthopedic Progress Note ---
SUBJECTIVE Subjective Patient information: Note initiated : 02/18/21 at 1:15 pm Service Date, if different from initiated Date: [] Patient: Wilfrido Damon 55 y/o M admitted on 02/14/21 for Right foot wound. Chief Complaint: [No new complaints, wants to eat more "brownie. Increased pain after application of stump furnace tapper. ] Constitutional Vitals: Vital Signs Temp Pulse Resp BP Pulse Ox 98.0 F 83 16 96/63 98 02/18/21 07:58 02/18/21 07:58 02/18/21 07:58 02/18/21 07:58 02/18/21 07:58 Period Temp Pulse Resp BP Sys/Orosco Pulse Ox Last 24 Hr 97.5 F-98.0 F 80-85 16-17 85-101/52-65 97-100 Intake and Output 02/17/21 02/18/21 02/18/21 21:59 05:59 13:59 Intake Total 100 240 530 Output Total 3 Balance 100 237 530 Weight 109 lb 3 oz Intake & Output: Intake & Output 02/17/21 02/18/21 02/18/21 21:59 05:59 13:59 Intake Total 100 240 530 Output Total 3 Balance 100 237 530 Weight 109 lb 3 oz Intake: IV 100 50 Zosyn 3.375 gm In Dextrose 5% 100 50 in Water 50 ml @ 100 mls/hr IV Q8H [facility] Rx#:[id number] Oral 0 240 480 Output: # of times incontinent of urine 3 Other: Meal Nourishment/Supplement Breakfast Percent of Meal Consumed 100% 75% Stool Size Moderate Stool Color Brown Stool Consistency Loose # Voids 1 # Bowel Movements 1 Additional findings Additional findings: Alert and oriented Right leg: dressing clean and dry, no drainage. wound vac in place OBJ DATA Labs CBC & Chem 7: 02/15/21 06:02 02/17/21 06:11 Labs: Abnormal Lab Results 02/18/21 02/17/21 02/16/21 06:00 06:11 05:40 Sodium Anion Gap Creatinine Glucose 48 L Hemoglobin A1c Uric Acid 2.2 L Calcium 7.8 L AST 49 H Alkaline Phosphatase 287 H Lactate Dehydrogenase 117 L C-Reactive Protein 2.10 H Albumin 1.5 L Globulin 4.9 H Albumin/Globulin Ratio 0.3 L Procalcitonin 0.30 H Urine Appearance Urine Protein Urine Glucose (UA) Urine Opiates Screen Ur Amphetamines Screen U Marijuana (THC) Screen 02/16/21 02/16/21 02/15/21 05:40 05:40 20:57 Sodium 128 L Anion Gap 7.0 L Creatinine 0.6 L Glucose Hemoglobin A1c 18.3 H Uric Acid 1.5 L Calcium 7.9 L AST 43 H Alkaline Phosphatase 271 H Lactate Dehydrogenase 99 L C-Reactive Protein Albumin 1.6 L Globulin 4.3 H Albumin/Globulin Ratio 0.4 L Procalcitonin Urine Appearance Hazy A Urine Protein 30 A Urine Glucose (UA) >=500 A Urine Opiates Screen Ur Amphetamines Screen U Marijuana (THC) Screen 02/15/21 20:57 Sodium Anion Gap Creatinine Glucose Hemoglobin A1c Uric Acid Calcium AST Alkaline Phosphatase Lactate Dehydrogenase C-Reactive Protein Albumin Globulin Albumin/Globulin Ratio Procalcitonin Urine Appearance Urine Protein Urine Glucose (UA) Urine Opiates Screen Suspect positive A Ur Amphetamines Screen Suspect positive A U Marijuana (THC) Screen Suspect positive A Meds: Medications Acetaminophen (Acetaminophen 325 Mg Tablet) 650 mg PO Q6HP PRN; Protocol PRN Reason: Per Pain Protocol/Fever > 101 Hydrocodone Bitart/Acetaminophen (Hydrocodone/Apap 5/325mg Tablet) 1 - 2 tab PO Q4HP PRN; Protocol PRN Reason: Per Pain Protocol Last Admin: 02/18/21 10:04 Dose: 2 tab Documented by: Dextrose (Dextrose 50% 50 Ml Vial) 0 ml IV UD PRN PRN Reason: Hypoglycemia Diagnostic Test (Pha) (Accu-Chek 1 Each Strip) 1 each FS ACHS [facility] Last Admin: 02/18/21 11:36 Dose: 1 each Documented by: Docusate Sodium (Docusate Sodium 100 Mg Capsule) 100 mg PO BID [facility] Last Admin: 02/18/21 10:32 Dose: Not Given Documented by: Enoxaparin Sodium (Enoxaparin 40 Mg/0.4 Ml Syringe) 40 mg SQ DAILY [facility] Last Admin: 02/18/21 10:04 Dose: 40 mg Documented by: Gabapentin (Gabapentin 300 Mg Capsule) 300 mg PO BID [facility] Last Admin: 02/18/21 10:04 Dose: 300 mg Documented by: Glucose (Dextrose 31 Gm Oral.Susp) 15 gm PO PRN PRN PRN Reason: Hypoglycemia Insulin Glargine (Insulin Glargine, Human 1 Unit/0.01 Ml) 30 unit SQ BID [facility] Last Admin: 02/18/21 10:04 Dose: 30 units Documented by: Insulin Human Lispro (Insulin Lispro 1 Unit/0.01 Ml Unit) 0 unit SQ ACHS [facility]; Protocol Last Admin: 02/18/21 12:46 Dose: Not Given Documented by: Loperamide HCl (Loperamide 2 Mg Capsule) 4 mg PO PRN PRN PRN Reason: Diarrhea Last Admin: 02/17/21 21:20 Dose: 4 mg Documented by: Loperamide HCl (Loperamide 2 Mg Capsule) 2 mg PO PRN PRN PRN Reason: Diarrhea Morphine Sulfate (Morphine 2 Mg/Ml Vial) 1 - 3 mg IV Q3HP PRN; Protocol PRN Reason: Per Pain Protocol Last Admin: 02/18/21 12:15 Dose: 2 mg Documented by: Mupirocin (Mupirocin Oint 2% 22gm) 1 dose NARES BID [facility] Last Admin: 02/18/21 10:09 Dose: 1 dose Documented by: Ondansetron HCl (Ondansetron 4 Mg/2 Ml Vial) 4 mg IV Q6HP PRN PRN Reason: Nausea And Vomiting Senna (Sennosides 1 Tablet) 2 tab PO HS [facility] Last Admin: 02/17/21 19:13 Dose: Not Given Documented by: Sodium Chloride (0.9 % Sodium Chloride 10 Ml Syringe) 10 ml IV Q8 [facility] Last Admin: 02/18/21 12:15 Dose: 10 ml Documented by: A/P Assessment and plan (1) Osteomyelitis of ankle and foot: Status: Acute Comment: POD 2 s/p right below knee amputation -- PT/OT today for ambulation/mobilization training, crutches or walker ok -- pain control -----mostly oral meds -- Stump furnace tapper is here, will apply once wound vac removed--- will do in clinic on Wednesday -- prophy- IS, devan, scds, mobilization -- Dispo: pending rehab, ok to d/c from ortho standpoint with follow up on Wednesday in clinic. Time Spent With Patient Time: Total time spent is greater than 50% in coordination of care (as documented) at patient's floor/unit and/or counseling patient:
--- NOTE | 2021-02-18 15:38 | Internal Med Progress Note ---
SUBJECTIVE Subjective Patient information: Note initiated : 02/18/21 at 3:37 pm Service Date, if different from initiated Date: [] Patient: Wilfrido Damon 55 y/o M admitted on 02/14/21 for Right foot wound. Chief Complaint: [] Interval history: 02/15 Fever with Tmax 37.9. Wound and blood cultures no growth to date. 02/16 Patient status post BKA right leg. 02/17 Feeling better today. Blood glucose quite elevated however. He was on insulin in the past but does not know how many units. So we have been titrating up. 02/18 Patient doing well. No overnight event or new complaints. Blood sugars improving. Review of Systems: denies headache/fever/chills/nausea/vomiting/chest or abdominal pain/cough/dyspnea/diarrhea. Otherwise see above. Constitutional Vitals: Vital Signs Temp Pulse Resp BP Pulse Ox 97.6 F 89 16 119/79 98 02/18/21 12:00 02/18/21 12:00 02/18/21 12:00 02/18/21 12:00 02/18/21 12:00 Period Temp Pulse Resp BP Sys/Orosco Pulse Ox Last 24 Hr 97.5 F-98.0 F 80-89 16-17 85-119/52-79 97-100 Intake and Output 02/18/21 02/18/21 02/18/21 05:59 13:59 21:59 Intake Total 240 530 Output Total 3 Balance 237 530 Weight 49.527 kg Patient Weight 02/19/21 05:59 Weight 49.527 kg Intake & Output: Intake & Output 02/18/21 02/18/21 02/18/21 05:59 13:59 21:59 Intake Total 240 530 Output Total 3 Balance 237 530 Weight 49.527 kg Intake: IV 50 Zosyn 3.375 gm In Dextrose 5% 50 in Water 50 ml @ 100 mls/hr IV Q8H [facility] Rx#:[id number] Oral 240 480 Output: # of times incontinent of urine 3 Other: Meal Nourishment/Supplement Breakfast Percent of Meal Consumed 100% 75% Stool Size Moderate Stool Color Brown Stool Consistency Loose # Voids 1 # Bowel Movements 1 Exam: General: Alert, Awake, No acute Distress Eyes/N/T: EOMI, Head/Neck: neck supple, CV: RRR, No murmurs, Pulm: Clear b/l, no wheezing/rhonchi/rales Abd: soft, nontender, +BS x4 Ext: no clubbing/cyanosis. Right BKA Neuro: Alert, no focal deficits, moves all extremities, Skin: warm/dry OBJ DATA Labs CBC & Chem 7: 02/15/21 06:02 02/17/21 06:11 Labs: Abnormal Lab Results 02/18/21 02/17/21 02/16/21 06:00 06:11 05:40 Sodium Anion Gap Creatinine Glucose 48 L Hemoglobin A1c Uric Acid 2.2 L Calcium 7.8 L AST 49 H Alkaline Phosphatase 287 H Lactate Dehydrogenase 117 L C-Reactive Protein 2.10 H Albumin 1.5 L Globulin 4.9 H Albumin/Globulin Ratio 0.3 L Procalcitonin 0.30 H Urine Appearance Urine Protein Urine Glucose (UA) Urine Opiates Screen Ur Amphetamines Screen U Marijuana (THC) Screen 02/16/21 02/16/21 02/15/21 05:40 05:40 20:57 Sodium 128 L Anion Gap 7.0 L Creatinine 0.6 L Glucose Hemoglobin A1c 18.3 H Uric Acid 1.5 L Calcium 7.9 L AST 43 H Alkaline Phosphatase 271 H Lactate Dehydrogenase 99 L C-Reactive Protein Albumin 1.6 L Globulin 4.3 H Albumin/Globulin Ratio 0.4 L Procalcitonin Urine Appearance Hazy A Urine Protein 30 A Urine Glucose (UA) >=500 A Urine Opiates Screen Ur Amphetamines Screen U Marijuana (THC) Screen 02/15/21 20:57 Sodium Anion Gap Creatinine Glucose Hemoglobin A1c Uric Acid Calcium AST Alkaline Phosphatase Lactate Dehydrogenase C-Reactive Protein Albumin Globulin Albumin/Globulin Ratio Procalcitonin Urine Appearance Urine Protein Urine Glucose (UA) Urine Opiates Screen Suspect positive A Ur Amphetamines Screen Suspect positive A U Marijuana (THC) Screen Suspect positive A Meds: Medications Acetaminophen (Acetaminophen 325 Mg Tablet) 650 mg PO Q6HP PRN; Protocol PRN Reason: Per Pain Protocol/Fever > 101 Hydrocodone Bitart/Acetaminophen (Hydrocodone/Apap 5/325mg Tablet) 1 - 2 tab PO Q4HP PRN; Protocol PRN Reason: Per Pain Protocol Last Admin: 02/18/21 14:55 Dose: 2 tab Documented by: Dextrose (Dextrose 50% 50 Ml Vial) 0 ml IV UD PRN PRN Reason: Hypoglycemia Diagnostic Test (Pha) (Accu-Chek 1 Each Strip) 1 each FS [facility] Last Admin: 02/18/21 11:36 Dose: 1 each Documented by: Docusate Sodium (Docusate Sodium 100 Mg Capsule) 100 mg PO BID [facility] Last Admin: 02/18/21 10:32 Dose: Not Given Documented by: Enoxaparin Sodium (Enoxaparin 40 Mg/0.4 Ml Syringe) 40 mg SQ DAILY [facility] Last Admin: 02/18/21 10:04 Dose: 40 mg Documented by: Gabapentin (Gabapentin 300 Mg Capsule) 300 mg PO BID [facility] Last Admin: 02/18/21 10:04 Dose: 300 mg Documented by: Glucose (Dextrose 31 Gm Oral.Susp) 15 gm PO PRN PRN PRN Reason: Hypoglycemia Insulin Glargine (Insulin Glargine, Human 1 Unit/0.01 Ml) 30 unit SQ BID [facility] Last Admin: 02/18/21 10:04 Dose: 30 units Documented by: Insulin Human Lispro (Insulin Lispro 1 Unit/0.01 Ml Unit) 0 unit SQ [facility]; Protocol Last Admin: 02/18/21 12:46 Dose: Not Given Documented by: Loperamide HCl (Loperamide 2 Mg Capsule) 4 mg PO PRN PRN PRN Reason: Diarrhea Last Admin: 02/17/21 21:20 Dose: 4 mg Documented by: Loperamide HCl (Loperamide 2 Mg Capsule) 2 mg PO PRN PRN PRN Reason: Diarrhea Morphine Sulfate (Morphine 2 Mg/Ml Vial) 1 - 3 mg IV Q3HP PRN; Protocol PRN Reason: Per Pain Protocol Last Admin: 02/18/21 12:15 Dose: 2 mg Documented by: Mupirocin (Mupirocin Oint 2% 22gm) 1 dose NARES BID [facility] Last Admin: 02/18/21 10:09 Dose: 1 dose Documented by: Ondansetron HCl (Ondansetron 4 Mg/2 Ml Vial) 4 mg IV Q6HP PRN PRN Reason: Nausea And Vomiting Senna (Sennosides 1 Tablet) 2 tab PO [facility] Last Admin: 02/17/21 19:13 Dose: Not Given Documented by: Sodium Chloride (0.9 % Sodium Chloride 10 Ml Syringe) 10 ml IV Q8 [facility] Last Admin: 02/18/21 12:15 Dose: 10 ml Documented by: A/P Narrative A/P Narrative: A: *Diabetic foot infection/osteomyelitis of the Right foot, recent transmetatarsal amputation: s/p BKA (02/16) *DM: -HgA1c 18.3 *Hyponatremia: resolved *Anemia of chronic disease: *Polysubstance abuse including IV methamphetamine and marijuana: -UDS with amphetamine/MJ P: -Dr. Beckham following -Dr. Santiago following -Infectious source removed. DC'd antibiotics, BC's negative -PT and OT evaluation and treatment -Lantus 30 bid (unknown home regimen), titrate as needed, ssi -will need diabetic supplies -awaiting placement -ppx: heparin Time Spent With Patient Time: Total time spent is greater than 50% in coordination of care (as documented) at patient's floor/unit and/or counseling patient: QUALITY Stroke Symptom Onset Unknown: No VTE Deep Vein Thrombosis/Pulmonary Embolism Present on Admission: No
[2021-02-18] MEDS ORDERED: MELATONIN 3 MG TABLET PO SCH (21:00)
[2021-02-18] MEDS: SENNOSIDES 1 TABLET PO SCH (21:17)
[2021-02-18] MEDS ORDERED: diphenhydrAMINE 25 MG CAPSULE PO PRN (21:26)
[2021-02-18] MEDS ORDERED: TEMAZEPAM 15 MG CAPSULE PO PRN (21:26)
[2021-02-19] MEDS: HYDROcodone/APAP 5/325MG TABLET PO PRN ×3 (00:07→12:26)
[2021-02-19] MEDS: morphine 2 MG/ML VIAL IV PRN ×3 (02:42→07:51)
[2021-02-19] MEDS: 0.9 % SODIUM CHLORIDE 10 ML SYRINGE IV SCH (04:00)
[2021-02-19] MEDS: INSULIN LISPRO 1 UNIT/0.01 ML UNIT SQ SCH (07:52)
[2021-02-19] MEDS ORDERED: TAMSULOSIN 0.4 MG CAPSULE PO SCH (11:20)
[2021-02-19] MEDS: ENOXAPARIN 40 MG/0.4 ML SYRINGE SQ SCH (12:20)
[2021-02-19] MEDS: DOCUSATE SODIUM 100 MG CAPSULE PO SCH (12:20)
[2021-02-19] MEDS: GABAPENTIN 300 MG CAPSULE PO SCH (12:21)
[2021-02-19] MEDS: MUPIROCIN OINT 2% 22GM NARES SCH (12:21)
[2021-02-19] MEDS: INSULIN GLARGINE, HUMAN 1 UNIT/0.01 ML SQ SCH (12:21)
--- NOTE | 2021-02-19 17:10 | Surgical Pathology Report ---
Histology Microscopic Diagnosis Specimen A- EXTREMITY, RIGHT, BELOW THE KNEE AMPUTATION: --- MULTIPLE FOCI OF EPIDERMAL ULCERATION AND ABSCESS. --- ARTERIES WITHOUT DIAGNOSTIC ALTERATIONS. --- NO OSTEOMYELITIS IDENTIFIED AT MARGIN. --- VIABLE MARGINS OF RESECTION. (RLF) Procedural Impression Osteomyelitis. Gross Description Received fresh designated as right below the knee extremity, is a lower leg amputation. The specimen measures 20 cm from margin to heel, and the foot measures 17 cm. There is a possible previous resection site and there are no digits present. On the outer edge of the foot there are four scabbed or ulcerated areas ranging in size from 1 x 0.7 to 5.2 x 3 cm. On the lower calf there is a 5.5 x 4 cm scabbed or ulcerated area which extends to the margin. The largest ulcer on the foot measures 5.5 x 6 and extends from the side of the foot down to the bottom of the foot. The posterior artery is dissected along its length and is widely patent along it's course without significant stenosis. Both the anterior and posterior arteries are dissected along their length with no significant stenosis. Pile Driver Operator Barge Mounted sections in seven cassettes: A1 - scrapings tibia; A2 - scrapings fibula; A3 - margin and welding equipment sales representative section of ulcer at margin; A4-A5 - welding equipment sales representative sections of ulcers from the foot; A6 - sections of posterior tibial arteries; A7 - sections of anterior tibial arteries. (SCB:teresa) Electronically Signed Queenie Brandt MD, FCAP Electronically Signed 02/19/2021 17:09
[2021-02-25 23:40] LABS: Cannabinoid Confirmation Positive; Opiate Confirmation Positive
== END 2021-02-19 12:30 | DRG 617 ==
LOC: ED 13:37 → MEDSUR 19:15
PROVIDERS: ADMIT Internal Medicine; ATTEND Internal Medicine